=== PATIENT | female | born 1940 | race Caucasian/White ===

== ENCOUNTER → 2017-11-27 14:29 | Outpatient (CLI) | payer MEDICARE, OTHER, SELFPAY ==
[2017-11-27 16:04] LABS: Vitamin D,25 Hydroxy 73.6 ng/mL (29.95-100.01)
[2017-11-27 16:13] LABS: ALB/GLOB Ratio 0.8 RATIO (0.9-2.4); AST(SGOT) 17 U/L (15-37); Alanine Aminotransfer ALT/SGPT 17 U/L (13-56); Albumin, Serum 3.3 g/dL (3.2-5.0); Alkaline Phosphatase 86 U/L (45-117); Anion Gap 10 (5-15); BUN 16 mg/dL (7-18); BUN/Creat Ratio 16.9 RATIO (10-20); Calcium,Total 8.7 mg/dL (8.5-10.1); Chloride 102 mmol/L (98-107); Creatinine, Serum 0.95 mg/dL (0.55-1.02); EST Glomerular Filtration Rate 61 mL/min (>60); Est Glom Filt Rate - Afr Amer 74 mL/min (>60); Globulin 4.1 g/dL (2.2-4.2); Glucose 110 mg/dL (74-106); Potassium 3.9 mmol/L (3.5-5.1); Protein, Total 7.4 g/dL (6.4-8.2); Sodium Level 139 mmol/L (136-145); Thyroid Stim Hormone (TSH) 4.36 uIU/mL (0.358-3.74)
== END ==
PROVIDERS: Family Provider Family Medicine; PCP Family Medicine; Visit Provider Internal Medicine Endocrinology, Diabetes & Metabolism
DX: E03.8 Other specified hypothyroidism (principal); E55.9 Vitamin D deficiency, unspecified
CPT/HCPCS: 36415; 80053; 82306; 84443

== ENCOUNTER → 2017-11-29 08:20 | Outpatient (CLI) | payer MEDICARE, OTHER, SELFPAY ==
--- NOTE | 2017-11-29 08:23 | BI_ITS ---
MAMMOGRAPHY - BILATERAL SCREENING REASON FOR EXAM: Female, 77 years old. Routine annual screening examination. PERTINENT HISTORY: Non-contributory. Remote stereotactic breast biopsy. TECHNIQUE: Digital bilateral breast dariel (3D mammographic acquisition) in the CC and MLO projections. 2-D mediolateral oblique (MLO) and craniocaudad (CC) views of both breasts were obtained. CAD: Full Field Digital Mammography with Computer Added Detection was performed. COMPARISON: Comparison is made with prior study dated April 19, 2016 and January 14, 2015. FINDINGS: Breast Composition: There are scattered areas of fibroglandular density. There are no dominant masses or suspicious calcifications. Stable benign-appearing calcifications in the right breast. No other significant abnormalities are identified. There has been no significant change since the prior study. BI/SCREENING MAMM (CAD), BILAT IMPRESSION: Stable bilateral screening mammogram. Yearly follow-up mammogram recommended. (A) ASSESSMENT CATEGORY: BIRADS Category 2: Benign. A letter regarding these results will be sent to the patient by the facility within 30 days. Approximately 10% of breast cancers are not detected by mammography. A normal mammogram should not delay biopsy of a clinically suspicious abnormality. [id number] Electronically Signed: Darrell Astorga MD at 10:07 EDT Tel [phone], Service support ,
--- NOTE | 2017-11-29 08:23 | BI_ITS ---
MAMMOGRAPHY - BILATERAL SCREENING REASON FOR EXAM: Female, 77 years old. Routine annual screening examination. PERTINENT HISTORY: Non-contributory. Remote stereotactic breast biopsy. TECHNIQUE: Digital bilateral breast miquel (3D mammographic acquisition) in the CC and MLO projections. 2-D mediolateral oblique (MLO) and craniocaudad (CC) views of both breasts were obtained. CAD: Full Field Digital Mammography with Computer Added Detection was performed. COMPARISON: Comparison is made with prior study dated April 19, 2016 and January 14, 2015. FINDINGS: Breast Composition: There are scattered areas of fibroglandular density. There are no dominant masses or suspicious calcifications. Stable benign-appearing calcifications in the right breast. No other significant abnormalities are identified. There has been no significant change since the prior study. BI/Bilat Brst Screen Miquel Add-On IMPRESSION: Stable bilateral screening mammogram. Yearly follow-up mammogram recommended. (A) ASSESSMENT CATEGORY: BIRADS Category 2: Benign. A letter regarding these results will be sent to the patient by the facility within 30 days. Approximately 10% of breast cancers are not detected by mammography. A normal mammogram should not delay biopsy of a clinically suspicious abnormality. [id number] Electronically Signed: Darrell Astorga MD at 10:07 EDT Tel [phone], Service support ,
== END ==
PROVIDERS: Family Provider Family Medicine; PCP Family Medicine; Visit Provider Obstetrics & Gynecology Gynecology
DX: Z12.31 Encounter for screening mammogram for malignant neoplasm of breast (principal)
CPT/HCPCS: 77063; 77067

== ENCOUNTER → 2017-12-08 12:28 | Outpatient (CLI) | payer MEDICARE, OTHER, SELFPAY ==
--- NOTE | 2017-12-08 12:31 | US_ITS ---
STUDY: ULTRASOUND TRANSVAGINAL CLINICAL: Female, 77 years old. Vaginal discharge. TECHNIQUE: Transvaginal COMPARISON: None. FINDINGS: Uterus is anteverted and is in midline. Uterus measures 7.5 x 4.7 x 2.2, transabdominally. Endometrial stripe is hyperechoic and fluid distended, measuring 5 mm in thickness. There is a nabothian cyst present. There is a 1.2 cm hypoechoic intramural lesion within the uterine body. Right ovary is visualized, measuring 2.1 x 1.8 x 1.1 cm, transvaginally. No focal lesion. Internal vascular flow on color Doppler imaging. Left ovary is visualized, measuring 1.3 x 1.1 x 0.7 cm, transvaginal. No focal lesion. Internal vascular flow on color Doppler imaging. There is no free fluid in the pelvis. Polycystic ovary disease: No. US/Transvaginal Non- IMPRESSION: 1. Mild fluid distention of the endometrial cavity. 2. 1.2 cm intramural uterine fibroid. Electronically Signed: Arpan Santiago MD at 4:52 EDT Tel , Service support ,
--- NOTE | 2017-12-08 12:31 | US_ITS ---
STUDY: ULTRASOUND TRANSVAGINAL CLINICAL: Female, 77 years old. Vaginal discharge. TECHNIQUE: Transvaginal COMPARISON: None. FINDINGS: Uterus is anteverted and is in midline. Uterus measures 7.5 x 4.7 x 2.2, transabdominally. Endometrial stripe is hyperechoic and fluid distended, measuring 5 mm in thickness. There is a nabothian cyst present. There is a 1.2 cm hypoechoic intramural lesion within the uterine body. Right ovary is visualized, measuring 2.1 x 1.8 x 1.1 cm, transvaginally. No focal lesion. Internal vascular flow on color Doppler imaging. Left ovary is visualized, measuring 1.3 x 1.1 x 0.7 cm, transvaginal. No focal lesion. Internal vascular flow on color Doppler imaging. There is no free fluid in the pelvis. Polycystic ovary disease: No. US/Pelvic (Non ) IMPRESSION: 1. Mild fluid distention of the endometrial cavity. 2. 1.2 cm intramural uterine fibroid. Electronically Signed: Arpan Santiago MD at 4:52 EDT Tel , Service support ,
== END ==
PROVIDERS: Family Provider Family Medicine; PCP Family Medicine; Visit Provider Obstetrics & Gynecology Gynecology
DX: N95.0 Postmenopausal bleeding (principal)
CPT/HCPCS: 76830; 76856

== ENCOUNTER 2018-02-11 14:20 | Emergency (ER) | payer MEDICARE, OTHER, SELFPAY ==
[2018-02-11 14:21] VITALS: BP 198/94; PULSE 99; RESP 18; TEMP 36.2; O2SAT 96; BMI 23.4
[2018-02-11 14:47] VITALS: BP 188/84; PULSE 93; RESP 19; O2SAT 96
--- NOTE | 2018-02-11 15:12 | ED.VISSUMM ---
- ER Visit Summary Date of Service: 02/11/18 Chief Complaint: [] Pressure elevated History of Present Illness: The patient is a 77 F complaining of hypertension. She has chronic hypertension. It was 200/106 at home. She has been feeling stressed and anxious lately. She took a Klonopin prior to coming in which has helped her anxiety. She denies any other feelings except for feeling funny and stressed Physical Examination: [] Vital signs reviewed General: Well-nourished well-developed Head: Normocephalic atraumatic Eyes: Pupils equal round and reactive to light extraocular movements intact ENT: TMs clear no hemotympanum no trauma Neck: Nontender full range of motion Cardiovascular: Regular rate rhythm no murmurs normal S1-S2 Respiratory: No distress clear to auscultation bilaterally chest nontender Abdomen: Soft nontender nondistended normal bowel sounds no masses Back: Nontender no CVA tenderness Extremities: Nontender active range of motion ?4 extremities no trauma Skin: Normal color no trauma Neuro alert oriented cranial nerves II through XII intact normal strength sensation reflexes Test Results: [] Emergency Department Course and Treatment: [] Patient given another dose of Cozaar she only takes 25 mg. She did not want anything further for stress. Resting comfortably. EKG shows sinus rhythm 88. Right bundle branch block noted. Blood pressure recheck after Cozaar is 173/86. I think this will continue to drop. I think most of this is anxiety related she will follow-up as an outpatient Treatment Plan: [] Disposition: [] Impression: [] Hypertension established out of control This note was generated with [employer] dictation software. It may contain incorrect words, spelling, and punctuation that were not noted in review of the chart prior to signing ED Disposition - Plan for ED Patient: Disposition: Home or Assisted Living Chief Complaint: Hypertension Instructions: ED HTN Established Referrals: Jp Henson DO [Primary Care Provider] -
--- NOTE | 2018-02-11 15:17 | EKG12_ITS ---
Test Reason : HYPERTENSION Blood Pressure : / mmHG Vent. Rate : 088 BPM Atrial Rate : 088 BPM P-R Int : 170 ms QRS Dur : 142 ms QT Int : 408 ms P-R-T Axes : 048 -75 063 degrees QTc Int : 493 ms Normal sinus rhythm Right bundle branch block Left anterior fascicular block Bifascicular block Left ventricular hypertrophy with repolarization abnormality Abnormal ECG Confirmed by AREN LIRIANO, SÁNCHEZ ([id number]), visual effects editor KRISTEN DUMONT ([id number]) on 02/14/2018 3:53:38 PM Referred By: JANAE Confirmed By:SÁNCHEZ YOUNGER MD
[2018-02-11] MEDS: Losartan Potassium 25 MG Tablet PO (15:34)
[2018-02-11 16:45] VITALS: BP 155/84; PULSE 74; RESP 20; O2SAT 97
== END 2018-02-11 16:46 | disposition home or self-care (01) ==
PROVIDERS: Emergency Provider Emergency Medicine; Family Provider Family Medicine; PCP Family Medicine
DX: I10 Essential (primary) hypertension (principal); F41.9 Anxiety disorder, unspecified; Z79.899 Other long term (current) drug therapy
CPT/HCPCS: 93005; 99282

== ENCOUNTER → 2018-09-10 10:36 | Outpatient (CLI) | payer MEDICARE, OTHER, SELFPAY ==
[2018-09-10 15:54] LABS: Vitamin D,25 Hydroxy 61.7 ng/mL (29.95-100.01)
[2018-09-10 15:57] LABS: AST(SGOT) 18 U/L (15-37); Alanine Aminotransfer ALT/SGPT 22 U/L (13-56); Albumin, Serum 3.9 g/dL (3.2-5.0); Alkaline Phosphatase 78 U/L (45-117); Anion Gap 10 (5-15); BUN 17 mg/dL (7-18); BUN/Creat Ratio 20.1 RATIO (10-20); Calcium,Total 9.2 mg/dL (8.5-10.1); Chloride 103 mmol/L (98-107); Creatinine, Serum 0.85 mg/dL (0.55-1.02); EST Glomerular Filtration Rate 70 mL/min (>60); Est Glom Filt Rate - Afr Amer 84 mL/min (>60); Globulin 3.9 g/dL (2.2-4.2); Glucose 85 mg/dL (74-106); Potassium 4.2 mmol/L (3.5-5.1); Protein, Total 7.8 g/dL (6.4-8.2); Sodium Level 140 mmol/L (136-145); Thyroid Stim Hormone (TSH) 3.18 uIU/mL (0.358-3.74)
== END ==
PROVIDERS: Family Provider Family Medicine; PCP Family Medicine; Visit Provider Internal Medicine Endocrinology, Diabetes & Metabolism
DX: E03.8 Other specified hypothyroidism (principal); E55.9 Vitamin D deficiency, unspecified
CPT/HCPCS: 36415; 80053; 82306; 84443

== ENCOUNTER → 2018-10-03 15:27 | Outpatient (CLI) | payer MEDICARE, OTHER, SELFPAY | PROVIDERS: Family Provider Family Medicine; PCP Family Medicine; Referring Provider Otolaryngology Otolaryngology/Facial Plastic Surgery; Visit Provider Otolaryngology Otolaryngology/Facial Plastic Surgery | DX: J03.90 Acute tonsillitis, unspecified (principal) | CPT/HCPCS: 87070; 87077; 87186 ==

== ENCOUNTER → 2018-10-15 11:43 | Outpatient (CLI) | payer MEDICARE, OTHER, SELFPAY | PROVIDERS: Family Provider Family Medicine; PCP Family Medicine; Visit Provider Family Medicine | DX: J02.9 Acute pharyngitis, unspecified (principal) | CPT/HCPCS: 87070 ==

== ENCOUNTER → 2019-02-08 | Outpatient (CLI) | payer MEDICARE, OTHER, SELFPAY ==
--- NOTE | 2019-02-08 14:11 | RAD_ITS ---
HISTORY: right foot pain after working in her yard yesterday, pain on top of foot by the 1st mt ADDITIONAL HISTORY: None provided. COMPARISON: None TECHNIQUE: Right foot 3 views Number of images including paperwork: 3 FINDINGS: BONES: No acute fracture. Mineralization appears decreased. JOINTS: No subluxation. Hammertoe deformities. SOFT TISSUES: No distinct foreign body. Soft tissue swelling. RAD/Foot min 3 Views IMPRESSION: No acute osseous abnormality. at 0226 Reported and signed by: Anny Smith MD Electronically Signed: Anny Smith MD at 2:25 EDT Tel , Service support ,
== END | disposition home or self-care (01) ==
LOC: MTRAD 14:08
PROVIDERS: Family Provider Family Medicine; PCP Family Medicine; Referring Provider Family Medicine; Visit Provider Family Medicine
DX: M79.671 Pain in right foot (principal); M10.9 Gout, unspecified
CPT/HCPCS: 73630

== ENCOUNTER → 2019-06-05 08:03 | Outpatient (CLI) | payer MEDICARE, OTHER, SELFPAY ==
[2019-06-05 12:33] LABS: Absolute Lymphocyte Count 1.78 X10^3/uL (0.83-4.51); Absolute Neutrophil Count 3.4 X10^3/uL (2.0-7.7); Basophil# 0.09 X10^3/uL; Basophil% 1.5 % (0-1); Eosinophil# 0.35 X10^3/uL; Eosinophils% 5.7 % (0-5); Hematocrit 44.3 % (37-47); Hemoglobin 13.8 g/dL (12.0-15.0); Lymphocyte # 1.78 X10^3/ul (4.0); Lymphocyte % 28.9 % (19-41); Mean Corp Hgb Conc 31.2 g/dL (32-36); Mean Corpuscular Hgb 29.6 pg (27.0-32.0); Mean Corpuscular Volume 95.1 fL (81-99); Mean Platelet Vol. 11.1 fl (6.2-12.0); Monocyte# 0.58 X10^3/uL; Monocyte% 9.4 % (0-10); NRBC Flagged by Analyzer 0 % (0-5); Neutrophil # 3.35 X10^3/uL (2.7-7.7); Neutrophil % 54.3 % (47-70); Platelet Count 294 K/mm3 (150-450); RBC Distribution Width CV 12.5 % (11.6-14.6); RBC Distribution Width SD 43.6 fl (35.1-43.9); Red Blood Count 4.66 M/mm3 (4.2-5.4); White Blood Count 6.2 K/mm3 (4.4-11.0)
[2019-06-05 12:44] LABS: Anion Gap 9 (5-15); BUN 16 mg/dL (7-18); BUN/Creat Ratio 19.8 RATIO (10-20); Calcium,Total 9.3 mg/dL (8.5-10.1); Chloride 104 mmol/L (98-107); Creatinine, Serum 0.81 mg/dL (0.55-1.02); EST Glomerular Filtration Rate 73 mL/min (>60); Est Glom Filt Rate - Afr Amer 88 mL/min (>60); Glucose 86 mg/dL (74-106); Potassium 4.3 mmol/L (3.5-5.1); Sodium Level 139 mmol/L (136-145)
== END ==
PROVIDERS: Family Provider Family Medicine; PCP Family Medicine; Visit Provider Ophthalmology
DX: H25.812 Combined forms of age-related cataract, left eye (principal); I10 Essential (primary) hypertension
CPT/HCPCS: 36415; 80048; 85025

== ENCOUNTER 2019-08-15 21:00 | Emergency (ER) | payer MEDICARE, OTHER, SELFPAY ==
[2019-08-15 21:02] VITALS: BP 154/96; PULSE 90; RESP 18; TEMP 36.8; O2SAT 94; BMI 22.8
--- NOTE | 2019-08-15 21:59 | EKG12_ITS ---
Test Reason : CP Blood Pressure : / mmHG Vent. Rate : 096 BPM Atrial Rate : 096 BPM P-R Int : 136 ms QRS Dur : 140 ms QT Int : 396 ms P-R-T Axes : 000 -70 073 degrees QTc Int : 500 ms Sinus rhythm with occasional Premature ventricular complexes Left axis deviation Right bundle branch block Left ventricular hypertrophy with repolarization abnormality Abnormal ECG Confirmed by AREN LIRIANO, SÁNCHEZ ([id number]), editor magazine ALLISON MAURICE ([id number]) on 08/19/2019 11:36:09 AM Referred By: MILAN Confirmed By:SÁNCHEZ YOUNGER MD
--- NOTE | 2019-08-15 22:00 | RAD_ITS ---
STUDY: X-RAY - ABDOMEN/PELVIS REASON FOR EXAM: Female, 78 years old. Constipation. TECHNIQUE: Two AP supine views of the abdomen and pelvis. COMPARISON: None. FINDINGS: Normal visualized lung bases. There is a moderate amount of colonic fecal material. There is no demonstrated free abdominal air. The visualized liver, spleen and kidneys are grossly normal in size and morphology. Normal soft tissue structures. Normal visualized osseous structures. RAD/Abd Inc Decub and/or Erect IMPRESSION: No evidence of acute abdominal process with noted prominent ascending colonic stool. Electronically Signed: Khoa Broussard DO at 22:52 EST , Service support ,
[2019-08-15] MEDS: 0.9% Normal Saline 1,000 ML 150 ML IV (22:24)
[2019-08-15 22:33] LABS: Absolute Lymphocyte Count 2.11 X10^3/uL (0.83-4.51); Absolute Neutrophil Count 5.9 X10^3/uL (2.0-7.7); Basophil# 0.06 X10^3/uL; Basophil% 0.7 % (0-1); Eosinophil# 0.26 X10^3/uL; Eosinophils% 2.9 % (0-5); Hematocrit 44.1 % (37-47); Hemoglobin 14.4 g/dL (12.0-15.0); Lymphocyte # 2.11 X10^3/ul (4.0); Lymphocyte % 23.4 % (19-41); Mean Corp Hgb Conc 32.7 g/dL (32-36); Mean Corpuscular Hgb 30.3 pg (27.0-32.0); Mean Corpuscular Volume 92.6 fL (81-99); Monocyte# 0.66 X10^3/uL; Monocyte% 7.3 % (0-10); NRBC Flagged by Analyzer 0 % (0-5); Neutrophil # 5.89 X10^3/uL (2.7-7.7); Neutrophil % 65.4 % (47-70); Platelet Count 282 K/mm3 (150-450); RBC Distribution Width CV 12.4 % (11.6-14.6); RBC Distribution Width SD 42.2 fl (35.1-43.9); Red Blood Count 4.76 M/mm3 (4.2-5.4)
[2019-08-15 22:51] LABS: Anion Gap 7 (5-15); BUN 17 mg/dL (7-18); BUN/Creat Ratio 16.7 RATIO (10-20); Chloride 103 mmol/L (98-107); Creatinine, Serum 1.02 mg/dL (0.55-1.02); EST Glomerular Filtration Rate 56 mL/min (>60); Est Glom Filt Rate - Afr Amer 68 mL/min (>60); Estimated Creatinine Clearance 37.11 ml/min; Glucose 112 mg/dL (74-106); Sodium Level 138 mmol/L (136-145)
--- NOTE | 2019-08-15 23:54 | ED.VISSUMM ---
- ER Visit Summary Date of Service: 08/15/19 Chief Complaint: [Constipation] History of Present Illness: The patient is a 78 F [presents to the emergency department with complaint of feeling constipated. Patient states she has not had a good bowel movement in over 3 days. Patient had an issue with constipation in 2013 when she had had a bowel movement in 19 days. Patient states that she has been eating a lot of cheese lately. She denies any change in medications. She does not take narcotic pain medications. She denies any abdominal pain. Patient states that tonight she took some MiraLAX that she had mixed in some water and about an hour later started having a lot of discomfort in her chest that radiated through to her back. She described a tightness. She denies any radiation of the discomfort into her arm or neck or jaw. She denied any shortness of breath with it or diaphoresis. Patient however became concerned and presents to the ER for evaluation. She currently states that her symptoms have resolved. She denies any exertional dyspnea leading up to today. Patient states that she is very active. She is never had any heart issues. Patient does have history of hypertension and history of anxiety.] Physical Examination: [HEENT-PERRLA, EOMI. Cranial nerves II through XII grossly intact. TMs clear. Mucous membranes moist. No adenopathy. Cardiovascular-regular rate and rhythm without murmur or ectopy Lungs-clear to auscultation, chest wall stable without crepitus or subcu emphysema Abdomen-normoactive bowel sounds, soft, nontender, no rebound or rigidity, no peritoneal signs. Rectal exam-no rectal impaction noted. No significant stool noted in the rectal vault. No masses palpated. Extremities-intact ?4, normal range of motion, normal pulses, atraumatic] Test Results: [EKG obtained arrival shows sinus rhythm with a ventricular rate of 96 bpm with occasional PVCs noted. Patient had a right bundle branch block noted. When compared with prior EKG from February 11, 2018 no significant changes noted. CBC with differential was normal. Chemistries normal. Troponin was 0.026.] KUB obtained showed moderate stool throughout the colon without evidence of obstruction. Emergency Department Course and Treatment: [Patient had an IV line established and was given normal saline on arrival.] Treatment Plan: [Shared medical decision making-results were discussed with patient and her . I discussed with them that I was unclear as to the etiology of her chest discomfort or although it does seem atypical to be cardiac. Patient states that she has had similar type discomfort in the past when she goes outside in the cold air. I discussed possible admission for further cardiac work-up however she is comfortable going home and her agrees that they can return if symptoms return although to him this did not seem like a cardiac issue. Patient also in agreement that she is comfortable going home with return if symptoms should return. Patient has a heart score of 3. Patient will be given a bottle of magnesium citrate for her constipation. She is advised to continue with the MiraLAX. Patient advised to return if worsening of abdominal pain, vomiting, or condition should worsen anyway] Disposition: [Discharged home in stable condition ] Impression: [Constipation Chest pain-etiology uncertain-resolved] This note was generated with [employer] dictation software. It may contain incorrect words, spelling, and punctuation that were not noted in review of the chart prior to signing ED Disposition - Plan for ED Patient: Referrals: Jp Henson DO [Primary Care Provider] -
--- NOTE | 2019-08-16 00:01 | ED.DEP ---
ED Disposition - Plan for ED Patient: Instructions: CONSTIPATION (Adult), CHEST PAIN, Uncertain Cause Referrals: Jp Henson DO [Primary Care Provider] - 3-5 Days Meño Green MD [STAFF PHYSICIAN] - 3-5 Days
[2019-08-16] MEDS: Magnesium Citrate 300 ML PO (00:14)
[2019-08-16 00:17] VITALS: BP 144/61; PULSE 79; RESP 16; O2SAT 79
== END 2019-08-16 00:17 | disposition home or self-care (01) ==
PROVIDERS: Emergency Provider Emergency Medicine; Family Provider Family Medicine; PCP Family Medicine
DX: K59.00 Constipation, unspecified (principal); R07.9 Chest pain, unspecified; I10 Essential (primary) hypertension; F41.9 Anxiety disorder, unspecified; Z79.899 Other long term (current) drug therapy
CPT/HCPCS: 74019; 80048; 84484; 85025; 93005; 96360; 96361; 99283; J7030; A4216

== ENCOUNTER 2019-08-21 18:37 | Emergency (ER) | payer MEDICARE, OTHER, SELFPAY ==
[2019-08-21 18:39] VITALS: BP 168/99; PULSE 91; RESP 16; TEMP 36.6; O2SAT 96; BMI 22.4
--- NOTE | 2019-08-21 19:04 | EKG12_ITS ---
Test Reason : ANXIETY Blood Pressure : / mmHG Vent. Rate : 091 BPM Atrial Rate : 091 BPM P-R Int : 172 ms QRS Dur : 132 ms QT Int : 410 ms P-R-T Axes : 047 -75 069 degrees QTc Int : 504 ms Normal sinus rhythm Left axis deviation Right bundle branch block Left ventricular hypertrophy with repolarization abnormality Possible Lateral infarct , age undetermined Abnormal ECG Confirmed by JANINA LIRIANO, VICENTE ([id number]), city editor KRISTEN DUMONT ([id number]) on 08/23/2019 10:34:04 AM Referred By: MANDI Confirmed By:KETTY ROA MD
--- NOTE | 2019-08-21 19:08 | ED.VISSUMM ---
- ER Visit Summary Date of Service: 08/21/19 Chief Complaint: Dizziness, weakness, palpitations History of Present Illness: The patient is a 78 F who presents with dizziness, weakness, and palpitations that began today. Patient states she is feeling anxious because of her diarrhea. Patient was seen here 6 days ago for constipation. Patient was given a bottle of magnesium citrate. Patient states she has been having multiple loose and watery stools since that time. Patient states she feels like she has some tightness in her chest, abdomen, and back. Patient also felt like her heart was racing. Patient feels weak and dizzy. Patient denies any nausea or vomiting. Physical Examination: Vital signs are stable. Patient is afebrile. Patient is in no acute distress. Oral mucosa is pink and moist. Neck is supple. Trachea is midline. There is no JVD. Heart was regular rate and rhythm. Lungs are clear and equal bilaterally. Abdomen is soft. Bowel sounds are normal. There is no tenderness. Cranial nerves II through XII are intact. There are no focal motor or sensory deficits noted. Patient does have an anxious mood. Test Results: EKG showed a normal sinus rhythm with a rate of 91. There is a right bundle branch block. There is left ventricular hypertrophy noted. This was unchanged compared to previous EKG dated 08/15/2019. CBC, basic metabolic profile, and troponin were obtained and were essentially within normal limits. PA and lateral chest x-ray was obtained. There is no acute cardiopulmonary process. This was interpreted by the radiologist and myself. Emergency Department Course and Treatment: Patient states her pain returned while she was here in the emergency department. Repeat EKG was obtained. This was unchanged compared to previous EKG. A delta troponin was obtained. Patient was given a dose of Vistaril. Patient was feeling better after this. Patient states she still felt like she was bloated and gassy. Patient was given a dose of simethicone here. Patient is feeling better on reevaluation. Repeat delta troponin was still within normal limits. Patient was instructed to use [id number] simethicone as needed. Patient was instructed to follow-up with her primary care physician in 5 to 7 days. Patient and family understood and were agreeable with the plan. All questions were answered. Disposition: Discharge home Impression: 1. Chest pain 2. Anxiety This note was generated with [employer] dictation software. It may contain incorrect words, spelling, and punctuation that were not noted in review of the chart prior to signing ED Disposition - Plan for ED Patient: Disposition: Home or Assisted Living Diagnosis: Chest pain, Anxiety disorder Instructions: Anxiety Reaction, CHEST PAIN, Uncertain Cause Referrals: Jp Henson DO [Primary Care Provider] - 3-5 Days
[2019-08-21] MEDS: 0.9% Normal Saline 1,000 ML 1000 ML IV (19:37)
--- NOTE | 2019-08-21 19:52 | RAD_ITS ---
STUDY: X-RAY CHEST REASON FOR EXAM: Female, 78 years old. WEAKNESS, ANXIETY -- WITH DIARRHEA SINCE MONDAY TECHNIQUE: PA and lateral views of the chest. COMPARISON: September 20, 2013 FINDINGS: There is no new focal consolidation. Normal size heart. Normal mediastinum and angel. Normal visualized pulmonary arteries. There is atherosclerotic calcification of the aortic arch with tortuosity. Normal visualized thoracic spine. Normal visualized ribs, clavicles, and shoulders. There is no demonstrated abnormality of the visualized soft tissue structures of the upper abdomen. RAD/Chest PA and Lateral IMPRESSION: No acute cardiopulmonary process. Electronically Signed: Kendra Robbins MD at 20:05 EST Tel , Service support ,
[2019-08-21 20:04] LABS: Absolute Lymphocyte Count 1.84 X10^3/uL (0.83-4.51); Basophil# 0.08 X10^3/uL; Eosinophil# 0.23 X10^3/uL; Hematocrit 44.8 % (37-47); Hemoglobin 14.6 g/dL (12.0-15.0); Lymphocyte # 1.84 X10^3/ul (4.0); Mean Corp Hgb Conc 32.6 g/dL (32-36); Mean Corpuscular Hgb 30.2 pg (27.0-32.0); Mean Corpuscular Volume 92.8 fL (81-99); Mean Platelet Vol. 10.8 fl (6.2-12.0); Monocyte# 0.49 X10^3/uL; Monocyte% 6.4 % (0-10); NRBC Flagged by Analyzer 0 % (0-5); Neutrophil # 5.01 X10^3/uL (2.7-7.7); Neutrophil % 65.3 % (47-70); Platelet Count 280 K/mm3 (150-450); RBC Distribution Width CV 12.4 % (11.6-14.6); RBC Distribution Width SD 42.3 fl (35.1-43.9); Red Blood Count 4.83 M/mm3 (4.2-5.4); White Blood Count 7.7 K/mm3 (4.4-11.0)
[2019-08-21 20:39] VITALS: BP 146/80; PULSE 86; RESP 24; O2SAT 98
[2019-08-21 20:41] LABS: BUN 14 mg/dL (7-18); Creatinine, Serum 1.13 mg/dL (0.55-1.02); Glucose 108 mg/dL (74-106)
[2019-08-21 20:42] LABS: Anion Gap 6 (5-15); BUN/Creat Ratio 12.4 RATIO (10-20); Calcium,Total 9.9 mg/dL (8.5-10.1); Chloride 106 mmol/L (98-107); EST Glomerular Filtration Rate 50 mL/min (>60); Est Glom Filt Rate - Afr Amer 60 mL/min (>60); Potassium 4.7 mmol/L (3.5-5.1); Sodium Level 141 mmol/L (136-145)
--- NOTE | 2019-08-21 20:57 | EKG12_ITS ---
Test Reason : CP Blood Pressure : / mmHG Vent. Rate : 085 BPM Atrial Rate : 085 BPM P-R Int : 184 ms QRS Dur : 134 ms QT Int : 418 ms P-R-T Axes : 072 -72 -17 degrees QTc Int : 497 ms Normal sinus rhythm Left axis deviation Right bundle branch block Minimal voltage criteria for LVH, may be normal variant Abnormal ECG Confirmed by JANINA LIRIANO, VICENTE ([id number]), telegraph editor KRISTEN DUMONT ([id number]) on 08/23/2019 10:34:17 AM Referred By: MANDI Confirmed By:KETTY ROA MD
[2019-08-21] MEDS: hydrOXYzine 50 MG/ML Vial 25 MG IM (21:09)
[2019-08-21 21:12] VITALS: BP 156/74; PULSE 85; RESP 19; O2SAT 98
--- NOTE | 2019-08-21 21:12 | ED.RN ---
pt reports a decrease in chest/back pain after passing gas.
[2019-08-21 23:20] VITALS: BP 126/84; PULSE 69; RESP 18; O2SAT 96
--- NOTE | 2019-08-21 23:50 | NURSING ---
DR RODRIGUEZ AWARE THAT TROPONIN INCREASED. OK W/DC.
== END 2019-08-21 23:43 | disposition home or self-care (01) ==
PROVIDERS: Emergency Provider Emergency Medicine; Family Provider Family Medicine; PCP Family Medicine
DX: F41.9 Anxiety disorder, unspecified (principal); R07.89 Other chest pain; I45.10 Unspecified right bundle-branch block; I11.9 Hypertensive heart disease without heart failure; Z79.899 Other long term (current) drug therapy
CPT/HCPCS: 71046; 80048; 84484; 85025; 93005; 96360; 96361; 96372; 99285; J7030; A4216

== ENCOUNTER → 2019-08-23 13:33 | Outpatient (CLI) | payer MEDICARE, OTHER, SELFPAY ==
[2019-08-21 18:39] VITALS: BMI 22.4
--- NOTE | 2019-08-23 13:36 | RAD_ITS ---
STUDY: X-RAY - ABDOMEN/PELVIS REASON FOR EXAM: Female, 78 years old. patient complains of constipation, bloating, pain TECHNIQUE: Two AP supine views of the abdomen and pelvis. COMPARISON: None. FINDINGS: Normal visualized lung bases. There is a moderate to abundant amount of colonic fecal material. There is no demonstrated free abdominal air. The visualized liver, spleen and kidneys are grossly normal in size and morphology. Normal soft tissue structures. There are diffuse degenerative changes of the visualized lumbar spine. Degenerative disease of bilateral hips noted. RAD/Abdomen Single View IMPRESSION: Moderate to abundant fecal debris within the colon which may be seen with constipation. Electronically Signed: Viviana Boyce MD at 1:30 EST , Service support ,
== END ==
PROVIDERS: Family Provider Family Medicine; PCP Family Medicine; Referring Provider Family Medicine; Visit Provider Family Medicine
DX: K59.00 Constipation, unspecified (principal)
CPT/HCPCS: 74018

== ENCOUNTER 2019-08-29 10:15 | Observation (INO) | payer MEDICARE, OTHER, SELFPAY ==
[2019-08-29] VITALS (10 sets, daily range): BP systolic 131–194; BP diastolic 68–107; PULSE 75–103; RESP 14–19; TEMP 36.4–37.1; O2SAT 93–97; BMI 22.6; BMI 22.8
--- NOTE | 2019-08-29 10:31 | EKG12_ITS ---
Test Reason : CP Blood Pressure : / mmHG Vent. Rate : 103 BPM Atrial Rate : 103 BPM P-R Int : 142 ms QRS Dur : 138 ms QT Int : 376 ms P-R-T Axes : 069 -71 095 degrees QTc Int : 492 ms Sinus tachycardia Right bundle branch block Left anterior fascicular block Bifascicular block Left ventricular hypertrophy with repolarization abnormality Abnormal ECG Confirmed by AREN LIRIANO, SÁNCHEZ ([id number]), editor index ALLISON MAURICE ([id number]) on 09/02/2019 12:26:47 PM Referred By: Qasim Nath Confirmed By:SÁNCHEZ YOUNGER MD
--- NOTE | 2019-08-29 10:31 | RAD_ITS ---
STUDY: X-RAY CHEST REASON FOR EXAM: Female, 79 years old. PT C/O CHEST PAIN THAT RADIATES INTO HER BACK ALONG WITH CONSTIPATION. TECHNIQUE: Single AP portable view of the chest. COMPARISON: 08/21/2019 FINDINGS: Poor inspiration with bibasilar atelectasis. There is no demonstrated pleural abnormality. Normal size heart. Normal mediastinum and angel. Normal visualized pulmonary arteries. Normal visualized aortic arch and descending thoracic aorta. Normal visualized thoracic spine. Normal visualized ribs, clavicles, and shoulders. There is no demonstrated abnormality of the visualized soft tissue structures of the upper abdomen. RAD/Chest 1 View (Portable) IMPRESSION: Poor inspiration with some bibasilar atelectasis. Electronically Signed: Meño Campa MD at 11:00 EST Tel , Service support ,
--- NOTE | 2019-08-29 10:42 | ED.DCSUM_ITS ---
- ER Visit Summary Date of Service: 08/29/19 Chief Complaint: Chest pain History of Present Illness: The patient is a 79 F presenting with chest pain. This was related. States this started this morning. She was sitting in her car and started having midsternal chest pain radiating through to her back. She got out and walked and states the pain continued. She had associated shortness of breath. She denies nausea or diaphoresis. She states she was seen in the ED twice in July and had chest pain on those visits. At that time she was also constipated and was unsure if that was related. She states today she was not constipated and had a normal bowel movement. She denies abdominal pain. Denies vomiting. Denies fever. Denies other complaints. Physical Examination: Vitals are stable. Patient is afebrile. Alert no acute distress. HEENT exam is unremarkable. Neck is supple. Lungs are clear and equal bilaterally. Heart is regular rate and rhythm. Abdomen is soft nontender nondistended. Extremities are unremarkable. Skin is warm and dry. No focal neurologic deficit. Remainder of exam is unremarkable. Emergency Department Course and Treatment: Patient was given aspirin. EKG is sinus tachycardia rate of 102 with right bundle branch block, LVH, similar to previous. Chest x-ray shows atelectasis. CBC, chemistries unremarkable other than BUN 20. Troponin is negative. On reevaluation she is chest pain-free. Discussed with the hospitalist for admission. Disposition: Observation Impression: Chest pain This note was generated with [employer] dictation software. It may contain incorrect words, spelling, and punctuation that were not noted in review of the chart prior to signing ED Disposition - Plan for ED Patient: Referrals: Jp Henson DO [Primary Care Provider] -
[2019-08-29 10:56] LABS: Absolute Lymphocyte Count 2.43 X10^3/uL (0.83-4.51); Absolute Neutrophil Count 4.3 X10^3/uL (2.0-7.7); Basophil# 0.09 X10^3/uL; Basophil% 1.2 % (0-1); Eosinophil# 0.22 X10^3/uL; Eosinophils% 2.9 % (0-5); Hematocrit 44.8 % (37-47); Hemoglobin 14.7 g/dL (12.0-15.0); Lymphocyte # 2.43 X10^3/ul (4.0); Lymphocyte % 31.9 % (19-41); Mean Corp Hgb Conc 32.8 g/dL (32-36); Mean Corpuscular Hgb 30.4 pg (27.0-32.0); Mean Corpuscular Volume 92.6 fL (81-99); Mean Platelet Vol. 10.8 fl (6.2-12.0); Monocyte# 0.57 X10^3/uL; Monocyte% 7.5 % (0-10); NRBC Flagged by Analyzer 0 % (0-5); Neutrophil # 4.29 X10^3/uL (2.7-7.7); Neutrophil % 56.2 % (47-70); Platelet Count 267 K/mm3 (150-450); RBC Distribution Width CV 12.2 % (11.6-14.6); RBC Distribution Width SD 41.7 fl (35.1-43.9); Red Blood Count 4.84 M/mm3 (4.2-5.4); White Blood Count 7.6 K/mm3 (4.4-11.0)
[2019-08-29 11:10] LABS: Anion Gap 7 (5-15); BUN 20 mg/dL (7-18); Calcium,Total 9.6 mg/dL (8.5-10.1); Chloride 105 mmol/L (98-107); Creatinine, Serum 0.91 mg/dL (0.55-1.02); EST Glomerular Filtration Rate 64 mL/min (>60); Est Glom Filt Rate - Afr Amer 77 mL/min (>60); Estimated Creatinine Clearance 40.95 ml/min; Glucose 96 mg/dL (74-106); Potassium 4.5 mmol/L (3.5-5.1); Sodium Level 139 mmol/L (136-145)
[2019-08-29] MEDS: Aspirin 81 MG TAB.CHEW 324 MG PO (11:17)
--- NOTE | 2019-08-29 11:22 | NURSING ---
DR THAIS LUCERO
--- NOTE | 2019-08-29 11:25 | NURSING ---
PCU OBS CP THAIS
--- NOTE | 2019-08-29 11:30 | PCM.HP.STD ---
Problem List (1) Chest pain Status: Acute (2) Anxiety disorder Status: Chronic (3) Hypertension Status: Chronic (4) Intractable constipation Status: Chronic History of Present Illness Date of Admission: 08/29/19 Chief Complaint: Chest pain The patient is a 79 year old F with past medical history segment for depression with anxiety, essential hypertension who presents with chest pain. Patient symptoms have been recurrent for the past couple of weeks he had been seen in the emergency department 2 previous times during the last month. On each visit her chest pain was attributed to noncardiac causes and discharged. She presented this time with discomfort which she described as tightness radiating up her chest into her neck. Developed some nausea but denied any vomiting. She was seen in the emergency department her initial work-up was unremarkable however given the recurrent nature of her symptoms she was admitted to a monitored bed for further management Past Medical History Past Medical History (Chronic Problems): Chronic Problems Intractable constipation (Chronic) Anxiety disorder (Chronic) Hypertension (Chronic) Allergies Penicillins Allergy (Unknown, Verified 02/11/18 14:23) Other amlodipine besylate [From Norvasc] Allergy (Verified 02/11/18 14:23) Other INCREASED BLOOD PRESSURE, CAN'T STAND WITHOUT HOLDING ONTO SOMETHING atenolol Allergy (Verified 08/29/19 10:17) Other INCREASED BP AND INSTABILITY buspirone HCl [From BuSpar] Allergy (Verified 08/29/19 10:17) Other INCREASED ANXIETY citalopram hydrobromide [From Celexa] Allergy (Verified 08/29/19 10:17) Other INCREASED ANXIETY diazepam [From Valium] Allergy (Verified 08/29/19 10:17) Other INCREASED ANXIETY hydrochlorothiazide [From Zestoretic] Allergy (Verified 08/29/19 10:17) Other BALANCE lisinopril [From Zestoretic] Allergy (Verified 08/29/19 10:17) Other BALANCE metoprolol succinate [From Toprol XL] Allergy (Verified 08/29/19 10:17) Other BALANCE mirtazapine [From Remeron] Allergy (Verified 08/29/19 10:17) Other END UP IN ER FROM TOO STRONG paroxetine HCl [From Paxil] Allergy (Verified 08/29/19 10:17) Other ANXIETY procaine HCl [From Novocain] Allergy (Verified 08/29/19 10:17) Other RAPID HR Sulfa (Sulfonamide Antibiotics) Allergy (Verified 08/15/19 21:04) Other ENDED UP IN ED valsartan [From Diovan] Allergy (Verified 08/15/19 21:04) Other Home Medications: Ambulatory Orders Medication Instructions Recorded Clonazepam [Klonopin] 0.25 mg PO Q8H PRN PRN 09/20/13 Escitalopram Oxalate [Lexapro] 5 mg PO DAILY 09/20/13 Losartan Potassium [Cozaar] 25 mg PO DAILY 09/20/13 Lisinopril 2.5 mg PO DAILY 08/15/19 Calcium Polycarbophil [Fiber Tabs] 625 mg PO DAILY 08/29/19 Surgical History: appendectomy, cholecystectomy, herniorrhaphy Psychiatric 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 Denies: Abdominal Pain, Hematemesis, Hematochezia, Melena, Vomiting Genitourinary: Denies: Dysuria, Frequency, Hematuria, Urgency Musculoskeletal: Denies: Joint Pain, Joint Tenderness Skin: Denies: Rash Neurological: Denies: Focal weakness, Numbness, Tingling Psychiatric: Reports: Anxiety Hematologic/ Lymphatic: Denies: Easy Bruising, Easy Bleeding VTE Information - Inpt Only VTE Present on Admission: No VTE Mechan Device Prophylaxis: None VTE Pharm Prophylaxis ordered?: Yes Patient Problems: Active and Suspected Problems Chest pain (Acute) Objective: GENERAL: cooperative HEENT: Atraumatic; EYES; Anicteric, Normal Conjunctiva NECK; supple, normal thyroid, RESPIRATORY: Diminished to auscultation CARDIOVASCULAR: Regular S1 S2, GI: soft, normoactive bowel sounds, : No Renal angle tenderness; EXTREMITIES: No edema, no clubbing, MUSCULOSKELETAL: no muscle waisting NEURO: Awake; no lateralizing signs. SKIN: No Rash PSYCH; Flat affect - Physical Exam Vitals/I&O's: Vital Signs Temp Pulse Resp BP Pulse Ox 97.6 F L 103 H 19 H 194/107 H 94 08/29/19 10:17 08/29/19 10:17 08/29/19 10:17 08/29/19 10:17 08/29/19 11:17 Oxygen Delivery Method Nasal Cannula Weight: 56.245 kg Body Mass Index (BMI) 22.6 Laboratory Results 08/29/19 01:04: WBC 7.6, RBC 4.84, Hgb 14.7, Hct 44.8, MCV 92.6, MCH 30.4, MCHC 32.8, RDW Std Deviation 41.7, RDW Coeff of Thor 12.2, Plt Count 267, MPV 10.8, Immature Gran % (Auto) 0.300, Neut % (Auto) 56.2, Lymph % (Auto) 31.9, [place] % (Auto) 7.5, Eos % (Auto) 2.9, Baso % (Auto) 1.2 H, Absolute Neuts (auto) 4.3, Absolute Lymphs (auto) 2.43, Nucleated RBC % 0 08/29/19 01:04: Sodium 139, Potassium 4.5, Chloride 105, Carbon Dioxide 27.0, Anion Gap 7, BUN 20 H, Creatinine 0.91, Estim Creat Clear Calc 40.95, Est GFR (MDRD) Af Amer 77, Est GFR (MDRD) Non-Af 64, BUN/Creatinine Ratio 22.0 H, Glucose 96, Calcium 9.6, Troponin I < 0.015 Current Medications Clonazepam (Klonopin) 0.25 mg PO Q8H PRN PRN PRN Reason: ANXIETY Lisinopril (Zestril) 2.5 mg PO DAILY [facility] Losartan Potassium (Cozaar) 25 mg PO DAILY [facility] Non-Formulary Medication (Escitalopram Oxalate [Lexapro]) 5 mg PO DAILY [facility] Assessment/Plan All Active Problems Chest pain (Acute) Is a 79-year-old lady presented with chest pain 1. Chest pain ?Admitted to monitored bed with plans to rule out [place] with serial cardiac enzymes. Patient went to undergo a male nuclear stress test in a.m. if WA is ruled out 2. Hypertension ~ blood pressure controlled, home medications continued with dose adjustment as needed 3. Anxiety disorder ?Patient is on Paxil in addition to Klonopin did continue 4. DVT prophylaxis ~ on enoxaparin Advance planning; did discuss with the patient and family (patient's daughter and ) regarding advanced directives as well as CODE STATUS. Did explain the various scenarios involved ( FULL CODE, DNR CCA, DNR CCA with no intubation, and DNR CC and what each meant) patient elected to remain full code with intubation and CPR if warranted. Order was placed. Time spent on discussion 18 minutes. Code Visit OBSV E&M: 76211 Initial observation care L3 Procedures: 44100 Prolonged Physician INPT
--- NOTE | 2019-08-29 12:08 | ECHOD_ITS ---
Version 2 Reason For Study: CHEST PAIN Procedure This was a 2D Doppler, Color Flow transthoracic echocardiogram. The study was technically difficult. Exam performed portable in patient room. Left Ventricle Normal LV size. Left ventricular systolic function is normal. The estimated ejection fraction is 55 %. Stage 1 diastolic dysfunction. No regional wall motion abnormalities noted. Right Ventricle Normal RV size. Normal systolic function. Atria Normal left atrium. Normal right atrium. Mitral Valve Normal mitral valve. Tricuspid Valve Normal tricuspid valve. Mild (1+) tricuspid valve insufficiency. Pulmonary artery systolic pressure is 28 mmHg. Aortic Valve Normal aortic valve. Pulmonic Valve Normal pulmonic valve. Great Vessels Normal aortic root. The pulmonary artery is normal size. Normal inferior vena cava. Pericardium/Pleural No pericardial effusion. MMode/2D Measurements & Calculations LVIDd: 3.4 cm IVSd: 0.89 cm Ao root diam: 3.4 cm LVIDs: 2.9 cm LVPWd: 0.95 cm RVDd: 2.7 cm FS: 12.2 % LAV(MOD-bp): 31.1 ml LA A4 area: 11.6 cm2 LA dimension(2D): 3.1 cm LAV(MOD-bp) Indexed: 19.9 ml/m2 LAV(MOD-sp2): 34.2 ml LAV(MOD-sp4): 24.2 ml RA A4 area: 8.4 cm2 Time Measurements MV dec time: 0.18 sec Doppler Measurements & Calculations MV E max justin: 62.7 cm/sec Lat Peak E' Justin: 7.4 cm/sec Med Peak E' Justin: 4.6 cm/sec MV A max justin: 115.6 cm/sec E/E' lat: 8.5 E/E' med: 13.5 MV E/A: 0.54 Ao V2 max: 96.1 cm/sec LV V1 max: 80.1 cm/sec TR max justin: 245.1 cm/sec Ao max P.7 mmHg LV V1 max P.6 mmHg TR max P.5 mmHg Interpretation Summary Normal LV size. Left ventricular systolic function is normal. The estimated ejection fraction is 55 %. Mild (1+) tricuspid valve insufficiency. Stage 1 diastolic dysfunction. Structurally normal valves. Ordering Physician: WHITNEY JONES Referring Physician: Qasim Nath Performed By: Herminia Durham, ESPINOZA, RVT
[2019-08-29 12:30] LABS: D-Dimer Quantitative (DVT/PE) 0.57 FEU/ug/m (0.27-0.49)
--- NOTE | 2019-08-29 12:33 | CT_ITS ---
STUDY: CTA CHEST REASON FOR EXAM: Female, 79 years old. CP X 2 WEEKS RADIATION DOSAGE (If Supplied By Facility): CTDIvol = ( 5.78 ) mGy, DLP = ( 169.78 ) mGycm TECHNIQUE: The examination was performed with the intravenous administration of 75ML SOVUE 370. Post-processing of the angiographic images was performed, with multiplanar reformation and 3D reconstruction. Individualized dose optimization techniques were used for this CT. COMPARISON: None. FINDINGS: Normal enhancement of the main pulmonary artery and right and left pulmonary arteries. Normal enhancement of the bilateral peripheral pulmonary arteries. There is no demonstrated pulmonary embolism. Normal thoracic aorta and visualized great vessels. There is no demonstrated aortic dissection. Normal heart and pericardium. Normal mediastinum. Normal hilar regions. Normal visualized trachea and bronchi. The lungs are well expanded. 1 cm noncalcified nodule in the perihilar right upper lobe on image 135 and correlation with PET CT scan is recommended. Normal pleura. Normal chest wall structures. Normal osseous structures. Normal visualized upper abdomen. CT/CTA Chest W/WO Contrast IMPRESSION: 1. Normal CTA chest examination, without a demonstrated pulmonary embolism or arterial dissection. 2. 1 cm noncalcified right upper lobe nodule and correlation with PET CT scan is recommended to Electronically Signed: Meño Campa MD at 14:35 EST Tel , Service support ,
[2019-08-29 12:46] LABS: BNP,B-Type NATRIURETIC PEPTIDE 20.2 pg/mL (0-100)
[2019-08-29 12:47] LABS: Thyroid Stim Hormone (TSH) 4.17 uIU/mL (0.358-3.74)
[2019-08-29] MEDS: clonazePAM 0.5 MG Tablet 0.25 MG PO ×2 (16:20→22:35)
--- NOTE | 2019-08-29 17:35 | NURSING ---
This RN received report from Benita Gonzalez RN. Will be taking over care for pt at this time.
[2019-08-29] MEDS: Lisinopril 5 MG Tablet PO (21:40)
[2019-08-30] VITALS (18 sets, daily range): BP systolic 79–151; BP diastolic 59–116; PULSE 63–99; RESP 16–99; TEMP 36.4–36.7; O2SAT 23–99
--- NOTE | 2019-08-30 05:55 | EKG12_ITS ---
Test Reason : AM EKG Blood Pressure : / mmHG Vent. Rate : 070 BPM Atrial Rate : 070 BPM P-R Int : 184 ms QRS Dur : 140 ms QT Int : 462 ms P-R-T Axes : 059 -71 -52 degrees QTc Int : 498 ms Normal sinus rhythm Right bundle branch block Left anterior fascicular block Bifascicular block T wave abnormality, consider inferior ischemia Abnormal ECG When compared with ECG of 29-AUG-2019 12:34, MANUAL COMPARISON REQUIRED, DATA IS UNCONFIRMED Confirmed by AREN LIRIANO, SÁNCHEZ ([id number]), scientific editor ALLISON MAURICE ([id number]) on 09/03/2019 9:08:49 AM Referred By: Qasim Nath Confirmed By:SÁNCHEZ YOUNGER MD
[2019-08-30] MEDS: Lisinopril 5 MG Tablet PO (06:02)
[2019-08-30 06:07] LABS: Absolute Lymphocyte Count 2.24 X10^3/uL (0.83-4.51); Absolute Neutrophil Count 3.6 X10^3/uL (2.0-7.7); Basophil# 0.09 X10^3/uL; Basophil% 1.3 % (0-1); Eosinophils% 4.4 % (0-5); Hematocrit 43.8 % (37-47); Hemoglobin 13.9 g/dL (12.0-15.0); Lymphocyte # 2.24 X10^3/ul (4.0); Lymphocyte % 33.2 % (19-41); Mean Corp Hgb Conc 31.7 g/dL (32-36); Mean Corpuscular Hgb 29.3 pg (27.0-32.0); Mean Corpuscular Volume 92.2 fL (81-99); Mean Platelet Vol. 11.1 fl (6.2-12.0); Monocyte% 7.4 % (0-10); NRBC Flagged by Analyzer 0 % (0-5); Neutrophil # 3.61 X10^3/uL (2.7-7.7); Neutrophil % 53.6 % (47-70); Platelet Count 277 K/mm3 (150-450); RBC Distribution Width CV 12.4 % (11.6-14.6); RBC Distribution Width SD 42.4 fl (35.1-43.9); Red Blood Count 4.75 M/mm3 (4.2-5.4); White Blood Count 6.8 K/mm3 (4.4-11.0)
[2019-08-30 06:34] LABS: Anion Gap 6 (5-15); BUN 20 mg/dL (7-18); BUN/Creat Ratio 22.9 RATIO (10-20); Calcium,Total 8.6 mg/dL (8.5-10.1); Chloride 106 mmol/L (98-107); Creatinine, Serum 0.87 mg/dL (0.55-1.02); EST Glomerular Filtration Rate 67 mL/min (>60); Est Glom Filt Rate - Afr Amer 81 mL/min (>60); Estimated Creatinine Clearance 42.83 ml/min; Glucose 98 mg/dL (74-106); Potassium 4.3 mmol/L (3.5-5.1); Sodium Level 138 mmol/L (136-145)
--- NOTE | 2019-08-30 10:09 | PN_ITS ---
Patient Problems: Active and Suspected Problems Chest pain (Acute) Reason for Visit: Follow-up chest pain Subjective: Patient underwent nuclear stress test which was positive for stress-induced ischemia consult subsequently placed to Dr. Dejesus with cardiology. Objective: GENERAL: cooperative HEENT: Atraumatic; EYES; Anicteric, Normal Conjunctiva NECK; supple, normal thyroid, RESPIRATORY: Diminished to auscultation CARDIOVASCULAR: Regular S1 S2, GI: soft, normoactive bowel sounds, : No Renal angle tenderness; EXTREMITIES: No edema, no clubbing, MUSCULOSKELETAL: no muscle waisting NEURO: Awake; no lateralizing signs. SKIN: No Rash PSYCH; Flat affect Vitals/I&O's: Vital Signs Temp Pulse Resp BP Pulse Ox 97.7 F L 74 16 129/71 H 95 08/30/19 06:00 08/30/19 06:56 08/30/19 06:00 08/30/19 06:00 08/30/19 08:05 Oxygen Delivery Method Room Air Weight: 56.6 kg Body Mass Index (BMI) 22.8 Intake and Output for Last 24 Hours 08/28/19 08/29/19 08/30/19 23:59 23:59 23:59 Intake Total 840 / 840 Balance 840 / 840 Laboratory Results 08/29/19 10:45: WBC 7.6, RBC 4.84, Hgb 14.7, Hct 44.8, MCV 92.6, MCH 30.4, MCHC 32.8, RDW Std Deviation 41.7, RDW Coeff of Thor 12.2, Plt Count 267, MPV 10.8, Immature Gran % (Auto) 0.300, Neut % (Auto) 56.2, Lymph % (Auto) 31.9, [place] % (Auto) 7.5, Eos % (Auto) 2.9, Baso % (Auto) 1.2 H, Absolute Neuts (auto) 4.3, Absolute Lymphs (auto) 2.43, Nucleated RBC % 0 08/29/19 10:45: Sodium 139, Potassium 4.5, Chloride 105, Carbon Dioxide 27.0, Anion Gap 7, BUN 20 H, Creatinine 0.91, Estim Creat Clear Calc 40.95, Est GFR (MDRD) Af Amer 77, Est GFR (MDRD) Non-Af 64, BUN/Creatinine Ratio 22.0 H, Glucose 96, Calcium 9.6, Troponin I < 0.015 08/29/19 10:45: TSH 4.17 H 08/29/19 10:45: B-Natriuretic Peptide 20.2 08/29/19 10:45: D-Dimer Quant (PE/DVT) 0.57 H* 08/29/19 14:07: Troponin I 0.018 08/29/19 16:55: Troponin I 0.018 08/30/19 05:21: Sodium 138, Potassium 4.3, Chloride 106, Carbon Dioxide 26.0, Anion Gap 6, BUN 20 H, Creatinine 0.87, Estim Creat Clear Calc 42.83, Est GFR (MDRD) Af Amer 81, Est GFR (MDRD) Non-Af 67, BUN/Creatinine Ratio 22.9 H, Glucose 98, Calcium 8.6 08/30/19 05:21: WBC 6.8, RBC 4.75, Hgb 13.9, Hct 43.8, MCV 92.2, MCH 29.3, MCHC 31.7 L, RDW Std Deviation 42.4, RDW Coeff of Thor 12.4, Plt Count 277, MPV 11.1, Immature Gran % (Auto) 0.100, Neut % (Auto) 53.6, Lymph % (Auto) 33.2, [place] % (Auto) 7.4, Eos % (Auto) 4.4, Baso % (Auto) 1.3 H, Absolute Neuts (auto) 3.6, Absolute Lymphs (auto) 2.24, Nucleated RBC % 0 Current Medications Acetaminophen (Tylenol) 650 mg PO Q6H PRN PRN PRN Reason: Pain Score 1-3/Temp > 100.7 F Al Hydroxide/Mg Hydroxide (Mylanta Ii) 30 ml PO Q6H PRN PRN PRN Reason: Gastric Burning Albuterol Sulfate (Ventolin Aerosols) 2.5 mg INHALATION Q2H PRN PRN PRN Reason: SOB/Wheezing Clonazepam (Klonopin) 0.25 mg PO Q8H PRN PRN PRN Reason: ANXIETY Last Admin: 08/29/19 22:35 Dose: 0.25 mg Documented by: Enoxaparin Sodium (Lovenox) 40 mg SC DAILY [facility] Last Admin: 01/03/20 06:02 Dose: Not Given Documented by: Escitalopram Oxalate (Lexapro) 5 mg PO DAILY [facility] Guaifenesin (Robitussin) 20 ml PO Q4H PRN PRN PRN Reason: COUGH Sodium Chloride () 250 mls @ 15 mls/hr IV .[id number] PRN PRN Reason: Saline Flush Sodium Chloride () 250 mls @ 15 mls/hr IV .[id number] PRN PRN Reason: Additional IVPB Infusion Lisinopril (Zestril) 5 mg PO BID [facility] Last Admin: 08/30/19 06:02 Dose: 5 mg Documented by: Magnesium Hydroxide (Milk Of Magnesia) 30 ml PO DAILY PRN PRN PRN Reason: Constipation Melatonin (Melatonin) 3 mg PO QHS PRN PRN PRN Reason: INSOMNIA Nitroglycerin (Nitrostat) 0.4 mg SUBLINGUAL Q5M PRN PRN Reason: CARDIAC/CHEST PAIN Ondansetron HCl (Zofran) 4 mg IV Q8H PRN PRN PRN Reason: NAUSEA/VOMITING Oxycodone HCl (Oxyir) 5 mg PO Q4H PRN PRN PRN Reason: Pain Score 4-5/10 Oxycodone HCl (Oxyir) 10 mg PO Q4H PRN PRN PRN Reason: Pain Score 6-10/10 Promethazine HCl (Phenergan) 25 mg IM Q6H PRN PRN PRN Reason: Breakthrough Nausea/Vomiting Sodium Chloride () 10 - 40 ml IV UD PRN PRN Reason: SALINE FLUSH STROKE Vital Signs/Narrative: Vital Signs Pulse Pulse Ox 08/30/19 08:05 95 08/30/19 06:56 74 Medical Necessity - Tobacco Use Smoking Status: Never smoker Assessment/Plan All Active Problems Chest pain (Acute) Patient is a 79-year-old lady presented with chest pain 1. Chest pain ?Admitted to monitored bed to rule out with serial cardiac enzymes. Patient underwent nuclear stress test which was positive for stress-induced ischemia consult subsequently placed to Dr. Dejesus with cardiology. 2. Hypertension ~ blood pressure controlled, home medications continued with dose adjustment as needed 3. Anxiety disorder ?Patient is on Paxil in addition to Klonopin did continue 4. DVT prophylaxis ~ on enoxaparin Code Visit OBSV E&M: 07760 Subsequent observation care L3
--- NOTE | 2019-08-30 10:13 | STRESSREP ---
Stress Test Report Pharmacologic stress myocardial perfusion. 79-year-old lady with a history of chest pain. Stress protocol: Resting EKG demonstrates normal sinus rhythm with a rate of 108 bpm right bundle branch block is noted. 0.4 mg of regadenoson was infused per usual protocol followed by rapid intravenous saline flush injection continuous EKG monitoring was performed. Occasional premature ventricular complexes were noted. The patient maintained sinus rhythm throughout the recording. The maximum heart rate was 129 bpm which was 90% of maximum predicted heart rate the maximum workload was 1 metabolic equivalent. At rest there were no significant changes noted to suggest abnormal flow reserve. The resting blood pressure was 144/78 with a final blood pressure of 148/80. Peak blood pressure was 174/88. Myocardial perfusion protocol. 12.0 mCi of technetium 99m sestamibi was injected at rest. 0.4 mg of regadenoson was infused per usual protocol peak infusion 33.8 mCi of technetium 99 sestamibi was injected stress images were obtained stress and rest images were reconstructed in comparing the short axis vertical long horizontal long axis. Gated images were also obtained for Perfusion SPECT analysis: Review of the stress images demonstrate normal uptake of tracer noted in all areas of myocardium except for the apex on the stress images with reduced perfusion. The resting images demonstrate improved perfusion. The above is suggestive of apical ischemia. Gated SPECT analysis: The gated ejection fraction is 68%. Conclusion: Abnormal pharmacologic myocardial perfusion stress test with evidence of apical ischemia. Preserved ejection fraction.
--- NOTE | 2019-08-30 10:22 | CON.PCM_ITS ---
Reason for Consult Date of Consultation: 08/30/19 Reason for Consultation: Chest pain History of Present Illness: The patient is a 79 year old F with a past medical history significant for hypertension who presents to the emergency room with chest discomfort. She is rather vague about her description on this. Of interest is the fact that she has presented on 2 previous occasions within the last 3 months with chest discomfort. She described this as a heaviness and radiating to her back. She says she had a similar episode when she had the stress test for which she was scheduled. She has had no dizziness or diaphoresis no near syncope or syncope. She has been compliant with her medications. She does have a significant history of anxiety as well. She underwent a pharmacologic stress test this morning which demonstrated evidence of apical ischemia and cardiology was con sulted. [] Past Medical History Allergies/Adverse Reactions: Allergies amlodipine besylate [From Norvasc] Allergy (Verified 02/11/18 14:23) Other INCREASED BLOOD PRESSURE, CAN'T STAND WITHOUT HOLDING ONTO SOMETHING atenolol Allergy (Verified 08/29/19 10:17) Other INCREASED BP AND INSTABILITY buspirone HCl [From BuSpar] Allergy (Verified 08/29/19 10:17) Other INCREASED ANXIETY citalopram hydrobromide [From Celexa] Allergy (Verified 08/29/19 10:17) Other INCREASED ANXIETY diazepam [From Valium] Allergy (Verified 08/29/19 10:17) Other INCREASED ANXIETY hydrochlorothiazide [From Zestoretic] Allergy (Verified 08/29/19 10:17) Other BALANCE lisinopril [From Zestoretic] Allergy (Verified 08/29/19 13:01) Other BALANCE metoprolol succinate [From Toprol XL] Allergy (Verified 08/29/19 10:17) Other BALANCE mirtazapine [From Remeron] Allergy (Verified 08/29/19 10:17) Other END UP IN ER FROM TOO STRONG paroxetine HCl [From Paxil] Allergy (Verified 08/29/19 10:17) Other ANXIETY procaine HCl [From Novocain] Allergy (Verified 08/29/19 10:17) Other RAPID HR Sulfa (Sulfonamide Antibiotics) Allergy (Verified 08/29/19 13:01) Other racing HR valsartan [From Diovan] Allergy (Verified 01/02/20 13:01) Other balance Penicillins Adverse Reaction (Unknown, Verified 08/29/19 13:01) Other headache, malaise Home Medications: Ambulatory Orders Medication Instructions Recorded Clonazepam [Klonopin] 0.25 mg PO Q8H PRN PRN 09/20/13 Escitalopram Oxalate [Lexapro] 5 mg PO DAILY 09/20/13 Lisinopril 5 mg PO BID 08/15/19 Calcium Polycarbophil [Fiber Tabs] 625 mg PO DAILY 08/29/19 Cholecalciferol (Vitamin D3) 5,000 unit PO 1700 08/29/19 [Vitamin D3] Past Medical History (Chronic Problems): Chronic Problems Intractable constipation (Chronic) Anxiety disorder (Chronic) Hypertension (Chronic) Surgical History: appendectomy, cholecystectomy, herniorrhaphy Psychiatric History: Anxiety ON SITE COORDINATOR History: No pertinent ON SITE COORDINATOR history - *Family History Maternal History Items: - - Patient was adopted at 2 weeks after has no knowledge of her biological parents Smoking Status: Never smoker Alcohol: None Drugs: None Review of Systems - Review of Systems General: Denies: Fever, Night Sweats, Fatigue HEENT: Denies: Vision Change Cardiovascular: Reports: Chest Discomfort, Chest Discomfort at Rest. Denies: Shortness of Breath, Orthopnea, PND, Peripheral Edema, Palpitations, Lightheadedness, Dizziness, Near Syncope, Syncope Respiratory: Denies: Cough, Sputum Production, Hemoptysis Gastrointestinal: Denies: Hematemesis, Hematochezia, Melena Genitourinary: Denies: Dysuria, Hematuria Skin: Denies: Rash Subjectve: Pleasant lady in no distress rather tearful and anxious Objective: Vital Signs Temp Pulse Resp BP Pulse Ox 97.7 F L 74 16 129/71 H 95 08/30/19 06:00 08/30/19 06:56 08/30/19 06:00 08/30/19 06:00 08/30/19 08:05 Oxygen Delivery Method Room Air Weight: 124 lb 12.506 oz Body Mass Index (BMI) 22.8 Intake and Output for Last 24 Hours 08/28/19 08/29/19 08/30/19 23:59 23:59 23:59 Intake Total 840 / 840 Balance 840 / 840 General: Awake, Alert, Oriented x 3 HEENT: PERRL, EOMI, Sclera Non Icteric Neck: Supple, Good ROM, No Lymph Node Enlargement Lungs: Clear to auscultation Cardiovascular: Regular Rhythm, Normal S1, Normal S2, No Murmurs, No Rubs, No Gallops Vascular: No Carotid Bruits, Normal Femoral Pulses, Normal Radial Pulses, Normal Dorsalis Pedal Pulse, Normal Posterior Tibial Pulses Abdomen: Bowel Sounds Present, Soft, Non Tender, No HSM, No Organomegaly Extremities: No Cyanosis, No Clubbing, No edema Musculoskeletal: No Erythema Skin: No Rashes Lymphatic: No Lymph Node Enlargement Neurological: No Focal Motor or Sensory Deficit Psych/Mental Status: Appropriate 08/29/19 10:45: WBC 7.6, RBC 4.84, Hgb 14.7, Hct 44.8, MCV 92.6, MCH 30.4, MCHC 32.8, Plt Count 267, MPV 10.8, Immature Gran % (Auto) 0.300, Neut % (Auto) 56.2, Lymph % (Auto) 31.9, [place] % (Auto) 7.5, Eos % (Auto) 2.9, Baso % (Auto) 1.2 H, Absolute Neuts (auto) 4.3, Nucleated RBC % 0 08/29/19 10:45: Sodium 139, Potassium 4.5, Chloride 105, Carbon Dioxide 27.0, Anion Gap 7, BUN 20 H, Creatinine 0.91, Est GFR (MDRD) Af Amer 77, Est GFR (MDRD) Non-Af 64, BUN/Creatinine Ratio 22.0 H, Glucose 96, Calcium 9.6, Troponin I < 0.015 08/29/19 10:45: B-Natriuretic Peptide 20.2 08/29/19 10:45: D-Dimer Quant (PE/DVT) 0.57 H* 08/29/19 14:07: Troponin I 0.018 08/29/19 16:55: Troponin I 0.018 08/30/19 05:21: Sodium 138, Potassium 4.3, Chloride 106, Carbon Dioxide 26.0, Anion Gap 6, BUN 20 H, Creatinine 0.87, Est GFR (MDRD) Af Amer 81, Est GFR (MDRD) Non-Af 67, BUN/Creatinine Ratio 22.9 H, Glucose 98, Calcium 8.6 08/30/19 05:21: WBC 6.8, RBC 4.75, Hgb 13.9, Hct 43.8, MCV 92.2, MCH 29.3, MCHC 31.7 L, Plt Count 277, MPV 11.1, Immature Gran % (Auto) 0.100, Neut % (Auto) 53.6, Lymph % (Auto) 33.2, [place] % (Auto) 7.4, Eos % (Auto) 4.4, Baso % (Auto) 1.3 H, Absolute Neuts (auto) 3.6, Nucleated RBC % 0 Rhythm: EKG: Normal sinus rhythm with an incomplete right bundle branch block ECHO: Stress Test: Evidence of apical ischemia Cardiac Cath: PCI: CT Surgery: Holter monitor: EPS: PPM: CXR: Chest CT Scan: Assessment/Plan 1. Chest pain * Patient presents with chest pain and underwent a stress test which demonstrated evidence of apical ischemia. Though she has some features which are atypical I would recommend that due to her recurrent presentation we pursue a cardiac catheterization. The risk benefits alternatives have been explained to her she understands and agrees to proceed. Depending on the findings further recommendations will be made. * 2. Hypertension * Her blood pressure appears to be under good control at this particular time and I would not recommend that we make any other changes. * * Thank you for allowing me to participate in the care of your patient. Please don't hesitate to call if any issues arise * Addendum. Cardiac catheterization today demonstrated the following: Normal left main coronary artery. Left anterior descending artery with mid 95% stenosis Left circumflex artery with mild disease. Dominant right coronary artery with 30% long stenosis. Preserved ejection fraction. Based on the above angiographic findings I would recommend the patient to undergo PCI of the LAD bifurcating into the diagonal.
--- NOTE | 2019-08-30 11:31 | CL.D_ITS ---
Patient Name: SHERYL GHOSH Study Date: 08/30/2019 Performing: Manfred Dejesus MD Ht: 61.81 inches 157 cm : 1940 Wt: 125.66 lbs 57 kg Age: 79 Gender: female BSA: 1.57 PROCEDURE(S) PERFORMED [id number]/LV CLINICAL PROFILE AND INDICATIONS Indications: Suspected CAD Heart Failure: None Stress/Imaging Date: 08/30/2019Stress Test with SPECT MPI: Positive Intermediate Risk CONCLUSIONS Mid LAD 95% stenosis at the bifurcation of a diagonal vessel. Mild disease noted in the left anterio r descending artery and moderate disease in the proximal right coronary artery RECOMMENDATIONS Referred for immediate PCI DESCRIPTION OF PROCEDURE The patient arrived to the procedure lab. The risks and benefits of the procedure as well as a full d escription of our services here and current unavailability of surgical backup were fully explained to the patient and/or their significant other prior to the catheterization. The Timeout was completed, verifying the correct patient and procedure. The patient's procedural site was prepped and draped in the usual fashion. Local anesthetic was given subcutaneously to right radial region with Lidocaine 2% . Local anesthetic was given subcutaneously to right groin region with Lidocaine 2%. Using a modified Seldinger technique, arterial access was obtained via the right radial artery, a 6Fr sheath was inse rted., arterial access was obtained via the right femoral artery, a 5Fr sheath was inserted. Left Co ronary Artery selective angiography was performed in multiple views using a 5 Fr. JL4 catheter. Right Coronary Artery selective angiography was then performed in multiple views using a 5 Fr. 3DRC (Chao) catheter. Left Ventriculography was performed in ACEVES projection using a 5 Fr. Pigtail catheter. LV to AO pullback pressures were then recorded. CORONARY ANGIOGRAPHY DOMINANCE: Right Dominant LEFT HEART ASSESSMENT Left Ventricular Ejection Fraction: by LV Gram 60 % Normal LV wall motion Normal Left Ventricular systolic function LEFT MAIN: Mild calcification, Angiographically normal CIRCUMFLEX ARTERY: Angiographically normal RIGHT CORONARY ARTERY: PROX RCA: Moderate luminal irregularities up to 50% COMPLICATIONS PROCEDURE MEDICATIONS Versed 1 mg IV Fentanyl 50 mcg IV Versed 1 mg IV Oxygen: 2 L/min via nasal cannula Baby Aspirin (81mg) 1 Tabs PO @ 08/30/2019 10:40:41 Heparin 2000 unit(s) IV 08/30/2019 11:27:11 SUMMARY OF HEMODYNAMIC DATA Time AIR REST ECG 10:38:59 AO 81/58 (67) SA 10:58:23 AO 97/55 (73) 11:03:37 AO 130/64 (86) 11:10:26 LV 136/3, 6 11:16:36 LV 132/3, 7 11:16:43 LV 142/-6, 13 11:17:27 LVp 137/-6, 13 11:17:34 AOp 135/53 (84) 11:17:39 Signed By Manfred Dejesus MD On 08/30/2019 11:31:05 Manfred Dejesus MD
[2019-08-30 13:25] LABS: ACT Activated Clotting Time 158 sec (74-137)
--- NOTE | 2019-08-30 13:45 | EKG12_ITS ---
Test Reason : Blood Pressure : / mmHG Vent. Rate : 074 BPM Atrial Rate : 074 BPM P-R Int : 182 ms QRS Dur : 136 ms QT Int : 428 ms P-R-T Axes : 051 -67 -09 degrees QTc Int : 475 ms Normal sinus rhythm Left axis deviation Right bundle branch block T wave abnormality, consider lateral ischemia Abnormal ECG When compared with ECG of 21-AUG-2019 21:10, No significant change was found Confirmed by AREN LIRIANO, SÁNCHEZ ([id number]), editor farm journal ALLISON MAURICE ([id number]) on 09/03/2019 9:19:31 AM Referred By: Qasim Nath Confirmed By:SÁNCHEZ YOUNGER MD
--- NOTE | 2019-08-30 14:21 | PCM.CONS.PUL ---
Reason for Consult Date of Consultation: 08/30/19 Reason for Consultation: Lung nodule History of Present Illness: The patient is a 79-year-old female, with a history as outlined below, who presented to the emergency department with complaints of chest pain. The patient is a lifelong non-smoker. She reports overall stability in both her weight and appetite. She denies the presence of shortness of breath, chest tightness, wheezing or cough. On presentation to the emergency department, the patient was noted to be afebrile and hypertensive with a blood pressure of 194/107. Laboratory evaluation revealed no evidence of a leukocytosis. D-dimer was elevated to 0.57. Chemistry profile was unremarkable. A CTA chest was subsequently obtained which revealed no evidence for pulmonary embolism. There was incidental note of a 1 cm right upper lobe lung nodule, which appeared to be perihilar in location. The patient was subsequently evaluated by cardiology and taken to the [facility] where she underwent successful PCI with drug-eluting stent placement to the mid LAD. The patient is currently resting comfortably in bed and has no complaints of chest pain. Past Medical History Past Medical History (Chronic Problems): Chronic Problems (Last Updated 08/30/19 @ 12:11 by Becca Gomez) Right bundle branch block (RBBB) (Chronic) 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 (Chronic) Essential (primary) hypertension (Chronic) Medical History: Medical History (Last Updated 08/30/19 @ 12:11 by Becca Gomez) Right bundle branch block (RBBB) (Chronic) I45.10 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 (Chronic) I25.10 Essential (primary) hypertension (Chronic) I10 Chest pain (Acute) R07.9 Anxiety disorder F41.9 Intractable constipation K59.00 Allergies amlodipine besylate [From Norvasc] Allergy (Verified 02/11/18 14:23) Other INCREASED BLOOD PRESSURE, CAN'T STAND WITHOUT HOLDING ONTO SOMETHING atenolol Allergy (Verified 08/29/19 10:17) Other INCREASED BP AND INSTABILITY buspirone HCl [From BuSpar] Allergy (Verified 08/29/19 10:17) Other INCREASED ANXIETY citalopram hydrobromide [From Celexa] Allergy (Verified 08/29/19 10:17) Other INCREASED ANXIETY diazepam [From Valium] Allergy (Verified 08/29/19 10:17) Other INCREASED ANXIETY hydrochlorothiazide [From Zestoretic] Allergy (Verified 08/29/19 10:17) Other BALANCE lisinopril [From Zestoretic] Allergy (Verified 08/29/19 13:01) Other BALANCE metoprolol succinate [From Toprol XL] Allergy (Verified 08/29/19 10:17) Other BALANCE mirtazapine [From Remeron] Allergy (Verified 08/29/19 10:17) Other END UP IN ER FROM TOO STRONG paroxetine HCl [From Paxil] Allergy (Verified 08/29/19 10:17) Other ANXIETY procaine HCl [From Novocain] Allergy (Verified 08/29/19 10:17) Other RAPID HR Sulfa (Sulfonamide Antibiotics) Allergy (Verified 08/29/19 13:01) Other racing HR valsartan [From Diovan] Allergy (Verified 08/29/19 13:01) Other balance Penicillins Adverse Reaction (Unknown, Verified 08/29/19 13:01) Other headache, malaise Home Medications: Ambulatory Orders Medication Instructions Recorded Clonazepam [Klonopin] 0.25 mg PO Q8H PRN PRN 09/20/13 Escitalopram Oxalate [Lexapro] 5 mg PO DAILY 09/20/13 Lisinopril 5 mg PO BID 08/15/ Calcium Polycarbophil [Fiber Tabs] 625 mg PO DAILY 08/29/19 Cholecalciferol (Vitamin D3) 5,000 unit PO 1700 08/29/19 [Vitamin D3] Surgical History: Surgical History (Last Updated 08/30/19 @ 12:10 by Becca Gomez) History of appendectomy Z90.49 History of cholecystectomy Z90.49 History of herniorrhaphy Z98.890, Z87.19 Surgical History: appendectomy, cholecystectomy, herniorrhaphy Psychiatric 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 Smoking Status: Never smoker Alcohol: None Drugs: None - *Family History Maternal Family History: Family History (Last Updated 08/30/19 @ 12:10 by Becca Gomez) Other Adopted History Items: - - Patient was adopted at 2 weeks after has no knowledge of her biological parents Review of Systems Constitutional: Denies: Chills, Fever Eyes: Denies: Blurred vision, Double vision HEENT: Denies: Head Aches, Sinus Congestion, Sinus Drainage Cardiovascular: Reports: Chest Pain Respiratory: Denies: Cough, Shortness of breath at rest, Sputum production Gastrointestinal: Denies: Abdominal Pain, Nausea, Vomiting Genitourinary: Denies: Dysuria Musculoskeletal: Denies: Joint Pain, Joint Tenderness Skin: Denies: Rash, Wounds Neurological: Denies: Numbness, Tingling, Focal weakness Psychiatric: Denies: Anxiety, Depression, Homicidal Ideations, Suicidal Ideations Hematologic/ Lymphatic: Denies: Easy Bruising, Easy Bleeding Patient Problems: Active and Suspected Problems (Last Updated 08/30/19 @ 12:11 by Becca Gomez) Chest pain (Acute) Objective: The patient's most recent lab work, culture data and imaging studies have all been personally reviewed. - Physical Exam Vitals/I&O's: Vital Signs Temp Pulse Resp BP Pulse Ox 97.7 F L 92 16 141/77 H 99 08/30/19 06:00 08/30/19 14:03 08/30/19 14:00 08/30/19 14:00 08/30/19 14:00 Oxygen Delivery Method Room Air Weight: 124 lb 12.506 oz Body Mass Index (BMI) 22.8 Intake and Output for Last 24 Hours 08/28/19 08/29/19 08/30/19 23:59 23:59 23:59 Intake Total 840 / 840 Balance 840 / 840 General: Alert, Cooperative, No apparent distress HEENT: Atraumatic, Normocephalic Oral: No Gingival or Mucosal Lesions/ Ulcerations Neck: Supple, No Nodes, Trachea Midline Lungs: Normal air movement, No rhonchi, No wheeze, No rales Cardiovascular: Regular rate, Regular Rhythm, Normal S1, Normal S2 Abdomen: Bowel Sounds Present, Soft Extremities: No clubbing, No cyanosis Skin: No breakdown Musculoskeletal: No Tenderness to Palpation of Joints or Extremities Lymphatic: No Cervical, Supraclavicular, or Inguinal Adenopathy Neurological: Neuro grossly intact Psych/Mental Status: Normal Affect, Appropriate Labs (Last 48 Hours) 08/29/19 08/29/19 08/29/19 10:45 10:45 10:45 WBC 7.6 RBC 4.84 Hgb 14.7 Hct 44.8 MCV 92.6 MCH 30.4 MCHC 32.8 RDW Std Deviation 41.7 RDW Coeff of Thor 12.2 Plt Count 267 MPV 10.8 Immature Gran % (Auto) 0.300 Neut % (Auto) 56.2 Lymph % (Auto) 31.9 [place] % (Auto) 7.5 Eos % (Auto) 2.9 Baso % (Auto) 1.2 H Absolute Neuts (auto) 4.3 Absolute Lymphs (auto) 2.43 Nucleated RBC % 0 Activated Clotting Time D-Dimer Quant (PE/DVT) Sodium 139 Potassium 4.5 Chloride 105 Carbon Dioxide 27.0 Anion Gap 7 BUN 20 H Creatinine 0.91 Estim Creat Clear Calc 40.95 Est GFR (MDRD) Af Amer 77 Est GFR (MDRD) Non-Af 64 BUN/Creatinine Ratio 22.0 H Glucose 96 Calcium 9.6 Troponin I < 0.015 B-Natriuretic Peptide TSH 4.17 H 08/29/19 08/29/19 08/29/19 10:45 10:45 14:07 WBC RBC Hgb Hct MCV MCH MCHC RDW Std Deviation RDW Coeff of Thor Plt Count MPV Immature Gran % (Auto) Neut % (Auto) Lymph % (Auto) [place] % (Auto) Eos % (Auto) Baso % (Auto) Absolute Neuts (auto) Absolute Lymphs (auto) Nucleated RBC % Activated Clotting Time D-Dimer Quant (PE/DVT) 0.57 H* Sodium Potassium Chloride Carbon Dioxide Anion Gap BUN Creatinine Estim Creat Clear Calc Est GFR (MDRD) Af Amer Est GFR (MDRD) Non-Af BUN/Creatinine Ratio Glucose Calcium Troponin I 0.018 B-Natriuretic Peptide 20.2 TSH 08/29/19 08/30/19 08/30/19 16:55 05:21 05:21 WBC 6.8 RBC 4.75 Hgb 13.9 Hct 43.8 MCV 92.2 MCH 29.3 MCHC 31.7 L RDW Std Deviation 42.4 RDW Coeff of Thor 12.4 Plt Count 277 MPV 11.1 Immature Gran % (Auto) 0.100 Neut % (Auto) 53.6 Lymph % (Auto) 33.2 [place] % (Auto) 7.4 Eos % (Auto) 4.4 Baso % (Auto) 1.3 H Absolute Neuts (auto) 3.6 Absolute Lymphs (auto) 2.24 Nucleated RBC % 0 Activated Clotting Time D-Dimer Quant (PE/DVT) Sodium 138 Potassium 4.3 Chloride 106 Carbon Dioxide 26.0 Anion Gap 6 BUN 20 H Creatinine 0.87 Estim Creat Clear Calc 42.83 Est GFR (MDRD) Af Amer 81 Est GFR (MDRD) Non-Af 67 BUN/Creatinine Ratio 22.9 H Glucose 98 Calcium 8.6 Troponin I 0.018 B-Natriuretic Peptide TSH 08/30/19 12:48 WBC RBC Hgb Hct MCV MCH MCHC RDW Std Deviation RDW Coeff of Thor Plt Count MPV Immature Gran % (Auto) Neut % (Auto) Lymph % (Auto) [place] % (Auto) Eos % (Auto) Baso % (Auto) Absolute Neuts (auto) Absolute Lymphs (auto) Nucleated RBC % Activated Clotting Time 158 H D-Dimer Quant (PE/DVT) Sodium Potassium Chloride Carbon Dioxide Anion Gap BUN Creatinine Estim Creat Clear Calc Est GFR (MDRD) Af Amer Est GFR (MDRD) Non-Af BUN/Creatinine Ratio Glucose Calcium Troponin I B-Natriuretic Peptide TSH Clinical Impression(s) from Imaging Studies Chest X-Ray 08/29/19 10:31 IMPRESSION: Poor inspiration with some bibasilar atelectasis. Electronically Signed: Meño Campa MD at 11:00 EST Tel , Service support , Chest CTA 08/29/19 12:33 IMPRESSION: 1. Normal CTA chest examination, without a demonstrated pulmonary embolism or arterial dissection. 2. 1 cm noncalcified right upper lobe nodule and correlation with PET CT scan is recommended to Electronically Signed: Meño Campa MD at 14:35 EST Tel , Service support , Current Medications Acetaminophen (Tylenol) 650 mg PO Q6H PRN PRN PRN Reason: Pain Score 1-3/Temp > 100.7 F Al Hydroxide/Mg Hydroxide (Mylanta Ii) 30 ml PO Q6H PRN PRN PRN Reason: Gastric Burning Albuterol Sulfate (Ventolin Aerosols) 2.5 mg INHALATION Q2H PRN PRN PRN Reason: SOB/Wheezing Atropine Sulfate () 0.5 mg IV UD PRN PRN Reason: HR <50 bpm Clonazepam (Klonopin) 0.25 mg PO Q8H PRN PRN PRN Reason: ANXIETY Last Admin: 08/29/19 22:35 Dose: 0.25 mg Documented by: Enoxaparin Sodium (Lovenox) 40 mg SC DAILY [facility] Last Admin: 08/30/19 06:02 Dose: Not Given Documented by: Escitalopram Oxalate (Lexapro) 5 mg PO DAILY [facility] Last Admin: 08/30/19 14:08 Dose: Not Given Documented by: Guaifenesin (Robitussin) 20 ml PO Q4H PRN PRN PRN Reason: COUGH Heparin Sodium (Beef Lung) (Heparin 500 Unit/5 Ml (100/Ml)) 500 unit IV UD PRN PRN Reason: HEPARIN FLUSH Sodium Chloride () 250 mls @ 15 mls/hr IV .[id number] PRN PRN Reason: Saline Flush Sodium Chloride () 250 mls @ 15 mls/hr IV .[id number] PRN PRN Reason: Additional IVPB Infusion Sodium Chloride () 1,000 mls @ 15 mls/hr IV .Q48H [facility] Last Admin: 08/30/19 14:07 Dose: Not Given Documented by: Sodium Chloride () 1,000 mls @ 100 mls/hr IV .Q10H [facility] Eptifibatide (Integrilin) 75 mg in 100 mls @ 4.528 mls/hr CONT INF .Q22H6M [facility] Stop: 08/31/19 07:00 Lisinopril (Zestril) 5 mg PO BID [facility] Last Admin: 08/30/19 06:02 Dose: 5 mg Documented by: Magnesium Hydroxide (Milk Of Magnesia) 30 ml PO DAILY PRN PRN PRN Reason: Constipation Melatonin (Melatonin) 3 mg PO QHS PRN PRN PRN Reason: INSOMNIA Nitroglycerin (Nitrostat) 0.4 mg SUBLINGUAL Q5M PRN PRN Reason: CARDIAC/CHEST PAIN Ondansetron HCl (Zofran) 4 mg IV Q8H PRN PRN PRN Reason: NAUSEA/VOMITING Oxycodone HCl (Oxyir) 5 mg PO Q4H PRN PRN PRN Reason: Pain Score 4-5/10 Oxycodone HCl (Oxyir) 10 mg PO Q4H PRN PRN PRN Reason: Pain Score 6-10/10 Promethazine HCl (Phenergan) 25 mg IM Q6H PRN PRN PRN Reason: Breakthrough Nausea/Vomiting Sodium Chloride () 10 - 40 ml IV UD PRN PRN Reason: SALINE FLUSH Sodium Chloride () 500 ml IV BOLUS PRN PRN Reason: VASO-VAGAL PROTOCOL Ticagrelor (Brilinta) 90 mg PO BID DEO Assessment/Plan All Active Problems (Last Updated 08/30/19 @ 12:11 by Becca Gomez) Chest pain (Acute) RECOMMENDATIONS: 1. Outpatient pulmonary follow-up within 2 weeks. 2. Obtain PET scan on outpatient basis. 3. Bronchoscopic evaluation may be warranted, depending on the results of her PET scan. IMPRESSIONS: 1. Incidental pulmonary nodule The patient underwent a CTA chest to rule out for pulmonary embolism and was subsequently found to have a 1 cm right perihilar lung nodule. The patient is a lifelong non-smoker. However, given the size of this lesion, I would recommend outpatient pulmonary follow-up so that a PET scan can be completed. If PET scan is found to be positive, further evaluation and direct tissue biopsy can be entertained either by EBUS or navigational bronchoscopy, given its location. The patient will be divided with a date and time for her follow-up appointment. This note was generated with [employer] software. It may contain incorrect words, spelling, and punctuation that were not noted in checking the note before signing. Code Visit Inpatient E&M: 69142 Init Hosp L2
--- NOTE | 2019-08-30 14:41 | CRPHASE1_ITS ---
Patient Communication PHII Cardiac Rehab Discussed with Patient:: Yes Guide to Cardiac Rehab Given to Patient:: Yes Cardiac Rehab Facility Choice List Given to Patient:: Yes Choice Program [facility] PHII:: Communication Given to CR, Refer to [facility] Direct Care Worker:: Ismael Mosqueda Phase II Cardiac Rehab:: Yes Sessions:: 36 sessions - 3 days/wk, 12 weeks Risk Factors/Lifestyle Smoking Status: Never smoker Hx Hypertension: Yes Hx Diabetes Mellitus Type 1: No Hx Diabetes Mellitus Type 2: No Hx Metabolic Disorders: No Hx Dyslipidemia: No Hx Obesity: No Height: 5 ft 2 in - BMI 22.8 Post-Menopausal: Yes Stress: Home/Family Family History: Family History (Last Updated 08/30/19 @ 12:10 by Becca Gomez) Other Adopted Past Cardiac Illness: Coronary Artery Disease Phase I Education Given On:: [place], Nutrition, Antiplatelet medication Issues Affecting Care:: None Knowledge of Condition:: Yes Learning Preferences: Verbal, Written - and daughter at bedside Hospital Course Presenting Symptoms:: abnormal stress Medical/Surgical History OK:: No Angina:: Yes - ABNORMAL STRESS CAD:: Yes Diabetes:: No Hypertension:: No - ESSENTIAL HTN Dyslipidemia:: No Arrhythmias:: No GERD:: No Cancer:: No Depression:: Yes Discharge/Home/Social Eval Discharge Disposition: Home Marital Status: Cardiac Rehabilitation Info Cardiac Rehabilitation Program Information: Cardiac Rehabilitation is important for patients like you who are recovering from a heart problem. Cardiac rehabilitation programs are recognized as integral to the continued care of the patient with coronary heart disease. The cardiac rehabilitation program is designed to optimize a patient's physical, psychological, and social functioning. Health care transitions nurse work in cardiac rehabilitation programs and assist you with getting the treatments you need to get stronger and healthier - like exercise, healthy eating habits, and medications. Cardiac rehabilitation has been show to help people with heart problems live longer and have better life enjoyment than people who do not go to cardiac rehabilitation. Please contact the Cardiac Rehabilitation Program at [facility] at in two weeks if you have not heard from them.
--- NOTE | 2019-08-30 14:44 | CRPH1.INSTRU ---
General Education CAD and cardiac anatomy and function:: Patient communicates acknowledgment - AND DAUGHTER AT BEDSIDE, Family communicates acknowledgment Explanation of diagnoses and procedures:: Patient communicates acknowledgment, Family communicates acknowledgment Sign/Symptoms of OH:: Patient communicates acknowledgment, Family communicates acknowledgment Antiplatelet therapy: Patient communicates acknowledgment, Family communicates acknowledgment Proper use of NTG-SL: Not instructed Emergency procedures and activation of EMS: Patient communicates acknowledgment, Family communicates acknowledgment Compliance of all prescribed medications: Patient communicates acknowledgment, Family communicates acknowledgment Smoking Patient Nicotine/Smoking Risk Factors Are:: Never smoked Dyslipidemia Recommendations Include:: Lipid profile not available, Reviewed NCEP/ATP guidelines, Therapeutic Lifestyle Change dietary guidelines Dyslipidemia Response Code:: Patient communicates acknowledgment, Family communicates acknowledgment Overweight/Obesity Patient Overweight/Obesity Risk Factors Are:: BMI Normal [18-25 & < 65 years old] Overweight/Obesity:: Patient communicates acknowledgment, Family communicates acknowledgment Hypertension Recommendations Include:: Maintain BP <130/85, DASH dietary guidelines, Decrease/maintain normal body weight, Moderation of ETOH Hypertension:: Patient communicates acknowledgment, Family communicates acknowledgment Diabetes Patient Diabetes Risk Factors Are:: No documented hx of diabetes Metabolic Syndrome Recommendations Include:: Does not meet criteria Sedentary Patient Sedentary Risk Factors Are:: Lack of regular exercise Recommendations Include:: Aerobic exercise 5-7 times/week for 20-30 minutes continuously, Benefits of regular exercise, Discussed home walking program, Monitored Outpatient Cardiac Rehab Sedentary Response Code:: Patient communicates acknowledgment, Family communicates acknowledgment Stress Recommendations Include:: Identification of stressors, and assessment of coping skills, Stress management techniques Stress Response Code:: Patient communicates acknowledgment, Family communicates acknowledgment
--- NOTE | 2019-08-30 14:47 | CL.I_ITS ---
Patient Name: SHERYL GHOSH Study Date: 08/30/2019 Performing: Ashley Mosqueda MD Ht: 62 inches 157 cm : 1940 Wt: 125.8 lbs 57 kg Age: 79 Gender: female BSA: 1.57 PROCEDURE(S) PERFORMED [id number] W OR WO PTCA, SINGLE CORONARY ARTERY [id number], EACH ADD'L CORONARY ART, SAME MAJOR CLINICAL PROFILE AND CO-MORBIDITIES Indications: Suspected CAD Heart Failure: None Stress/Imaging Date: 08/30/2019 Stress Test with SPECT MPI: Positive Intermediate Risk CONCLUSIONS Successful PCI with Drug eluting stent and PTCA to the mLAD as described RECOMMENDATIONS DESCRIPTION OF PROCEDURE The patient arrived to the procedure lab. The risks and benefits of the procedure as well as a full d escription of our services here and current unavailability of surgical backup were fully explained to the patient and/or their significant other prior to the catheterization. The Timeout was completed, verifying the correct patient and procedure. The patient's procedural site was prepped and draped in the usual fashion. Local anesthetic was given subcutaneously to right radial region with Lidocaine 2% . Local anesthetic was given subcutaneously to right groin region with Lidocaine 2% Using a modified Seldinger technique,arterial access was obtained via the right radial artery, a 6Fr sheath was insert ed., arterial access was obtained via the right femoral artery, a 5Fr sheath was inserted. Left Coron jaret Artery selective angiography was performed in multiple views using a 5 Fr. JL4 catheter. Right Co ronary Artery selective angiography was then performed in multiple views using a 5 Fr. 3DRC (Chao) catheter. Left Ventriculography was performed in ACEVES projection using a 5 Fr. Pigtail catheter. LV to AO pullback pressures were then recorded.The images were reviewed and options discus sed. A decision was then made to proceed with an Intervention, IVUS or other adjunct procedure. Arterial sheath was exchanged for a 6 Fr Sheath. XB 3.5 Guide catheter was inserted and engaged i nto the LCA. BMW Guide wire was advanced to the LAD. 2.5 x12 Emerge Balloon catheter was inserted. Ba lloon catheter was advanced across lesion in the LAD, mid. PTCA balloon inflated at 6 atms for 19 sec s. 2.5x16 Synergy Drug Eluting stent was inserted. Drug Eluting stent was removed intact, failed to c ross lesion Angiogram performed post balloon dilatation. BMW Guide wire was advanced to the LAD. 1.5x 15 Emerge OTW Balloon catheter was inserted. PTCA balloon inflated at 10 atms for 8 secs. PTCA balloo n inflated at 10 atms for 5 secs. 2.5x16 Synergy Drug Eluting stent was advanced across the lesion in the LAD, mid. Whisper Guide wire was repositioned to the LAD BMW Guide wire was repositioned to the 1st Diagonal Angiogram performed post stent deployment. 1.5x15 Emerge OTW Balloon catheter was insert ed DIAG. PTCA balloon inflated at 9 atms for 20 secs. PTCA balloon inflated at 8 atms for 5 secs. PTCA balloon inflated at 8 atms for 8 secs. Angiogram performed post balloon dilatation. Whis per Guide wire was advanced to the LAD. 1.5x15 Emerge OTW Balloon catheter was advanced across lesion in the LAD, Angiogram performed post. BMW Guide wire was inserted as a sterling wire in the LAD Runthru Guide wire was inserted as a sterling wire in the LAD Angiogram performed. The arterial sheath was pu lled and a TR Band was applied for hemostasis. 15cc air. The arterial sheath was sutured in place and capped INTERVENTION INFORMATION LESION SITE: LAD (Mid) Lesion Complexity: High/C, chronic total occlusion: No, lesion at bifurcation: Yes, thrombus present: No, lesion length: 12 mm, culprit lesion: Yes, Previously treated lesion: No Pre Stenosis: 95 % Pre intervention HADLEY flow: 3 PROCEDURE: Drug Eluting Stent with pre dilatation. There was dissection of the LAD at the site of balloon angioplasty after PTCA. The stent did not cros s initially and the guide became disengaged from the LM during atttempts at stent deployment and we l ost the wire position. The wire was then reinserted past the lesion in the true lumen and we were abl e to deploy a stent covering most of the lesion that we planned we stent. The distal edge of the diss ection couldnt be covered with the stent as the stent did not cross the tortuousity at that location. We tried to sterling wire but it not work. The dissection extended into the diagonal and the vessel was occluded. We were able to insert a whisper wire into this vessel and PTCA restore flow into the diag onal and its superior branch with no flow into the lower branch. The patient had significant CP and b ack pain after the initial PTCA and became symptom free soon after restoring flow into the diagonal. We then tried to advance an OTW into the mid LAD.. The OTW balloon did not cross. We were unable to insert a second wire down the LAD as well. At this time the patient was symptom free and th ere was HADLEY 3 flow into the LAD and diagonal and its superior branch. We felt that it will be better to terminate the procedure at this time and consider gettting a second opinion for the residual dise ase from a center with CABG back up to see if patient will benefit from re attempting fixing the dist al part of the LAD lesion or CABG. Post Stenosis: 40 % Post intervention HADLEY flow: 3 Lesion Devices: Mesfin Sci EMERGE MR 2.50x12 BALLOON Mesfin Sci Synergy MR HERLINDA 2.50x16 Mesfin Sci EMERGE MR 2.00x12 BALLOON Read .014 HT Whisper MS Straight 190cm Mesfin Sci EMERGE OTW 1.50x15 BALLOON Read .014 HT Whisper MS Straight 190cm Mesfin Sci EMERGE MR 2.25x12 BALLOON Terumo .014 Runthrough Extra Floppy 180cm straight LESION SITE: 3rd Diagonal (Ostial) Lesion Devices: Read .014 HT Whisper MS Straight 190cm Mesfin Sci EMERGE OTW 1.50x15 BALLOON COMPLICATIONS No Complications PROCEDURE MEDICATIONS Versed 1 mg IV Fentanyl 50 mcg IV Versed 1 mg IV Fentanyl 50 mcg IV Fentanyl 25 mcg IV Oxygen: 2 L/min via nasal cannula Baby Aspirin (81mg) 1 Tabs PO 08/30/2019 10:40:41 Brilinta 180 mg PO @ 08/30/2019 13:03:14 Heparin 2000 unit(s) IV 08/30/2019 11:27:11 Heparin 1000 unit(s) IV 08/30/2019 12:16:23 Heparin 1000 unit(s) IV 08/30/2019 12:50:50 Nitro 200 mcg IC 08/30/2019 12:34:46 SUMMARY OF HEMODYNAMIC DATA Time AIR REST ECG 10:38:59 AO 81/58 (67) SA 10:58:23 AO 97/55 (73) 11:03:37 AO 130/64 (86) 11:10:26 LV 136/3, 6 11:16:36 LV 132/3, 7 11:16:43 LV 142/-6, 13 11:17:27 LVp 137/-6, 13 11:17:34 AOp 135/53 (84) 11:17:39 Signed By Ashley Mosqueda MD On 08/30/2019 2:46:44 PM Ashley Mosqueda MD
[2019-08-30 15:16] LABS: ACT Activated Clotting Time 142 sec (74-137); Hematocrit 42.6 % (37-47); Hemoglobin 13.9 g/dL (12.0-15.0); Mean Corp Hgb Conc 32.6 g/dL (32-36); Mean Corpuscular Volume 91.8 fL (81-99); Mean Platelet Vol. 10.7 fl (6.2-12.0); Platelet Count 301 K/mm3 (150-450); RBC Distribution Width CV 12.4 % (11.6-14.6); RBC Distribution Width SD 41.5 fl (35.1-43.9); Red Blood Count 4.64 M/mm3 (4.2-5.4); White Blood Count 11.7 K/mm3 (4.4-11.0)
[2019-08-30] MEDS: 0.9% Normal Saline 1,000 ML 100 ML IV (15:18)
[2019-08-30] MEDS: clonazePAM 0.5 MG Tablet 0.25 MG PO (15:48)
--- NOTE | 2019-08-30 16:12 | DCINST_ITS ---
- Discharge Diagnoses Current Active Problems: Current Active and Chronic Problems (Last Updated 08/30/19 @ 12:11 by Becca Gomez) Right bundle branch block (RBBB) (Chronic) 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 (Chronic) Essential (primary) hypertension (Chronic) Chest pain (Acute) You will use the following diet at home:: Cardiac Allergies/Adverse Reactions: Allergies amlodipine besylate [From Norvasc] Allergy (Verified 02/11/18 14:23) Other INCREASED BLOOD PRESSURE, CAN'T STAND WITHOUT HOLDING ONTO SOMETHING atenolol Allergy (Verified 08/29/19 10:17) Other INCREASED BP AND INSTABILITY buspirone HCl [From BuSpar] Allergy (Verified 08/29/19 10:17) Other INCREASED ANXIETY citalopram hydrobromide [From Celexa] Allergy (Verified 08/29/19 10:17) Other INCREASED ANXIETY diazepam [From Valium] Allergy (Verified 08/29/19 10:17) Other INCREASED ANXIETY hydrochlorothiazide [From Zestoretic] Allergy (Verified 08/29/19 10:17) Other BALANCE lisinopril [From Zestoretic] Allergy (Verified 08/29/19 13:01) Other BALANCE metoprolol succinate [From Toprol XL] Allergy (Verified 08/29/19 10:17) Other BALANCE mirtazapine [From Remeron] Allergy (Verified 08/29/19 10:17) Other END UP IN ER FROM TOO STRONG paroxetine HCl [From Paxil] Allergy (Verified 08/29/19 10:17) Other ANXIETY procaine HCl [From Novocain] Allergy (Verified 08/29/19 10:17) Other RAPID HR Sulfa (Sulfonamide Antibiotics) Allergy (Verified 08/29/19 13:01) Other racing HR valsartan [From Diovan] Allergy (Verified 08/29/19 13:01) Other balance Penicillins Adverse Reaction (Unknown, Verified 08/29/19 13:01) Other headache, malaise Medications to take at Discharge Clonazepam [Klonopin] 0.25 mg PO Q8H PRN PRN 09/20/13 Escitalopram Oxalate [Lexapro] 5 mg PO DAILY 09/20/13 Lisinopril 5 mg PO BID 08/15/19 Calcium Polycarbophil [Fiber Tabs] 625 mg PO DAILY 08/29/19 Cholecalciferol (Vitamin D3) [Vitamin D3] 5,000 unit PO 1700 08/29/19 Aspirin [Aspirin EC] 81 mg PO DAILY #30 tablet. 08/30/19 Atorvastatin Calcium [Lipitor] 80 mg PO QHS #30 tablet 08/30/19 Ticagrelor [Brilinta] 90 mg PO BID tablet 08/30/19 The following prescriptions were given: Aspirin [Aspirin EC] 81 mg PO DAILY #30 tablet. Atorvastatin Calcium [Lipitor] 80 mg PO QHS #30 tablet Primary Care Physician: Jp Henson DO [Primary Care Provider] - Please follow up with your Primary Care Physician in: in 1 week Test Results: Test results from this visit will be discussed in further detail at your follow- up appointment, if applicable. Please Follow Up With: Jarett Winchester DO When: Proposed Discharge Date: 08/30/19
--- NOTE | 2019-08-30 16:19 | PCM.DC.SUM ---
Discharge Date and Diagnosis - Problem List Patient Problems: Active and Suspected Problems (Last Updated 08/30/19 @ 12:11 by Becca Gomez) Chest pain (Acute) Date of Admission: 08/29/19 Date of Discharge: 08/30/19 - Primary Discharge Diagnosis Active and Suspected Problems (Last Updated 08/30/19 @ 12:11 by Becca Gomez) Dyspnea secondary to unstable angina pectoralis from coronary artery disease - Secondary Discharge Diagnosis Chronic Problems (Last Updated 08/30/19 @ 12:11 by Becca Gomez) Right bundle branch block (RBBB) (Chronic) 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 (Chronic) Essential (primary) hypertension (Chronic) Hospital Course and Treatment Imaging Results: Clinical Impression(s) from Imaging Studies Chest X-Ray 08/29/19 10:31 IMPRESSION: Poor inspiration with some bibasilar atelectasis. Electronically Signed: Meño Campa MD at 11:00 EST Tel , Service support , Chest CTA 08/29/19 12:33 IMPRESSION: 1. Normal CTA chest examination, without a demonstrated pulmonary embolism or arterial dissection. 2. 1 cm noncalcified right upper lobe nodule and correlation with PET CT scan is recommended to Electronically Signed: Meño Campa MD at 14:35 EST Tel , Service support , Summary of Care Provided: Patient is a 79-year-old lady presented with chest pain 1. Chest pain ?Admitted to monitored bed to rule out with serial cardiac enzymes. Patient underwent nuclear stress test which was positive for stress-induced ischemia consult subsequently placed to Dr. Dejesus with cardiology.patient underwent left heart catheterization which demonstrated mid LAD 95% stenosis at the bifurcation of a diagonal vessel. Mild disease noted in the left anterior descending artery and moderate disease in the proximal right coronary artery. Patient subsequently underwent PCI with HERLINDA/stent placement. Patient procedure was complicated by dissection. Call was placed to [facility] Case was discussed with Dr. Hughes (stenciler at [facility]) by Dr. Mosqueda (golf cart assembler at [facility]). Decision was made to transfer patient to [facility] for subsequent management and closer monitoring in a tertiary care center 2. Hypertension ~ blood pressure controlled, home medications continued with dose adjustment as needed 3. Anxiety disorder ?Patient is on Paxil in addition to Klonopin did continue 4. DVT prophylaxis ~ on enoxaparin Patient Problems: Active and Suspected Problems (Last Updated 08/30/19 @ 12:11 by Becca Gomez) Chest pain (Acute) Objective: GENERAL: cooperative HEENT: Atraumatic; EYES; Anicteric, Normal Conjunctiva NECK; supple, normal thyroid, RESPIRATORY: Diminished to auscultation CARDIOVASCULAR: Regular S1 S2, GI: soft, normoactive bowel sounds, : No Renal angle tenderness; EXTREMITIES: No edema, no clubbing, MUSCULOSKELETAL: no muscle waisting NEURO: Awake; no lateralizing signs. SKIN: No Rash - Physical Exam Vitals/I&O's: Vital Signs Temp Pulse Resp BP Pulse Ox 97.7 F L 90 19 H 144/72 H 94 08/30/19 06:00 08/30/19 14:45 08/30/19 14:45 08/30/19 14:45 08/30/19 14:45 Oxygen Delivery Method Room Air Weight: 56.6 kg Body Mass Index (BMI) 22.8 Intake and Output for Last 24 Hours 08/28/19 08/29/19 08/30/19 23:59 23:59 23:59 Intake Total 840 / 840 Balance 840 / 840 Laboratory Results 08/29/19 16:55: Troponin I 0.018 08/30/19 05:21: Sodium 138, Potassium 4.3, Chloride 106, Carbon Dioxide 26.0, Anion Gap 6, BUN 20 H, Creatinine 0.87, Estim Creat Clear Calc 42.83, Est GFR (MDRD) Af Amer 81, Est GFR (MDRD) Non-Af 67, BUN/Creatinine Ratio 22.9 H, Glucose 98, Calcium 8.6 08/30/19 05:21: WBC 6.8, RBC 4.75, Hgb 13.9, Hct 43.8, MCV 92.2, MCH 29.3, MCHC 31.7 L, RDW Std Deviation 42.4, RDW Coeff of Thor 12.4, Plt Count 277, MPV 11.1, Immature Gran % (Auto) 0.100, Neut % (Auto) 53.6, Lymph % (Auto) 33.2, [place] % (Auto) 7.4, Eos % (Auto) 4.4, Baso % (Auto) 1.3 H, Absolute Neuts (auto) 3.6, Absolute Lymphs (auto) 2.24, Nucleated RBC % 0 08/30/19 12:48: Activated Clotting Time 158 H 08/30/19 15:02: WBC 11.7 H, RBC 4.64, Hgb 13.9, Hct 42.6, MCV 91.8, MCH 30.0, MCHC 32.6, RDW Std Deviation 41.5, RDW Coeff of Thor 12.4, Plt Count 301, MPV 10.7 08/30/19 15:02: Activated Clotting Time 142 H Current Medications Acetaminophen (Tylenol) 650 mg PO Q6H PRN PRN PRN Reason: Pain Score 1-3/Temp > 100.7 F Al Hydroxide/Mg Hydroxide (Mylanta Ii) 30 ml PO Q6H PRN PRN PRN Reason: Gastric Burning Albuterol Sulfate (Ventolin Aerosols) 2.5 mg INHALATION Q2H PRN PRN PRN Reason: SOB/Wheezing Atropine Sulfate () 0.5 mg IV UD PRN PRN Reason: HR <50 bpm Clonazepam (Klonopin) 0.25 mg PO Q8H PRN PRN PRN Reason: ANXIETY Last Admin: 08/30/19 15:48 Dose: 0.25 mg Documented by: Enoxaparin Sodium (Lovenox) 40 mg SC DAILY [facility] Last Admin: 08/30/19 06:02 Dose: Not Given Documented by: Escitalopram Oxalate (Lexapro) 5 mg PO DAILY [facility] Last Admin: 08/30/19 14:08 Dose: Not Given Documented by: Guaifenesin (Robitussin) 20 ml PO Q4H PRN PRN PRN Reason: COUGH Heparin Sodium (Beef Lung) (Heparin 500 Unit/5 Ml (100/Ml)) 500 unit IV UD PRN PRN Reason: HEPARIN FLUSH Sodium Chloride () 250 mls @ 15 mls/hr IV .[id number] PRN PRN Reason: Saline Flush Sodium Chloride () 250 mls @ 15 mls/hr IV .[id number] PRN PRN Reason: Additional IVPB Infusion Sodium Chloride () 1,000 mls @ 15 mls/hr IV .Q48H [facility] Last Admin: 08/30/19 14:07 Dose: Not Given Documented by: Sodium Chloride () 1,000 mls @ 100 mls/hr IV .Q10H [facility] Last Admin: 08/30/19 15:18 Dose: 100 mls/hr Documented by: Eptifibatide (Integrilin) 75 mg in 100 mls @ 4.528 mls/hr CONT INF .Q22H6M [facility] Stop: 08/31/19 07:00 Last Admin: 08/30/19 15:18 Dose: Not Given Documented by: Lisinopril (Zestril) 5 mg PO BID [facility] Last Admin: 08/30/19 06:02 Dose: 5 mg Documented by: Magnesium Hydroxide (Milk Of Magnesia) 30 ml PO DAILY PRN PRN PRN Reason: Constipation Melatonin (Melatonin) 3 mg PO QHS PRN PRN PRN Reason: INSOMNIA Nitroglycerin (Nitrostat) 0.4 mg SUBLINGUAL Q5M PRN PRN Reason: CARDIAC/CHEST PAIN Ondansetron HCl (Zofran) 4 mg IV Q8H PRN PRN PRN Reason: NAUSEA/VOMITING Oxycodone HCl (Oxyir) 5 mg PO Q4H PRN PRN PRN Reason: Pain Score 4-5/10 Oxycodone HCl (Oxyir) 10 mg PO Q4H PRN PRN PRN Reason: Pain Score 6-10/10 Promethazine HCl (Phenergan) 25 mg IM Q6H PRN PRN PRN Reason: Breakthrough Nausea/Vomiting Sodium Chloride () 10 - 40 ml IV UD PRN PRN Reason: SALINE FLUSH Sodium Chloride () 500 ml IV BOLUS PRN PRN Reason: VASO-VAGAL PROTOCOL Ticagrelor (Brilinta) 90 mg PO BID [facility] Discharge Diet: Low fat/ Low Cholesterol Discharge Activity: Return to Normal Activity Home Medications: Medications to take at Discharge Clonazepam [Klonopin] 0.25 mg PO Q8H PRN PRN 09/20/13 Escitalopram Oxalate [Lexapro] 5 mg PO DAILY 09/20/13 Lisinopril 5 mg PO BID 08/15/19 Calcium Polycarbophil [Fiber Tabs] 625 mg PO DAILY 08/29/19 Cholecalciferol (Vitamin D3) [Vitamin D3] 5,000 unit PO 1700 08/29/19 Aspirin [Aspirin EC] 81 mg PO DAILY #30 tablet. 08/30/19 Atorvastatin Calcium [Lipitor] 80 mg PO QHS #30 tablet 08/30/19 Ticagrelor [Brilinta] 90 mg PO BID tablet 08/30/19 Following Prescrptions Were Given to Patient: Aspirin [Aspirin EC] 81 mg PO DAILY #30 tablet. Atorvastatin Calcium [Lipitor] 80 mg PO QHS #30 tablet Primary Care Physician: Jp Henson DO [Primary Care Provider] - Please follow up with your Primary Care Physician in: in 1 week Please Follow Up With: Jarett Winchester DO When: Disposition: Acute care Hospital - See hospital Medical Necessity - Tobacco Use Smoking Status: Never smoker Meaningful Use Info Meaningful Use Diagnoses (Choose all that apply): AMI - AMI Aspirin given w/in 24hrs of arrival?: Yes ASA at discharge?: Yes Statins at discharge?: Yes Bob/ARB at discharge?: Yes Beta Tevin at discharge?: No Reason Beta Tevin not ordered:: Allergy Done w/ Acute DC measure.: Yes Documented LVEF (%): 55 Code Visit OBSV E&M: 15425 Observation care discharge
== END 2019-08-30 17:35 | disposition short-term general hospital (02) ==
LOC: ED 10:57 → PCU 11:45 → ICU 08-30 11:20
PROVIDERS: Specialist; Admitting Provider Internal Medicine; Emergency Provider Emergency Medicine; Family Provider Family Medicine; PCP Family Medicine; Referring Provider Internal Medicine; Visit Provider Internal Medicine
DX: I25.110 Atherosclerotic heart disease of native coronary artery with unstable angina pectoris (principal); I10 Essential (primary) hypertension; Z79.899 Other long term (current) drug therapy; F41.8 Other specified anxiety disorders; K59.09 Other constipation; R91.1 Solitary pulmonary nodule; I07.1 Rheumatic tricuspid insufficiency; I45.2 Bifascicular block
CPT/HCPCS: 36415; 71045; 71275; 78452; 80048; 83880; 84443; 84484; 85025; 85027; 85347; 85379; 92921; 92928; 93005; 93017; 93306; 93458; 96360; 96361; 99218; 99251; 99285; A9500; J7030; J7040; Q9967; A4216; C1725; C1769; C1874; C1887; C1894; C9600; G0378; G0463; J1327; J2785

== ENCOUNTER 2019-09-08 16:08 | Inpatient (IN) | payer MEDICARE, OTHER, SELFPAY ==
[2019-08-29 12:28] VITALS: BMI 22.8
[2019-09-08 16:13] VITALS: BP 182/80; PULSE 95; RESP 18; TEMP 37.2; O2SAT 90; BMI 22.8; BMI 24.6
--- NOTE | 2019-09-08 17:18 | PCM.HP.STD ---
Problem List (1) Debility Status: Acute (2) Hypertension Status: Chronic (3) Fecal impaction Status: Chronic (4) Coronary artery disease Status: Chronic (5) Chest pain Status: Acute History of Present Illness Date of Admission: 09/08/19 Chief Complaint: Here for rehabilitation, strengthening, prior to discharge home with spouse. The patient is a 79 year old Female with below past medical history with followin08/29/2019 Admit to [facility] with chest pain. Nuclear stress test positive for stress induced ischemia. Heart cath with PCI with HERLINDA/Stent placement x 2. Complicated by dissection. 08/30/2019 Transfer [facility]. Heparin, Aspirin given. Allergy to beta blockers. 09/01/2019 Dr. Real performed CABG x 3. Complicated by acute blood loss anemia. 09/08/2019 Admit to TCU with debility, here for rehabilitation,strengthening, prior to discharge home with spouse. Past Medical History Past Medical History (Chronic Problems): Chronic Problems (Last Updated 08/30/19 @ 12:11 by Becca Gomez) Hypertension (Chronic) Fecal impaction (Chronic) Coronary artery disease (Chronic) Right bundle branch block (RBBB) (Chronic) 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 (Chronic) Essential (primary) hypertension (Chronic) Medical History: Medical History (Last Updated 08/30/19 @ 12:11 by Becca Gomez) Right bundle branch block (RBBB) (Chronic) I45.10 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 (Chronic) I25.10 Essential (primary) hypertension (Chronic) I10 Chest pain (Acute) R07.9 Anxiety disorder F41.9 Intractable constipation K59.00 Allergies amlodipine besylate [From Norvasc] Allergy (Verified 02/11/18 14:23) Other INCREASED BLOOD PRESSURE, CAN'T STAND WITHOUT HOLDING ONTO SOMETHING atenolol Allergy (Verified 08/29/19 10:17) Other INCREASED BP AND INSTABILITY buspirone HCl [From BuSpar] Allergy (Verified 08/29/19 10:17) Other INCREASED ANXIETY citalopram hydrobromide [From Celexa] Allergy (Verified 08/29/19 10:17) Other INCREASED ANXIETY diazepam [From Valium] Allergy (Verified 08/29/19 10:17) Other INCREASED ANXIETY hydrochlorothiazide [From Zestoretic] Allergy (Verified 08/29/19 10:17) Other BALANCE lisinopril [From Zestoretic] Allergy (Verified 08/29/19 13:01) Other BALANCE metoprolol succinate [From Toprol XL] Allergy (Verified 08/29/19 10:17) Other BALANCE mirtazapine [From Remeron] Allergy (Verified 08/29/19 10:17) Other END UP IN ER FROM TOO STRONG paroxetine HCl [From Paxil] Allergy (Verified 08/29/19 10:17) Other ANXIETY procaine HCl [From Novocain] Allergy (Verified 08/29/19 10:17) Other RAPID HR Sulfa (Sulfonamide Antibiotics) Allergy (Verified 08/29/19 13:01) Other racing HR valsartan [From Diovan] Allergy (Verified 08/29/19 13:01) Other balance Penicillins Adverse Reaction (Unknown, Verified 08/29/19 13:01) Other headache, malaise Home Medications: Ambulatory Orders Medication Instructions Recorded Clonazepam [Klonopin] 0.25 mg PO Q8H PRN PRN 09/20/13 Escitalopram Oxalate [Lexapro] 5 mg PO DAILY 09/20/13 Cholecalciferol (Vitamin D3) 5,000 unit PO 1700 08/29/19 [Vitamin D3] Albuterol Sulfate 2.5 mg IH 4X/DAY 09/08/19 Albuterol Sulfate 2.5 mg IH Q2H PRN 09/08/19 Ascorbic Acid 500 mg PO DAILY 09/08/19 Aspirin [Aspirin EC] 81 mg PO DAILY 09/08/19 Clopidogrel Bisulfate [Plavix] 75 mg PO QHS 09/08/19 Docusate Sodium 100 mg PO BID 09/08/19 Ferrous Sulfate 325 mg PO DAILY 09/08/19 Folic Acid 1 mg PO DAILY 09/08/19 Furosemide [Lasix] 20 mg PO BIDAC 09/08/19 Heparin Sodium,Porcine [Heparin 5,000 unit SUBCUT Q12H 09/08/19 Sodium] Lidocaine 1 patch TOPICAL QHS 09/08/19 Magnesium Oxide 400 mg PO DAILY 09/08/19 Melatonin 5 mg PO QHS 09/08/19 Metoprolol Tartrate [Lopressor 12.5 mg PO BID 09/08/19 (Beta Tevin)] Oxycodone [Oxyir] 5 mg PO Q6H PRN PRN 09/08/19 Pantoprazole Sodium [Protonix] 40 mg PO DAILY 09/08/19 Rosuvastatin Calcium [Crestor] 20 mg PO QHS 09/08/19 Surgical History: Surgical History (Last Updated 08/30/19 @ 12:10 by Becca Gomez) History of appendectomy Z90.49 History of cholecystectomy Z90.49 History of herniorrhaphy Z98.890, Z87.19 Surgical History: angioplasty - Stent., appendectomy, cholecystectomy, coronary bypass surgery - x 3., herniorrhaphy - Abdominal. Psychiatric History: Anxiety, Depression COMPLAINT INVESTIGATIONS OFFICER History: No pertinent COMPLAINT INVESTIGATIONS OFFICER history Lives: Spouse/ Significant Other Smoking Status: Never smoker Tobacco Use: Non-smoker Alcohol: None Drugs: None - *Family History Maternal Family History: Family History (Last Updated 08/30/19 @ 12:10 by Becca Gomez) Other Adopted History Items: - - Patient was adopted at 2 weeks after has no knowledge of her biological parents Review of Systems Constitutional: Reports: Weakness. Denies: Chills, Fever, Weight Change HEENT: Denies: Head Aches, Sinus Congestion, Sinus Drainage Cardiovascular: Denies: Chest Pain, Palpitations Respiratory: Denies: Cough, Shortness of breath at rest, Sputum production Gastrointestinal: Denies: Abdominal Pain, Nausea, Vomiting Genitourinary: Denies: Dysuria Musculoskeletal: Denies: Joint Pain, Joint Tenderness Skin: Denies: Rash, Wounds Neurological: Denies: Numbness, Tingling, Focal weakness Psychiatric: Denies: Anxiety, Depression, Homicidal Ideations, Suicidal Ideations Hematologic/ Lymphatic: Denies: Easy Bruising, Easy Bleeding VTE Information - Inpt Only VTE Present on Admission: No VTE Mechan Device Prophylaxis: Knee High JERARDO Hose VTE Pharm Prophylaxis ordered?: No Reason prophylaxis not ordered:: Treatment Not Indicated Patient Problems: Active and Suspected Problems (Last Updated 08/30/19 @ 12:11 by Becca Gomez) Debility (Acute) - Physical Exam Vitals/I&O's: Vital Signs Temp Pulse Resp BP Pulse Ox 98.9 F 95 18 182/80 H 90 09/08/19 16:13 09/08/19 16:13 09/08/19 16:13 09/08/19 16:13 09/08/19 16:13 Oxygen Delivery Method Room Air Weight: 61.2 kg Body Mass Index (BMI) 24.6 General: Alert, Oriented x3, Cooperative HEENT: Atraumatic, PERRLA, EOMI, Normocephalic Neck: Supple, No JVD, Negative Carotid Bruits Lungs: Clear to auscultation, Normal air movement Cardiovascular: Regular rate, No murmurs Abdomen: Bowel Sounds Present, Soft, Non Tender Extremities: No edema, Capillary Refill Less than 3 Seconds Skin: No rashes, No breakdown Musculoskeletal: No Tenderness to Palpation of Joints or Extremities Neurological: Cranial nerves II-XII grossly intact Psych/Mental Status: Normal Affect, Appropriate Current Medications Albuterol Sulfate (Ventolin Aerosols) 2.5 mg INHALATION Q6HWA.RT DEO Albuterol Sulfate (Ventolin Aerosols) 2.5 mg INHALATION Q2H PRN PRN PRN Reason: SOB &/OR WHEEZING Ascorbic Acid (Vitamin C) 500 mg PO DAILYCM [facility] Aspirin (Ecotrin) 81 mg PO DAILYCM [facility] Atorvastatin Calcium (Lipitor) 40 mg PO QHS [facility] Cholecalciferol (Vitamin D) 5,000 unit PO 1700 DEO Clonazepam (Klonopin) 0.25 mg PO Q8H PRN PRN PRN Reason: ANXIETY Clopidogrel Bisulfate (Plavix) 75 mg PO QHS [facility] Docusate Sodium (Colace) 100 mg PO BID [facility] Escitalopram Oxalate (Lexapro) 5 mg PO DAILY [facility] Ferrous Sulfate (Ferrous Sulfate) 325 mg PO DAILYCM [facility] Folic Acid (Folic Acid) 1 mg PO DAILYCM [facility] Furosemide (Lasix) 20 mg PO BIDAC [facility] Heparin Sodium (Porcine) (Heparin Na) 5,000 unit SC Q12 [facility] Lidocaine (Lidoderm Patch) 1 patch TOPICAL QHS [facility] Magnesium Oxide (Mag-Ox 400) 400 mg PO DAILYCM [facility] Melatonin (Melatonin) 5 mg PO QHS [facility] Metoprolol Tartrate (Lopressor (Beta Tevin)) 12.5 mg PO BID [facility] Oxycodone HCl (Oxyir) 5 mg PO Q6H PRN PRN PRN Reason: Pain Score 4-5/10 Pantoprazole Sodium (Protonix) 40 mg PO DAILY [facility] Tuberculin PPD (Tubersol, Aplisol, Ppd) 5 tu ID X1 ONE Stop: 09/09/19 10:01 Tuberculin PPD (Tubersol, Aplisol, Ppd) 5 tu ID X1 ONE Stop: 09/16/19 10:01 Assessment/Plan All Active Problems (Last Updated 08/30/19 @ 12:11 by Becca Gomez) Debility (Acute) History of coronary artery stent placement (Acute 08/30/19) Chest pain (Acute) 79 year old female with below past medical history hospitalized for chest pain, underwent CABG x 3 09/01/[address] Real, admitted to TCU with debility, here for rehabilitation, strengthening, prior to discharge home with . Debility - PT/OT. Pain - Tylenol 1000MG Q6H PRN pain (1-3), Oxycodone 5MG Q6H PRN pain (4-10), Lidoderm patch 1 patch TD QHS. Bowel - Miralax 17GM daily, Senna/colace 1 tablet BID, Dulcolax 10MG daily PRN. Adult immunization - Administer Prevnar 13, Pneumovax 23, Fluzone as appropriate. DVT prophylaxis - Hold, already on dual antiplatelet therapy. Shortness of breath - Albuterol 2.5MG Q6HWA, Albuterol 2.5MG Q2H PRN. Vitamin C deficiency - Vitamin C 500MG daily. Coronary Artery Disease status post CABG x 3 - Metoprolol 12.5MG twice daily, Plavix 75MG daily, Aspirin 81MG daily. Hyperlipidemia - Atorvastatin 40MG QHS. Vitamin D deficiency - D3 5000IU daily. Anxiety - Clonazepam 0.25MG Q8H PRN. Depression - Lexapro 5MG daily. Iron deficiency anemia - Ferrex 150MG daily. Folate deficiency - Folic Acid 1MG daily. Fluid overload - Lasix 20MG twice daily. Hypomagnesemia - Magnesium Oxide 400MG daily. Insomnia - Melatonin 5MG QHS. GERD - Pantoprazole 40MG daily.
[2019-09-08] MEDS: Furosemide 20 MG Tablet PO (17:48)
[2019-09-08 17:49] VITALS: BP 182/80; PULSE 95
[2019-09-08] MEDS: Metoprolol Tartrate 25 MG Tablet 12.5 MG PO (17:49)
[2019-09-08] MEDS: Senna/Docusate Sodium 1 Tablet PO (17:50)
[2019-09-08 19:02] VITALS: PULSE 90; RESP 16; O2SAT 96
[2019-09-08] MEDS: Albuterol 2.5 MG/3 ML VIAL.NEB. INHALATION (19:02)
[2019-09-08 19:46] VITALS: PULSE 82; O2SAT 94
[2019-09-08] MEDS: Menthol/Lanolin/Calamine/Znox 113 GM Tube 1 APPLIC TOPICAL (21:00)
[2019-09-08] MEDS: Nystatin Powder 15gm Bottle 1 APPLIC TOPICAL (21:00)
[2019-09-08] MEDS: Lidocaine 5% Patch 1 PATCH TOPICAL (21:01)
[2019-09-08] MEDS: MELATONIN 10 MG TABLET 5 MG PO (21:01)
[2019-09-08] MEDS: Atorvastatin Calcium 40 MG Tablet PO (21:01)
[2019-09-08] MEDS: Clopidogrel Bisulfate 75 MG Tablet PO (21:01)
[2019-09-08] MEDS: clonazePAM 0.5 MG Tablet 0.25 MG PO (21:12)
[2019-09-08] MEDS: Acetaminophen 500 MG Tablet 1000 MG PO (23:44)
[2019-09-09] VITALS (7 sets, daily range): BP systolic 135–157; BP diastolic 70–74; PULSE 78–91; RESP 16–18; TEMP 36.4; O2SAT 94–96
[2019-09-09] MEDS: Menthol/Lanolin/Calamine/Znox 113 GM Tube 1 APPLIC TOPICAL ×2 (05:17→21:56)
[2019-09-09] MEDS: Nystatin Powder 15gm Bottle 1 APPLIC TOPICAL ×2 (05:17→21:56)
[2019-09-09] MEDS: Pantoprazole Sodium 40 MG Tablet PO (05:18)
[2019-09-09] MEDS: Enoxaparin 40 MG/0.4 ML Syringe SC (05:18)
[2019-09-09] MEDS: Metoprolol Tartrate 25 MG Tablet 12.5 MG PO ×2 (05:18→16:31)
[2019-09-09] MEDS: Escitalopram Oxalate 10 MG Tablet 5 MG PO (05:18)
[2019-09-09 05:42] LABS: Absolute Lymphocyte Count 1.58 X10^3/uL (0.83-4.51); Absolute Neutrophil Count 5.3 X10^3/uL (2.0-7.7); Basophil# 0.06 X10^3/uL; Basophil% 0.7 % (0-1); Eosinophil# 0.52 X10^3/uL; Eosinophils% 6.3 % (0-5); Hematocrit 35.8 % (37-47); Hemoglobin 11.1 g/dL (12.0-15.0); Lymphocyte # 1.58 X10^3/ul (4.0); Lymphocyte % 19.1 % (19-41); Mean Corpuscular Hgb 29.2 pg (27.0-32.0); Mean Corpuscular Volume 94.2 fL (81-99); Mean Platelet Vol. 10.4 fl (6.2-12.0); Monocyte# 0.75 X10^3/uL; Monocyte% 9.1 % (0-10); NRBC Flagged by Analyzer 0 % (0-5); Neutrophil # 5.27 X10^3/uL (2.7-7.7); Neutrophil % 63.7 % (47-70); Platelet Count 285 K/mm3 (150-450); RBC Distribution Width CV 14.6 % (11.6-14.6); RBC Distribution Width SD 50.6 fl (35.1-43.9); White Blood Count 8.3 K/mm3 (4.4-11.0)
[2019-09-09 05:49] LABS: Anion Gap 6 (5-15); BUN 17 mg/dL (7-18); BUN/Creat Ratio 22.1 RATIO (10-20); Calcium,Total 9.2 mg/dL (8.5-10.1); Chloride 101 mmol/L (98-107); Creatinine, Serum 0.77 mg/dL (0.55-1.02); EST Glomerular Filtration Rate 77 mL/min (>60); Est Glom Filt Rate - Afr Amer 94 mL/min (>60); Estimated Creatinine Clearance 37.26 ml/min; Glucose 109 mg/dL (74-106); Magnesium 2.2 mg/dL (1.6-2.6); Potassium 3.7 mmol/L (3.5-5.1); Sodium Level 138 mmol/L (136-145)
[2019-09-09] MEDS: Albuterol 2.5 MG/3 ML VIAL.NEB. INHALATION ×3 (06:50→20:00)
[2019-09-09] MEDS: Folic Acid 1 MG Tablet PO (07:48)
[2019-09-09] MEDS: Aspirin E.C. 81 MG Tablet PO (07:48)
[2019-09-09] MEDS: Magnesium Oxide 400 MG Tablet PO (07:48)
[2019-09-09] MEDS: Ascorbic Acid 500 MG Tablet PO (07:48)
[2019-09-09] MEDS: Iron Polysaccharide Complex 150 MG CAPSULE PO (07:49)
--- NOTE | 2019-09-09 08:00 | RAD_ITS ---
STUDY: X-RAY CHEST REASON FOR EXAM: Female, 79 years old. POST CABG, 1 WK AGO TECHNIQUE: PA and lateral views of the chest. COMPARISON: Comparison is made with prior study dated September 29, 2019. FINDINGS: Small bilateral pleural effusions slightly more prominent on the right side with bibasilar atelectasis and/or infiltrates worse on the right side. Sternal cerclage wires and vascular clips are present from a prior sternotomy and coronary artery bypass graft procedure (CABG). Normal mediastinum and angel. Normal visualized pulmonary arteries. There is atherosclerotic calcification of the aortic arch with tortuosity. There is demineralization of the osseous structures. Normal visualized ribs, clavicles, and shoulders. There is no demonstrated abnormality of the visualized soft tissue structures of the upper abdomen. RAD/Chest PA and Lateral IMPRESSION: Status post CABG. Small bilateral effusions with bibasilar atelectasis and/or infiltrates worse on the right side. Electronically Signed: Darrell Astorga, at 13:04 EST , Service support ,
[2019-09-09] MEDS: Furosemide 20 MG Tablet PO ×2 (08:19→16:29)
[2019-09-09] MEDS: clonazePAM 0.5 MG Tablet 0.25 MG PO ×2 (08:22→21:57)
[2019-09-09] MEDS: Tuberculin,Purif.prot.deriv. 50 TU/ML Vial 5 ML ID (11:01)
--- NOTE | 2019-09-09 12:39 | NURSING ---
wound photo: mid upper abdomen/chest
--- NOTE | 2019-09-09 14:42 | PCM.PN.RX ---
<Liz Decker - Last Filed: 09/09/19 14:42> Progress Note - Pharmacy Subjective: TCU Admission Objective: Allergies amlodipine besylate [From Norvasc] Allergy (Verified 02/11/18 14:23) Other INCREASED BLOOD PRESSURE, CAN'T STAND WITHOUT HOLDING ONTO SOMETHING atenolol Allergy (Verified 08/29/19 10:17) Other INCREASED BP AND INSTABILITY buspirone HCl [From BuSpar] Allergy (Verified 08/29/19 10:17) Other INCREASED ANXIETY citalopram hydrobromide [From Celexa] Allergy (Verified 08/29/19 10:17) Other INCREASED ANXIETY diazepam [From Valium] Allergy (Verified 08/29/19 10:17) Other INCREASED ANXIETY hydrochlorothiazide [From Zestoretic] Allergy (Verified 08/29/19 10:17) Other BALANCE lisinopril [From Zestoretic] Allergy (Verified 08/29/19 13:01) Other BALANCE metoprolol succinate [From Toprol XL] Allergy (Verified 08/29/19 10:17) Other BALANCE mirtazapine [From Remeron] Allergy (Verified 08/29/19 10:17) Other END UP IN ER FROM TOO STRONG paroxetine HCl [From Paxil] Allergy (Verified 08/29/19 10:17) Other ANXIETY procaine HCl [From Novocain] Allergy (Verified 08/29/19 10:17) Other RAPID HR Sulfa (Sulfonamide Antibiotics) Allergy (Verified 08/29/19 13:01) Other racing HR valsartan [From Diovan] Allergy (Verified 08/29/19 13:01) Other balance Penicillins Adverse Reaction (Unknown, Verified 08/29/19 13:01) Other headache, malaise Current Medications Generic Name Dose Route Start Last Admin Trade Name Freq PRN Reason Stop Dose Admin Acetaminophen 1,000 mg 09/08/19 17:32 09/08/19 23:44 Tylenol PO 500 mg Q6H PRN Administration Pain Score 1-3/10 Albuterol Sulfate 2.5 mg 09/08/19 16:45 09/09/19 13:34 Ventolin Aerosols INHALATION 2.5 mg Q6HWA.RT DEO Administration Albuterol Sulfate 2.5 mg 09/08/19 16:32 Ventolin Aerosols INHALATION Q2H PRN PRN SOB &/OR WHEEZING Ascorbic Acid 500 mg 09/09/19 08:00 09/09/19 07:48 Vitamin C PO 500 mg DAILYCM [facility]O Administration Aspirin 81 mg 09/09/19 08:00 09/09/19 07:48 Ecotrin PO 81 mg DAILYCM [facility]O Administration Atorvastatin Calcium 40 mg 09/08/19 22:00 09/08/19 21:01 Lipitor PO 40 mg QHS DEO Administration Bisacodyl 10 mg 09/08/19 17:33 Dulcolax PO DAILY PRN Constipation Calamine/Phenol 1 applic 09/08/19 22:00 09/09/19 05:17 Calmoseptine Ointment TOPICAL 1 applicatio 0600,2200 [facility] Administration Protocol Cholecalciferol 5,000 unit 09/08/19 17:00 09/08/19 17:49 Vitamin D PO 5,000 unit 1700 DEO Administration Clonazepam 0.25 mg 09/08/19 17:38 09/09/19 08:22 Klonopin PO 0.25 mg Q8H PRN PRN Administration ANXIETY Clopidogrel Bisulfate 75 mg 09/08/19 22:00 09/08/19 21:01 Plavix PO 75 mg QHS [facility] Administration Escitalopram Oxalate 5 mg 09/09/19 06:00 09/09/19 05:18 Lexapro PO 5 mg DAILY [facility]O Administration Folic Acid 1 mg 09/09/19 08:00 09/09/19 07:48 Folic Acid PO 1 mg DAILYCM [facility] Administration Furosemide 20 mg 09/09/19 07:30 09/09/19 08:19 Lasix PO 20 mg BIDAC DEO Administration Lidocaine 1 patch 09/08/19 22:00 09/08/19 21:01 Lidoderm Patch TOPICAL 1 patch QHS [facility] Administration Magnesium Oxide 400 mg 09/09/19 08:00 09/09/19 07:48 Mag-Ox 400 PO 400 mg DAILYCM [facility] Administration Melatonin 5 mg 09/08/19 22:00 09/08/19 21:01 Melatonin PO 5 mg QHS [facility] Administration Metoprolol Tartrate 12.5 mg 09/08/19 18:00 09/09/19 05:18 Lopressor (Beta Tevin) PO 12.5 mg BID [facility] Administration Nystatin 1 applic 09/08/19 22:00 09/09/19 05:17 Mycostatin Powder TOPICAL 1 applicatio 0600,2200 [facility] Administration Protocol Oxycodone HCl 5 mg 09/08/19 17:34 Oxyir PO Q4H PRN Pain Score 4-10/10 Pantoprazole Sodium 40 mg 09/09/19 06:00 09/09/19 05:18 Protonix PO 40 mg DAILY [facility] Administration Polyethylene Glycol 17 gm 09/09/19 06:00 09/09/19 05:18 Miralax PO Not Given DAILY [facility] Polysaccharide Iron Complex 150 mg 09/09/19 08:00 09/09/19 07:49 Ferrex 150 PO 150 mg DAILYCM [facility] Administration Senna/Docusate Sodium 1 tablet 09/08/19 18:00 09/09/19 05:18 Senokot-S, Lexi-Colace PO Not Given BID [facility] Tuberculin PPD 5 tu 09/16/19 10:00 Tubersol, Aplisol, Ppd ID 09/16/19 10:01 X1 ONE Problem List (Last Updated 08/30/19 @ 12:11 by eBcca Gomez) Debility (Acute) Hypertension (Chronic) Fecal impaction (Chronic) Coronary artery disease (Chronic) Vital Signs Temp Pulse Resp BP Pulse Ox 98.9 F 91 18 157/74 H 96 09/08/19 16:13 09/09/19 13:34 09/09/19 13:34 09/09/19 05:18 09/09/19 06:50 Oxygen Flow Rate (L/min) 2 Oxygen Delivery Method Nasal Cannula Weight: 59.421 kg Body Mass Index (BMI) 24.6 Sodium 138 mmol/L (136-145) 09/09/19 05:00 Potassium 3.7 mmol/L (3.5-5.1) 09/09/19 05:00 Chloride 101 mmol/L (98-107) 09/09/19 05:00 Carbon Dioxide 31.0 mmol/L (21.0-32.0) 09/09/19 05:00 Anion Gap 6 (5-15) 09/09/19 05:00 BUN 17 mg/dL (7-18) 09/09/19 05:00 Creatinine 0.77 mg/dL (0.55-1.02) 09/09/19 05:00 Est GFR (MDRD) Af Amer 94 mL/min (>60) 09/09/19 05:00 Est GFR (MDRD) Non-Af 77 mL/min (>60) 09/09/19 05:00 BUN/Creatinine Ratio 22.1 RATIO (10-20) H 09/09/19 05:00 Glucose 109 mg/dL (74-106) H 09/09/19 05:00 Assessment/Plan: 1. Pain: acetaminophen 1000mg PO Q6H PRN pain (1-310), oxycodone 5mg PO Q4H PRN pain (4-1010), and lidocaine patch 5% apply 1 patch topically at bedtime. Please continue to monitor for increased pain and PRN usage. 2. Coronary artery disease s/p CABG x3: metoprolol tartrate 12.5mg PO BID, clopidogrel 75mg PO daily, aspirin 81mg PO DAILYCM. Please continue to monitor for S/S of bleeding, HR, and BP. 3. Shortness of breath: albuterol 2.5mg inhalation Q6HWA.RT, albuterol 2.5mg inhalation Q2H PRN SOB &/OR WHEEZING. Please continue to monitor for SOB/Wheezing and increased HR. *4. Hyperlipidemia: atorvastatin 40mg PO QHS. I did not see a lipid panel in the patient's chart. Please consider ordering one now and then annually as clinically appropriate. Please continue to monitor for muscle pain. 5. Iron deficiency anemia: Ferrex 150mg PO DAILYCM. Please continue to monitor hemoglobin and for dark, tarry stools. 6. Fluid overload: furosemide 20mg PO BIDAC. Please continue to monitor renal function and potassium. 7. GERD: pantoprazole 40mg PO daily. Please continue to monitor for GERD. 8. Insomnia: melatonin 5mg PO QHS. Please continue to monitor for insomnia and confusion. *9. Vitamin Deficiencies: folic acid 1mg PO DAILYCM, cholecalciferol 5000units PO daily, ascorbic acid 500mg PO DAILYCM, magnesium oxide 400mg PO DAILYCM. Next vitamin D level is due tomorrow 09/10/2019. Please consider ordering a level now and then annually as clinically appropriate. Please continue to monitor. *Psychotropic Medications: 1. Anxiety: clonazepam 0.25mg PO Q8H PRN anxiety. Please consider GDR by 02/2020 if clinically appropriate. 2. Depression: escitalopram 5mg PO daily. Please GDR by 02/2020 if clinically appropriate. Unnecessary Medications: None *Bowel Regimen: Miralax 17gm PO daily, senna/docusate 1T PO BID, bisacodyl 10mg PO daily PRN constipation. Please continue to monitor for constipation. Pt has refused Miralax and senna/docusate doses. Please consider changing to PRN if patient continues to refuse. Thanks. Date of Note:: 09/09/19 - Provider Comments Provider responsibility: Provider responsible to enter orders to implement recommendations <Patrice Bass Chi - Last Filed: 09/09/19 19:15> Progress Note - Pharmacy Subjective: [] Objective: Allergies amlodipine besylate [From Norvasc] Allergy (Verified 02/11/18 14:23) Other INCREASED BLOOD PRESSURE, CAN'T STAND WITHOUT HOLDING ONTO SOMETHING atenolol Allergy (Verified 08/29/19 10:17) Other INCREASED BP AND INSTABILITY buspirone HCl [From BuSpar] Allergy (Verified 08/29/19 10:17) Other INCREASED ANXIETY citalopram hydrobromide [From Celexa] Allergy (Verified 08/29/19 10:17) Other INCREASED ANXIETY diazepam [From Valium] Allergy (Verified 08/29/19 10:17) Other INCREASED ANXIETY hydrochlorothiazide [From Zestoretic] Allergy (Verified 08/29/19 10:17) Other BALANCE lisinopril [From Zestoretic] Allergy (Verified 08/29/19 13:01) Other BALANCE metoprolol succinate [From Toprol XL] Allergy (Verified 08/29/19 10:17) Other BALANCE mirtazapine [From Remeron] Allergy (Verified 08/29/19 10:17) Other END UP IN ER FROM TOO STRONG paroxetine HCl [From Paxil] Allergy (Verified 08/29/19 10:17) Other ANXIETY procaine HCl [From Novocain] Allergy (Verified 08/29/19 10:17) Other RAPID HR Sulfa (Sulfonamide Antibiotics) Allergy (Verified 08/29/19 13:01) Other racing HR valsartan [From Diovan] Allergy (Verified 08/29/19 13:01) Other balance Penicillins Adverse Reaction (Unknown, Verified 08/29/19 13:01) Other headache, malaise Current Medications Generic Name Dose Route Start Last Admin Trade Name Freq PRN Reason Stop Dose Admin Acetaminophen 1,000 mg 09/08/19 17:32 09/08/19 23:44 Tylenol PO 500 mg Q6H PRN Administration Pain Score 1-3/10 Albuterol Sulfate 2.5 mg 09/08/19 16:45 09/09/19 13:34 Ventolin Aerosols INHALATION 2.5 mg Q6HWA.RT DEO Administration Albuterol Sulfate 2.5 mg 09/08/19 16:32 Ventolin Aerosols INHALATION Q2H PRN PRN SOB &/OR WHEEZING Ascorbic Acid 500 mg 09/09/19 08:00 09/09/19 07:48 Vitamin C PO 500 mg DAILYCM [facility]O Administration Aspirin 81 mg 09/09/19 08:00 09/09/19 07:48 Ecotrin PO 81 mg DAILYCM [facility] Administration Atorvastatin Calcium 40 mg 09/08/19 22:00 09/08/19 21:01 Lipitor PO 40 mg QHS [facility]O Administration Bisacodyl 10 mg 09/08/19 17:33 Dulcolax PO DAILY PRN Constipation Calamine/Phenol 1 applic 09/08/19 22:00 09/09/19 05:17 Calmoseptine Ointment TOPICAL 1 applicatio 0600,2200 [facility] Administration Protocol Cholecalciferol 5,000 unit 09/08/19 17:00 09/09/19 16:29 Vitamin D PO 5,000 unit 1700 [facility] Administration Clonazepam 0.25 mg 09/08/19 17:38 09/09/19 08:22 Klonopin PO 0.25 mg Q8H PRN PRN Administration ANXIETY Clopidogrel Bisulfate 75 mg 09/08/19 22:00 09/08/19 21:01 Plavix PO 75 mg QHS [facility]O Administration Escitalopram Oxalate 5 mg 09/09/19 06:00 09/09/19 05:18 Lexapro PO 5 mg DAILY [facility] Administration Folic Acid 1 mg 09/09/19 08:00 09/09/19 07:48 Folic Acid PO 1 mg DAILYCM [facility] Administration Furosemide 20 mg 09/09/19 07:30 09/09/19 16:29 Lasix PO 20 mg BIDAC [facility] Administration Lidocaine 1 patch 09/08/19 22:00 09/08/19 21:01 Lidoderm Patch TOPICAL 1 patch QHS [facility] Administration Magnesium Oxide 400 mg 09/09/19 08:00 09/09/19 07:48 Mag-Ox 400 PO 400 mg DAILYCM [facility] Administration Melatonin 5 mg 09/08/19 22:00 09/08/19 21:01 Melatonin PO 5 mg QHS [facility] Administration Metoprolol Tartrate 12.5 mg 09/08/19 18:00 09/09/19 16:31 Lopressor (Beta Tevin) PO 12.5 mg BID [facility] Administration Nystatin 1 applic 09/08/19 22:00 09/09/19 05:17 Mycostatin Powder TOPICAL 1 applicatio 0600,2200 [facility] Administration Protocol Oxycodone HCl 5 mg 09/08/19 17:34 Oxyir PO Q4H PRN Pain Score 4-10/10 Pantoprazole Sodium 40 mg 09/09/19 06:00 09/09/19 05:18 Protonix PO 40 mg DAILY [facility] Administration Polyethylene Glycol 17 gm 09/09/19 06:00 09/09/19 05:18 Miralax PO Not Given DAILY [facility] Polysaccharide Iron Complex 150 mg 09/09/19 08:00 09/09/19 07:49 Ferrex 150 PO 150 mg DAILYCM [facility] Administration Senna/Docusate Sodium 1 tablet 09/08/19 18:00 09/09/19 16:17 Senokot-S, Lexi-Colace PO Not Given BID [facility] Tuberculin PPD 5 tu 09/16/19 10:00 Tubersol, Aplisol, Ppd ID 09/16/19 10:01 X1 ONE Problem List (Last Updated 08/30/19 @ 12:11 by Becca Gomez) Debility (Acute) Hypertension (Chronic) Fecal impaction (Chronic) Coronary artery disease (Chronic) Vital Signs Temp Pulse Resp BP Pulse Ox 97.6 F L 89 16 135/70 H 95 09/09/19 16:00 09/09/19 16:31 09/09/19 16:00 09/09/19 16:31 09/09/19 16:00 Oxygen Flow Rate (L/min) 2 Oxygen Delivery Method Nasal Cannula Weight: 59.421 kg Body Mass Index (BMI) 24.6 Sodium 138 mmol/L (136-145) 09/09/19 05:00 Potassium 3.7 mmol/L (3.5-5.1) 09/09/19 05:00 Chloride 101 mmol/L (98-107) 09/09/19 05:00 Carbon Dioxide 31.0 mmol/L (21.0-32.0) 09/09/19 05:00 Anion Gap 6 (5-15) 09/09/19 05:00 BUN 17 mg/dL (7-18) 09/09/19 05:00 Creatinine 0.77 mg/dL (0.55-1.02) 09/09/19 05:00 Est GFR (MDRD) Af Amer 94 mL/min (>60) 09/09/19 05:00 Est GFR (MDRD) Non-Af 77 mL/min (>60) 09/09/19 05:00 BUN/Creatinine Ratio 22.1 RATIO (10-20) H 09/09/19 05:00 Glucose 109 mg/dL (74-106) H 09/09/19 05:00 Assessment/Plan: Psychotropic Medications: Unnecessary Medications: Bowel Regimen: - Provider Comments Provider responsibility: Provider responsible to enter orders to implement recommendations Provider Comments to Recommendations by Pharmacy: Agree
[2019-09-09] MEDS: Lidocaine 5% Patch 1 PATCH TOPICAL (21:56)
[2019-09-09] MEDS: Atorvastatin Calcium 40 MG Tablet PO (21:56)
[2019-09-09] MEDS: MELATONIN 10 MG TABLET 5 MG PO (21:56)
[2019-09-09] MEDS: Clopidogrel Bisulfate 75 MG Tablet PO (21:57)
[2019-09-09] MEDS: Acetaminophen 500 MG Tablet 1000 MG PO (21:57)
[2019-09-10] VITALS (8 sets, daily range): BP systolic 127–143; BP diastolic 62–73; PULSE 80–96; RESP 16–19; TEMP 36.8; O2SAT 95–97
[2019-09-10] MEDS: Menthol/Lanolin/Calamine/Znox 113 GM Tube 1 APPLIC TOPICAL ×2 (06:07→20:11)
[2019-09-10] MEDS: Escitalopram Oxalate 10 MG Tablet 5 MG PO (06:07)
[2019-09-10] MEDS: Pantoprazole Sodium 40 MG Tablet PO (06:08)
[2019-09-10] MEDS: Metoprolol Tartrate 25 MG Tablet 12.5 MG PO ×2 (06:08→16:55)
[2019-09-10] MEDS: Nystatin Powder 15gm Bottle 1 APPLIC TOPICAL ×2 (06:08→20:11)
[2019-09-10] MEDS: Albuterol 2.5 MG/3 ML VIAL.NEB. INHALATION ×3 (07:20→20:05)
[2019-09-10] MEDS: Ascorbic Acid 500 MG Tablet PO (08:43)
[2019-09-10] MEDS: Magnesium Oxide 400 MG Tablet PO (08:43)
[2019-09-10] MEDS: Folic Acid 1 MG Tablet PO (08:43)
[2019-09-10] MEDS: Aspirin E.C. 81 MG Tablet PO (08:43)
[2019-09-10] MEDS: Iron Polysaccharide Complex 150 MG CAPSULE PO (08:44)
[2019-09-10] MEDS: Furosemide 20 MG Tablet PO ×2 (08:44→16:56)
[2019-09-10] MEDS: clonazePAM 0.5 MG Tablet 0.25 MG PO ×2 (08:47→16:53)
--- NOTE | 2019-09-10 18:00 | NURSING ---
pt up in bathroom dry heaving. c/o nausea since supper. assisted back to bed. per pt had 3 good bms today. maggie chand made aware.
--- NOTE | 2019-09-10 18:30 | RAD_ITS ---
STUDY: X-RAY - ABDOMEN/PELVIS REASON FOR EXAM: Female, 79 years old. nausea, vomiting TECHNIQUE: Frontal view of the abdomen was performed COMPARISON: 23 August 2019 FINDINGS: Normal visualized lung bases. Tubing or wire is present in the left upper quadrant, minimally visualized, unable to determine exact purpose. There is no intestinal obstruction. The visualized liver, spleen and kidneys are grossly normal in size and morphology. Normal soft tissue structures. Normal visualized osseous structures. RAD/Abdomen Single View IMPRESSION: No intestinal obstruction. Electronically Signed: Vaishnavi Aj, at 19:04 EST Tel , Service support ,
--- NOTE | 2019-09-10 18:30 | NURSING ---
off floor to esme
[2019-09-10] MEDS: Lidocaine 5% Patch 1 PATCH TOPICAL (20:10)
[2019-09-10] MEDS: Magnesium Citrate 300 ML PO (20:11)
[2019-09-10 20:29] LABS: Bacteria 0 SEEN /hpf (None Seen); Mucous, Urine 0 SEEN /hpf (<or=2+); Red Blood Cells-Urine 0 SEEN /hpf (0-5); Squamous Epithelial Cells - UA 0 SEEN /hpf (5-10); White Blood Cells 0 SEEN /hpf (0-5)
[2019-09-10 20:33] LABS: Color, Urine Straw (Yellow); Glucose, Dipstick Normal (Normal); Ketone-Dipstick Negative (Negative); Leukocyte Esterase-Dipstick Negative /ul (Negative); Nitrite-Dipstick Negative (Negative); Occult Blood-Urine Negative /ul (Negative); Protein-Dipstick Negative (Negative); Urine Bilirubin Dipstick Negative (Negative); Urine Clarity Clear (Clear); Urine Urobilinogen Normal (Normal)
[2019-09-10] MEDS: Atorvastatin Calcium 40 MG Tablet PO (21:33)
[2019-09-10] MEDS: MELATONIN 10 MG TABLET 5 MG PO (21:33)
[2019-09-10] MEDS: Clopidogrel Bisulfate 75 MG Tablet PO (21:33)
[2019-09-11] MEDS: Pantoprazole Sodium 40 MG Tablet PO (05:34)
[2019-09-11] MEDS: Escitalopram Oxalate 10 MG Tablet 5 MG PO (05:34)
[2019-09-11] MEDS: Polyethylene Glycol 3350 17 GM PACKET PO (05:34)
[2019-09-11] MEDS: Menthol/Lanolin/Calamine/Znox 113 GM Tube 1 APPLIC TOPICAL ×2 (05:34→20:35)
[2019-09-11] MEDS: Senna/Docusate Sodium 1 Tablet PO ×2 (05:34→17:05)
[2019-09-11 05:35] VITALS: BP 138/63; PULSE 87
[2019-09-11] MEDS: Metoprolol Tartrate 25 MG Tablet 12.5 MG PO ×2 (05:35→17:06)
[2019-09-11] MEDS: Nystatin Powder 15gm Bottle 1 APPLIC TOPICAL ×2 (05:35→20:35)
[2019-09-11 08:20] VITALS: PULSE 81; RESP 16; O2SAT 98
[2019-09-11] MEDS: Albuterol 2.5 MG/3 ML VIAL.NEB. INHALATION ×3 (08:20→20:19)
[2019-09-11] MEDS: Aspirin E.C. 81 MG Tablet PO (08:51)
[2019-09-11] MEDS: Iron Polysaccharide Complex 150 MG CAPSULE PO (08:51)
[2019-09-11] MEDS: Magnesium Oxide 400 MG Tablet PO (08:51)
[2019-09-11] MEDS: Folic Acid 1 MG Tablet PO (08:51)
[2019-09-11] MEDS: Ascorbic Acid 500 MG Tablet PO (08:51)
[2019-09-11] MEDS: Furosemide 20 MG Tablet PO ×2 (08:51→17:05)
[2019-09-11] MEDS: clonazePAM 0.5 MG Tablet 0.25 MG PO (09:45)
[2019-09-11 14:20] VITALS: PULSE 86; RESP 16
[2019-09-11 16:00] VITALS: BP 156/60; PULSE 97; RESP 24; TEMP 37.1; O2SAT 98
[2019-09-11 17:06] VITALS: BP 157/60; PULSE 97
--- NOTE | 2019-09-11 17:14 | CASEMGMT ---
Social Work IDT met with patient and for care plan meeting. Discussed patient's progress in therapy. Pt is min assist for UE and LE ADLS d/t sternal precautions, SBA for toileting, walking 100 ft with FWW at CGA, CGA for bed mobility, SBA for transfers, and completed 5 steps CGA. Pt goal is to return home with to assist with O2. Explained Medicare coverage. Will continue to follow. PAVEL ClarkW
[2019-09-11 20:19] VITALS: PULSE 88; RESP 20
[2019-09-11] MEDS: MELATONIN 10 MG TABLET 5 MG PO (20:35)
[2019-09-11] MEDS: Atorvastatin Calcium 40 MG Tablet PO (20:35)
[2019-09-11] MEDS: Clopidogrel Bisulfate 75 MG Tablet PO (20:35)
[2019-09-11] MEDS: Lidocaine 5% Patch 1 PATCH TOPICAL (20:35)
[2019-09-12] MEDS: Menthol/Lanolin/Calamine/Znox 113 GM Tube 1 APPLIC TOPICAL ×2 (05:35→20:11)
[2019-09-12] MEDS: Nystatin Powder 15gm Bottle 1 APPLIC TOPICAL ×2 (05:35→20:12)
[2019-09-12] MEDS: Pantoprazole Sodium 40 MG Tablet PO (05:36)
[2019-09-12] MEDS: Senna/Docusate Sodium 1 Tablet PO (05:36)
[2019-09-12] MEDS: Escitalopram Oxalate 10 MG Tablet 5 MG PO (05:36)
[2019-09-12 05:37] VITALS: BP 149/69; PULSE 87
[2019-09-12] MEDS: Polyethylene Glycol 3350 17 GM PACKET PO (05:37)
[2019-09-12] MEDS: Metoprolol Tartrate 25 MG Tablet 12.5 MG PO ×2 (05:37→17:34)
[2019-09-12] MEDS: Albuterol 2.5 MG/3 ML VIAL.NEB. INHALATION ×2 (07:30→13:22)
[2019-09-12 08:45] VITALS: PULSE 81; RESP 20; O2SAT 97
[2019-09-12] MEDS: Magnesium Oxide 400 MG Tablet PO (09:21)
[2019-09-12] MEDS: Iron Polysaccharide Complex 150 MG CAPSULE PO (09:21)
[2019-09-12] MEDS: Furosemide 20 MG Tablet PO ×2 (09:22→17:34)
[2019-09-12] MEDS: Aspirin E.C. 81 MG Tablet PO (09:22)
[2019-09-12] MEDS: Ondansetron ODT 4 MG Tablet PO ×2 (09:25→17:30)
--- NOTE | 2019-09-12 10:18 | NURSING ---
pt requesting/stating that she can only use her medication Lexapro & Klonopin from her home supply. The Lexapro has to be the one she gets from [facility] to prevent severe anxiety issues. She refusing to take any other meds that our hospital provides to replace these two drugs. If pt takes generic lexapro, pt gets muscle soreness, jittery & does not control her worry/anxiety/mood issues, not enough serotonin per her family doctor. The Klonopin needed to be the pink tab with number 33 on it. pt has many reactions to different medications, even her glasses d/t a type of plastic caused a reaction to sinues/skin edema on face.
--- NOTE | 2019-09-12 10:49 | MDS.RN ---
Pain interview for ember 09/15/19 completed.
[2019-09-12 13:22] VITALS: PULSE 85; RESP 21
[2019-09-12 15:26] VITALS: BP 120/67; PULSE 86; RESP 20; TEMP 36.1; O2SAT 95
[2019-09-12 17:34] VITALS: BP 120/67; PULSE 86
[2019-09-12] MEDS: Lidocaine 5% Patch 1 PATCH TOPICAL (20:09)
[2019-09-12] MEDS: MELATONIN 10 MG TABLET 5 MG PO (20:12)
[2019-09-12] MEDS: Clopidogrel Bisulfate 75 MG Tablet PO (20:12)
[2019-09-12] MEDS: clonazePAM 0.5 MG Tablet 0.25 MG PO (20:27)
[2019-09-13] VITALS (8 sets, daily range): BP systolic 116–128; BP diastolic 59–65; PULSE 86–97; RESP 16–19; TEMP 36.9–37.1; O2SAT 93–97
[2019-09-13] MEDS: Ondansetron ODT 4 MG Tablet PO ×2 (05:55→16:43)
[2019-09-13] MEDS: Menthol/Lanolin/Calamine/Znox 113 GM Tube 1 APPLIC TOPICAL ×2 (05:55→20:58)
[2019-09-13] MEDS: Polyethylene Glycol 3350 17 GM PACKET PO (05:57)
[2019-09-13] MEDS: Pantoprazole Sodium 40 MG Tablet PO (06:03)
[2019-09-13] MEDS: Nystatin Powder 15gm Bottle 1 APPLIC TOPICAL ×2 (06:04→20:58)
[2019-09-13] MEDS: Acetaminophen 500 MG Tablet 1000 MG PO (06:05)
[2019-09-13 06:06] LABS: Magnesium 2.4 mg/dL (1.6-2.6)
[2019-09-13] MEDS: Furosemide 20 MG Tablet PO ×2 (08:38→17:46)
[2019-09-13] MEDS: Aspirin E.C. 81 MG Tablet PO (08:38)
[2019-09-13] MEDS: Iron Polysaccharide Complex 150 MG CAPSULE PO (08:38)
[2019-09-13] MEDS: clonazePAM 0.5 MG Tablet 0.25 MG PO ×2 (09:06→21:05)
[2019-09-13] MEDS: Albuterol 2.5 MG/3 ML VIAL.NEB. INHALATION (13:36)
[2019-09-13] MEDS: Senna/Docusate Sodium 1 Tablet PO (19:39)
[2019-09-13] MEDS: Metoprolol Tartrate 25 MG Tablet 12.5 MG PO (19:39)
[2019-09-13] MEDS: MELATONIN 10 MG TABLET 5 MG PO (20:57)
[2019-09-13] MEDS: Clopidogrel Bisulfate 75 MG Tablet PO (20:57)
[2019-09-13] MEDS: Lidocaine 5% Patch 1 PATCH TOPICAL (20:57)
[2019-09-14] MEDS: Ondansetron ODT 4 MG Tablet PO ×2 (04:47→16:58)
[2019-09-14 05:23] VITALS: PULSE 83
[2019-09-14] MEDS: Senna/Docusate Sodium 1 Tablet PO ×2 (05:23→16:54)
[2019-09-14] MEDS: Polyethylene Glycol 3350 17 GM PACKET PO (05:23)
[2019-09-14] MEDS: Nystatin Powder 15gm Bottle 1 APPLIC TOPICAL ×2 (05:23→21:13)
[2019-09-14] MEDS: Pantoprazole Sodium 40 MG Tablet PO (05:23)
[2019-09-14] MEDS: Metoprolol Tartrate 25 MG Tablet 12.5 MG PO ×2 (05:23→16:53)
[2019-09-14] MEDS: Menthol/Lanolin/Calamine/Znox 113 GM Tube 1 APPLIC TOPICAL ×2 (05:24→21:13)
[2019-09-14 07:30] VITALS: O2SAT 95
[2019-09-14] MEDS: Furosemide 20 MG Tablet PO ×2 (08:17→16:53)
[2019-09-14] MEDS: Iron Polysaccharide Complex 150 MG CAPSULE PO (08:17)
[2019-09-14] MEDS: Aspirin E.C. 81 MG Tablet PO (08:17)
--- NOTE | 2019-09-14 08:45 | CPS ---
Pt does not want any more aerosols. They make her heart race, feel jittery and awful. R.T. changed to MDI prn per protocol. Pt is not wheezing
[2019-09-14 09:15] VITALS: O2SAT 2
[2019-09-14] MEDS: clonazePAM 0.5 MG Tablet 0.25 MG PO ×2 (10:27→21:08)
[2019-09-14 15:46] VITALS: BP 130/61; PULSE 91; RESP 18; TEMP 36.6; O2SAT 95
[2019-09-14 16:53] VITALS: PULSE 90
[2019-09-14] MEDS: MELATONIN 10 MG TABLET 5 MG PO (21:12)
[2019-09-14] MEDS: Clopidogrel Bisulfate 75 MG Tablet PO (21:12)
[2019-09-14] MEDS: Lidocaine 5% Patch 1 PATCH TOPICAL (21:14)
[2019-09-15] MEDS: Ondansetron ODT 4 MG Tablet PO ×2 (05:51→17:11)
[2019-09-15 05:52] VITALS: BP 124/66; PULSE 89
[2019-09-15] MEDS: Metoprolol Tartrate 25 MG Tablet 12.5 MG PO ×2 (05:52→17:11)
[2019-09-15] MEDS: Senna/Docusate Sodium 1 Tablet PO (05:53)
[2019-09-15] MEDS: Pantoprazole Sodium 40 MG Tablet PO (05:53)
[2019-09-15] MEDS: Polyethylene Glycol 3350 17 GM PACKET PO (05:54)
[2019-09-15] MEDS: Nystatin Powder 15gm Bottle 1 APPLIC TOPICAL ×2 (05:56→20:56)
[2019-09-15] MEDS: Menthol/Lanolin/Calamine/Znox 113 GM Tube 1 APPLIC TOPICAL ×2 (05:56→20:57)
[2019-09-15] MEDS: Furosemide 20 MG Tablet PO (08:06)
[2019-09-15] MEDS: Iron Polysaccharide Complex 150 MG CAPSULE PO (08:07)
[2019-09-15] MEDS: Aspirin E.C. 81 MG Tablet PO (08:07)
[2019-09-15] MEDS: clonazePAM 0.5 MG Tablet 0.25 MG PO ×2 (08:58→20:53)
[2019-09-15 16:00] VITALS: BP 129/66; PULSE 89; RESP 16; TEMP 35.9; O2SAT 97
[2019-09-15 17:11] VITALS: BP 139/66; PULSE 89
[2019-09-15] MEDS: MELATONIN 10 MG TABLET 5 MG PO (20:55)
[2019-09-15] MEDS: Clopidogrel Bisulfate 75 MG Tablet PO (20:56)
[2019-09-15] MEDS: Lidocaine 5% Patch 1 PATCH TOPICAL (20:57)
[2019-09-16 05:58] LABS: Absolute Lymphocyte Count 1.67 X10^3/uL (0.83-4.51); Absolute Neutrophil Count 5.2 X10^3/uL (2.0-7.7); Basophil# 0.11 X10^3/uL; Basophil% 1.4 % (0-1); Eosinophil# 0.31 X10^3/uL; Eosinophils% 3.9 % (0-5); Hematocrit 37.1 % (37-47); Hemoglobin 11.4 g/dL (12.0-15.0); Lymphocyte # 1.67 X10^3/ul (4.0); Lymphocyte % 20.9 % (19-41); Mean Corp Hgb Conc 30.7 g/dL (32-36); Mean Corpuscular Hgb 28.9 pg (27.0-32.0); Mean Corpuscular Volume 93.9 fL (81-99); Mean Platelet Vol. 10.5 fl (6.2-12.0); Monocyte% 8.8 % (0-10); NRBC Flagged by Analyzer 0 % (0-5); Neutrophil # 5.17 X10^3/uL (2.7-7.7); Neutrophil % 64.6 % (47-70); Platelet Count 456 K/mm3 (150-450); RBC Distribution Width CV 13.4 % (11.6-14.6); RBC Distribution Width SD 46.2 fl (35.1-43.9); Red Blood Count 3.95 M/mm3 (4.2-5.4)
[2019-09-16 06:17] LABS: Anion Gap 5 (5-15); BUN 18 mg/dL (7-18); BUN/Creat Ratio 19.4 RATIO (10-20); Calcium,Total 8.9 mg/dL (8.5-10.1); Chloride 102 mmol/L (98-107); Creatinine, Serum 0.93 mg/dL (0.55-1.02); EST Glomerular Filtration Rate 62 mL/min (>60); Est Glom Filt Rate - Afr Amer 76 mL/min (>60); Estimated Creatinine Clearance 40.07 ml/min; Glucose 102 mg/dL (74-106); Magnesium 2.4 mg/dL (1.6-2.6); Sodium Level 138 mmol/L (136-145)
[2019-09-16] MEDS: Ondansetron ODT 4 MG Tablet PO (06:22)
[2019-09-16 06:25] VITALS: BP 134/64; PULSE 86
[2019-09-16] MEDS: Furosemide 20 MG Tablet PO (06:25)
[2019-09-16] MEDS: Metoprolol Tartrate 25 MG Tablet 12.5 MG PO ×2 (06:25→17:31)
[2019-09-16] MEDS: Pantoprazole Sodium 40 MG Tablet PO (06:25)
[2019-09-16] MEDS: Senna/Docusate Sodium 1 Tablet PO (06:26)
[2019-09-16] MEDS: Polyethylene Glycol 3350 17 GM PACKET PO (06:27)
[2019-09-16] MEDS: Nystatin Powder 15gm Bottle 1 APPLIC TOPICAL ×2 (06:29→21:39)
[2019-09-16] MEDS: Menthol/Lanolin/Calamine/Znox 113 GM Tube 1 APPLIC TOPICAL ×2 (06:30→21:40)
[2019-09-16] MEDS: Aspirin E.C. 81 MG Tablet PO (08:21)
[2019-09-16] MEDS: Iron Polysaccharide Complex 150 MG CAPSULE PO (08:21)
--- NOTE | 2019-09-16 08:49 | RAD_ITS ---
STUDY: X-RAY CHEST REASON FOR EXAM: Female, 79 years old. F/U POST CABG PROCEDURE, NO CHEST COMPLAINTS PER PT TECHNIQUE: PA and lateral views of the chest. COMPARISON: Comparison is made with prior study dated September 09, 2019. FINDINGS: Since prior study, there has been a decrease in the right pleural effusion. Residual blunting of both costophrenic angles are seen. Mild degree of increased markings at the lung bases suggest some mild basilar atelectasis. Sternal cerclage wires and vascular clips are present from a prior sternotomy and coronary artery bypass graft procedure (CABG). Normal mediastinum and angel. Normal visualized pulmonary arteries. There is atherosclerotic calcification of the aortic arch with tortuosity. There is demineralization of the osseous structures. Normal visualized ribs, clavicles, and shoulders. There is no demonstrated abnormality of the visualized soft tissue structures of the upper abdomen. RAD/Chest PA and Lateral IMPRESSION: Interval decrease in size of the small bilateral effusions with minimal residual increased markings at the lung bases. Electronically Signed: Darrell Astorga, at 13:16 EST , Service support ,
[2019-09-16] MEDS: clonazePAM 0.5 MG Tablet 0.25 MG PO ×2 (09:03→21:46)
[2019-09-16] MEDS: Tuberculin,Purif.prot.deriv. 50 TU/ML Vial 5 ML ID (10:10)
[2019-09-16 16:00] VITALS: BP 125/70; PULSE 90; RESP 22; TEMP 36.8; O2SAT 93
[2019-09-16 17:31] VITALS: BP 125/70; PULSE 90
--- NOTE | 2019-09-16 17:35 | NURSING ---
pt refused, wants family physician to manage all vaccines
[2019-09-16 19:52] VITALS: O2SAT 93
[2019-09-16] MEDS: MELATONIN 10 MG TABLET 5 MG PO (21:39)
[2019-09-16] MEDS: Clopidogrel Bisulfate 75 MG Tablet PO (21:39)
[2019-09-16] MEDS: Lidocaine 5% Patch 1 PATCH TOPICAL (21:40)
[2019-09-17] VITALS (7 sets, daily range): BP systolic 115–120; BP diastolic 56–65; PULSE 75–94; RESP 14–18; TEMP 35.7; O2SAT 90–93
[2019-09-17] MEDS: Ondansetron ODT 4 MG Tablet PO ×2 (06:36→17:21)
[2019-09-17] MEDS: Pantoprazole Sodium 40 MG Tablet PO (06:37)
[2019-09-17] MEDS: Senna/Docusate Sodium 1 Tablet PO ×2 (06:37→17:23)
[2019-09-17] MEDS: Polyethylene Glycol 3350 17 GM PACKET PO (06:37)
[2019-09-17] MEDS: Metoprolol Tartrate 25 MG Tablet 12.5 MG PO ×2 (06:37→17:23)
[2019-09-17] MEDS: Furosemide 20 MG Tablet PO (06:37)
[2019-09-17] MEDS: Menthol/Lanolin/Calamine/Znox 113 GM Tube 1 APPLIC TOPICAL ×2 (06:40→21:11)
[2019-09-17] MEDS: Nystatin Powder 15gm Bottle 1 APPLIC TOPICAL ×2 (06:41→21:10)
[2019-09-17] MEDS: clonazePAM 0.5 MG Tablet 0.25 MG PO ×2 (08:50→21:12)
[2019-09-17] MEDS: Iron Polysaccharide Complex 150 MG CAPSULE PO (08:51)
[2019-09-17] MEDS: Aspirin E.C. 81 MG Tablet PO (08:51)
--- NOTE | 2019-09-17 11:55 | MDS.RN ---
Information for the mds was obtained from review of the clinical record, interview of resident, staff, and direct observation of resident's care.
--- NOTE | 2019-09-17 14:38 | CASEMGMT ---
Social Work Spoke with patient and about DC plans. Pt requesting to DC home 09/18. IDT agreeable. Pt chose outpatient Cardiac Rehab at [facility], but would like a nurse weekly. Educated to CCN - pt agreeable. No DME needs. Referrals made. Plan: DC home with 09/18, Cardiac Rehab, CCN. Kinga Waters, DINKEY OPERATOR LAMINATING MACHINE TENDER
[2019-09-17] MEDS: MELATONIN 10 MG TABLET 5 MG PO (21:05)
[2019-09-17] MEDS: Clopidogrel Bisulfate 75 MG Tablet PO (21:05)
[2019-09-17] MEDS: Lidocaine 5% Patch 1 PATCH TOPICAL (21:07)
[2019-09-18 06:09] VITALS: PULSE 58; RESP 16; O2SAT 92
[2019-09-18] MEDS: Senna/Docusate Sodium 1 Tablet PO (06:19)
[2019-09-18] MEDS: Pantoprazole Sodium 40 MG Tablet PO (06:19)
[2019-09-18] MEDS: Furosemide 20 MG Tablet PO (06:19)
[2019-09-18] MEDS: Polyethylene Glycol 3350 17 GM PACKET PO (06:19)
[2019-09-18] MEDS: Ondansetron ODT 4 MG Tablet PO (06:22)
[2019-09-18 06:24] VITALS: BP 136/62; PULSE 83
[2019-09-18] MEDS: Metoprolol Tartrate 25 MG Tablet 12.5 MG PO (06:24)
[2019-09-18] MEDS: Menthol/Lanolin/Calamine/Znox 113 GM Tube 1 APPLIC TOPICAL (06:27)
[2019-09-18] MEDS: Nystatin Powder 15gm Bottle 1 APPLIC TOPICAL (06:27)
[2019-09-18 07:20] VITALS: O2SAT 92
--- NOTE | 2019-09-18 08:16 | DCINST_ITS ---
- Discharge Diagnoses Current Active Problems: Current Active and Chronic Problems (Last Updated 08/30/19 @ 12:11 by Becca Gomez) Debility (Acute) Hypertension (Chronic) Fecal impaction (Chronic) Coronary artery disease (Chronic) You will use the following diet at home:: No restrictions, Regular Your food should be the consistency of: Regular Your liquids should be the consistency of: Regular/Thin Discharge Activity: Return to Normal Activity, May Shower, Use Walker Weight Bearing Status: Weight bearing as tolerated Call your doctor if you observe: Fever of 101 or Higher, Inability to urinate, Inability to have a bowel movement, Shortness of breath, Chest pain, Uncontrolled pain Allergies/Adverse Reactions: Allergies amlodipine besylate [From Norvasc] Allergy (Verified 02/11/18 14:23) Other INCREASED BLOOD PRESSURE, CAN'T STAND WITHOUT HOLDING ONTO SOMETHING atenolol Allergy (Verified 08/29/19 10:17) Other INCREASED BP AND INSTABILITY buspirone HCl [From BuSpar] Allergy (Verified 08/29/19 10:17) Other INCREASED ANXIETY citalopram hydrobromide [From Celexa] Allergy (Verified 08/29/19 10:17) Other INCREASED ANXIETY diazepam [From Valium] Allergy (Verified 08/29/19 10:17) Other INCREASED ANXIETY hydrochlorothiazide [From Zestoretic] Allergy (Verified 08/29/19 10:17) Other BALANCE lisinopril [From Zestoretic] Allergy (Verified 08/29/19 13:01) Other BALANCE metoprolol succinate [From Toprol XL] Allergy (Verified 08/29/19 10:17) Other BALANCE mirtazapine [From Remeron] Allergy (Verified 08/29/19 10:17) Other END UP IN ER FROM TOO STRONG paroxetine HCl [From Paxil] Allergy (Verified 08/29/19 10:17) Other ANXIETY procaine HCl [From Novocain] Allergy (Verified 08/29/19 10:17) Other RAPID HR Sulfa (Sulfonamide Antibiotics) Allergy (Verified 08/29/19 13:01) Other racing HR valsartan [From Diovan] Allergy (Verified 08/29/19 13:01) Other balance Penicillins Adverse Reaction (Unknown, Verified 08/29/19 13:01) Other headache, malaise Medications to take at Discharge Clonazepam [Klonopin] 0.25 mg PO Q8H PRN PRN 09/20/13 Aspirin [Aspirin EC] 81 mg PO DAILY 09/08/19 Melatonin 5 mg PO QHS 09/08/19 Rosuvastatin Calcium [Crestor] 20 mg PO QHS 09/08/19 Cipralex 10 mg PO DAILY 09/18/19 Clopidogrel Bisulfate [Plavix] 75 mg PO QHS #30 tab 09/18/19 Furosemide [Lasix] 20 mg PO BIDAC #60 tab 09/18/19 Iron Polysaccharide Complex [Ferrex 150] 150 mg PO DAILYCM #30 cap 09/18/19 Lidocaine 1 patch TOPICAL QHS #30 09/18/19 Menthol/Lanolin/Calamine/Znox [Calmoseptine Ointment] 1 applic TOPICAL 0600,2200 tube 09/18/19 Metoprolol Tartrate [Lopressor (beta haseeb)] 12.5 mg PO BID #30 tab 09/18/19 Nystatin Powder [Mycostatin Powder] 1 applic TOPICAL 0600,2200 bottle 09/18/19 Ondansetron [Zofran Odt] 4 mg PO Q8H PRN PRN #30 tab 09/18/19 Pantoprazole Sodium [Protonix] 40 mg PO DAILY #30 tab 09/18/19 The following prescriptions were given: Iron Polysaccharide Complex [Ferrex 150] 150 mg PO DAILYCM #30 cap Transmission Status: Pending to [facility]acy [id number] Furosemide [Lasix] 20 mg PO BIDAC #60 tab Transmission Status: [facility] to [id number] Lidocaine 1 patch TOPICAL QHS #30 Metoprolol Tartrate [Lopressor (beta haseeb)] 12.5 mg PO BID #30 tab Transmission Status: [id number] Clopidogrel Bisulfate [Plavix] 75 mg PO QHS #30 tab Transmission Status: [facility] to [id number] Pantoprazole Sodium [Protonix] 40 mg PO DAILY #30 tab Transmission Status: [id number] Ondansetron [Zofran Odt] 4 mg PO Q8H PRN PRN #30 tab PRN Reason: NAUSEA/VOMITING Transmission Status: [id number] Primary Care Physician: Jp Henson DO [Primary Care Provider] - Please follow up with your Primary Care Physician in: 1 week. Test Results: Test results from this visit will be discussed in further detail at your follow- up appointment, if applicable. Please Follow Up With: Jp Real MD (cardiology surgeon) When: when d/c from TCU Please Follow Up With: Natalio clarke When: when d/c from TCU Proposed Discharge Date: 09/18/19
[2019-09-18 08:17] VITALS: BP 128/60; PULSE 84; RESP 18; TEMP 36.7; O2SAT 92
--- NOTE | 2019-09-18 08:18 | DS.PCM_ITS ---
Discharge Date and Diagnosis - Problem List Patient Problems: Active and Suspected Problems (Last Updated 08/30/19 @ 12:11 by Becca Gomez) Debility (Acute) Date of Admission: 09/08/19 Date of Discharge: 09/18/19 - Primary Discharge Diagnosis Active and Suspected Problems (Last Updated 08/30/19 @ 12:11 by Becca Gomez) Debility (Acute) - Secondary Discharge Diagnosis Chronic Problems (Last Updated 08/30/19 @ 12:11 by Becca Gomez) Hypertension (Chronic) Fecal impaction (Chronic) Coronary artery disease (Chronic) Right bundle branch block (RBBB) (Chronic) 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 (Chronic) Essential (primary) hypertension (Chronic) Hospital Course and Treatment Imaging Results: 09/23/19 08:00 Chest PA and Lateral [RAD] MO Operations: None Procedures: None Summary of Care Provided: The patient is a 79 year old Female with below past medical history hospitalized for chest pain, underwent CABG x 3 09/01/[address] Real, admitted to TCU with debility, here for rehabilitation, strengthening, prior to discharge home with . Discharge home with , cardiac rehab, community care network. Patient Problems: Active and Suspected Problems (Last Updated 08/30/19 @ 12:11 by Becca Gomez) Debility (Acute) - Physical Exam Vitals/I&O's: Vital Signs Temp Pulse Resp BP Pulse Ox 96.3 F L 83 16 136/62 H 92 09/17/19 16:00 09/18/19 06:24 09/18/19 06:09 09/18/19 06:24 09/18/19 07:20 Oxygen Flow Rate (L/min) 1 Oxygen Delivery Method Room Air Weight: 56.841 kg Body Mass Index (BMI) 24.6 Intake and Output for Last 24 Hours 09/16/19 09/17/19 09/18/19 23:59 23:59 23:59 Intake Total 720 / 720 840 / 840 450 / 450 Balance 720 / 720 840 / 840 450 / 450 Current Medications Acetaminophen (Tylenol) 1,000 mg PO Q6H PRN PRN Reason: Pain Score 1-3/10 Last Admin: 09/13/19 06:05 Dose: 250 mg Documented by: Aspirin (Ecotrin) 81 mg PO DAILYCM DEO Last Admin: 09/17/19 08:51 Dose: 81 mg Documented by: Bisacodyl (Dulcolax) 10 mg PO DAILY PRN PRN Reason: Constipation Calamine/Phenol (Calmoseptine Ointment) 1 applic TOPICAL 599,2199 [facility]; Protocol Last Admin: 09/18/19 06:27 Dose: 1 applicatio Documented by: Clonazepam (Klonopin) 0.25 mg PO Q8H PRN PRN PRN Reason: ANXIETY Last Admin: 09/17/19 21:12 Dose: 0.25 mg Documented by: Clopidogrel Bisulfate (Plavix) 75 mg PO QHS [facility] Last Admin: 09/17/19 21:05 Dose: 75 mg Documented by: Furosemide (Lasix) 20 mg PO DAILY [facility] Last Admin: 09/18/19 06:19 Dose: 20 mg Documented by: Ipratropium [place] (Atrovent) 0.5 mg INHALATION Q6H.RT PRN PRN Reason: SOB &/OR WHEEZING [facility] Last Admin: 09/17/19 21:07 Dose: 1 patch Documented by: Melatonin (Melatonin) 5 mg PO QHS [facility] Last Admin: 09/17/19 21:05 Dose: 5 mg Documented by: Metoprolol Tartrate (Lopressor (Beta Tevin)) 12.5 mg PO BID [facility] Last Admin: 09/18/19 06:24 Dose: 12.5 mg Documented by: Non-Formulary Medication (Cipralex) 10 mg PO DAILY [facility] Last Admin: 09/18/19 06:20 Dose: 10 mg Documented by: Nystatin (Mycostatin Powder) 1 applic TOPICAL [id number] [facility]; Protocol Last Admin: 09/18/19 06:27 Dose: 1 applicatio Documented by: Ondansetron HCl (Zofran Odt) 4 mg PO Q8H PRN PRN PRN Reason: NAUSEA/VOMITING Last Admin: 09/18/19 06:22 Dose: 4 mg Documented by: Oxycodone HCl (Oxyir) 5 mg PO Q4H PRN PRN Reason: Pain Score 4-10/10 Pantoprazole Sodium (Protonix) 40 mg PO DAILY [facility] Last Admin: 09/18/19 06:19 Dose: 40 mg Documented by: Polyethylene Glycol (Miralax) 17 gm PO DAILY [facility] Last Admin: 09/18/19 06:19 Dose: 17 gm Documented by: Polysaccharide Iron [facility] ([facility]rex 150) [facility] Last Admin: 09/17/19 08:51 Dose: 150 mg Documented by: Senna/Docusate Sodium (Senokot-S, Lexi-Colace) 1 tablet PO BID [facility] Last Admin: 09/18/19 06:19 Dose: 1 tablet Documented by: Discharge Diet: No Restrictions Discharge Activity: Return to Normal Activity, May Shower, Use Walker Weight Bearing Status: Weight bearing as tolerated Call your doctor if you observe: Fever of 101 or Higher, Inability to urinate, Inability to have a bowel movement, Shortness of breath, Chest pain, Uncontrolled pain Home Medications: Medications to take at Discharge Clonazepam [Klonopin] 0.25 mg PO Q8H PRN PRN 09/20/13 Aspirin [Aspirin EC] 81 mg PO DAILY 09/08/19 Melatonin 5 mg PO QHS 09/08/19 Rosuvastatin Calcium [Crestor] 20 mg PO QHS 09/08/19 Cipralex 10 mg PO DAILY 09/18/19 Clopidogrel Bisulfate [Plavix] 75 mg PO QHS #30 tab 09/18/19 Furosemide [Lasix] 20 mg PO BIDAC #60 tab 09/18/19 Iron Polysaccharide Complex [Ferrex 150] 150 mg PO DAILYCM #30 cap 09/18/19 Lidocaine 1 patch TOPICAL QHS #30 09/18/19 Menthol/Lanolin/Calamine/Znox [Calmoseptine Ointment] 1 applic TOPICAL 0600,2200 tube 09/18/19 Metoprolol Tartrate [Lopressor (beta tevin)] 12.5 mg PO BID #30 tab 09/18/19 Nystatin Powder [Mycostatin Powder] 1 applic TOPICAL 0600,2200 bottle 09/18/19 Ondansetron [Zofran Odt] 4 mg PO Q8H PRN PRN #30 tab 09/18/19 Pantoprazole Sodium [Protonix] 40 mg PO DAILY #30 tab 09/18/19 Following Prescrptions Were Given to Patient: Iron Polysaccharide Complex [Ferrex 150] 150 mg PO DAILYCM #30 cap Transmission Status: Pending to [facility]/pharmacy #[id number] Furosemide [Lasix] 20 mg PO BIDAC #60 tab Transmission Status: [id number] Lidocaine 1 patch TOPICAL QHS #30 Metoprolol Tartrate [Lopressor (beta tevin)] 12.5 mg PO BID #30 tab Transmission Status: [facility] Clopidogrel Bisulfate [Plavix] 75 mg PO QHS #30 tab Transmission Status: [facility] Pantoprazole Sodium [Protonix] 40 mg PO DAILY #30 tab Transmission Status: [facility] Ondansetron [Zofran Odt] 4 mg PO Q8H PRN PRN #30 tab PRN Reason: NAUSEA/VOMITING Transmission Status: [id number] Primary Care Physician: Jp Henson DO [Primary Care Provider] - Please follow up with your Primary Care Physician in: 1 week. Please Follow Up With: Jp Real MD (cardiology surgeon) When: when d/c from TCU Please Follow Up With: Natalio clarke When: when d/c from TCU Medical Necessity - Tobacco Use Smoking Status: Never smoker Tobacco Use: Non-smoker Meaningful Use Info Meaningful Use Diagnoses (Choose all that apply): None applicable
[2019-09-18 09:24] VITALS: BP 128/60; PULSE 84; RESP 18; TEMP 36.7; O2SAT 92
[2019-09-18] MEDS: Iron Polysaccharide Complex 150 MG CAPSULE PO (09:27)
[2019-09-18] MEDS: Aspirin E.C. 81 MG Tablet PO (09:27)
[2019-09-18] MEDS: clonazePAM 0.5 MG Tablet 0.25 MG PO (09:39)
--- NOTE | 2019-09-18 10:35 | NURSING ---
Spoke with Dr. Real's office, order faxed to this facility for pt have have CBC & CMP and chest xray. Will provide order with discharge instructions to patient.
[2019-09-18] MEDS: Bisacodyl 5 MG Tablet 10 MG PO (12:37)
--- NOTE | 2019-09-19 13:13 | CCN.REFER ---
Patient and both decline CCN. State that they have too many appointments at this time, and they do not feel they would benefit from CCN. Contact information left if they change their mind.
== END 2019-09-18 15:14 | disposition home or self-care (01) | DRG 950 ==
PROVIDERS: Admitting Provider Family Medicine Geriatric Medicine; Family Provider Family Medicine; PCP Family Medicine; Referring Provider Family Medicine Geriatric Medicine; Visit Provider Family Medicine Geriatric Medicine
DX: Z48.812 Encounter for surgical aftercare following surgery on the circulatory system (principal); F41.9 Anxiety disorder, unspecified; F32.9 Major depressive disorder, single episode, unspecified; D50.9 Iron deficiency anemia, unspecified; E78.5 Hyperlipidemia, unspecified; E55.9 Vitamin D deficiency, unspecified; I25.10 Atherosclerotic heart disease of native coronary artery without angina pectoris; I10 Essential (primary) hypertension; K21.9 Gastro-esophageal reflux disease without esophagitis; E53.8 Deficiency of other specified B group vitamins; Z28.82 Immunization not carried out because of caregiver refusal; Z95.1 Presence of aortocoronary bypass graft
CPT/HCPCS: 36415; 71046; 74018; 80048; 81001; 83735; 85025; 94640; 94668; 97110; 97116; 97162; 97166; 97530; 97535; 97802

== ENCOUNTER → 2019-09-28 08:37 | Outpatient (CLI) | payer MEDICARE, OTHER, SELFPAY ==
[2019-09-08 16:13] VITALS: BMI 24.6
--- NOTE | 2019-09-28 09:20 | RAD_ITS ---
STUDY: X-RAY CHEST REASON FOR EXAM: Female, 79 years old. Chest pain and shortness of breath TECHNIQUE: PA and lateral views of the chest. COMPARISON: 09/16/2019 FINDINGS: There are interstitial fibrotic changes of the lungs. There is no demonstrated pleural abnormality. Sternal cerclage wires and vascular clips are present from a prior sternotomy and coronary artery bypass graft procedure (CABG). Normal mediastinum and angel. Normal visualized pulmonary arteries. There is atherosclerotic calcification of the aortic arch with tortuosity. There are diffuse degenerative changes of the visualized thoracic spine. There is degenerative osteoarthritis of the bilateral shoulders. There is no demonstrated abnormality of the visualized soft tissue structures of the upper abdomen. RAD/Chest PA and Lateral IMPRESSION: Degenerative changes, as described above. No demonstrated acute cardiopulmonary process. Electronically Signed: Colten Lezama MD at 10:33 EST , Service support ,
[2019-09-28 10:20] LABS: Hematocrit 43.4 % (37-47); Hemoglobin 13.6 g/dL (12.0-15.0); Mean Corp Hgb Conc 31.3 g/dL (32-36); Mean Corpuscular Hgb 29.3 pg (27.0-32.0); Mean Corpuscular Volume 93.5 fL (81-99); Mean Platelet Vol. 10.8 fl (6.2-12.0); Platelet Count 308 K/mm3 (150-450); RBC Distribution Width CV 13.2 % (11.6-14.6); RBC Distribution Width SD 45.3 fl (35.1-43.9); Red Blood Count 4.64 M/mm3 (4.2-5.4); White Blood Count 8.1 K/mm3 (4.4-11.0)
[2019-09-28 10:54] LABS: ALB/GLOB Ratio 0.9 RATIO (0.9-2.4); AST(SGOT) 18 U/L (15-37); Alanine Aminotransfer ALT/SGPT 34 U/L (13-56); Albumin, Serum 3.6 g/dL (3.2-5.0); Alkaline Phosphatase 113 U/L (45-117); Anion Gap 6 (5-15); BUN 14 mg/dL (7-18); BUN/Creat Ratio 13.9 RATIO (10-20); Calcium,Total 9.3 mg/dL (8.5-10.1); Chloride 102 mmol/L (98-107); Creatinine, Serum 1.01 mg/dL (0.55-1.02); EST Glomerular Filtration Rate 57 mL/min (>60); Est Glom Filt Rate - Afr Amer 68 mL/min (>60); Glucose 127 mg/dL (74-106); Potassium 3.7 mmol/L (3.5-5.1); Protein, Total 7.6 g/dL (6.4-8.2); Sodium Level 138 mmol/L (136-145)
== END ==
PROVIDERS: PCP Family Medicine; Referring Provider Thoracic Surgery (Cardiothoracic Vascular Surgery); Visit Provider Thoracic Surgery (Cardiothoracic Vascular Surgery)
DX: I25.10 Atherosclerotic heart disease of native coronary artery without angina pectoris (principal)
CPT/HCPCS: 36415; 71046; 80053; 85027

== ENCOUNTER → 2019-11-04 15:50 | Outpatient (CLI) | payer MEDICARE, OTHER, SELFPAY ==
[2019-09-08 16:13] VITALS: BMI 24.6
[2019-11-04 15:54] LABS: Mucous, Urine 0 SEEN /hpf (<or=2+); Squamous Epithelial Cells - UA 0 SEEN /hpf (5-10)
[2019-11-04 18:43] LABS: Color, Urine Yellow (Yellow); Glucose, Dipstick Normal (Normal); Ketone-Dipstick Negative (Negative); Leukocyte Esterase-Dipstick 500 /ul (Negative); Nitrite-Dipstick Negative (Negative); Occult Blood-Urine 250 /ul (Negative); Protein-Dipstick Negative (Negative); Specific Gravity, Urine 1.005 (1.002-1.030); Urine Bilirubin Dipstick Negative (Negative); Urine Clarity Cloudy (Clear); Urine Urobilinogen Normal (Normal)
[2019-11-04 19:26] LABS: Red Blood Cells-Urine 10-25 SEEN /hpf (0-5); White Blood Cells >100 SEEN /hpf (0-5)
[2019-11-04 19:27] LABS: Bacteria 1+ /hpf (None Seen)
== END ==
LOC: PR 15:51 → BFHLAB 15:51
PROVIDERS: PCP Family Medicine; Visit Provider Family Medicine
DX: R30.0 Dysuria (principal)
CPT/HCPCS: 81001; 87086; 87088

== ENCOUNTER 2020-01-25 13:57 | Emergency (ER) | payer MEDICARE, OTHER, SELFPAY ==
[2020-01-06 09:08] VITALS: BMI 24.6
[2020-01-25 13:57] VITALS: BP 172/92; BP 183/92; PULSE 94; PULSE 95; RESP 16; RESP 18; TEMP 36.4; O2SAT 95; O2SAT 96; BMI 22.6
--- NOTE | 2020-01-25 14:14 | EKG12_ITS ---
Test Reason : WEAKNESS Blood Pressure : / mmHG Vent. Rate : 087 BPM Atrial Rate : 087 BPM P-R Int : 182 ms QRS Dur : 134 ms QT Int : 432 ms P-R-T Axes : 059 -68 036 degrees QTc Int : 519 ms Normal sinus rhythm Right bundle branch block Left anterior fascicular block Bifascicular block Left ventricular hypertrophy with repolarization abnormality Abnormal ECG Confirmed by SÁNCHEZ YOUNGER MD ([id number]), book editor EV BARTHOLOMEW ([id number]) on 01/28/2020 1:36:22 PM Referred By: SATURNINO Confirmed By:SÁNCHEZ YOUNGER MD
--- NOTE | 2020-01-25 14:14 | RAD_ITS ---
STUDY: X-RAY CHEST REASON FOR EXAM: Female, 79 years old. Shaky and unsteady TECHNIQUE: Single AP portable view of the chest. COMPARISON: None. FINDINGS: The lungs are clear and expanded. There is no demonstrated pleural abnormality. There is mild cardiac enlargement. Previous CABG. Normal mediastinum and angel. Normal visualized pulmonary arteries. There is atherosclerotic calcification of the aortic arch with tortuosity. Normal visualized thoracic spine. Normal visualized ribs, clavicles, and shoulders. There is no demonstrated abnormality of the visualized soft tissue structures of the upper abdomen. RAD/Chest 1 View (Portable) IMPRESSION: No definite acute or significant abnormality seen. Electronically Signed: Jorge Vo MD at 14:50 EDT , Service support ,
--- NOTE | 2020-01-25 14:15 | ED.DCSUM_ITS ---
History of Present Illness Chief Complaint: Weakness Informant: Patient Onset: Today Current Severity: Mild Maximum Severity: Moderate Narrative: Patient presents with feeling of shakiness and weakness today. She states she got up this morning and felt fine. She took her thyroid medication and then got busy doing some work around her home. She usually eats about a half an hour after her medication but did not eat for approximately 2 hours. When she realized what time it was she started to feel shaky and dizzy. She ate but did not note significant provement in her symptoms. She states that she had her help her with ambulation because she was not sure if her legs would hold her up. She reports that her heart was pounding very hard. She was started on thyroid medication 15 days ago and is wondering if this might be an effect of her medication. She states she did read the side effects of the medication today and believes that she has several of these. - Past Medical History (1) Atherosclerotic heart disease of [place] coronary artery without angina pectoris Status: Chronic (2) Essential hypertension Status: Chronic (3) History of coronary artery bypass graft x 3 Status: Chronic Comment: HOLCOMB to LAD, SVG to the Diagonal, and SVG to distal RCA 09/01/19 @ [facility] in [place] (4) History of coronary artery stent placement Status: Chronic Comment: PCI-HERLINDA-Mid LAD w/ dissection of the LAD extending into the D3, POBA-D3 08/30/19 (5) Hypothyroidism (acquired) Status: Chronic (6) Right bundle branch block (RBBB) Status: Chronic Past Medical History - Allergies and Home Meds Allergies/Adverse Reactions: Allergies amlodipine besylate [From Norvasc] Allergy (Verified 01/25/20 14:00) Other INCREASED BLOOD PRESSURE, CAN'T STAND WITHOUT HOLDING ONTO SOMETHING atenolol Allergy (Verified 01/25/20 14:00) Other INCREASED BP AND INSTABILITY buspirone HCl [From BuSpar] Allergy (Verified 01/25/20 14:00) Other INCREASED ANXIETY citalopram hydrobromide [From Celexa] Allergy (Verified 01/25/20 14:00) Other INCREASED ANXIETY diazepam [From Valium] Allergy (Verified 01/25/20 14:00) Other INCREASED ANXIETY hydrochlorothiazide [From Zestoretic] Allergy (Verified 01/25/20 14:00) Other BALANCE lisinopril [From Zestoretic] Allergy (Verified 01/25/20 14:00) Other BALANCE metoprolol succinate [From Toprol XL] Allergy (Verified 01/25/20 14:00) Other BALANCE mirtazapine [From Remeron] Allergy (Verified 01/25/20 14:00) Other END UP IN ER FROM TOO STRONG paroxetine HCl [From Paxil] Allergy (Verified 01/25/20 14:00) Other ANXIETY procaine HCl [From Novocain] Allergy (Verified 01/25/20 14:00) Other RAPID HR Sulfa (Sulfonamide Antibiotics) Allergy (Verified 01/25/20 14:00) Other racing HR valsartan [From Diovan] Allergy (Verified 01/25/20 14:00) Other balance Penicillins Adverse Reaction (Unknown, Verified 01/25/20 14:00) Other headache, malaise Primary Care Physician: Jp Henson DO [Primary Care Provider] - Prior records reviewed: Yes Surgical History: angioplasty - Stent., appendectomy, cholecystectomy, coronary bypass surgery - x 3., herniorrhaphy - Abdominal. Lives: Spouse/ Significant Other Smoking Status: Never smoker - Family History Maternal Family History: Family History (Last Reviewed 01/06/20 @ 09:[address] Allne Lux MD) Other Adopted Family History: Reports: - - Patient was adopted at 2 weeks after has no knowledge of her biological parents Review of Systems General: Denies: Chills, Fever Eyes: Denies: Visual changes - bilaterally ENT: Denies: Bilateral ear pain Cardiovascular: Reports: Heart racing Respiratory: Denies: Dyspnea Gastrointestinal: Denies: Abdominal pain, Nausea, Vomiting, Diarrhea Musculoskeletal: Denies: Extremity Pain Skin: Denies: Rash Neurological: Reports: Weakness Hematologic: Denies: Easy bruising, Easy bleeding Allergy: Denies: Uticaria Physical Exam Vital Signs/Narrative: Vital Signs Temp Pulse Resp BP Pulse Ox 01/25/20 13:57 97.6 F L 94 16 172/92 H 96 Inital Vital Signs reviewed: Yes General: Well nourished, Well developed Head: Normocephalic ENT: Moist mucous membranes Neck: Supple Cardiovascular: Regular rate, Regular rhythm Respiratory: No distress, CTA bilaterally Abdomen: Soft, Nontender, Normal bowel sounds Skin: Normal color Neurological: Alert, Oriented x3, Normal Strength, Normal Sensation Psychological: Normal affect Diagnostic/Tx/Re-eval Impressions Chest X-Ray 01/25/20 14:14 IMPRESSION: No definite acute or significant abnormality seen. Electronically Signed: Jorge Vo MD at 14:50 EDT , Service support , 01/25/20 14:14 Chest 1 View (Portable) [RAD] Stat Laboratory Results 01/25/20 01/25/20 01/25/20 14:20 14:20 15:45 WBC 8.5 RBC 5.04 Hgb 15.3 H Hct 48.8 H MCV 96.8 MCH 30.4 MCHC 31.4 L RDW Std Deviation 45.8 H RDW Coeff of Thor 12.9 Plt Count 298 MPV 10.8 Immature Gran % (Auto) 0.100 Neut % (Auto) 63.9 Lymph % (Auto) 24.4 [place] % (Auto) 7.2 Eos % (Auto) 3.3 Baso % (Auto) 1.1 H Absolute Neuts (auto) 5.5 Absolute Lymphs (auto) 2.08 Nucleated RBC % 0 Sodium 140 Potassium 5.0 Chloride 108 H Carbon Dioxide 26.0 Anion Gap 6 BUN 18 Creatinine 0.98 Estim Creat Clear Calc 38.02 Est GFR (MDRD) Af Amer 71 Est GFR (MDRD) Non-Af 59 L BUN/Creatinine Ratio 18.4 Glucose 106 Calcium 9.1 Total Bilirubin 0.30 Direct Bilirubin 0.07 AST 34 ALT 23 Alkaline Phosphatase 79 Troponin I < 0.015 Total Protein 7.6 Albumin 3.4 Globulin 4.2 TSH 6.71 H Urine Color Yellow Urine Clarity Clear Urine pH 7.0 Ur Specific [place] 1.010 Urine Protein Negative Urine Glucose (UA) Normal Urine Ketones Negative Urine Occult Blood 10 H Urine Nitrite Negative Urine Bilirubin Negative Urine Urobilinogen Normal Ur Leukocyte Esterase Negative Urine RBC 0 SEEN Urine WBC 0 SEEN Ur Squamous Epith Cells 0 SEEN Urine Bacteria 0 SEEN Urine Mucus 0 SEEN - EKG Initial EKG Interpretation: Sinus Rhythm - Sinus with a bifascicular block. No acute ischemia. - Medical Decision Making Patient was given 500 cc IV fluid bolus here. Patient just saw Dr. Lux, endocrinology 2 weeks ago. According to her note patient's TSH was 39 in October. Per her office note patient was to be started on 2 years since 25 mcg a day. In the computer it states that she is on levothyroxine 50 mcg every other day. The box the patient has with her is to resent 50 mcg every day. I did speak with Dr. Lux. She believes the patient may be having increased symptoms secondary to correcting her TSH a little too quickly. Patient will take her Tirosint every other day to see if that helps minimize her side effects symptoms. Patient is comfortable with this plan. ED Disposition - Plan for ED Patient: Disposition: Home or Assisted Living Diagnosis: Weakness Instructions: ED Weakness [facility] Referrals: Jp Henson, [Primary Care Provider] - Additional Instructions: Decrease your thyroid medication to every other day.
[2020-01-25 14:29] LABS: Absolute Lymphocyte Count 2.08 X10^3/uL (0.83-4.51); Absolute Neutrophil Count 5.5 X10^3/uL (2.0-7.7); Basophil# 0.09 X10^3/uL; Basophil% 1.1 % (0-1); Eosinophil# 0.28 X10^3/uL; Eosinophils% 3.3 % (0-5); Hematocrit 48.8 % (37-47); Hemoglobin 15.3 g/dL (12.0-15.0); Lymphocyte # 2.08 X10^3/ul (4.0); Lymphocyte % 24.4 % (19-41); Mean Corp Hgb Conc 31.4 g/dL (32-36); Mean Corpuscular Hgb 30.4 pg (27.0-32.0); Mean Corpuscular Volume 96.8 fL (81-99); Mean Platelet Vol. 10.8 fl (6.2-12.0); Monocyte# 0.61 X10^3/uL; Monocyte% 7.2 % (0-10); NRBC Flagged by Analyzer 0 % (0-5); Neutrophil # 5.46 X10^3/uL (2.7-7.7); Neutrophil % 63.9 % (47-70); Platelet Count 298 K/mm3 (150-450); RBC Distribution Width CV 12.9 % (11.6-14.6); RBC Distribution Width SD 45.8 fl (35.1-43.9); Red Blood Count 5.04 M/mm3 (4.2-5.4); White Blood Count 8.5 K/mm3 (4.4-11.0)
[2020-01-25 14:56] LABS: AST(SGOT) 34 U/L (15-37); Alanine Aminotransfer ALT/SGPT 23 U/L (13-56); Albumin, Serum 3.4 g/dL (3.2-5.0); Alkaline Phosphatase 79 U/L (45-117); Anion Gap 6 (5-15); BUN 18 mg/dL (7-18); BUN/Creat Ratio 18.4 RATIO (10-20); Bilirubin, Direct 0.07 mg/dL (0.00-0.30); Calcium,Total 9.1 mg/dL (8.5-10.1); Chloride 108 mmol/L (98-107); Creatinine, Serum 0.98 mg/dL (0.55-1.02); EST Glomerular Filtration Rate 59 mL/min (>60); Est Glom Filt Rate - Afr Amer 71 mL/min (>60); Estimated Creatinine Clearance 38.02 ml/min; Globulin 4.2 g/dL (2.2-4.2); Glucose 106 mg/dL (74-106); Protein, Total 7.6 g/dL (6.4-8.2); Sodium Level 140 mmol/L (136-145); Thyroid Stim Hormone (TSH) 6.71 uIU/mL (0.358-3.74)
[2020-01-25 15:50] LABS: Bacteria 0 SEEN /hpf (None Seen); Mucous, Urine 0 SEEN /hpf (<or=2+); Red Blood Cells-Urine 0 SEEN /hpf (0-5); Squamous Epithelial Cells - UA 0 SEEN /hpf (5-10); White Blood Cells 0 SEEN /hpf (0-5)
[2020-01-25 16:02] LABS: Color, Urine Yellow (Yellow); Glucose, Dipstick Normal (Normal); Ketone-Dipstick Negative (Negative); Leukocyte Esterase-Dipstick Negative /ul (Negative); Nitrite-Dipstick Negative (Negative); Occult Blood-Urine 10 /ul (Negative); Protein-Dipstick Negative (Negative); Urine Bilirubin Dipstick Negative (Negative); Urine Clarity Clear (Clear); Urine Urobilinogen Normal (Normal)
[2020-01-25 16:13] VITALS: BP 148/69; PULSE 77; RESP 16; O2SAT 96
[2020-01-25 17:08] VITALS: BP 140/80; PULSE 76; RESP 16; O2SAT 96
== END 2020-01-25 17:14 | disposition home or self-care (01) ==
PROVIDERS: Emergency Provider Emergency Medicine; PCP Family Medicine
DX: R53.1 Weakness (principal); I45.2 Bifascicular block; I25.10 Atherosclerotic heart disease of native coronary artery without angina pectoris; I10 Essential (primary) hypertension; E03.9 Hypothyroidism, unspecified; I45.10 Unspecified right bundle-branch block; Z95.1 Presence of aortocoronary bypass graft; Z79.02 Long term (current) use of antithrombotics/antiplatelets; Z79.82 Long term (current) use of aspirin; Z79.899 Other long term (current) drug therapy
CPT/HCPCS: 71045; 80048; 80076; 81001; 84443; 84484; 85025; 93005; 96360; 99284; J7040; A4216

== ENCOUNTER 2020-02-09 17:56 | Emergency (ER) | payer MEDICARE, OTHER, SELFPAY ==
[2020-02-09 17:57] VITALS: BP 189/90; PULSE 95; RESP 22; TEMP 36.6; O2SAT 96; BMI 22.6
--- NOTE | 2020-02-09 18:21 | EKG12_ITS ---
Test Reason : WEAKNESS Blood Pressure : / mmHG Vent. Rate : 082 BPM Atrial Rate : 082 BPM P-R Int : 180 ms QRS Dur : 130 ms QT Int : 442 ms P-R-T Axes : 056 -72 036 degrees QTc Int : 516 ms Normal sinus rhythm Right bundle branch block Left anterior fascicular block Bifascicular block Voltage criteria for left ventricular hypertrophy Anterior CT, age undetermined, cannot be excluded Abnormal ECG Confirmed by JOSE JUAN LIRIANO, TYRONE ([id number]), editor managing newspaper ALLISON MAURICE ([id number]) on 02/12/2020 1:09:40 PM Referred By: ROSHAN Confirmed By:TYRONE MANZANO MD
[2020-02-09 18:57] LABS: Absolute Lymphocyte Count 2.16 X10^3/uL (0.83-4.51); Absolute Neutrophil Count 3.9 X10^3/uL (2.0-7.7); Basophil# 0.09 X10^3/uL; Basophil% 1.3 % (0-1); Eosinophil# 0.39 X10^3/uL; Eosinophils% 5.5 % (0-5); Hematocrit 45.8 % (37-47); Hemoglobin 14.6 g/dL (12.0-15.0); Lymphocyte # 2.16 X10^3/ul (4.0); Lymphocyte % 30.3 % (19-41); Mean Corp Hgb Conc 31.9 g/dL (32-36); Mean Corpuscular Hgb 30.2 pg (27.0-32.0); Mean Corpuscular Volume 94.8 fL (81-99); Monocyte# 0.57 X10^3/uL; NRBC Flagged by Analyzer 0 % (0-5); Neutrophil # 3.91 X10^3/uL (2.7-7.7); Neutrophil % 54.8 % (47-70); Platelet Count 287 K/mm3 (150-450); RBC Distribution Width CV 12.9 % (11.6-14.6); RBC Distribution Width SD 44.6 fl (35.1-43.9); Red Blood Count 4.83 M/mm3 (4.2-5.4); White Blood Count 7.1 K/mm3 (4.4-11.0)
[2020-02-09 19:19] VITALS: BP 144/76; PULSE 77; RESP 16; O2SAT 95
[2020-02-09 19:19] LABS: ALB/GLOB Ratio 0.8 RATIO (0.9-2.4); AST(SGOT) 25 U/L (15-37); Alanine Aminotransfer ALT/SGPT 22 U/L (13-56); Albumin, Serum 3.3 g/dL (3.2-5.0); Alkaline Phosphatase 78 U/L (45-117); Anion Gap 8 (5-15); BUN 19 mg/dL (7-18); BUN/Creat Ratio 18.1 RATIO (10-20); Calcium,Total 9.2 mg/dL (8.5-10.1); Chloride 105 mmol/L (98-107); Creatinine, Serum 1.05 mg/dL (0.55-1.02); EST Glomerular Filtration Rate 54 mL/min (>60); Est Glom Filt Rate - Afr Amer 65 mL/min (>60); Estimated Creatinine Clearance 35.49 ml/min; Glucose 117 mg/dL (74-106); Magnesium 2.3 mg/dL (1.6-2.6); Potassium 4.1 mmol/L (3.5-5.1); Protein, Total 7.3 g/dL (6.4-8.2); Sodium Level 140 mmol/L (136-145)
[2020-02-09 20:23] LABS: Bacteria 0 SEEN /hpf (None Seen); Mucous, Urine 0 SEEN /hpf (<or=2+); Red Blood Cells-Urine 0 SEEN /hpf (0-5); White Blood Cells 0 SEEN /hpf (0-5)
[2020-02-09 20:39] LABS: Color, Urine Straw (Yellow); Glucose, Dipstick Normal (Normal); Ketone-Dipstick Negative (Negative); Leukocyte Esterase-Dipstick Negative /ul (Negative); Nitrite-Dipstick Negative (Negative); Occult Blood-Urine Negative /ul (Negative); Protein-Dipstick Negative (Negative); Urine Bilirubin Dipstick Negative (Negative); Urine Clarity Clear (Clear); Urine Urobilinogen Normal (Normal)
[2020-02-09 20:46] LABS: Squamous Epithelial Cells - UA 0-5 SEEN /hpf (5-10)
--- NOTE | 2020-02-09 20:51 | ED.VIS.GEN ---
History of Present Illness Chief Complaint: Weakness Informant: Patient Narrative: Patient presents the emergency department after approximately 2 days of feeling generally weak and wanting to sleep more. She notes her blood pressure is higher than it has been but also states that she is very nervous. She notes that prior to arrival she was experiencing some palpitations but when she checked her pulse it was 90.. She also states that she develops a tremor of her head when she gets nervous. No chest pain shortness of breath. She was seen several weeks ago after she had started Synthroid and stated that she had at least half of the side effects listed for that medicine and she has subsequently stopped it. States she is extremely sensitive to medicines and has numerous allergies to medicines. Past Medical History - Allergies and Home Meds Allergies/Adverse Reactions: Allergies amlodipine besylate [From Norvasc] Allergy (Verified 02/09/20 19:27) Other INCREASED BLOOD PRESSURE, CAN'T STAND WITHOUT HOLDING ONTO SOMETHING atenolol Allergy (Verified 02/09/20 19:27) Other INCREASED BP AND INSTABILITY buspirone HCl [From BuSpar] Allergy (Verified 02/09/20 19:27) Other INCREASED ANXIETY citalopram hydrobromide [From Celexa] Allergy (Verified 02/09/20 19:27) Other INCREASED ANXIETY diazepam [From Valium] Allergy (Verified 02/09/20 19:27) Other INCREASED ANXIETY hydrochlorothiazide [From Zestoretic] Allergy (Verified 02/09/20 19:27) Other BALANCE lisinopril [From Zestoretic] Allergy (Verified 02/09/20 19:27) Other BALANCE metoprolol succinate [From Toprol XL] Allergy (Verified 02/09/20 19:27) Other BALANCE mirtazapine [From Remeron] Allergy (Verified 02/09/20 19:27) Other END UP IN ER FROM TOO STRONG paroxetine HCl [From Paxil] Allergy (Verified 02/09/20 19:27) Other ANXIETY procaine HCl [From Novocain] Allergy (Verified 02/09/20 19:27) Other RAPID HR Sulfa (Sulfonamide Antibiotics) Allergy (Verified 02/09/20 19:27) Other racing HR valsartan [From Diovan] Allergy (Verified 02/09/20 19:27) Other balance Penicillins Adverse Reaction (Unknown, Verified 02/09/20 19:27) Other headache, malaise Primary Care Physician: Jp Henson DO [Primary Care Provider] - 3-5 Days Surgical History: angioplasty - Stent., appendectomy, cholecystectomy, coronary bypass surgery - x 3., herniorrhaphy - Abdominal. Smoking Status: Never smoker - Family History Maternal Family History: Family History (Last Reviewed 01/06/20 @ 09:[address] Allen Lux MD) Other Adopted Family History: Reports: - - Patient was adopted at 2 weeks after has no knowledge of her biological parents Review of Systems General: Reports: Malaise. Denies: Chills, Fever, Sweats Eyes: Denies: Visual changes - bilaterally, Diplopia ENT: Denies: Rhinorrhea, Sore throat Cardiovascular: Reports: Palpitations. Denies: Chest pain Respiratory: Denies: Dyspnea, Cough, Dyspnea on exertion Gastrointestinal: Denies: Abdominal pain, Nausea, Vomiting, Diarrhea, Melena, Hematochezia Genitourinary: Denies: Dysuria, Hematuria, Frequency Musculoskeletal: Denies: Back pain, Extremity Pain Skin: Denies: Rash, Wounds Neurological: Reports: - - Tremor of the head. Denies: Headache, Weakness, Numbness Physical Exam Vital Signs/Narrative: Vital Signs Temp Pulse Resp BP Pulse Ox 02/09/20 19:19 77 16 144/76 H 95 02/09/20 17:57 97.8 F 95 22 H 189/90 H 96 Inital Vital Signs reviewed: Yes General: Well nourished, Well developed, No Acute Distress Head: Normocephalic, Atraumatic Eyes: Perrl, EOMI ENT: Moist mucous membranes, No rhinorrhea Neck: Supple, Nontender Cardiovascular: Regular rate, Regular rhythm, No murmurs Respiratory: No distress, CTA bilaterally, Chest nontender Abdomen: Soft, Nontender, Nondistended, Normal bowel sounds Back: Nontender, Normal Inspection Extremities: Nontender, No edema Skin: Normal color, No rash Neurological: Alert, Oriented x3, Cranial nerves II-XII grossly intact, Normal Strength, Normal Sensation Psychological: Normal affect, Normal Mood Diagnostic/Tx/Re-eval Laboratory Last Values WBC 7.1 K/mm3 (4.4-11.0) 02/09/20 18:50 RBC 4.83 M/mm3 (4.2-5.4) 02/09/20 18:50 Hgb 14.6 g/dL (12.0-15.0) 02/09/20 18:50 Hct 45.8 % (37-47) 02/09/20 18:50 MCV 94.8 fL (81-99) 02/09/20 18:50 MCH 30.2 pg (27.0-32.0) 02/09/20 18:50 MCHC 31.9 g/dL (32-36) L 02/09/20 18:50 RDW Std Deviation 44.6 fl (35.1-43.9) H 02/09/20 18:50 RDW Coeff of Thor 12.9 % (11.6-14.6) 02/09/20 18:50 Plt Count 287 K/mm3 (150-450) 02/09/20 18:50 MPV 11.0 fl (6.2-12.0) 02/09/20 18:50 Immature Gran % (Auto) 0.100 % (0.0-0.9) 02/09/20 18:50 Neut % (Auto) 54.8 % (47-70) 02/09/20 18:50 Lymph % (Auto) 30.3 % (19-41) 02/09/20 18:50 [place] % (Auto) 8.0 % (0-10) 02/09/20 18:50 Eos % (Auto) 5.5 % (0-5) H 02/09/20 18:50 Baso % (Auto) 1.3 % (0-1) H 02/09/20 18:50 Absolute Neuts (auto) 3.9 X10^3/uL (2.0-7.7) 02/09/20 18:50 Absolute Lymphs (auto) 2.16 X10^3/uL (0.83-4.51) 02/09/20 18:50 Nucleated RBC % 0 % (0-5) 02/09/20 18:50 Sodium 140 mmol/L (136-145) 02/09/20 18:50 Potassium 4.1 mmol/L (3.5-5.1) 02/09/20 18:50 Chloride 105 mmol/L (98-107) 02/09/20 18:50 Carbon Dioxide 27.0 mmol/L (21.0-32.0) 02/09/20 18:50 Anion Gap 8 (5-15) 02/09/20 18:50 BUN 19 mg/dL (7-18) H 02/09/20 18:50 Creatinine 1.05 mg/dL (0.55-1.02) H 02/09/20 18:50 Estim Creat Clear Calc 35.49 ml/min 02/09/20 18:50 Est GFR (MDRD) Af Amer 65 mL/min (>60) 02/09/20 18:50 Est GFR (MDRD) Non-Af 54 mL/min (>60) L 02/09/20 18:50 BUN/Creatinine Ratio 18.1 RATIO (10-20) 02/09/20 18:50 Glucose 117 mg/dL (74-106) H 02/09/20 18:50 Calcium 9.2 mg/dL (8.5-10.1) 02/09/20 18:50 Magnesium 2.3 mg/dL (1.6-2.6) 02/09/20 18:50 Total Bilirubin 0.30 mg/dL (0.20-1.00) 02/09/20 18:50 AST 25 U/L (15-37) 02/09/20 18:50 ALT 22 U/L (13-56) 02/09/20 18:50 Alkaline Phosphatase 78 U/L (45-117) 02/09/20 18:50 Troponin I < 0.015 ng/mL (<0.045) 02/09/20 18:50 Total Protein 7.3 g/dL (6.4-8.2) 02/09/20 18:50 Albumin 3.3 g/dL (3.2-5.0) 02/09/20 18:50 Globulin 4.0 g/dL (2.2-4.2) 02/09/20 18:50 Albumin/Globulin Ratio 0.8 RATIO (0.9-2.4) L 02/09/20 18:50 Urine Color Straw (Yellow) 02/09/20 20:15 Urine Clarity Clear (Clear) 02/09/20 20:15 Urine pH 7.0 (5.0 - 8.0) 02/09/20 20:15 Ur Specific [place] 1.010 (1.002-1.030) 02/09/20 20:15 Urine Protein Negative mg/dl (Negative) 02/09/20 20:15 Urine Glucose (UA) Normal mg/dl (Normal) 02/09/20 20:15 Urine Ketones Negative mg/dl (Negative) 02/09/20 20:15 Urine Occult Blood Negative /ul (Negative) 02/09/20 20:15 Urine Nitrite Negative (Negative) 02/09/20 20:15 Urine Bilirubin Negative mg/dL (Negative) 02/09/20 20:15 Urine Urobilinogen Normal mg/dl (Normal) 02/09/20 20:15 Ur Leukocyte Esterase Negative /ul (Negative) 02/09/20 20:15 Urine RBC 0 SEEN /hpf (0-5) 02/09/20 20:15 Urine WBC 0 SEEN /hpf (0-5) 02/09/20 20:15 Ur Squamous Epith Cells 0-5 SEEN /hpf (5-10) 02/09/20 20:15 Urine Bacteria 0 SEEN /hpf (None Seen) 02/09/20 20:15 Urine Mucus 0 SEEN /hpf (<or=2+) 02/09/20 20:15 - EKG Initial EKG Interpretation: Sinus Rhythm, RBBB, LAFB - EKG demonstrates no concerning features of ACS. - Medical Decision Making Patient had no events on the monitor. Her blood pressure is 160/82 at the time of this dictation. Basic labs are unremarkable. At this point patient will be discharged home. I do not have a clear etiology for her fatigue. I recommend follow-up with primary care return if worsening or concerns ED Disposition - Plan for ED Patient: Disposition: Home or Assisted Living Diagnosis: Weakness, Anxiety, Tremor Instructions: ED Weakness [facility] Referrals: Jp Henson DO [Primary Care Provider] - 3-5 Days
[2020-02-09 21:01] VITALS: BP 165/80; PULSE 72; RESP 16; RESP 17; O2SAT 17
[2020-02-09 21:02] VITALS: BP 185/80; PULSE 82; RESP 15; O2SAT 96
== END 2020-02-09 21:03 | disposition home or self-care (01) ==
PROVIDERS: Emergency Provider Emergency Medicine; PCP Family Medicine
DX: R53.1 Weakness (principal); F41.9 Anxiety disorder, unspecified; R25.1 Tremor, unspecified; I45.10 Unspecified right bundle-branch block; I44.4 Left anterior fascicular block
CPT/HCPCS: 80053; 81001; 83735; 84484; 85025; 93005; 99284

== ENCOUNTER 2020-02-19 10:53 | Emergency (ER) | payer MEDICARE, OTHER, SELFPAY ==
[2020-02-19 10:55] VITALS: BP 186/83; PULSE 114; RESP 22; TEMP 35.5; O2SAT 96; BMI 22.4
--- NOTE | 2020-02-19 11:33 | ED.DCSUM_ITS ---
- ER Visit Summary Date of Service: 02/19/20 Chief Complaint: Anxiety History of Present Illness: The patient is a 79 F presenting with anxiety. Patient states she has been under a lot of stress recently. She states the last year has been very hard on her. She has had to have multiple surgeries. She recently discovered that she was adopted. She has multiple siblings that she was unaware of. She has new family members that will be visiting her this week. She states she feels overwhelmed. She denies suicidal thoughts or plan. Physical Examination: Vitals are stable. Patient is afebrile. Alert no acute distress. HEENT exam is unremarkable. Neck is supple. Lungs are clear and equal bilaterally. Heart is regular and tachycardic Abdomen is soft nontender nondistended. Extremities are unremarkable. Skin is warm and dry. No focal neurologic deficit. Anxious, denies suicidal ideation Remainder of exam is unremarkable. Emergency Department Course and Treatment: Patient states she has multiple allergies and can only tolerate Klonopin. She was given Klonopin in the ED. patient was seen by social work in the ED. She has been given information for outpatient counseling. Patient is agreeable with this plan. I discussed with Dr. Henson, he recommends increasing her Klonopin to 0.5 mg from 0.25. Patient is agreeable with this plan. Advised to follow-up with primary care physician. Advised return to ED for any worsening complaints. Disposition: Discharge home Impression: Anxiety This note was generated with [employer] dictation software. It may contain incorrect words, spelling, and punctuation that were not noted in review of the chart prior to signing ED Disposition - Plan for ED Patient: Referrals: Jp Henson DO [Primary Care Provider] -
[2020-02-19] MEDS: clonazePAM 0.5 MG Tablet PO (12:10)
--- NOTE | 2020-02-19 12:35 | CM.ED ---
SOCIAL WORK Informant: Dr. Smith Reason for Consult: Anxiety Chief Compliant: Patient drove self to ED reporting increased stress and anxiety. Marital/Social History: Living Situation: Patient lives home with Support/Resources: , 3 children, friends, PCP-Dr. Henson Mental Health Treatment/History: Patient reports history of anxiety ever since she was a child. Patient reports increase in anxiety over the last year. Patient is prescribed Klonopin. Patient states has been to counseling in the past. Last counseling appointment was 25-30 years ago. Triggers/Stressors: Patient states health and allergies no medications cause a lot of stress. Patient states recently found out she was adopted and has come in contact with siblings she did not know she had. Patient reports the siblings now want to meet with her this weekend and she is feeling very overwhelmed about meeting with them. Patient states her friends also have a lot of depression and anxiety that they talk with her about and she feels it is all too much. Coping Skills: gardening, watching a [employer] movie Substance Abuse History: Patient denies any history of substance abuse. Risk to Self/Others: Suicidal- Patient denies any suicidal ideation, plan or intent. Homicidal- Patient denies any homicidal ideation. Mental Status Exam: Orientation- A&Ox3 Memory- Good Appearance/General Behavior: Disheveled, directable Mood/Affect: anxious Communication Pattern: responds to questions, rapid, rambling Thought Process: appropriate Judgment: Fair Assessment: Met with patient in room. present. Patient gave permission for this worker to speak openly with in room. Introduced role and reason for referral. Patient gave a life review including medical history, allergic reactions to prescriptions, and long history of anxiety. Patient states this past year has been extremely stressful and overwhelming. Patient states is prescribed Klonopin and most of the time it helps. Patient reports this morning was gardening and decided to run to the store. Once in the parking lot patient states became very anxious and began to shake. Patient reports drove self to the ED. Discussed options for treatment. Patient believes medication may just need to be adjusted. Patient open to list of counseling agencies and states has been to counseling in the past, however, last appointment was 25-30 years ago. Patient and feel comfortable with patient returning home with resources for outpatient services. Patient states will make appointment if needed. Collaboration with Dr. Smith. Dr. Smith in agreement with discharge home. Plan: Home with resources provided Vinny Bryson MSW, GREEN END WORKER
--- NOTE | 2020-02-19 12:37 | ED.DEP ---
ED Disposition - Plan for ED Patient: Instructions: ED Stress React Referrals: Jp Henson DO [Primary Care Provider] -
== END 2020-02-19 12:53 | disposition home or self-care (01) ==
LOC: ED 11:39
PROVIDERS: Emergency Provider Emergency Medicine; PCP Family Medicine
DX: F41.9 Anxiety disorder, unspecified (principal); I10 Essential (primary) hypertension; I25.10 Atherosclerotic heart disease of native coronary artery without angina pectoris; K21.9 Gastro-esophageal reflux disease without esophagitis; Z95.1 Presence of aortocoronary bypass graft; Z79.82 Long term (current) use of aspirin; Z79.02 Long term (current) use of antithrombotics/antiplatelets; Z79.899 Other long term (current) drug therapy
CPT/HCPCS: 99283

== ENCOUNTER → 2020-06-18 14:39 | Outpatient (CLI) | payer MEDICARE, OTHER, SELFPAY ==
[2020-03-11 10:25] VITALS: BMI 23.4
[2020-06-22 12:53] LABS: ANTINUCLEAR ANTIBODIES DIRECT Negative (Negative)
== END ==
PROVIDERS: PCP Family Medicine; Visit Provider Family Medicine
DX: N76.0 Acute vaginitis (principal); R68.2 Dry mouth, unspecified; R30.0 Dysuria
CPT/HCPCS: 36415; 86038; 86225; 86235; 87086; 87088

== ENCOUNTER → 2021-02-01 14:17 | Outpatient (CLI) | payer MEDICARE, OTHER, SELFPAY ==
[2020-03-11 10:25] VITALS: BMI 23.4
[2021-02-01 15:21] LABS: Absolute Lymphocyte Count 2.44 X10^3/uL (0.83-4.51); Basophil% 1.2 % (0-1); Eosinophil# 0.35 X10^3/uL; Eosinophils% 4.1 % (0-5); Hematocrit 43.8 % (37-47); Hemoglobin 14.3 g/dL (12.0-15.0); Lymphocyte # 2.44 X10^3/ul (0.83-4.51); Lymphocyte % 28.8 % (19-41); Mean Corp Hgb Conc 32.6 g/dL (32-36); Mean Corpuscular Hgb 30.8 pg (27.0-32.0); Mean Corpuscular Volume 94.2 fL (81-99); Mean Platelet Vol. 11.2 fl (6.2-12.0); Monocyte# 0.54 X10^3/uL; Monocyte% 6.4 % (0-10); NRBC Flagged by Analyzer 0 % (0-5); Neutrophil # 5.03 X10^3/uL (2.7-7.7); Neutrophil % 59.3 % (47-70); Platelet Count 306 K/mm3 (150-450); RBC Distribution Width CV 12.1 % (11.6-14.6); RBC Distribution Width SD 42.1 fl (35.1-43.9); Red Blood Count 4.65 M/mm3 (4.2-5.4); White Blood Count 8.5 K/mm3 (4.4-11.0)
[2021-02-01 16:16] LABS: Vitamin B12 1733 pg/mL (211-911); Vitamin D,25 Hydroxy 71.4 ng/mL
[2021-02-01 16:27] LABS: ALB/GLOB Ratio 0.9 RATIO (0.9-2.4); AST(SGOT) 17 U/L (15-37); Alanine Aminotransfer ALT/SGPT 19 U/L (13-56); Albumin, Serum 3.5 g/dL (3.2-5.0); Alkaline Phosphatase 82 U/L (45-117); Anion Gap 10 (5-15); BUN 15 mg/dL (7-18); BUN/Creat Ratio 15.8 RATIO (10-20); Calcium,Total 9.2 mg/dL (8.5-10.1); Chloride 105 mmol/L (98-107); Creatinine, Serum 0.95 mg/dL (0.55-1.02); EST Glomerular Filtration Rate 60 mL/min (>60); Est Glom Filt Rate - Afr Amer 73 mL/min (>60); Globulin 3.9 g/dL (2.2-4.2); Glucose 124 mg/dL (74-106); Potassium 3.9 mmol/L (3.5-5.1); Protein, Total 7.4 g/dL (6.4-8.2); Sodium Level 139 mmol/L (136-145); T4 Free Direct 0.78 ng/dL (0.76-1.46); Thyroid Stim Hormone (TSH) 2.79 uIU/mL (0.358-3.74)
== END ==
PROVIDERS: PCP Family Medicine; Visit Provider Family Medicine
DX: R53.83 Other fatigue (principal); I25.10 Atherosclerotic heart disease of native coronary artery without angina pectoris; E03.9 Hypothyroidism, unspecified; E55.9 Vitamin D deficiency, unspecified
CPT/HCPCS: 36415; 80053; 82306; 82607; 84439; 84443; 85025

== ENCOUNTER 2021-03-07 07:56 | Emergency (ER) | payer MEDICARE, OTHER, SELFPAY ==
[2020-03-11 10:25] VITALS: BMI 23.4
[2021-03-07 07:57] VITALS: BP 159/84; PULSE 79; RESP 18; TEMP 36.4; O2SAT 97; BMI 23.0
--- NOTE | 2021-03-07 08:29 | CT_ITS ---
STUDY: CT BRAIN WITHOUT CONTRAST REASON FOR EXAM: Female, 80 years old. Headache RADIATION DOSAGE (If Supplied By Facility): CTDIvol = ( 44.99 ) mGy, DLP = ( 779.24 ) mGycm TECHNIQUE: Transaxial CT imaging of the brain was performed without administration of intravenous contrast material. Individualized dose optimization techniques were used for this CT. COMPARISON: No relevant priors. FINDINGS: Normal soft tissue structures. 3 cm arachnoid cyst anterior to the left frontal lobe with thinning of the frontal bone. There is mild cerebral atrophy with widening of the extra-axial spaces and ventricular dilatation. There are areas of decreased attenuation within the white matter tracts of the supratentorial brain, consistent with microvascular disease changes. There are small punctate calcifications of the basal ganglia which are seen in the aging brain as a normal variant. 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 Normal brainstem. Normal cerebellum. There is no intracranial hemorrhage. There are no findings of an acute ischemic infarction. Normal visualized paranasal sinuses. CT/Brain/Head without Contrast IMPRESSION: Chronic involutional changes of the brain. Electronically Signed: Meño Campa MD at 9:55 EDT Tel , Service support ,
--- NOTE | 2021-03-07 08:29 | RAD_ITS ---
STUDY: X-RAY CHEST REASON FOR EXAM: Female, 80 years old. Chest pain TECHNIQUE: Single AP portable view of the chest. COMPARISON: 01/25/2020 FINDINGS: Status post median sternotomy. The lungs are clear and expanded. There is no demonstrated pleural abnormality. Normal size heart. Normal mediastinum and angel. Normal visualized pulmonary arteries. Normal visualized aortic arch and descending thoracic aorta. Normal visualized thoracic spine. Normal visualized ribs, clavicles, and shoulders. There is no demonstrated abnormality of the visualized soft tissue structures of the upper abdomen. RAD/Chest 1 View (Portable) IMPRESSION: No active disease. Electronically Signed: Meño Campa MD at 9:57 EDT Tel , Service support ,
--- NOTE | 2021-03-07 08:30 | EKG12_ITS ---
Test Reason : PALPS Blood Pressure : / mmHG Vent. Rate : 078 BPM Atrial Rate : 079 BPM P-R Int : 158 ms QRS Dur : 130 ms QT Int : 448 ms P-R-T Axes : 009 -67 064 degrees QTc Int : 510 ms Normal sinus rhythm Right bundle branch block Left anterior fascicular block Bifascicular block Abnormal ECG Confirmed by JOSE JUAN LIRIANO, TYRONE ([id number]), industrial editor ALLISON MAURICE ([id number]) on 03/10/2021 9:18:15 AM Referred By: MANDI Confirmed By:TYRONE MANZANO MD
--- NOTE | 2021-03-07 08:32 | EDS_ITS ---
HPI History of Present Illness Chief Complaint: General Illness Informant: patient Onset/Context/Timing Onset: Weeks (2) Context: Gradual Onset Timing: Waxes and wanes Quality: Tightness Location: Occiput, neck Worsened by: Laying down Relieved by: Nothing Narrative Narrative: Patient presents with dizziness that has been waxing and waning over the past 2 weeks. Patient states that whenever she lays flat she feels like she has moving. Patient states she also has a tightness in her occipital area and neck. Patient states she has been getting some massages which have been helping her neck pain. Patient also admits to some mild low back pain. Patient denies any chest pain or shortness of breath. Patient states at times when she lays down she feels her heart racing. Patient denies any nausea or vomiting. [facility] Medical History (Updated 03/07/21 @ 11:[address] Ghulam Rod, DO) Anxiety disorder Arthritis 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 Atherosclerotic heart disease of [place] coronary artery without angina pectoris Breast lump Chest pain Chronic headache Essential (primary) hypertension Essential hypertension Gallstones GERD (gastroesophageal reflux disease) H/O transfusion of whole blood Intractable constipation Rheumatoid arthritis Right bundle branch block (RBBB) Vitamin deficiency Home Medications clonazepam 0.25 mg PO Q8H PRN PRN 09/20/13 [History Last Taken 08/28/19] aspirin 81 mg PO DAILY 09/08/19 [History Last Taken Unknown] clopidogrel 75 mg PO QHS #30 tab 09/18/19 [Rx Last Taken Unknown] cholecalciferol (vitamin D3) 125 mcg (5,000 unit) capsule 125 mcg PO DAILY 12/19/19 [History Last Taken Unknown] multivitamin 1 tab PO DAILY 12/19/19 [History Last Taken Unknown] escitalopram oxalate 5 mg PO DAILY 02/09/20 [History Last Taken Unknown] lisinopril 5 mg tablet 5 mg PO BID #1 tab 02/13/20 [Rx Last Taken Unknown] escitalopram oxalate [Lexapro] 5 mg PO DAILY 03/07/21 [History Last Taken Unknown] Allergy/AdvReac Type Severity Reaction Status Date / Time amlodipine besylate Allergy Other Verified 03/07/21 08:10 [From Norvasc] atenolol Allergy Other Verified 03/07/21 08:10 buspirone HCl [From BuSpar] Allergy Other Verified 03/07/21 08:10 citalopram hydrobromide Allergy Other Verified 03/07/21 08:10 [From Celexa] diazepam [From Valium] Allergy Other Verified 03/07/21 08:10 hydrochlorothiazide Allergy Other Verified 03/07/21 08:10 [From Zestoretic] lisinopril [From Zestoretic] Allergy Other Verified 03/07/21 08:10 metoprolol succinate Allergy Other Verified 03/07/21 08:10 [From Toprol XL] mirtazapine [From Remeron] Allergy Other Verified 03/07/21 08:10 paroxetine HCl [From Paxil] Allergy Other Verified 03/07/21 08:10 procaine HCl [From Novocain] Allergy Other Verified 03/07/21 08:10 Sulfa (Sulfonamide Allergy Other Verified 03/07/21 08:10 Antibiotics) valsartan [From Diovan] Allergy Other Verified 03/07/21 08:10 Penicillins AdvReac Unknown Other Verified 03/07/21 08:10 Family History Other Adopted Surgical History History of appendectomy History of cataract surgery History of cholecystectomy History of coronary artery bypass graft x 3 (~09/01/19) History of coronary artery stent placement (08/30/19) History of herniorrhaphy Social History Smoking Status: Never smoker alcohol intake: never substance use type: does not use caffeine: No ROS ROS ED Constitutional Constitutional ED: Denies chills or fever(s) Eyes Eyes: Denies blurry vision or change in vision ENT ENT ED: Denies rhinorrhea or sore throat Cardiovascular Cardiovascular: Reports palpitations and racing heartbeat; Denies chest pain Respiratory/Chest Respiratory/Chest: Denies cough or dyspnea Gastrointestinal Gastrointestinal: Denies nausea or vomiting Genitourinary Genitourinary ED: Denies dysuria or hematuria Musculoskeletal Musculoskeletal: Reports back pain and neck pain Integumentary Reports rash; Denies abscess Neurologic Neurologic: Reports headache(s); Denies weakness Allergic/Immunologic Allergic/Immunologic ED: Denies mouth swelling or urticaria EXAM Physical Exam Const Vital Signs: 03/07/21 07:57 03/07/21 08:15 03/07/21 08:45 Temperature 97.6 F L Temperature Source Temporal Pulse Rate 79 Pulse Rate [Lying] 78 Pulse Rate [Sitting] 76 Pulse Rate [Standing] 82 Respiratory Rate 18 Respiratory Effort Normal Non-Labored Blood Pressure 159/84 H Blood Pressure [Lying] 177/86 H Blood Pressure [Sitting] 172/83 H Blood Pressure [Standing] 153/72 H Blood Pressure Mean 109 Blood Pressure Mean [Lying] 116 Blood Pressure Mean [Sitting] 112 Blood Pressure Mean [Standing] 99 Pulse Ox 97 Oxygen Delivery Method Room Air 03/07/21 09:01 03/07/21 10:53 Temperature Temperature Source Pulse Rate 69 68 Pulse Rate [Lying] Pulse Rate [Sitting] Pulse Rate [Standing] Respiratory Rate 25 H 18 Respiratory Effort Blood Pressure 169/85 H 135/67 H Blood Pressure [Lying] Blood Pressure [Sitting] Blood Pressure [Standing] Blood Pressure Mean 113 89 Blood Pressure Mean [Lying] Blood Pressure Mean [Sitting] Blood Pressure Mean [Standing] Pulse Ox 96 Oxygen Delivery Method Room Air Positive well nourished and well developed General Appearance ED: well developed HEENT Reports moist mucous membranes Neck supple and no JVD Resp normal respiratory effort and clear to auscultation bilaterally Cardio regular rate, regular rhythm and no murmurs GI normal to inspection, nondistended, normoactive bowel sounds and non-tender Palpation: soft Extremity normal to inspection General Extremety ED: Negative for edema or tenderness General Extremity: Negative for edema Neuro oriented x3, CN's II-XII intact bilaterally and no sensory deficits noted Sensorium / Orientation: alert Motor Exam: strength 5/5 throughout Psych mental status grossly normal Skin no rashes or lesions noted MDM MDM MDM Narrative Medical decision making narrative: Patient was given a dose of meclizine here. Patient was allowed to take her own Klonopin. CT scan of the brain was obtained. There is no acute intracranial abnormality. This was interpreted by the radiologist and reviewed by myself. Portable 1 view chest x-ray was obtained. On my interpretation, lung trevino are clear. There is normal cardiac silhouette. Bony thorax is normal. There is no acute process noted. Radiologist also interpreted the x-ray and agrees. EKG was obtained. On my interpretation, there is normal sinus rhythm with a rate of 78. There is a right bundle branch block pattern. There is a left anterior fascicular block. There is left ventricular hypertrophy with a strain pattern. This was unchanged compared to previous EKG dated 02/09/2020. CBC and comprehensive metabolic profile was within normal limits. Urinalysis does not show any evidence of urinary tract infection. Orthostatic vital signs were obtained and were within normal limits. Patient and spouse were advised of her findings. Patient was instructed to follow-up with her primary care physician in 3 to 5 days. Patient understood and was agreeable with the plan. All questions were answered. Lab Data Attestation: I reviewed the patient's lab results. Labs: Laboratory Results - last 24 hr 03/07/21 03/07/21 03/07/21 09:00 09:00 10:45 WBC 6.0 RBC 4.97 Hgb 15.0 Hct 46.9 MCV 94.4 MCH 30.2 MCHC 32.0 RDW Std Deviation 42.7 RDW Coeff of Thor 12.3 Plt Count 300 MPV 11.1 Immature Gran % (Auto) 0.200 Neut % (Auto) 58.9 Lymph % (Auto) 27.1 [place] % (Auto) 7.9 Eos % (Auto) 4.2 Baso % (Auto) 1.7 H Absolute Neuts (auto) 3.5 Absolute Lymphs (auto) 1.62 Nucleated RBC % 0 Sodium 138 Potassium 4.7 Chloride 103 Carbon Dioxide 28.0 Anion Gap 7 BUN 15 Creatinine 0.88 Estim Creat Clear Calc 41.67 Est GFR (MDRD) Af Amer 80 Est GFR (MDRD) Non-Af 66 BUN/Creatinine Ratio 17.0 Glucose 97 Calcium 9.1 Total Bilirubin 0.50 AST 27 ALT 20 Alkaline Phosphatase 74 Troponin I High Sens 5.8 Total Protein 7.7 Albumin 3.7 Globulin 4.0 Albumin/Globulin Ratio 0.9 Urine Color Yellow Urine Clarity Clear Urine pH 7.0 Ur Specific [place] 1.010 Urine Protein Negative Urine Glucose (UA) Normal Urine Ketones Negative Urine Occult Blood Negative Urine Nitrite Negative Urine Bilirubin Negative Urine Urobilinogen Normal Ur Leukocyte Esterase Negative Urine RBC 0 SEEN Urine WBC 0 SEEN Ur Squamous Epith Cells 0 SEEN Urine Bacteria 0 SEEN Urine Mucus 0 SEEN Radiography Diagnostic Testing: Radiology Impression Brain CT 03/07/21 08:29 IMPRESSION: Chronic involutional changes of the brain. Electronically Signed: Meño Campa MD at 9:55 EDT Tel , Service support , Chest X-Ray 03/07/21 08:29 IMPRESSION: No active disease. Electronically Signed: Meño Campa MD at 9:57 EDT Tel , Service support , EKG Initial EKG: Attestation: I personally reviewed and interpreted this EKG as follows: Interpretation: Sinus Rhythm (78), RBBB, LAFB and Non-Specific ST Changes Comments: Left ventricular hypertrophy Prior EKG tracings: available for review Prior: Unchanged (02/09/2020) Discharge Plan Triage Chief Complaint: General Illness ED Provider: Ghulam Rod Dx/Rx/DC Orders Clinical Impression: Dizziness Instructions: ED Dizziness, Uncertain Cause Prescriptions: No Action multivitamin Tablet 1 tab PO DAILY RF: 0 cholecalciferol (vitamin D3) 125 mcg (5,000 unit) capsule 125 mcg PO DAILY RF: 0 clonazepam 0.5 MG tablet 0.25 mg PO Q8H PRN PRN (Reason: Anxiety) RF: 0 aspirin 81 MG tablet,delayed release (DR/EC) 81 mg PO DAILY RF: 0 clopidogrel 75 MG tablet 75 mg PO QHS Qty: 30 RF: 0 escitalopram oxalate 5 MG tablet 5 mg PO DAILY RF: 0 escitalopram oxalate [Lexapro] 5 mg Tablet 5 mg PO DAILY RF: 0 lisinopril 5 mg tablet 5 mg PO BID Qty: 1 RF: 0 Primary Care Provider: Jp Henson Referrals: Jp Henson DO [Primary Care Provider] - 3-5 Days Disposition Disposition: Home, Self Care
[2021-03-07] MEDS: Meclizine HCl 25 MG Tablet PO (08:40)
[2021-03-07 08:45] VITALS: BP 153/72; BP 172/83; BP 177/86; PULSE 76; PULSE 78; PULSE 82
[2021-03-07 09:01] VITALS: BP 169/85; PULSE 69; RESP 25; O2SAT 96
[2021-03-07 09:08] LABS: Absolute Lymphocyte Count 1.62 X10^3/uL (0.83-4.51); Absolute Neutrophil Count 3.5 X10^3/uL (2.0-7.7); Basophil% 1.7 % (0-1); Eosinophil# 0.25 X10^3/uL; Eosinophils% 4.2 % (0-5); Hematocrit 46.9 % (37-47); Lymphocyte # 1.62 X10^3/ul (0.83-4.51); Lymphocyte % 27.1 % (19-41); Mean Corpuscular Hgb 30.2 pg (27.0-32.0); Mean Corpuscular Volume 94.4 fL (81-99); Mean Platelet Vol. 11.1 fl (6.2-12.0); Monocyte# 0.47 X10^3/uL; Monocyte% 7.9 % (0-10); NRBC Flagged by Analyzer 0 % (0-5); Neutrophil # 3.52 X10^3/uL (2.7-7.7); Neutrophil % 58.9 % (47-70); Platelet Count 300 K/mm3 (150-450); RBC Distribution Width CV 12.3 % (11.6-14.6); RBC Distribution Width SD 42.7 fl (35.1-43.9); Red Blood Count 4.97 M/mm3 (4.2-5.4)
[2021-03-07 09:25] LABS: ALB/GLOB Ratio 0.9 RATIO (0.9-2.4); AST(SGOT) 27 U/L (15-37); Alanine Aminotransfer ALT/SGPT 20 U/L (13-56); Albumin, Serum 3.7 g/dL (3.2-5.0); Alkaline Phosphatase 74 U/L (45-117); Anion Gap 7 (5-15); BUN 15 mg/dL (7-18); Calcium,Total 9.1 mg/dL (8.5-10.1); Chloride 103 mmol/L (98-107); Creatinine, Serum 0.88 mg/dL (0.55-1.02); EST Glomerular Filtration Rate 66 mL/min (>60); Est Glom Filt Rate - Afr Amer 80 mL/min (>60); Estimated Creatinine Clearance 41.67 ml/min; Glucose 97 mg/dL (74-106); Potassium 4.7 mmol/L (3.5-5.1); Protein, Total 7.7 g/dL (6.4-8.2); Sodium Level 138 mmol/L (136-145); Troponin-I HS 5.8 pg/mL (3.0-53.7)
[2021-03-07 10:53] VITALS: BP 135/67; PULSE 68; RESP 18
[2021-03-07 10:54] LABS: Bacteria 0 SEEN /hpf (None Seen); Mucous, Urine 0 SEEN /hpf (<or=2+); Red Blood Cells-Urine 0 SEEN /hpf (0-5); Squamous Epithelial Cells - UA 0 SEEN /hpf (5-10); White Blood Cells 0 SEEN /hpf (0-5)
[2021-03-07 10:57] LABS: Color, Urine Yellow (Yellow); Glucose, Dipstick Normal (Normal); Ketone-Dipstick Negative (Negative); Leukocyte Esterase-Dipstick Negative /ul (Negative); Nitrite-Dipstick Negative (Negative); Occult Blood-Urine Negative /ul (Negative); Protein-Dipstick Negative (Negative); Urine Bilirubin Dipstick Negative (Negative); Urine Clarity Clear (Clear); Urine Urobilinogen Normal (Normal)
[2021-03-07 11:53] VITALS: BP 137/91; PULSE 69; RESP 16; O2SAT 98
== END 2021-03-07 11:54 | disposition home or self-care (01) ==
PROVIDERS: Emergency Provider Emergency Medicine; PCP Family Medicine
DX: R42 Dizziness and giddiness (principal); M54.5 Low back pain; M54.2 Cervicalgia; I44.4 Left anterior fascicular block; I45.10 Unspecified right bundle-branch block; I10 Essential (primary) hypertension; F41.9 Anxiety disorder, unspecified; I25.10 Atherosclerotic heart disease of native coronary artery without angina pectoris; K21.9 Gastro-esophageal reflux disease without esophagitis; M06.9 Rheumatoid arthritis, unspecified; Z87.19 Personal history of other diseases of the digestive system; Z95.1 Presence of aortocoronary bypass graft; Z79.82 Long term (current) use of aspirin; Z79.899 Other long term (current) drug therapy
CPT/HCPCS: 70450; 71045; 80053; 81001; 84484; 85025; 93005; 99285; A4216

== ENCOUNTER → 2021-03-17 08:52 | Outpatient (CLI) | payer MEDICARE, OTHER, SELFPAY | PROVIDERS: PCP Family Medicine; Referring Provider Physician Assistant Medical; Visit Provider Physician Assistant Medical | DX: R00.2 Palpitations (principal); R42 Dizziness and giddiness | CPT/HCPCS: 93225; 93226 ==

== ENCOUNTER → 2021-03-19 13:42 | Outpatient (CLI) | payer MEDICARE, OTHER, SELFPAY ==
--- NOTE | 2021-03-19 13:44 | CDU_ITS ---
Reason For Study: Dizziness Rt. Velocities/BP Lt. Velocities/BP Prox CCA 50/11 cm/sec. Prox CCA 76/15 cm/sec. Mid CCA 73/15 cm/sec. Mid CCA 60/10 cm/sec. Dist CCA 82/16 cm/sec. Dist CCA 69/15 cm/sec. Prox ICA 93/23 cm/sec. Prox ICA 118/21 cm/sec. Mid ICA 105/27 cm/sec. Mid ICA 111/19 cm/sec. Dist ICA 70/19 cm/sec. Dist ICA 66/16 cm/sec. Rt. ICA/CCA = 1.44. Lt. ICA/CCA = 1.97. Prox ECA 69/9 cm/sec. Prox ECA 118/7 cm/sec. Rt. Vert. 58/10 cm/sec. Lt. Vert. 76/10 cm/sec. Right Extracranial There is heterogeneous, smooth atherosclerotic plaque noted in the right common carotid artery. There is heterogeneous, smooth atherosclerotic plaque noted in the right internal carotid artery. There is no significant atherosclerotic plaque noted in the right external carotid artery. Antegrade flow is noted in the right vertebral artery. Left Extracranial There is heterogeneous, irregular atherosclerotic plaque noted in the left common carotid artery. There is heterogeneous, irregular atherosclerotic plaque noted in the left internal carotid artery. There is intimal thickening but no significant atherosclerotic plaque noted in the left external carotid artery. Antegrade flow is noted in the left vertebral artery. Procedure Carotid Duplex [id number]. This is a Carotid Duplex examination using B-mode, color flow and specral Doppler. Exam performed in department. VL/Carotid Duplex Ultrasound Interpretation Summary Smooth plaque of the proximal right internal carotid artery with less than 50% stenosis Less than 50% stenosis right external carotid artery Irregular calcific plaque at the proximal left internal carotid artery with les s than 50% stenosis Less than 50% stenosis left external carotid artery Patent and antegrade vertebral arteries bilaterally No significant change from the previous examination of April 08, 2013 Ordering Physician: Gina Swain Referring Physician: Jp Henson Performed By: Nai Martin RDCS, RVT
== END ==
PROVIDERS: PCP Family Medicine; Referring Provider Physician Assistant Medical; Visit Provider Physician Assistant Medical
DX: R42 Dizziness and giddiness (principal)
CPT/HCPCS: 93880

== ENCOUNTER 2021-12-30 06:25 | Emergency (ER) | payer MEDICARE, OTHER, SELFPAY ==
[2021-12-30 06:26] VITALS: BP 189/114; PULSE 87; RESP 24; TEMP 36.8; O2SAT 96; BMI 24.3
[2021-12-30 06:34] VITALS: BP 169/107; PULSE 78; RESP 20; TEMP 36.8; O2SAT 97
--- NOTE | 2021-12-30 06:48 | CT_ITS ---
STUDY: CT ABDOMEN AND PELVIS WITH CONTRAST REASON FOR EXAM: Female, 81 years old. Abd pain RADIATION DOSAGE (If Supplied By Facility): CTDIvol = ( 9.14 ) mGy, DLP = ( 530.18 ) mGycm TECHNIQUE: Transaxial images were obtained from the dome of the diaphragm to the symphysis pubis without oral contrast. IV 75mL Isovue-300 was administered. Sagittal and coronal images were reconstructed. Individualized dose optimization techniques were used for this CT. COMPARISON: Comparison is made with prior study dated 09/20/2013. FINDINGS: The visualized lung bases are unremarkable. The visualized portions of the heart are within normal limits. Normal liver. The patient is status post cholecystectomy. Normal spleen. Normal pancreas. Normal bilateral adrenal glands. Normal right kidney. Normal left kidney. There is a small hiatal hernia. Normal small intestine. There are multiple colonic diverticula consistent with diverticulosis. Fecal material is scattered throughout the colon. The appendix is visualized and appears normal. There is diffuse atherosclerotic calcification of the abdominal aorta and its major visceral branches, without a demonstrated aneurysm. Normal inferior vena cava. Normal retroperitoneum. Normal urinary bladder. There is a small umbilical hernia containing fat. Normal osseous structures. CT/Abdomen/Pelvis W IV Cont ONLY IMPRESSION: Sigmoid diverticulosis. No acute abnormality is seen. Electronically Signed: Darrell Astorga MD at 9:28 EDT ,
[2021-12-30 07:15] LABS: Absolute Lymphocyte Count 2.08 X10^3/uL (0.83-4.51); Absolute Neutrophil Count 3.6 X10^3/uL (2.0-7.7); Basophil# 0.11 X10^3/uL; Basophil% 1.6 % (0-1); Eosinophil# 0.42 X10^3/uL; Eosinophils% 6.1 % (0-5); Hematocrit 43.7 % (37-47); Hemoglobin 14.5 g/dL (12.0-15.0); Lymphocyte # 2.08 X10^3/ul (0.83-4.51); Lymphocyte % 30.2 % (19-41); Mean Corp Hgb Conc 33.2 g/dL (32-36); Mean Corpuscular Hgb 30.6 pg (27.0-32.0); Mean Corpuscular Volume 92.2 fL (81-99); Mean Platelet Vol. 10.7 fl (6.2-12.0); Monocyte# 0.68 X10^3/uL; Monocyte% 9.9 % (0-10); NRBC Flagged by Analyzer 0 % (0-5); Neutrophil # 3.58 X10^3/uL (2.7-7.7); Neutrophil % 51.9 % (47-70); Platelet Count 274 K/mm3 (150-450); RBC Distribution Width CV 12.4 % (11.6-14.6); RBC Distribution Width SD 42.2 fl (35.1-43.9); Red Blood Count 4.74 M/mm3 (4.2-5.4); White Blood Count 6.9 K/mm3 (4.4-11.0)
[2021-12-30 07:31] LABS: AST(SGOT) 18 U/L (15-37); Alanine Aminotransfer ALT/SGPT 21 U/L (13-56); Albumin, Serum 3.7 g/dL (3.2-5.0); Alkaline Phosphatase 64 U/L (45-117); Anion Gap 8 (5-15); BUN 15 mg/dL (7-18); Bilirubin, Direct 0.06 mg/dL (0.00-0.30); Calcium,Total 9.1 mg/dL (8.5-10.1); Chloride 103 mmol/L (98-107); Creatinine, Serum 0.88 mg/dL (0.55-1.02); EST Glomerular Filtration Rate 66 mL/min (>60); Est Glom Filt Rate - Afr Amer 80 mL/min (>60); Globulin 3.8 g/dL (2.2-4.2); Glucose 107 mg/dL (74-106); Lipase 160 U/L (73-393); Potassium 4.2 mmol/L (3.5-5.1); Protein, Total 7.5 g/dL (6.4-8.2); Sodium Level 137 mmol/L (136-145)
--- NOTE | 2021-12-30 07:32 | EDS_ITS ---
HPI History of Present Illness Chief Complaint: General Illness Narrative Narrative: Patient is a 81-year-old female who lives at home. She states that beginning yesterday she noticed generalized fatigue and chills. she reports that as time progressed she then developed some generalized abdominal discomfort with multiple bowel movements. She states that the bowel movements were formed and she denies any loose stool or diarrhea. She denies any sick contact. She states that with the symptoms progressing from just chills and fatigue to now abdominal pain with multiple stools she is concerned for an underlying infection and therefore comes in for evaluation. She does state that she has had previous cholecystectomy and appendectomy [facility] Medical History Anxiety disorder Arthritis 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 Atherosclerotic heart disease of [place] coronary artery without angina pectoris Breast lump Chest pain Chronic headache Essential (primary) hypertension Essential hypertension Gallstones GERD (gastroesophageal reflux disease) H/O transfusion of whole blood Intractable constipation Rheumatoid arthritis Right bundle branch block (RBBB) Vitamin deficiency Home Medications clonazepam [Klonopin] 0.25 mg PO Q8H PRN PRN 09/20/13 [History Last Taken 08/28] aspirin 81 mg PO DAILY 09/08/19 [History Last Taken Unknown] cholecalciferol (vitamin D3) 125 mcg (5,000 unit) capsule 125 mcg PO DAILY 12/19/19 [History Last Taken Unknown] multivitamin 1 tab PO DAILY 12/19/19 [History Last Taken Unknown] escitalopram oxalate [Lexapro] 5 mg PO DAILY 03/07/21 [History Last Taken Unknown] lisinopril [Zestril] 5 mg PO BID 12/30/21 [History Last Taken Unknown] zinc 50 mg PO DAILY 12/30/21 [History Last Taken Unknown] Allergy/AdvReac Type Severity Reaction Status Date / Time amlodipine besylate Allergy Other Verified 03/10/21 12:55 [From Norvasc] atenolol Allergy Other Verified 03/10/21 12:55 buspirone HCl [From BuSpar] Allergy Other Verified 03/10/21 12:55 citalopram hydrobromide Allergy Other Verified 03/10/21 12:55 [From Celexa] diazepam [From Valium] Allergy Other Verified 03/10/21 12:55 hydrochlorothiazide Allergy Other Verified 03/10/21 12:55 [From Zestoretic] lisinopril [From Zestoretic] Allergy Other Verified 03/10/21 12:55 metoprolol succinate Allergy Other Verified 03/10/21 12:55 [From Toprol XL] mirtazapine [From Remeron] Allergy Other Verified 03/10/21 12:55 paroxetine HCl [From Paxil] Allergy Other Verified 03/10/21 12:55 procaine HCl [From Novocain] Allergy Other Verified 03/10/21 12:55 Sulfa (Sulfonamide Allergy Other Verified 03/10/21 12:55 Antibiotics) valsartan [From Diovan] Allergy Other Verified 03/10/21 12:55 Penicillins AdvReac Unknown Other Verified 03/10/21 12:55 Family History Other Adopted Surgical History History of appendectomy History of cataract surgery History of cholecystectomy History of coronary artery bypass graft x 3 (~09/01/19) History of coronary artery stent placement (08/30/19) History of herniorrhaphy Social History Smoking Status: Never smoker alcohol intake: never substance use type: does not use caffeine: No ROS ROS ED Constitutional Constitutional ED: Reports chills and subjective; Denies fever(s) ENT ENT ED: Denies sore throat Cardiovascular Cardiovascular: Denies chest pain Respiratory/Chest Respiratory/Chest: Denies cough or dyspnea Gastrointestinal Gastrointestinal: Reports abdominal pain; Denies diarrhea, nausea or vomiting Genitourinary Genitourinary ED: Denies dysuria or hematuria Musculoskeletal Musculoskeletal: Reports myalgias Integumentary Denies rash Neurologic Neurologic: Reports weakness; Denies headache(s) Hematologic/Lymphatic Hematologic/Lymphatic: Denies easy bleeding or easy bruising EXAM Physical Exam Const Vital Signs: 12/30/21 06:26 12/30/21 06:34 Temperature 98.2 F 98.2 F Temperature Source Oral Oral Pulse Rate 87 78 Respiratory Rate 24 H 20 H Blood Pressure 189/114 H 169/107 H Blood Pressure Mean 139 127 Pulse Ox 96 97 Oxygen Delivery Method Room Air Room Air Positive well nourished and well developed General Appearance ED: well developed HEENT Reports dry mucous membranes Mouth ED: Yes dry mucous membranes Mouth: dry mucous membranes Eyes PERRL and EOMs intact bilaterally Neck supple Resp normal respiratory effort and clear to auscultation bilaterally Cardio regular rate and regular rhythm Rate: other Other Details: Radial pulses are plus 2 out of 4 bilaterally are equal and symmetric GI non-tender, non-distended and no masses GI Narrative: Abdomen is soft nontender and nondistended with hyperactive bowel sounds. No voluntary guarding or rigidity no pulsatile mass. Palpation: soft Extremity normal to inspection Neuro oriented x3 and CN's II-XII intact bilaterally Sensorium / Orientation: alert Motor Exam: strength 5/5 throughout Psych mental status grossly normal Skin no rashes or lesions noted MDM MDM MDM Narrative Medical decision making narrative: Patient presented to the ER hypertensive but otherwise afebrile. She complained of viral syndrome with fatigue and chills but then developed generalized abdominal discomfort with frequent bowel movements. Based on this history there is concern she has a viral infection such as influenza or COVID so a swab was ordered. Basic blood work was also obtained and patient will have a CT scan of the abdomen pelvis. At this time urine sample COVID/flu and CT scan are still pending. The patient will therefore be signed out to the oncoming physician Dr. Alanis. I feel that if work-up reveals no clinically significant findings that patient should be safe for discharge Lab Data Attestation: I reviewed the patient's lab results. Labs: Laboratory Results - last 24 hr 12/30/21 12/30/21 06:51 06:51 WBC 6.9 RBC 4.74 Hgb 14.5 Hct 43.7 MCV 92.2 MCH 30.6 MCHC 33.2 RDW Std Deviation 42.2 RDW Coeff of Thor 12.4 Plt Count 274 MPV 10.7 Immature Gran % (Auto) 0.300 Neut % (Auto) 51.9 Lymph % (Auto) 30.2 [place] % (Auto) 9.9 Eos % (Auto) 6.1 H Baso % (Auto) 1.6 H Absolute Neuts (auto) 3.6 Absolute Lymphs (auto) 2.08 Nucleated RBC % 0 Sodium 137 Potassium 4.2 Chloride 103 Carbon Dioxide 26.0 Anion Gap 8 BUN 15 Creatinine 0.88 Estim Creat Clear Calc 41.00 Est GFR (MDRD) Af Amer 80 Est GFR (MDRD) Non-Af 66 BUN/Creatinine Ratio 17.0 Glucose 107 H Calcium 9.1 Total Bilirubin 0.30 Direct Bilirubin 0.06 AST 18 ALT 21 Alkaline Phosphatase 64 Total Protein 7.5 Albumin 3.7 Globulin 3.8 Lipase 160 Discharge Plan Triage Chief Complaint: General Illness ED Provider: Jeremy Holland Dx/Rx/DC Orders Prescriptions: No Action multivitamin [Daily Multi-Vitamin] Tablet 1 tab PO DAILY RF: 0 cholecalciferol (vitamin D3) 125 mcg (5,000 unit) capsule 125 mcg PO DAILY RF: 0 clonazepam [Klonopin] 0.5 MG tablet 0.25 mg PO Q8H PRN PRN (Reason: Anxiety) RF: 0 aspirin 81 MG tablet,delayed release (DR/EC) 81 mg PO DAILY RF: 0 escitalopram oxalate [Lexapro] 5 mg Tablet 5 mg PO DAILY RF: 0 zinc 50 mg Capsule 50 mg PO DAILY RF: 0 lisinopril [Zestril] 5 mg tablet 5 mg PO BID RF: 0 Primary Care Provider: Jp Henson Referrals: Jp Henson DO [Primary Care Provider] -
[2021-12-30 08:14] LABS: Bacteria 0 SEEN /hpf (None Seen); Mucous, Urine 0 SEEN /hpf (<or=2+); Red Blood Cells-Urine 0 SEEN /hpf (0-5); Squamous Epithelial Cells - UA 0 SEEN /hpf (5-10); White Blood Cells 0 SEEN /hpf (0-5)
[2021-12-30 08:25] VITALS: BP 148/69
[2021-12-30 08:39] LABS: Color, Urine Yellow (Yellow); Glucose, Dipstick Normal (Normal); Ketone-Dipstick Negative (Negative); Leukocyte Esterase-Dipstick 25 /ul (Negative); Nitrite-Dipstick Negative (Negative); Occult Blood-Urine Negative /ul (Negative); Protein-Dipstick Negative (Negative); Specific Gravity, Urine 1.005 (1.002-1.030); Urine Bilirubin Dipstick Negative (Negative); Urine Clarity Clear (Clear); Urine Urobilinogen Normal (Normal); Urine pH 6.5 (5.0 - 8.0)
== END 2021-12-30 09:59 | disposition home or self-care (01) ==
PROVIDERS: Emergency Medicine; Emergency Provider Student in an Organized Health Care Education/Training Program; PCP Family Medicine; Visit Provider Student in an Organized Health Care Education/Training Program
DX: R10.9 Unspecified abdominal pain (principal); M06.9 Rheumatoid arthritis, unspecified; I10 Essential (primary) hypertension; I25.10 Atherosclerotic heart disease of native coronary artery without angina pectoris; R53.1 Weakness; Z90.49 Acquired absence of other specified parts of digestive tract; F41.9 Anxiety disorder, unspecified; M19.90 Unspecified osteoarthritis, unspecified site; Z87.19 Personal history of other diseases of the digestive system; K21.9 Gastro-esophageal reflux disease without esophagitis; Z79.82 Long term (current) use of aspirin; Z79.899 Other long term (current) drug therapy; Z95.1 Presence of aortocoronary bypass graft
CPT/HCPCS: 96360; 99283; 74177; 80048; 80076; 81001; 83690; 85025; 87428; J7030; Q9967; A4216

== ENCOUNTER 2021-12-31 03:04 | Inpatient (IN) | payer MEDICARE, OTHER, SELFPAY ==
[2021-12-31] VITALS (11 sets, daily range): BP systolic 179–200; BP diastolic 71–88; PULSE 80–99; RESP 17–29; TEMP 35.8–36.6; O2SAT 93–96; BMI 24.2; BMI 23.5
[2021-12-31 03:16] LABS: Bedside Glucose 116 mg/dL (74-106)
--- NOTE | 2021-12-31 03:18 | CT_ITS ---
EXAM: CT HEAD WITHOUT INTRAVENOUS CONTRAST CLINICAL INDICATION: Neuro deficit, acute, stroke suspected TECHNIQUE: Multiple axial images were obtained of the head without intravenous contrast. This CT exam was performed using one or more of the following dose reduction techniques: automated exposure control, adjustment of the mA and/or kV according to patient size, and/or use of iterative reconstruction technique. This report was created using [employer] report generation technology. RADIATION DOSE: CTDIvol = 45 mGy, DLP = 813 mGy-cm. COMPARISON: 02/05/2021. FINDINGS: BRAIN AND EXTRA-AXIAL SPACES: Mild generalized atrophy. Mild low density bilaterally in the deep white matter. Small arachnoid cyst anterior to the right frontal lobe. No intra- or extra-axial hemorrhage. No evidence of acute infarct. No intracranial mass or mass effect. There is preservation of the taylor/white matter interface. Posterior fossa structures are unremarkable. No hydrocephalus. Basal cisterns are patent. BONES/JOINTS: Unremarkable. No discrete lytic or blastic abnormalities. SINUSES: Unremarkable as visualized. Clear. MASTOID AIR CELLS: Unremarkable. Clear. ORBITS: Visualized globes, extraocular muscles, optic nerves and retrobulbar fat appear unremarkable. CT/STROKE Brain/Head without Cont IMPRESSION: 1. Mild generalized atrophy. Mild low density bilaterally in the deep white matter. This likely represents small vessel ischemic changes in the deep white matter. 2. Small arachnoid cyst anterior to the right frontal lobe. N.B. : The above Results were Read Back by Daren Decker MD to Dr. Sajan MD, and understanding confirmed on 12/31/2021 04:03:16 (ET). Electronically Signed: Daren Decker MD at 4:05 EDT ,
--- NOTE | 2021-12-31 03:18 | EKG12_ITS ---
Test Reason : FALL Blood Pressure : / mmHG Vent. Rate : 086 BPM Atrial Rate : 086 BPM P-R Int : 156 ms QRS Dur : 132 ms QT Int : 426 ms P-R-T Axes : 068 -60 074 degrees QTc Int : 509 ms Normal sinus rhythm Right bundle branch block Left anterior fascicular block Bifascicular block Left ventricular hypertrophy with repolarization abnormality Abnormal ECG Confirmed by AREN LIRIANO, SÁNCHEZ ([id number]), television news video editor ALLISON MAURICE ([id number]) on 01/03/2022 1:47:15 PM Referred By: AUDIE Confirmed By:SÁNCHEZ YOUNGER MD
--- NOTE | 2021-12-31 03:20 | RAD_ITS ---
EXAM: XR LEFT HIP WITH PELVIS WHEN PERFORMED, 2 OR 3 VIEWS CLINICAL INDICATION: pain TECHNIQUE: Two or three views of the left hip with pelvis when performed. This report was created using [employer] report generation technology. COMPARISON: None. FINDINGS: BONES/JOINTS: Bilaterally there is acetabular over coverage of the femoral heads. Mild cam morphology of the left proximal femur. Mild bilateral joint space narrowing with marginal osteophytes of the femoral heads inferiorly bilaterally. No displaced fracture. No destructive or sclerotic lesions. Note that overlapping bowel shadows may however obscure fine detail. Sacroiliac joint is unremarkable. No widening of the pubic symphysis. SOFT TISSUES: Unremarkable. No soft tissue swelling or gas. 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 Mild bilateral degenerative changes with joint space narrowing and marginal osteophytes involving the inferior aspect of the femoral heads. Electronically Signed: Daren Decker MD at 4:23 EDT ,
--- NOTE | 2021-12-31 03:21 | EDS_ITS ---
HPI History of Present Illness Chief Complaint: Neuro S/Sx Narrative Narrative: Pain as well as her and son because of fall approximately 30 to 45 minutes ago. She was using her walker and fell onto her left side. She denies hitting her head or loss of consciousness. No headache. No neck pain. However, they state that she has been having problems with left-sided weakness. She has had left arm weakness for days. She had been seen in the emergency department the other day for abdominal pain, but she had left sided weakness at that time. She thinks that her left leg weakness might be the reason why she fell today. Additionally, they states they noted yesterday evening that she may have had a left-sided facial droop with slight slurring of her speech. She denies any chest pain or shortness of breath. She complains of left-sided hip pain from her fall. 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 Breast lump Chest pain Chronic headache Essential (primary) hypertension Essential hypertension Gallstones GERD (gastroesophageal reflux disease) H/O transfusion of whole blood Intractable constipation Rheumatoid arthritis Right bundle branch block (RBBB) Vitamin deficiency Home Medications clonazepam [Klonopin] 0.25 mg PO 4X/DAY PRN PRN 09/20/13 [History Last Taken 08/28/19] aspirin 81 mg PO DAILY 09/08/19 [History Last Taken Unknown] cholecalciferol (vitamin D3) 125 mcg (5,000 unit) capsule 125 mcg PO DAILY 12/19/19 [History Last Taken Unknown] multivitamin 1 tab PO DAILY 12/19/19 [History Last Taken Unknown] escitalopram oxalate [Lexapro] 5 mg PO DAILY 03/07/21 [History Last Taken Unknown] lisinopril [Zestril] 5 mg PO DAILY 12/30/21 [History Last Taken Unknown] zinc 50 mg PO DAILY 12/30/21 [History Last Taken Unknown] Allergy/AdvReac Type Severity Reaction Status Date / Time amlodipine besylate Allergy Other Verified 03/10/21 12:55 [From Norvasc] atenolol Allergy Other Verified 03/10/21 12:55 buspirone HCl [From BuSpar] Allergy Other Verified 03/10/21 12:55 citalopram hydrobromide Allergy Other Verified 03/10/21 12:55 [From Celexa] diazepam [From Valium] Allergy Other Verified 03/10/21 12:55 hydrochlorothiazide Allergy Other Verified 03/10/21 12:55 [From Zestoretic] lisinopril [From Zestoretic] Allergy Other Verified 03/10/21 12:55 metoprolol succinate Allergy Other Verified 03/10/21 12:55 [From Toprol XL] mirtazapine [From Remeron] Allergy Other Verified 03/10/21 12:55 paroxetine HCl [From Paxil] Allergy Other Verified 03/10/21 12:55 procaine HCl [From Novocain] Allergy Other Verified 03/10/21 12:55 Sulfa (Sulfonamide Allergy Other Verified 03/10/21 12:55 Antibiotics) valsartan [From Diovan] Allergy Other Verified 03/10/21 12:55 Penicillins AdvReac Unknown Other Verified 03/10/21 12:55 Family History Other Adopted Surgical History History of appendectomy History of cataract surgery History of cholecystectomy History of coronary artery bypass graft x 3 (~09/01/19) History of coronary artery stent placement (08/30/19) History of herniorrhaphy Social History household members: spouse Smoking Status: Never smoker alcohol intake: never substance use type: does not use caffeine: No ROS ROS ED ROS Narrative Constitutional: No fever, no chills. HEENT: No sore throat. No neck pain. No loss of vision. No rhinorrhea. Cardiovascular: No chest pain. No palpitations. No pedal edema. Respiratory: No cough, no shortness of breath. Abdominal: No abdominal pain. No nausea. No vomiting. Genitourinary: No dysuria. No hematuria. Musculoskeletal: No myalgias. No arthralgias. Neurologic: No headaches. No dizziness. No lightheadedness. Left-sided weakness. Left-sided facial droop noticed last evening perhaps at 8 PM. Slurred speech noted at that time also. This was 7-1/2 hours ago. Skin: No rash. No change in color. Psychiatric: No depression. No anxiety. EXAM Physical Exam Narrative Exam Narrative: Afebrile. Vital signs noted. HEENT: Normocephalic. Atraumatic. PERRL, EOMI. Neck soft and supple. No point tenderness or step off. Cardiovascular: Regular rate and rhythm. No murmurs, rubs, or gallops appreciated. Respiratory: No tachypnea. Lungs clear to auscultation bilaterally. Gastrointestinal: Abdomen soft, nontender, with normoactive bowel sounds. No rebound or guarding. Neurological: Awake. Alert. NIH stroke scale of 2 for minimal left-sided facial droop and slight dysarthria. Skin: No rash. Normal color. No pallor. Musculoskeletal: No pedal edema. Full range of motion extremities. Pelvis stable. Const Vital Signs: 12/31/21 03:05 12/31/21 03:18 12/31/21 04:05 Temperature 96.4 F L Temperature Source Temporal Pulse Rate 88 84 96 Respiratory Rate 21 H 29 H 21 H Blood Pressure 200/82 H 184/71 H 179/88 H Blood Pressure Mean 121 108 118 Pulse Ox 95 94 95 Oxygen Delivery Method Room Air Room Air Room Air STROKE Vital Signs/Narrative: Vital Signs Temp Pulse Resp BP Pulse Ox 12/31/21 04:05 96 21 H 179/88 H 95 12/31/21 03:18 84 29 H 184/71 H 94 12/31/21 03:05 96.4 F L 88 21 H 200/82 H 95 MDM MDM MDM Narrative Medical decision making narrative: Stroke team was not initiated as she is outside the tPA window as a started notice of the left-sided facial droop and slurred speech over 7-1/2 hours ago. She has had left-sided weakness including arm weakness and leg weakness since Monday, approximately 4 days ago according to her . CT of the brain will be obtained along with baseline laboratories. Her EKG demonstrates normal sinus rhythm at 86 bpm with a bifascicular block but no evidence of an acute STEMI. CT of the brain shows an old arachnoid cyst that is stable. No acute process per radiology. CBC is grossly normal with a normal white count of 8.2, hemoglobin normal at 14.5, hematocrit 44.1. Coags are negative. Oelxy-rn-vzar glucose slightly elevated at 116. Electrolyte panel/BMP is grossly unremarkable except for elevated glucose in the 120s with a normal anion gap. Magnesium normal at 2.0. Troponin negative at 7. At this point in time, given her facial droop and slurred speech which is new since last evening, I discussed the patient with Dr. Rojas for admission to the PCU. She is in stable condition. Lab Data Attestation: I reviewed the patient's lab results. Labs: Laboratory Results - last 24 hr 12/31/21 12/31/21 12/31/21 03:09 03:37 03:37 WBC 8.2 RBC 4.75 Hgb 14.5 Hct 44.1 MCV 92.8 MCH 30.5 MCHC 32.9 RDW Std Deviation 41.7 RDW Coeff of Thor 12.2 Plt Count 270 MPV 10.5 Immature Gran % (Auto) 0.400 Neut % (Auto) 68.1 Lymph % (Auto) 20.0 [place] % (Auto) 6.7 Eos % (Auto) 3.7 Baso % (Auto) 1.1 H Absolute Neuts (auto) 5.6 Absolute Lymphs (auto) 1.64 Nucleated RBC % 0 PT 13.4 INR 1.1 APTT 27.5 Sodium Potassium Chloride Carbon Dioxide Anion Gap BUN Creatinine Estim Creat Clear Calc Est GFR (MDRD) Af Amer Est GFR (MDRD) Non-Af BUN/Creatinine Ratio Glucose Calcium Magnesium Troponin I High Sens POC Glucose 116 H 12/31/21 12/31/21 03:37 03:37 WBC RBC Hgb Hct MCV MCH MCHC RDW Std Deviation RDW Coeff of Thor Plt Count MPV Immature Gran % (Auto) Neut % (Auto) Lymph % (Auto) [place] % (Auto) Eos % (Auto) Baso % (Auto) Absolute Neuts (auto) Absolute Lymphs (auto) Nucleated RBC % PT INR APTT Sodium 138 Potassium 3.7 Chloride 105 Carbon Dioxide 26.0 Anion Gap 7 BUN 13 Creatinine 0.79 Estim Creat Clear Calc 36.08 Est GFR (MDRD) Af Amer 90 Est GFR (MDRD) Non-Af 75 BUN/Creatinine Ratio 16.5 Glucose 122 H Calcium 9.0 Magnesium 2.0 Troponin I High Sens 7 POC Glucose Radiography Diagnostic Testing: Clinical Impression(s) from Imaging Studies Brain CT 12/31/21 03:18 IMPRESSION: 1. Mild generalized atrophy. Mild low density bilaterally in the deep white matter. This likely represents small vessel ischemic changes in the deep white matter. 2. Small arachnoid cyst anterior to the right frontal lobe. N.B. : The above Results were Read Back by Daren Decker MD to Dr. Sajan MD, and understanding confirmed on 12/31/2021 04:03:16 (ET). Electronically Signed: Daren Decker MD at 4:05 EDT Reading Location ID and State: [employer] / [employer] Tel , Service support , ADDENDUM: 12/31/21 0412 IMPRESSION: 1. Mild generalized atrophy. Mild low density bilaterally in the deep white matter. This likely represents small vessel ischemic changes in the deep white matter. 2. Small arachnoid cyst anterior to the right frontal lobe. N.B. : The above Results were Read Back by Daren Decker MD to Dr. Sajan MD, and understanding confirmed on 12/31/2021 04:03:16 (ET). 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 Mild bilateral degenerative changes with joint space narrowing and marginal osteophytes involving the inferior aspect of the femoral heads. Electronically Signed: Daren Decker MD at 4:23 EDT Reading Location ID and State: [id number] / [employer] Tel , Service support , Chest X-Ray 12/31/21 03:55 IMPRESSION: No acute abnormality or change. Electronically Signed: Daren Decker MD at 4:24 EDT Reading Location ID and State: [employer] / [place] Tel , Service support , Discharge Plan Dx/Rx/DC Orders Clinical Impression: Facial droop, Left-sided weakness, Fall, Slurred speech Disposition Disposition: Acute Care [facility]
[2021-12-31 03:47] LABS: Absolute Lymphocyte Count 1.64 X10^3/uL (0.83-4.51); Absolute Neutrophil Count 5.6 X10^3/uL (2.0-7.7); Basophil# 0.09 X10^3/uL; Basophil% 1.1 % (0-1); Eosinophils% 3.7 % (0-5); Hematocrit 44.1 % (37-47); Hemoglobin 14.5 g/dL (12.0-15.0); Lymphocyte # 1.64 X10^3/ul (0.83-4.51); Mean Corp Hgb Conc 32.9 g/dL (32-36); Mean Corpuscular Hgb 30.5 pg (27.0-32.0); Mean Corpuscular Volume 92.8 fL (81-99); Mean Platelet Vol. 10.5 fl (6.2-12.0); Monocyte# 0.55 X10^3/uL; Monocyte% 6.7 % (0-10); NRBC Flagged by Analyzer 0 % (0-5); Neutrophil # 5.58 X10^3/uL (2.7-7.7); Neutrophil % 68.1 % (47-70); Platelet Count 270 K/mm3 (150-450); RBC Distribution Width CV 12.2 % (11.6-14.6); RBC Distribution Width SD 41.7 fl (35.1-43.9); Red Blood Count 4.75 M/mm3 (4.2-5.4); White Blood Count 8.2 K/mm3 (4.4-11.0)
--- NOTE | 2021-12-31 03:55 | RAD_ITS ---
EXAM: XR CHEST, 1 VIEW CLINICAL INDICATION: Neuro deficit, acute, stroke suspected TECHNIQUE: Frontal view of the chest. This report was created using [employer] report generation technology. COMPARISON: 03/07/2021. FINDINGS: LUNGS AND PLEURAL SPACES: Unremarkable. No consolidation or edema. No pneumothorax. No effusion. HEART: Sternal wires status post coronary artery bypass graft. MEDIASTINUM: Central airways and mediastinal contour are unremarkable. BONES/JOINTS: Unremarkable. SOFT TISSUES: Unremarkable. RAD/Chest 1 View IMPRESSION: No acute abnormality or change. Electronically Signed: Daren Decker MD at 4:24 EDT ,
[2021-12-31 03:56] LABS: International Normalized Ratio 1.1; Prothrombin Time (Protime)PT. 13.4 SECONDS (11.7-14.9)
[2021-12-31 03:57] LABS: Partial Thromboplast Time 27.5 Seconds (24.1-36.2)
[2021-12-31 04:05] LABS: Anion Gap 7 (5-15); BUN 13 mg/dL (7-18); BUN/Creat Ratio 16.5 RATIO (10-20); Chloride 105 mmol/L (98-107); Creatinine, Serum 0.79 mg/dL (0.55-1.02); EST Glomerular Filtration Rate 75 mL/min (>60); Est Glom Filt Rate - Afr Amer 90 mL/min (>60); Estimated Creatinine Clearance 36.08 ml/min; Glucose 122 mg/dL (74-106); Potassium 3.7 mmol/L (3.5-5.1); Sodium Level 138 mmol/L (136-145); Troponin-I HS 7 pg/mL (3.0-54.0)
--- NOTE | 2021-12-31 04:35 | PCM.HP.STD ---
HPI - General General Date of Admission: 12/31/21 Date of Service: 12/31/21 Chief Complaint: L sided weakness, Fall w/ L hip pain. HPI Narrative The patient is a 81 y/o F w/ PMHx: Known Arachnoid cyst, Anxiety and Depression, CAD s/p CABG x 3 and PCI, Rheumatoid arthritis, HTN, HLD, recent ED evaluation on 12/30/21 with complaint of abdominal discomfort, multiple bowel movements, fatigue, chills with unremarkable evaluation including normal UA, negative COVID/influenza rapid testing, CT A/P without acute findings discharged to home who now re-presents to the [facility] ED on 12/31/21 with history of mechanical fall approximately 30 to 45 minutes prior to ED arrival noted to been using her walker and fell onto the left side with no loss of consciousness or head trauma however patient is reportedly been having trouble with left-sided weakness and left arm weakness for several days in addition to onset the evening prior mild left facial droop and slight slurring of her speech mild L sided facial palsy prompting ED evaluation. She notes that she specifically fell because of onset severe LLE while leg cramp which occurred while in the ED evaluating patient with corrected with massage but was recurrent. She was standing up when she had onset and fell secondary to the sudden nature. She normally does not use a walker but has been using these last couple days because of debility. She notes the abdominal pain has resolved and she has been tolerating a diet. NIHSS upon initial ED evaluation 2. Work-up in the ED included T96.4, heart rate 92, BP 200/82, respiratory rate 25, 93% on room air, CBC with WBC 8.2, hemoglobin 14.5, platelet 270 without marked shift, unremarkable coags, BMP with glucose 122 otherwise not marked appearing, troponin 7, CT of the brain with mild generalized atrophy, mild low-density bilaterally in the deep white matter, likely small vessel ischemic changes in the deep white matter, small arachnoid cyst anterior to the right frontal lobe, plain film of the left hip and pelvis with probable bilateral pincer type femoral acetabular impingement with probable cam type femoral acetabular impingement left proximal femur with mild bilateral degenerative changes with joint space narrowing and marginal osteophytes involving the inferior aspect of the femoral heads, chest x-ray with no acute cardiopulmonary findings, EKG with SR with bifasicular block with no acute evidence of ischemia. Low dose ativan administered secondary to severe muscle recurrent cramping in the ED. [facility] Medical History (Updated 12/31/21 @ 04:[address] Maty Rojas MD) Anxiety disorder Arthritis 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 Atherosclerotic heart disease of [place] coronary artery without angina pectoris Breast lump Chest pain Chronic headache Essential (primary) hypertension Essential hypertension Gallstones GERD (gastroesophageal reflux disease) H/O transfusion of whole blood Intractable constipation Rheumatoid arthritis Right bundle branch block (RBBB) Vitamin deficiency Home Medications clonazepam [Klonopin] 0.25 mg PO Q8H PRN PRN 09/20/13 [History Last Taken 08/28/19] aspirin 81 mg PO DAILY 09/08/19 [History Last Taken Unknown] cholecalciferol (vitamin D3) 125 mcg (5,000 unit) capsule 125 mcg PO DAILY 12/19/19 [History Last Taken Unknown] multivitamin 1 tab PO DAILY 12/19/19 [History Last Taken Unknown] escitalopram oxalate [Lexapro] 5 mg PO DAILY 03/07/21 [History Last Taken Unknown] lisinopril [Zestril] 5 mg PO BID 12/30/21 [History Last Taken Unknown] zinc 50 mg PO DAILY 12/30/21 [History Last Taken Unknown] Allergy/AdvReac Type Severity Reaction Status Date / Time amlodipine besylate Allergy Other Verified 03/10/21 12:55 [From Norvasc] atenolol Allergy Other Verified 03/10/21 12:55 buspirone HCl [From BuSpar] Allergy Other Verified 03/10/21 12:55 citalopram hydrobromide Allergy Other Verified 03/10/21 12:55 [From Celexa] diazepam [From Valium] Allergy Other Verified 03/10/21 12:55 hydrochlorothiazide Allergy Other Verified 03/10/21 12:55 [From Zestoretic] lisinopril [From Zestoretic] Allergy Other Verified 03/10/21 12:55 metoprolol succinate Allergy Other Verified 03/10/21 12:55 [From Toprol XL] mirtazapine [From Remeron] Allergy Other Verified 03/10/21 12:55 paroxetine HCl [From Paxil] Allergy Other Verified 03/10/21 12:55 procaine HCl [From Novocain] Allergy Other Verified 03/10/21 12:55 Sulfa (Sulfonamide Allergy Other Verified 03/10/21 12:55 Antibiotics) valsartan [From Diovan] Allergy Other Verified 03/10/21 12:55 Penicillins AdvReac Unknown Other Verified 03/10/21 12:55 Family History Other Adopted Surgical History History of appendectomy History of cataract surgery History of cholecystectomy History of coronary artery bypass graft x 3 (~09/01/19) History of coronary artery stent placement (08/30/19) History of herniorrhaphy Social History household members: spouse Smoking Status: Never smoker alcohol intake: never substance use type: does not use caffeine: No ROS ROS Narrative Admission Review of Systems: CONSTITUTIONAL: No weight loss, fever, + chills, weakness or fatigue. HEENT: Eyes: No visual loss, blurred vision, double vision or yellow sclerae. Ears, Nose, Throat: No hearing loss, sneezing, congestion, runny nose or sore throat. SKIN: No rash or itching, lesions, wounds. CARDIOVASCULAR: No chest pain, chest pressure or chest discomfort, palpitations, edema, orthopnea, syncopal events. RESPIRATORY: No shortness of breath, cough or sputum, wheezing, hemoptysis. GASTROINTESTINAL: + Abdominal cramping, frequent stools, no anorexia, nausea, vomiting, melena, BRBPR. GENITOURINARY: No dysuria, frequency, urgency or retention. NEUROLOGICAL: + Slurred speech, weakness, no headache, dizziness, syncope, paralysis, ataxia, numbness or tingling in the extremities, change in bowel or bladder control, seizure. MUSCULOSKELETAL: + muscle, back pain, joint pain or stiffness. HEMATOLOGIC: No anemia, bleeding or bruising. LYMPHATICS: No enlarged nodes. No history of splenectomy. PSYCHIATRIC: + history of depression or anxiety. ENDOCRINOLOGIC: No reports of sweating, cold or heat intolerance. No polyuria or polydipsia. ALLERGIES: No history of asthma, hives, eczema or rhinitis. Vital Signs Vital Signs Vital Signs: 12/31/21 03:05 12/31/21 03:18 Temperature 96.4 F L Temperature Source Temporal Pulse Rate 88 84 Respiratory Rate 21 H 29 H Blood Pressure 200/82 H 184/71 H Blood Pressure Mean 121 108 Pulse Ox 95 94 Oxygen Delivery Method Room Air Room Air Weight Weight: 132 lb 7.965 oz Body Mass Index (BMI) 24.2 Physical Exam Narrative Physical Examination: General: Awake, alert, oriented x 3 and cooperative, seated upright in the ED bed, fatigued appearing. Skin: Normal color, normal turgor, no icterus, no cyanosis. HEENT: AT/NC, EOMI, PERRLA, mildly dry MM, no carotid bruits or JVD noted, mild L sided facial droop which corrects with smile. Lungs: Diminished, greater bases, appropriate effort, no rales, ronchi or wheezing. Heart: Currently regular rate and rhythm; no gallop, rub audible. Abdomen: Soft, NTTP, no rebound or guarding, ND, mildly hyperactive BS, no HSM. Extremities: No cyanosis, clubbing, or edema, mild L hip pain with manipulation but not severe, notable LLE muscle thigh full cramp during evaluation, corrected with muscle massage. Neurological: Patient awake, alert, oriented as noted, cognitive function intact; pupils equally reactive to light and accommodation, cranial nerves grossly normal, moving all 4 extremities although mildly limited secondary to L hip pain, mild L sided facial droop, L sided mild hemiplegia noted, mild dysarthria noted, sensation intact, finger-nose/[id number] appropriate R sided, difficulty L sided, equivocal Babinski, speech appropriate. Psychiatric: Affect appears fatigued otherwise normal, no acute evidence of depressive or anxiety feelings. Results Lab / Micro Data Result Diagrams: 12/31/21 03:37 12/31/21 03:37 Labs: Laboratory Results - last 24 hr 12/31/21 03:09: POC Glucose 116 H 12/31/21 03:37: WBC 8.2, RBC 4.75, Hgb 14.5, Hct 44.1, MCV 92.8, MCH 30.5, MCHC 32.9, RDW Std Deviation 41.7, RDW Coeff of Thor 12.2, Plt Count 270, MPV 10.5, Immature Gran % (Auto) 0.400, Neut % (Auto) 68.1, Lymph % (Auto) 20.0, [place] % (Auto) 6.7, Eos % (Auto) 3.7, Baso % (Auto) 1.1 H, Absolute Neuts (auto) 5.6, Absolute Lymphs (auto) 1.64, Nucleated RBC % 0 12/31/21 03:37: PT 13.4, INR 1.1, APTT 27.5 12/31/21 03:37: Sodium 138, Potassium 3.7, Chloride 105, Carbon Dioxide 26.0, Anion Gap 7, BUN 13, Creatinine 0.79, Estim Creat Clear Calc 36.08, Est GFR (MDRD) Af Amer 90, Est GFR (MDRD) Non-Af 75, BUN/Creatinine Ratio 16.5, Glucose 122 H, Calcium 9.0, Troponin I High Sens [address] 12/31/21 03:18 IMPRESSION: 1. Mild generalized atrophy. Mild low density bilaterally in the deep white matter. This likely represents small vessel ischemic changes in the deep white matter. 2. Small arachnoid cyst anterior to the right frontal lobe. N.B. : The above Results were Read Back by Daren Decker MD to Dr. Sajan MD, and understanding confirmed on 12/31/2021 04:03:16 (ET). Electronically Signed: Daren Decker MD at 4:05 EDT Reading Location ID and State: [id number] Tel , Service support , ADDENDUM: 12/31/21 0412 IMPRESSION: 1. Mild generalized atrophy. Mild low density bilaterally in the deep white matter. This likely represents small vessel ischemic changes in the deep white matter. 2. Small arachnoid cyst anterior to the right frontal lobe. N.B. : The above Results were Read Back by Daren Decker MD to Dr. Sajan MD, and understanding confirmed on 12/31/2021 04:03:16 (ET). 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 Mild bilateral degenerative changes with joint space narrowing and marginal osteophytes involving the inferior aspect of the femoral heads. Electronically Signed: Daren Decker MD at 4:23 EDT , Chest X-Ray 12/31/21 03:55 IMPRESSION: No acute abnormality or change. Electronically Signed: Daren Decker MD at 4:24 EDT , Assessment & Plan Assessment/Plan (1) CVA (cerebral vascular accident): QUALIFIERS: CVA mechanism: unspecified Qualified Code(s): I63.9 - Cerebral infarction, unspecified PLAN: The patient is a 81 y/o F w/ PMHx: Known Arachnoid cyst, Anxiety and Depression, CAD s/p CABG x 3 and PCI, Rheumatoid arthritis, HTN, HLD, recent ED evaluation on 12/30/21 with complaint of abdominal discomfort, multiple bowel movements, fatigue, chills with unremarkable evaluation including normal UA, negative COVID/influenza rapid testing, CT A/P without acute findings discharged to home who now re-presents to the [facility] ED on 12/31/21 with history of mechanical fall approximately 30 to 45 minutes prior to ED arrival noted to been using her walker and fell onto the left side with no loss of consciousness or head trauma however patient is reportedly been having trouble with left-sided weakness and left arm weakness for several days in addition to onset the evening prior mild left facial droop and slight slurring of her speech mild L sided facial palsy prompting ED evaluation. #1. Left-sided facial weakness/upper and lower extremity (L sided hemiplegia) and slurred speech/dysarthria concerning for CVA with associated mechanical fall with left-sided hip pain: Will admit to PCU, will obtain MRI Brain, MRA Head and carotid ultrasound, ECHO, PT/OT/Speech/Nutrition evaluation per protocol. Will consult Neurology for evaluation once further imaging and work-up is obtained. Will allow permissive HTN, maintain on asa and add plavix,defer statin as notes intolerant to even low dose, fall precautions. Mag, TSH, FLP, hemoglobin A1c requested. #2. Recent abdominal pain with frequent bowel movement, unclear etiology: Patient with 12/30/[address] abdomen and pelvis and stable appearing labs with no obvious etiology, continue to monitor. #3. Mechanical fall with left-sided hip pain: plain film of the left hip and pelvis with probable bilateral pincer type femoral acetabular impingement with probable cam type femoral acetabular impingement left proximal femur with mild bilateral degenerative changes with joint space narrowing and marginal osteophytes involving the inferior aspect of the femoral heads, will consult orthopedic surgery if pain not improving. PT and OT consulted as noted #1. #4. CAD: s/p CABG with HOLCOMB to LAD, SVG to diagonal branch, SVG to RCA at [facility] and PCI, will continue home asapirin, holding BP regimen, not on statin. #5. Hypertension: Significantly elevated initial BP upon presentation, will maintain on permissive HTN given #1, PRN agents per stroke protocol. #6. Hyperlipidemia: Not on regimen, statin intolerance even to low dose, FLP in AM. #7. Anxiety and Depression: Continue home lexapro and klonopin regimen with hold for sedation. #8. Rheumatoid arthritis: Not on chronic regimen, encourage continued outpatient follow-up with rheumatology. #9. DVT prophylaxis: SCDs, lovenox. #10. CODE status: Patient HCPOA is her who is present and living will is currently in place. Discussed CODE status at length including difference between FULL code, DNR-CCA and DNR-CC status. Following discussions about the differences in these status, requested Full Code status. Advanced Care Planning Face to Face Time: 16 minutes. Charges/Coding Visit Charges Inpatient E&M: 88709 Init Hosp L3 Procedures Hospitalists Procedures: 81734 Advncd Care Plan 30 Min
[2021-12-31] MEDS: LORazepam 2 MG/ML Syringe 0.5 MG IV (04:56)
--- NOTE | 2021-12-31 05:35 | CDU_ITS ---
Reason For Study: CVA Rt. Velocities/BP Lt. Velocities/BP Prox CCA 73.4/9.5 cm/sec. Prox CCA 72.1/8.2 cm/sec. Mid CCA 57.8/12.1 cm/sec. Mid CCA 64.3/4.3 cm/sec. Dist CCA 65.6/12.1 cm/sec. Dist CCA 48.7/9.1 cm/sec. Prox ICA 76.0/14.7 cm/sec. Prox ICA 137.5/20.6 cm/sec. Mid ICA 68.2/12.1 cm/sec. Mid ICA 112.0/18.8 cm/sec. Dist ICA 93.0/17.3 cm/sec. Dist ICA 121.1/17.0 cm/sec. Rt. ICA/CCA = 1.6. Lt. ICA/CCA = 2.1. Prox ECA 98.2/9.5 cm/sec. Prox ECA 102.5/6.9 cm/sec. Rt. Vert. 57.8/14.7 cm/sec. Lt. Vert. 46.5/8.1 cm/sec. Right Extracranial There is heterogeneous, irregular atherosclerotic plaque noted in the right common carotid artery. There is heterogeneous, irregular atherosclerotic plaque noted in the right internal carotid artery. There is intimal thickening but no significant atherosclerotic plaque noted in the right external carotid artery. Antegrade flow is noted in the right vertebral artery. Left Extracranial There is heterogeneous, irregular atherosclerotic plaque noted in the left common carotid artery. There is heterogeneous, irregular atherosclerotic plaque noted in the left internal carotid artery. There is intimal thickening but no significant atherosclerotic plaque noted in the left external carotid artery. Antegrade flow is noted in the left vertebral artery. Procedure Carotid Duplex [id number]. This is a Carotid Duplex examination using B-mode, color flow and specral Doppler. The exam was diagnostic. Exam performed portable in patient room. VL/Carotid Duplex Ultrasound Interpretation Summary Irregular heterogenous plaque at the proximal right internal carotid artery wit h less than 50% stenosis Less than 50% stenosis right external carotid artery Irregular calcific plaque at the proximal left internal carotid artery with 50 to 69% stenosis Less than 50% stenosis left external carotid artery Patent and antegrade vertebral arteries bilaterally Slight progression of disease involving the left internal carotid artery from t he previous examination of March 19, 2021 Ordering Physician: Maty Rojas Performed By: Eduardo Sharpe RVT
--- NOTE | 2021-12-31 05:35 | MRI_ITS ---
We are attempting to reach an attending provider to discuss findings. An addendum with communication details will be sent when the communication is complete. EXAM: MR HEAD WITHOUT INTRAVENOUS CONTRAST CLINICAL INDICATION: CVA TECHNIQUE: Multiplanar and multisequence MR images of the brain were obtained without intravenous contrast. This report was created using [employer] report generation technology. COMPARISON: CT head without contrast 12/31/2021. FINDINGS: BRAIN AND EXTRA-AXIAL SPACES: Linear diffusion restriction in the right side of the jama is also visible on the T2 FLAIR sequence. This is subacute lacunar ischemic infarct. Prominent CSF space overlying the right superior frontal gyrus with remodeling deformity and thinning of the overlying frontal bone. This is unchanged. Small periventricular white matter T2 FLAIR hyperintensity foci in both cerebral hemispheres are chronic white matter ischemic changes. No intra- or extra-axial hemorrhage. No intracranial mass or mass effect. Basal cisterns are patent. SELLA: Unremarkable. Normal sella turcica, pituitary gland, infundibular stalk, optic chiasm and hypothalamus. AUDITORY SYSTEM: Unremarkable. The internal auditory canals are patent. BONES/JOINTS: Unremarkable. No discrete lytic or blastic abnormalities. SINUSES: Unremarkable as visualized. Clear. MASTOID AIR CELLS: Unremarkable as visualized. Clear. ORBITS: Unremarkable as visualized. Both globes, extraocular muscles, optic nerves and retrobulbar fat appear unremarkable. VASCULATURE: Unremarkable as visualized. Normal flow voids in the major intracranial circulation. MRI/Brain without Contrast IMPRESSION: Early subacute lacunar ischemic infarct in the right jama. Electronically Signed: Avelino Quintero MD at 9:59 EDT ,
--- NOTE | 2021-12-31 05:35 | MRI_ITS ---
STUDY: MRA OF THE HEAD WITHOUT CONTRAST REASON FOR EXAM: Female, 81 years old. CVA TECHNIQUE: 3-D [id number] (TOF) imaging was performed with MIPs. The study was performed unenhanced. COMPARISON: None. FINDINGS: Normal bilateral petrous carotid arteries. Normal right cavernous carotid artery with a normal supraclinoid bifurcation. Normal left cavernous carotid artery with a normal supraclinoid bifurcation. Normal right A1 segment of the anterior cerebral artery. Normal left A1 segment of the anterior cerebral artery. Normal intact anterior communicating artery (ACOM). Normal bilateral A2 segments of the anterior cerebral arteries. Normal right M1 and M2 segments of the middle cerebral arteries, with a normal M1 bifurcation. Normal left M1 and M2 segments of the middle cerebral arteries, with a normal M1 bifurcation. Normal right posterior communicating artery (PCOM). No visible left posterior communicating artery (PCOM). 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 Normal dominant left vertebral artery. Minimal small vessel plaque in the mid basilar artery without significant stenosis with a normal basilar bifurcation. The visualized bilateral superior cerebellar (SCA) arteries are normal. Normal bilateral P1, P2 and visualized P3 segments of the posterior cerebral arteries. There is no demonstrated aneurysm of the [place]. There is no major vessel occlusion or hemodynamically significant stenosis. Early subacute lacunar ischemic infarct in the right jama on MRI brain. MRI/MRA Head ONLY without Contrast IMPRESSION: 1. Minimal small vessel plaque in the mid basilar artery without significant stenosis. 2. 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 3. No significant vaso-occlusive disease of the anterior and posterior intracranial circulation. Electronically Signed: Avelino Quintero MD at 10:02 EDT ,
--- NOTE | 2021-12-31 05:35 | ECHOD_ITS ---
Reason For Study: CVA Procedure This was a 2D Doppler, Color Flow transthoracic echocardiogram. Patient was scanned in supine position during reflux assessment. Exam performed portable in patient room. Left Ventricle Normal LV size. Left ventricular systolic function is normal. The estimated ejection fraction is 60 %. Stage 1 diastolic dysfunction. No regional wall motion abnormalities noted. Right Ventricle Normal RV size. Normal systolic function. Atria Normal left atrium. Normal right atrium. Bubble contrast study negative for right to left interatrial shunt. Mitral Valve Normal mitral valve. Tricuspid Valve Normal tricuspid valve. Mild tricuspid valve insufficiency. Aortic Valve Trisinus/trileaflet aortic valve. Pulmonic Valve The pulmonic valve is not well visualized. Great Vessels Normal aortic root. The pulmonary artery is normal size. Normal inferior vena cava. Pericardium/Pleural No pericardial effusion. Medication Performed a rapid injection of agitated mix of 9 cc saline and 1cc air to assess for atrial septal defect. MMode/2D Measurements & Calculations LVIDd: 3.7 cm IVSd: 1.1 cm LAV(MOD-sp4): 24.6 ml LVIDs: 1.9 cm LVPWd: 1.3 cm RVDd: 2.8 cm FS: 49.9 % LVAd ap4: 18.3 cm2 SV(MOD-sp4): 21.5 ml SV(sp4-el): 24.6 ml LVLd ap4: 6.8 cm EDV(MOD-sp4): 40.8 ml EDV(sp4-el): 41.6 ml LVAs ap4: 10.5 cm2 LVLs ap4: 5.5 cm ESV(MOD-sp4): 19.3 ml ESV(sp4-el): 17.0 ml EF(MOD-sp4): 52.8 % EF(sp4-el): 59.2 % LA A4 area: 11.4 cm2 LA dimension(2D): 3.1 cm RA A4 area: 11.2 cm2 Doppler Measurements & Calculations MV E max justin: 55.1 cm/sec Lat Peak E' Justin: 8.1 cm/sec Med Peak E' Justin: 5.7 cm/sec MV A max justin: 122.5 cm/sec E/E' lat: 6.8 E/E' med: 9.6 MV E/A: 0.45 PA V2 max: 108.6 cm/sec TR max justin: 213.2 cm/sec TR max P.2 mmHg ECHO/Echo Complete Interpretation Summary Normal LV size. Left ventricular systolic function is normal. The estimated ejection fraction is 60 %. Stage 1 diastolic dysfunction. Bubble contrast study negative for right to left interatrial shunt. Ordering Physician: Maty Rojas Referring Physician: Jp Henson Performed By: Kacie Cornell RCS
[2021-12-31] MEDS: 0.9% Normal Saline 1,000 ML 100 ML IV (05:56)
[2021-12-31] MEDS: Psyllium 1 PACKET PO (06:59)
[2021-12-31] MEDS: Escitalopram Oxalate 10 MG Tablet 5 MG PO (08:23)
[2021-12-31] MEDS: Aspirin E.C. 81 MG Tablet PO (08:23)
[2021-12-31] MEDS: Clopidogrel Bisulfate 75 MG Tablet PO (08:23)
[2021-12-31] MEDS: clonazePAM 0.5 MG Tablet 0.25 MG PO (08:29)
[2021-12-31] MEDS: Enoxaparin 40 MG/0.4 ML Syringe SC (08:30)
[2021-12-31 08:52] LABS: Absolute Neutrophil Count 6.1 X10^3/uL (2.0-7.7); Basophil# 0.09 X10^3/uL; Eosinophil# 0.21 X10^3/uL; Eosinophils% 2.4 % (0-5); Hemoglobin 14.7 g/dL (12.0-15.0); Lymphocyte % 20.4 % (19-41); Mean Corp Hgb Conc 32.7 g/dL (32-36); Mean Corpuscular Hgb 30.6 pg (27.0-32.0); Mean Corpuscular Volume 93.8 fL (81-99); Mean Platelet Vol. 10.5 fl (6.2-12.0); Monocyte% 6.8 % (0-10); NRBC Flagged by Analyzer 0 % (0-5); Neutrophil # 6.12 X10^3/uL (2.7-7.7); Neutrophil % 69.2 % (47-70); Platelet Count 261 K/mm3 (150-450); RBC Distribution Width CV 12.3 % (11.6-14.6); RBC Distribution Width SD 42.5 fl (35.1-43.9); White Blood Count 8.8 K/mm3 (4.4-11.0)
[2021-12-31 09:15] LABS: Hemoglobin A1c 5.6 % (3.8-5.6)
[2021-12-31 09:23] LABS: AST(SGOT) 17 U/L (15-37); Alanine Aminotransfer ALT/SGPT 17 U/L (13-56); Albumin, Serum 3.8 g/dL (3.2-5.0); Alkaline Phosphatase 65 U/L (45-117); Anion Gap 7 (5-15); BUN 11 mg/dL (7-18); Chloride 106 mmol/L (98-107); Cholesterol 274 mg/dL (200); Creatinine, Serum 0.78 mg/dL (0.55-1.02); EST Glomerular Filtration Rate 75 mL/min (>60); Est Glom Filt Rate - Afr Amer 91 mL/min (>60); Estimated Creatinine Clearance 36.08 ml/min; Globulin 3.7 g/dL (2.2-4.2); Glucose 101 mg/dL (74-106); High Density Lipoprotein 51 mg/dL; Potassium 3.8 mmol/L (3.5-5.1); Protein, Total 7.5 g/dL (6.4-8.2); Sodium Level 139 mmol/L (136-145); T4 Free Direct 0.93 ng/dL (0.76-1.46); Thyroid Stim Hormone (TSH) 5.27 uIU/mL (0.358-3.74); Triglycerides 257 mg/dL; Very Low Density Lipoprotein 51 mg/dL (5-40)
--- NOTE | 2021-12-31 10:28 | PN.HOSP_ITS ---
Subjective Subjective Objective Data Objective Data Vital Signs: Vital Signs Temp Pulse Resp BP Pulse Ox 97.4 F L 90 22 H 187/77 H 95 12/31/21 09:40 12/31/21 09:40 12/31/21 09:40 12/31/21 09:40 12/31/21 09:40 Oxygen Delivery Method Room Air Weight: 128 lb 8.472 oz Body Mass Index (BMI) 23.5 Intake & Output: Intake and Output for Last 24 Hours 12/29/21 12/30/21 12/31/21 23:59 23:59 23:59 Intake Total 60 / 60 Balance 60 / 60 Lab / Micro Data Result Diagrams: 12/31/21 08:33 12/31/21 08:33 Labs: Laboratory Results - last 24 hr 12/31/21 03:09: POC Glucose 116 H 12/31/21 03:37: WBC 8.2, RBC 4.75, Hgb 14.5, Hct 44.1, MCV 92.8, MCH 30.5, MCHC 32.9, RDW Std Deviation 41.7, RDW Coeff of Thor 12.2, Plt Count 270, MPV 10.5, Immature Gran % (Auto) 0.400, Neut % (Auto) 68.1, Lymph % (Auto) 20.0, [place] % ( Auto) 6.7, Eos % (Auto) 3.7, Baso % (Auto) 1.1 H, Absolute Neuts (auto) 5.6, Absolute Lymphs (auto) 1.64, Nucleated RBC % 0 12/31/21 03:37: PT 13.4, INR 1.1, APTT 27.5 12/31/21 03:37: Sodium 138, Potassium 3.7, Chloride 105, Carbon Dioxide 26.0, Anion Gap 7, BUN 13, Creatinine 0.79, Estim Creat Clear Calc 36.08, Est GFR (MDRD) Af Amer 90, Est GFR (MDRD) Non-Af 75, BUN/Creatinine Ratio 16.5, Glucose 122 H, Calcium 9.0, Troponin I High Sens 7 12/31/21 03:37: Magnesium 2.0 12/31/21 08:33: WBC 8.8, RBC 4.80, Hgb 14.7, Hct 45.0, MCV 93.8, MCH 30.6, MCHC 32.7, RDW Std Deviation 42.5, RDW Coeff of Thor 12.3, Plt Count 261, MPV 10.5, Immature Gran % (Auto) 0.200, Neut % (Auto) 69.2, Lymph % (Auto) 20.4, [place] % (Auto) 6.8, Eos % (Auto) 2.4, Baso % (Auto) 1.0, Absolute Neuts (auto) 6.1, Absolute Lymphs (auto) 1.80, Nucleated RBC % 0 12/31/21 08:33: Sodium 139, Potassium 3.8, Chloride 106, Carbon Dioxide 26.0, Anion Gap 7, BUN 11, Creatinine 0.78, Estim Creat Clear Calc 36.08, Est GFR (MDRD) Af Amer 91, Est GFR (MDRD) Non-Af 75, BUN/Creatinine Ratio 14.0, Glucose 101, Calcium 9.0, Total Bilirubin 0.40, AST 17, ALT 17, Alkaline Phosphatase 65, Total Protein 7.5, Albumin 3.8, Globulin 3.7, Albumin/Globulin Ratio 1.0, Trig lycerides 257 H, Cholesterol 274 H, LDL Cholesterol 172 H, VLDL Cholesterol 51 H , HDL Cholesterol 51, TSH 5.27 H, Free T4 0.93 12/31/21 08:33: Hemoglobin A1c 5.6 Radiography Diagnostic Testing: Radiology Impression Brain CT 12/31/21 03:18 IMPRESSION: 1. Mild generalized atrophy. Mild low density bilaterally in the deep white matter. This likely represents small vessel ischemic changes in the deep white matter. 2. Small arachnoid cyst anterior to the right frontal lobe. N.B. : The above Results were Read Back by Daren Decker MD to Dr. Sajan MD, and understanding confirmed on 12/31/2021 04:03:16 (ET). Electronically Signed: Daren Decker MD at 4:05 EDT , ADDENDUM: 12/31/21 [id number] IMPRESSION: 1. Mild generalized atrophy. Mild low density bilaterally in the deep white matter. This likely represents small vessel ischemic changes in the deep white matter. 2. Small arachnoid cyst anterior to the right frontal lobe. N.B. : The above Results were Read Back by Daren Decker MD to Dr. Sajan MD, and understanding confirmed on 12/31/2021 04:03:16 (ET). 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 Mild bilateral degenerative changes with joint space narrowing and marginal osteophytes involving the inferior aspect of the femoral heads. Electronically Signed: Daren Decker MD at 4:23 EDT , Chest X-Ray 12/31/21 03:55 IMPRESSION: No acute abnormality or change. Electronically Signed: Daren Decker MD at 4:24 EDT , Brain MRI 12/31/21 05:35 IMPRESSION: Early subacute lacunar ischemic infarct in the right jama. Electronically Signed: Avelino Quintero MD at 9:59 EDT , ADDENDUM: 12/31/21 1011 IMPRESSION: Early subacute lacunar ischemic infarct in the right jama. N.B. : The above Results were Read Back by Avelino Quintero MD to Avelino [id number], and understanding confirmed on 12/31/2021 10:04:12 (ET). Electronically Signed: Avelino Qiuntero MD at 9:59 EDT , Head MRA 12/31/21 05:35 IMPRESSION: 1. Minimal small vessel plaque in the mid basilar artery without significant stenosis. 2. 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 3. No significant vaso-occlusive disease of the anterior and posterior intracranial circulation. Electronically Signed: Avelino Quintero MD at 10:02 EDT ,
--- NOTE | 2021-12-31 10:30 | PCM.PN.HOSP ---
Documented by User: Steffany Rodriguez NP, SERVICE TRANSFORMER REPAIR SUPERVISOR-C 12/31/21 10:51 Subjective Subjective Patient seen and examined. Reports ongoing left-sided weakness, left facial weakness and speech changes. Discussed with patient MRI findings of stroke. Pending completed work-up, patient amenable to rehab. She denies new neurologic symptoms or focal deficits. Objective Data Objective Data Vital Signs: Vital Signs Temp Pulse Resp BP Pulse Ox 97.4 F L 90 22 H 187/77 H 95 12/31/21 09:40 12/31/21 09:40 12/31/21 09:40 12/31/21 09:40 12/31/21 09:40 Oxygen Delivery Method Room Air Weight: 128 lb 8.472 oz Body Mass Index (BMI) 23.5 Intake & Output: Intake and Output for Last 24 Hours 12/29/21 12/30/21 12/31/21 23:59 23:59 23:59 Intake Total 60 / 60 Balance 60 / 60 Lab / Micro Data Result Diagrams: 12/31/21 08:33 12/31/21 08:33 Labs: Laboratory Results - last 24 hr 12/31/21 03:09: POC Glucose 116 H 12/31/21 03:37: WBC 8.2, RBC 4.75, Hgb 14.5, Hct 44.1, MCV 92.8, MCH 30.5, MCHC 32.9, RDW Std Deviation 41.7, RDW Coeff of Thor 12.2, Plt Count 270, MPV 10.5, Immature Gran % (Auto) 0.400, Neut % (Auto) 68.1, Lymph % (Auto) 20.0, [place] % (Auto) 6.7, Eos % (Auto) 3.7, Baso % (Auto) 1.1 H, Absolute Neuts (auto) 5.6, Absolute Lymphs (auto) 1.64, Nucleated RBC % 0 12/31/21 03:37: PT 13.4, INR 1.1, APTT 27.5 12/31/21 03:37: Sodium 138, Potassium 3.7, Chloride 105, Carbon Dioxide 26.0, Anion Gap 7, BUN 13, Creatinine 0.79, Estim Creat Clear Calc 36.08, Est GFR (MDRD) Af Amer 90, Est GFR (MDRD) Non-Af 75, BUN/Creatinine Ratio 16.5, Glucose 122 H, Calcium 9.0, Troponin I High Sens 7 12/31/21 03:37: Magnesium 2.0 12/31/21 08:33: WBC 8.8, RBC 4.80, Hgb 14.7, Hct 45.0, MCV 93.8, MCH 30.6, MCHC 32.7, RDW Std Deviation 42.5, RDW Coeff of Thor 12.3, Plt Count 261, MPV 10.5, Immature Gran % (Auto) 0.200, Neut % (Auto) 69.2, Lymph % (Auto) 20.4, [place] % (Auto) 6.8, Eos % (Auto) 2.4, Baso % (Auto) 1.0, Absolute Neuts (auto) 6.1, Absolute Lymphs (auto) 1.80, Nucleated RBC % 0 12/31/21 08:33: Sodium 139, Potassium 3.8, Chloride 106, Carbon Dioxide 26.0, Anion Gap 7, BUN 11, Creatinine 0.78, Estim Creat Clear Calc 36.08, Est GFR (MDRD) Af Amer 91, Est GFR (MDRD) Non-Af 75, BUN/Creatinine Ratio 14.0, Glucose 101, Calcium 9.0, Total Bilirubin 0.40, AST 17, ALT 17, Alkaline Phosphatase 65, Total Protein 7.5, Albumin 3.8, Globulin 3.7, Albumin/Globulin Ratio 1.0, Triglycerides 257 H, Cholesterol 274 H, LDL Cholesterol 172 H, VLDL Cholesterol 51 H, HDL Cholesterol 51, TSH 5.27 H, Free T4 0.93 12/31/21 08:33: Hemoglobin A1c 5.6 Radiography Diagnostic Testing: Radiology Impression Brain CT 12/31/21 03:18 IMPRESSION: 1. Mild generalized atrophy. Mild low density bilaterally in the deep white matter. This likely represents small vessel ischemic changes in the deep white matter. 2. Small arachnoid cyst anterior to the right frontal lobe. N.B. : The above Results were Read Back by Daren Decker MD to Dr. Sajan MD, and understanding confirmed on 12/31/2021 04:03:16 (ET). Electronically Signed: Daren Decker MD at 4:05 EDT , ADDENDUM: 12/31/21 0412 IMPRESSION: 1. Mild generalized atrophy. Mild low density bilaterally in the deep white matter. This likely represents small vessel ischemic changes in the deep white matter. 2. Small arachnoid cyst anterior to the right frontal lobe. N.B. : The above Results were Read Back by Daren Decker MD to Dr. Sajan MD, and understanding confirmed on 12/31/2021 04:03:16 (ET). 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 Mild bilateral degenerative changes with joint space narrowing and marginal osteophytes involving the inferior aspect of the femoral heads. Electronically Signed: Daren Decker MD at 4:23 EDT , Chest X-Ray 12/31/21 03:55 IMPRESSION: No acute abnormality or change. Electronically Signed: Daren Decker MD at 4:24 EDT , Brain MRI 12/31/21 05:35 IMPRESSION: Early subacute lacunar ischemic infarct in the right jama. Electronically Signed: Avelino Quintero MD at 9:59 EDT , ADDENDUM: 12/31/21 1011 IMPRESSION: Early subacute lacunar ischemic infarct in the right jama. N.B. : The above Results were Read Back by Avelino Quintero MD to Avelino [id number], and understanding confirmed on 12/31/2021 10:04:12 (ET). Electronically Signed: Avelino Quintero MD at 9:59 EDT , Head MRA 12/31/21 05:35 IMPRESSION: 1. Minimal small vessel plaque in the mid basilar artery without significant stenosis. 2. 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 3. No significant vaso-occlusive disease of the anterior and posterior intracranial circulation. Electronically Signed: Avelino Quintero MD at 10:02 EDT , Physical Exam Const alert, oriented x3 and no apparent distress Orientation / Consciousness: awake, oriented to person, oriented to place and oriented to time HEENT normocephalic and moist oral mucous membranes Eyes PERRL, EOMs intact bilaterally and conjunctivae normal Neck no lymphadenopathy Resp normal respiratory effort and clear to auscultation bilaterally Cardio regular rate, regular rhythm and no murmurs Peripheral Pulses: pulses 2+ throughout GI normal to inspection, nondistended, normoactive bowel sounds, non-tender and non-distended Extremity normal to inspection Skin no rashes or lesions noted Lesions: no lesions Rashes: no rashes Trauma: no lacerations or abrasions Neuro CN's II-XII intact bilaterally and deep tendon reflexes 2+ bilaterally Neuro Narrative: Left-sided hemiparesis, left facial droop, dysarthria. Psych mental status grossly normal and affect normal Assessment & Plan Assessment/Plan (1) CVA (cerebral vascular accident): QUALIFIERS: CVA mechanism: unspecified Qualified Code(s): I63.9 - Cerebral infarction, unspecified PLAN: 1. Acute CVA-MRI of brain with early subacute lacunar ischemic infarct in the right jama. 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 No significant vaso-occlusive disease over the anterior and posterior intracranial circulation. Carotid ultrasound and echocardiogram pending. PT/OT/ST. Aspirin, high-dose statin, add Plavix. Obtain [facility] neurology consult. 2. Mechanical fall, secondary to #1 with left hip pain-PT/OT. As needed pain regimen. 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 Mild bilateral degenerative changes with joint space narrowing and marginal osteophytes involving the inferior aspect of the femoral heads. No acute fracture. 3. Elevated TSH, free T4 normal-recommend repeat thyroid studies as outpatient in 4 to 6 weeks. 4. CAD with history of CABG-on aspirin. Add statin. 5. Hypertension-permissive for now secondary to #1. As needed regimen. Lisinopril on hold. 6. Hyperlipidemia-not on statin. Added as noted above. 7. Anxiety/depression-on Lexapro, Klonopin. 8. Rheumatoid arthritis-not on regimen. Continue outpatient follow-up with rheumatology. DVT prophylaxis-Lovenox sc This patient was seen by AARON Bustos under the supervision of Dr. Nath. Discharge planning: TCU per patient request pending complete stroke workup and TCU acceptance. Time spent examining patient, reviewing data and subsequent management of care: 14 minutes Documented by User: Dr. Qasim Nath MD 12/31/21 12:22 Objective Data Lab / Micro Data Result Diagrams: 12/31/21 08:33 12/31/21 08:33 Assessment & Plan Addt'l Comments This patient was seen in conjunction with AARON Bustos . I have independently interviewed and examined the patient and reviewed pertinent historical, laboratory, and other data. Please refer to AARON Bustos note for details of this patient's presentation, findings, and recommendations. I have reviewed AARON Bustos note and concur with documented findings. In brief, patient is a 81-year-old lady with past medical history including essential hypertension dyslipidemia coronary artery disease status post CABG who presented with left-sided weakness and slurred speech. A suspicion of acute CVA entertained admitted to monitored bed subsequent imaging studies with an MRI demonstrated early subacute lacunar ischemic infarct in the right jama Physical Examination: GENERAL: cooperative HEENT: Atraumatic; EYES; Anicteric, Normal Conjunctiva NECK; supple, normal thyroid, RESPIRATORY: Diminished to auscultation CARDIOVASCULAR: Regular S1 S2, GI: soft, normoactive bowel sounds, : No Renal angle tenderness; EXTREMITIES: No edema, no clubbing, MUSCULOSKELETAL: no muscle wasting NEURO: Awake; muscle strength in left upper extremity 3/5 SKIN: No Rash PSYCH; Flat affect Assessment: 1. Acute ischemic CVA involving the right jama with significant left-sided weakness 2. Essential hypertension 3. Coronary artery disease with previous CABG and subsequent PCI 4. Essential potential 5. Dyslipidemia 6. Depression with anxiety 7. Rheumatoid arthritis 8. GERD 9. DVT prophylax Recommendations: 1. I have discussed the results of my overview and impressions with the patient 2. Options for management were reviewed Total additional time time spent by myself and the advanced practice practitioner evaluating patient, reviewing labs, subsequent management decisions, discussion with patient, patient family's including going over diagnostic data and discussion with other providers 45 minutes ( 25 of which was spent by myself) Charges/Coding Procedures Hospitalists Procedures: [id number] Prolonged Physician INPT
--- NOTE | 2021-12-31 10:51 | TELEMED_ITS ---
[facility] has confirmed receipt of a request for visit. This document confirms receipt of the order initiating the consult. To find the results of the consultation, please view the patient's reports for the scanned Telemed Consult.
--- NOTE | 2021-12-31 11:35 | CASEMGMT ---
Social Work SW completed assessment with patient and patient's . SW also confirmed contact people, addresses, and phone numbers. PCP: Dr Henson Specialists: Dr Florence- Cardiology, Dr Louis-Trucking Manager, and Dr Casanova-Dermatology Preferred Pharmacy: [facility] Insurance: Medicare and [employer] Prescription Benefit: Yes. They think it is [facility] Living Will/HPOA: Yes. Patient has both a Healthcare Power of Cobbler Apprentice and a Healthcare Living Will on file at [facility]. Patient's daughter is listed as the Healthcare Power of Cobbler Apprentice and an securities attorney, Emiliana Dixon as her first alternate. Patient said she does not want Emiliana listed anymore as she is not practicing anymore. SW told patient and her that SW could possibly help her update these documents. LNOK: Kendall Witt, daughter Ashley, and 2 sons, Felton and Ashok Living Arrangements: Patient lives with her in a 2 story home. However, they are set up on the 1st floor. There are 3 entry steps with a rail. Transportation: Patient normally drives. DME: Patient has a walker. She normally does not use it, however the last week or so she has been using it because she hasn't felt right. HHC/SNF: Patient has been to [facility] TCU in the past. Mental Health: Anxiety. Patient states she is doing well with her Anxiety. She is on Klonopin and Lexapro. Patient feels both of these medications are helping. Substance Use: None Community Resources: None Plan: Patient would like to go to [facility] TCU. SW spoke with patient about [facility] Inpatient Rehab also. However, there are 2 therapists in particular patient wants to work with. Sandra. SW checked and those therapists are only in TCU. SW called [facility] and [facility] would have a bed for patient today vs tomorrow. SW will talk with patient and her and let them know this information. Physician and Nurse Practitioner were notified. [facility] TCU when bed available Susana HARRIS
--- NOTE | 2021-12-31 12:22 | CASEMGMT ---
Social Work SW met with pt and spouse as they are requesting to make changes to HCPOA. Pt has a HCPOA naming her daughter Ashley Witt as primary and divorce attorney Emiliana Dixon as secondary. Pt stating she would like to remove Emiliana and add Tierra Kel or Medhatlaura Mcqueen from [facility] law office. SW inquired if pt has asked [facility] law office if they are agreeable to this and pt has not. SW informed pt that this conversation should take place prior to adding them to HCPOA. SW also instructed that after pt has this conversation and gets approval, the TCU SW can assist with updating forms as pt will be transferring to TCU. Pt and express understanding. SW notified DARCI Donato LSW
--- NOTE | 2021-12-31 12:32 | TREXTCAR_ITS ---
Diet 12/31/21 05:36 Diet: Cardiac - Heart Healthy Food consistency:: Regular Liquid Consistency:: Regular/Thin Routine Orders/Code Status Enema Type: Fleetz Enema Frequency: Daily PRN Suppository Type: Dulcolax 10mg Suppository Frequency: Daily PRN Code Status: Full Code Suggestions for Active Care Change Position every (hours): 2 Times a day to sit in chair: 3 Therapies Physical Therapy: Eval and Treat Occupational Therapy: Eval and Treat Speech Therapy: Eval and Treat Problem/Diagnosis (1) CVA (cerebral vascular accident): Status: Acute Allergies/Procedures Done in Hospital Allergies amlodipine besylate [From Norvasc] Allergy (Verified 03/10/21 12:55) Other INCREASED BLOOD PRESSURE, CAN'T STAND WITHOUT HOLDING ONTO SOMETHING atenolol Allergy (Verified 03/10/21 12:55) Other INCREASED BP AND INSTABILITY buspirone HCl [From BuSpar] Allergy (Verified 03/10/21 12:55) Other INCREASED ANXIETY citalopram hydrobromide [From Celexa] Allergy (Verified 03/10/21 12:55) Other INCREASED ANXIETY diazepam [From Valium] Allergy (Verified 03/10/21 12:55) Other INCREASED ANXIETY hydrochlorothiazide [From Zestoretic] Allergy (Verified 03/10/21 12:55) Other BALANCE lisinopril [From Zestoretic] Allergy (Verified 03/10/21 12:55) Other BALANCE metoprolol succinate [From Toprol XL] Allergy (Verified 03/10/21 12:55) Other BALANCE mirtazapine [From Remeron] Allergy (Verified 03/10/21 12:55) Other END UP IN ER FROM TOO STRONG paroxetine HCl [From Paxil] Allergy (Verified 03/10/21 12:55) Other ANXIETY procaine HCl [From Novocain] Allergy (Verified 03/10/21 12:55) Other RAPID HR Sulfa (Sulfonamide Antibiotics) Allergy (Verified 03/10/21 12:55) Other racing HR valsartan [From Diovan] Allergy (Verified 03/10/21 12:55) Other balance Penicillins Adverse Reaction (Unknown, Verified 03/10/21 12:55) Other headache, malaise Procedures: 2-D Echocardiogram Type of Care/Length of Stay Estimated LOS: Convalescent Care Less Than 30 days Type of Care Needed: Skilled Rehab Potential: Fair Prognosis: Fair Additional Orders/Day of Discharge H&P will serve as current which was dated: 12/31/21 Day of Discharge: 12/31/21 Dietary and Speech Recommendations Dietitian Recommendations/Changes: continue cardiac diet- texture/consistency modifications per SALES AND BUSINESS DEVELOPMENT MANAGER; will consider 120mL ensure enlive 4x/day w/ medpass if PO intake does not improve after SALES AND BUSINESS DEVELOPMENT MANAGER evaluation. Discharge Plan Admission Admit Date/Time: 12/31/21 04:30 Primary Reason for Your Visit: CVA Attending Provider: Qasim Nath Primary Care Provider: Jp Henson Consulting Providers: Maty Rojas Discharge Orders/Prescriptions Prescriptions: New atorvastatin 80 mg Tablet 40 mg PO QHS Qty: 0 RF: 0 clopidogrel 75 mg Tablet 75 mg PO DAILY Qty: 0 RF: 0 Continued multivitamin [Daily Multi-Vitamin] Tablet 1 tab PO DAILY RF: 0 cholecalciferol (vitamin D3) 125 mcg (5,000 unit) capsule 125 mcg PO DAILY RF: 0 clonazepam [Klonopin] 0.5 MG tablet 0.25 mg PO 4X/DAY PRN PRN (Reason: Anxiety) RF: 0 aspirin 81 MG tablet,delayed release (DR/EC) 81 mg PO DAILY RF: 0 escitalopram oxalate [Lexapro] 5 mg Tablet 5 mg PO DAILY RF: 0 zinc 50 mg Capsule 50 mg PO DAILY RF: 0 Held lisinopril [Zestril] 5 mg tablet 5 mg PO DAILY RF: 0 Hold Instructions: Resume on 01/01/22. Referrals / Follow Up: Jp Henson DO [Primary Care Provider] - In 1 Week Jorge Luis Vasquez MD [STAFF PHYSICIAN] - Within 2 Weeks Disposition Disposition (needs filled in before D/C Order can be placed): Detention Facility
--- NOTE | 2021-12-31 12:36 | DS.PCM_ITS ---
Documented by User: Steffany Rodriguez NP, CRISIS MENTAL HEALTH THERAPIST-C 12/31/21 12:44 Providers Date of Admission: 12/31/21 Date of Discharge: 12/31/21 Primary Care Physician: Dr. Jp Henson DO Reason For Visit: ACUTE CVA Diagnosis Discharge Diagnosis (1) CVA (cerebral vascular accident): Status: Acute Code(s): I63.9 - Cerebral infarction, unspecified Qualifiers: CVA mechanism: unspecified Qualified Code(s): I63.9 - Cerebral infarction, unspecified Medications at Discharge Home Medications clonazepam [Klonopin] 0.25 mg PO 4X/DAY PRN PRN 09/20/13 aspirin 81 mg PO DAILY 09/08/19 cholecalciferol (vitamin D3) 125 mcg (5,000 unit) capsule 125 mcg PO DAILY 12/19/19 multivitamin 1 tab PO DAILY 12/19/19 escitalopram oxalate [Lexapro] 5 mg PO DAILY 03/07/21 lisinopril [Zestril] 5 mg PO DAILY 12/30/21 zinc 50 mg PO DAILY 12/30/21 atorvastatin 40 mg PO QHS #0 tab 12/31/21 clopidogrel 75 mg PO DAILY #0 tab 12/31/21 Hospital Course Operations None Procedures 2-D Echocardiogram Summary of Care Provided Hospital Course: Patient is a 81-year-old female admitted 12/30/21 due to left sided weakness, left sided facial droop and speech changes. 1. Acute CVA-MRI of brain with early subacute lacunar ischemic infarct in the right jama. 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 No significant vaso-occlusive disease over the anterior and posterior intracranial circulation. Carotid ultrasound and echocardiogram completed, report pending and will be reviewed prior to discharge. Aspirin, statin, Plavix. SOC neurology consult during admission for further input. Outpatient follow up with PCP and neurology. Patient initially requested TCU however now amendable to rehab unit. 2. Mechanical fall, secondary to #1 with left hip pain-PT/OT. As needed pain regimen. 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 Mild bilateral degenerative changes with joint space narrowing and marginal osteophytes involving the inferior aspect of the femoral heads. No acute fracture. 3. Elevated TSH, free T4 normal-recommend repeat thyroid studies as outpatient in 4 to 6 weeks. 4. CAD with history of CABG-on aspirin. Add statin. 5. Hypertension-permissive for now secondary to #1. Resume lisinopril 01/01/2022. 6. Hyperlipidemia-not on statin. Added as noted above. 7. Anxiety/depression-on Lexapro, Klonopin. 8. Rheumatoid arthritis-not on regimen. Continue outpatient follow-up with rheumatology. Physical Exam Const alert, oriented x3 and no apparent distress Orientation / Consciousness: awake, oriented to person, oriented to place and oriented to time HEENT normocephalic and moist oral mucous membranes Eyes PERRL, EOMs intact bilaterally and conjunctivae normal Neck no lymphadenopathy Resp normal respiratory effort and clear to auscultation bilaterally Cardio regular rate, regular rhythm and no murmurs Peripheral Pulses: pulses 2+ throughout GI normal to inspection, nondistended, normoactive bowel sounds, non-tender and non-distended Extremity normal to inspection Skin no rashes or lesions noted Lesions: no lesions Rashes: no rashes Trauma: no lacerations or abrasions Neuro CN's II-XII intact bilaterally and deep tendon reflexes 2+ bilaterally Neuro Narrative: Left-sided hemiparesis, left facial droop, dysarthria. Psych mental status grossly normal and affect normal Patient seen and examined prior to discharge. Physical assessment as noted above. Patient is stable for discharge with follow up recommendations as noted above. This patient was seen by AARON Bustos under the supervision of Dr. Nath. Weight / BMI Weight Weight: 128 lb 8.472 oz Body Mass Index (BMI) 23.5 ABG / Lab / Microbiology Data Result Diagrams: 12/31/21 08:33 12/31/21 08:33 Laboratory: Laboratory Results - last 24 hr 12/31/21 03:09: POC Glucose 116 H 12/31/21 03:37: WBC 8.2, RBC 4.75, Hgb 14.5, Hct 44.1, MCV 92.8, MCH 30.5, MCHC 32.9, RDW Std Deviation 41.7, RDW Coeff of Thor 12.2, Plt Count 270, MPV 10.5, Immature Gran % (Auto) 0.400, Neut % (Auto) 68.1, Lymph % (Auto) 20.0, [place] % (Auto) 6.7, Eos % (Auto) 3.7, Baso % (Auto) 1.1 H, Absolute Neuts (auto) 5.6, Absolute Lymphs (auto) 1.64, Nucleated RBC % 0 12/31/21 03:37: PT 13.4, INR 1.1, APTT 27.5 12/31/21 03:37: Sodium 138, Potassium 3.7, Chloride 105, Carbon Dioxide 26.0, Anion Gap 7, BUN 13, Creatinine 0.79, Estim Creat Clear Calc 36.08, Est GFR (MDRD) Af Amer 90, Est GFR (MDRD) Non-Af 75, BUN/Creatinine Ratio 16.5, Glucose 122 H, Calcium 9.0, Troponin I High Sens 7 12/31/21 03:37: Magnesium 2.0 12/31/21 08:33: WBC 8.8, RBC 4.80, Hgb 14.7, Hct 45.0, MCV 93.8, MCH 30.6, MCHC 32.7, RDW Std Deviation 42.5, RDW Coeff of Thor 12.3, Plt Count 261, MPV 10.5, Immature Gran % (Auto) 0.200, Neut % (Auto) 69.2, Lymph % (Auto) 20.4, [place] % ( Auto) 6.8, Eos % (Auto) 2.4, Baso % (Auto) 1.0, Absolute Neuts (auto) 6.1, Absolute Lymphs (auto) 1.80, Nucleated RBC % 0 12/31/21 08:33: Sodium 139, Potassium 3.8, Chloride 106, Carbon Dioxide 26.0, Anion Gap 7, BUN 11, Creatinine 0.78, Estim Creat Clear Calc 36.08, Est GFR ( MDRD) Af Amer 91, Est GFR (MDRD) Non-Af 75, BUN/Creatinine Ratio 14.0, Glucose 101, Calcium 9.0, Total Bilirubin 0.40, AST 17, ALT 17, Alkaline Phosphatase 65, Total Protein 7.5, Albumin 3.8, Globulin 3.7, Albumin/Globulin Ratio 1.0, Triglycerides 257 H, Cholesterol 274 H, LDL Cholesterol 172 H, VLDL Cholesterol 51 H, HDL Cholesterol 51, TSH 5.27 H, Free T4 0.93 12/31/21 08:33: Hemoglobin A1c 5.6 Radiography Diagnostic Testing: Radiology Impression Brain CT 12/31/21 03:18 IMPRESSION: 1. Mild generalized atrophy. Mild low density bilaterally in the deep white matter. This likely represents small vessel ischemic changes in the deep white matter. 2. Small arachnoid cyst anterior to the right frontal lobe. N.B. : The above Results were Read Back by Daren Decker MD to Dr. Sajan MD, and understanding confirmed on 12/31/2021 04:03:16 (ET). Electronically Signed: Daren Decker MD at 4:05 EDT , ADDENDUM: 12/31/21 0412 IMPRESSION: 1. Mild generalized atrophy. Mild low density bilaterally in the deep white matter. This likely represents small vessel ischemic changes in the deep white matter. 2. Small arachnoid cyst anterior to the right frontal lobe. N.B. : The above Results were Read Back by Daren Decker MD to Dr. Sajan MD, and understanding confirmed on 12/31/2021 04:03:16 (ET). 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 Mild bilateral degenerative changes with joint space narrowing and marginal osteophytes involving the inferior aspect of the femoral heads. Electronically Signed: Daren Decker MD at 4:23 EDT , Chest X-Ray 12/31/21 03:55 IMPRESSION: No acute abnormality or change. Electronically Signed: Daren Decker MD at 4:24 EDT , Brain MRI 12/31/21 05:35 IMPRESSION: Early subacute lacunar ischemic infarct in the right jama. Electronically Signed: Avelino Quintero MD at 9:59 EDT , ADDENDUM: 12/31/21 1011 IMPRESSION: Early subacute lacunar ischemic infarct in the right jama. N.B. : The above Results were Read Back by Avelino Quintero MD to Avelino [id number], and understanding confirmed on 12/31/2021 10:04:12 (ET). Electronically Signed: Avelino Quintero MD at 9:59 EDT , Echocardiogram 12/31/21 05:35 Interpretation Summary Normal LV size. Left ventricular systolic function is normal. The estimated ejection fraction is 60 %. Stage 1 diastolic dysfunction. Bubble contrast study negative for right to left interatrial shunt. Ordering Physician: Maty Rojas Referring Physician: Jp Henson Performed By: Kacie Cornell RCS Head MRA 12/31/21 05:35 IMPRESSION: 1. Minimal small vessel plaque in the mid basilar artery without significant stenosis. 2. 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 3. No significant vaso-occlusive disease of the anterior and posterior intracranial circulation. Electronically Signed: Avelino Quintero MD at 10:02 EDT , Meaningful Use Info Meaningful Use Diagnoses (Choose all that apply): Ischemic CVA CVA Therapy Assessed for PT,OT and/or ST?: Yes Ischemic Stroke Antithrombotic order at d/c?: Yes Dx of Atrial fib/flutter?: No Statins at discharge?: Yes Primary Dx Acute Ischemic CVA?: Yes IV tPA ordered during stay?: No Reason IV t-PA not ordered: Medical Contraindication Discharge Plan Admission Admit Date/Time: 12/31/21 04:30 Primary Reason for Your Visit: CVA Attending Provider: Qasim Nath Primary Care Provider: Jp Henson Consulting Providers: Maty Rjoas Discharge Orders/Prescriptions Prescriptions: New atorvastatin 80 mg Tablet 40 mg PO QHS Qty: 0 RF: 0 clopidogrel 75 mg Tablet 75 mg PO DAILY Qty: 0 RF: 0 Continued multivitamin [Daily Multi-Vitamin] Tablet 1 tab PO DAILY RF: 0 cholecalciferol (vitamin D3) 125 mcg (5,000 unit) capsule 125 mcg PO DAILY RF: 0 clonazepam [Klonopin] 0.5 MG tablet 0.25 mg PO 4X/DAY PRN PRN (Reason: Anxiety) RF: 0 aspirin 81 MG tablet,delayed release (DR/EC) 81 mg PO DAILY RF: 0 escitalopram oxalate [Lexapro] 5 mg Tablet 5 mg PO DAILY RF: 0 zinc 50 mg Capsule 50 mg PO DAILY RF: 0 Held lisinopril [Zestril] 5 mg tablet 5 mg PO DAILY RF: 0 Hold Instructions: Resume on 01/01/22. Referrals / Follow Up: Jp Henson DO [Primary Care Provider] - In 1 Week Jorge Luis Vasquez MD [STAFF PHYSICIAN] - Within 2 Weeks Disposition Disposition (needs filled in before D/C Order can be placed): Inpatient Rehab Unit/Facility Documented by User: Dr. Qasim Nath MD 12/31/21 12:59 Providers Date of Admission: 12/31/21 Reason For Visit: ACUTE CVA Medications at Discharge Home Medications clonazepam [Klonopin] 0.25 mg PO 4X/DAY PRN PRN 09/20/13 aspirin 81 mg PO DAILY 09/08/19 cholecalciferol (vitamin D3) 125 mcg (5,000 unit) capsule 125 mcg PO DAILY 12/19/19 multivitamin 1 tab PO DAILY 12/19/19 escitalopram oxalate [Lexapro] 5 mg PO DAILY 03/07/21 lisinopril [Zestril] 5 mg PO DAILY 12/30/21 zinc 50 mg PO DAILY 12/30/21 atorvastatin 40 mg PO QHS #0 tab 12/31/21 clopidogrel 75 mg PO DAILY #0 tab 12/31/21 Hospital Course Operations None Summary of Care Provided Minutes Spent on Discharge: 45 Hospital Course: This patient was seen in conjunction with TORY Bustos . I have independently interviewed and examined the patient and reviewed pertinent historical, laboratory, and other data. Please refer to AARON Bustos note for details of this patient's presentation, findings, and recommendations. I have reviewed AARON Bustos note and concur with documented findings. In brief, patient is a 81-year-old lady with past medical history including essential hypertension dyslipidemia coronary artery disease status post CABG who presented with left-sided weakness and slurred speech. A suspicion of acute CVA entertained admitted to monitored bed subsequent imaging studies with an MRI demonstrated early subacute lacunar ischemic infarct in the right jama Physical Examination: GENERAL: cooperative HEENT: Atraumatic; EYES; Anicteric, Normal Conjunctiva NECK; supple, normal thyroid, RESPIRATORY: Diminished to auscultation CARDIOVASCULAR: Regular S1 S2, GI: soft, normoactive bowel sounds, : No Renal angle tenderness; EXTREMITIES: No edema, no clubbing, MUSCULOSKELETAL: no muscle wasting NEURO: Awake; muscle strength in left upper extremity 3/5 SKIN: No Rash PSYCH; Flat affect Assessment: 1. Acute ischemic CVA involving the right jama with significant left-sided weakness 2. Essential hypertension 3. Coronary artery disease with previous CABG and subsequent PCI 4. Essential potential 5. Dyslipidemia 6. Depression with anxiety 7. Rheumatoid arthritis 8. GERD 9. DVT prophylax Hospital course; as documented above Total additional time time spent by myself and the advanced practice practitioner evaluating patient, reviewing labs, subsequent management decisions, discussion with patient, patient family's including going over diagnostic data and discussion with other providers 45 minutes ( 25 of which was spent by myself) ABG / Lab / Microbiology Data Result Diagrams: 12/31/21 08:33 12/31/21 08:33 Discharge Plan Admission Admit Date/Time: 12/31/21 04:30 Primary Reason for Your Visit: CVA Attending Provider: Qasim Nath Primary Care Provider: Jp Henson Consulting Providers: Maty Rojas Discharge Orders/Prescriptions Prescriptions: New atorvastatin 80 mg Tablet 40 mg PO QHS Qty: 0 RF: 0 clopidogrel 75 mg Tablet 75 mg PO DAILY Qty: 0 RF: 0 Continued multivitamin [Daily Multi-Vitamin] Tablet 1 tab PO DAILY RF: 0 cholecalciferol (vitamin D3) 125 mcg (5,000 unit) capsule 125 mcg PO DAILY RF: 0 clonazepam [Klonopin] 0.5 MG tablet 0.25 mg PO 4X/DAY PRN PRN (Reason: Anxiety) RF: 0 aspirin 81 MG tablet,delayed release (DR/EC) 81 mg PO DAILY RF: 0 escitalopram oxalate [Lexapro] 5 mg Tablet 5 mg PO DAILY RF: 0 zinc 50 mg Capsule 50 mg PO DAILY RF: 0 Held lisinopril [Zestril] 5 mg tablet 5 mg PO DAILY RF: 0 Hold Instructions: Resume on 01/01/22. Referrals / Follow Up: Jp Henson DO [Primary Care Provider] - In 1 Week Jorge Luis Vasquez MD [STAFF PHYSICIAN] - Within 2 Weeks Disposition Disposition (needs filled in before D/C Order can be placed): Inpatient Rehab Unit/Facility Charges/Coding Visit Charges Inpatient E&M: 04375 Disch Hosp Hospital Course Imaging Results Imaging Results: 12/31/21 03:55 Chest 1 View [RAD] Stat 12/31/21 05:35 Echo Complete [ECHO] Routine Brain without Contrast [MRI] Routine MRA Head ONLY without Contrast [MRI] Routine Operations None
--- NOTE | 2021-12-31 12:41 | CASEMGMT ---
SW spoke with therapy and they feel patient would be an excellent candidate for Inpatient Rehab Unit. SW spoke with patient and let her know Aditya and Shelby are only in TCU. SW then explained to patient that she would be great candidate for the rehab unit since she was so independent prior to this hospitalization. Both patient and her agreed to Inpatient Rehab. GURINDER notified Nurse Practitioner and financial secretary. Plan: [facility] 4th floor Rehab Unit. Susana HARRIS
--- NOTE | 2021-12-31 12:44 | PCM.DC ---
Discharge Instructions Diet Discharge Diet: Low fat / Low cholesterol Activity Discharge Activity: Return to Normal Activity Dressing / Incision Call your doctor if you observe: Shortness of breath, Dizziness and Chest pain Follow Up Care Test Results: Test results from this visit will be discussed in further detail at your follow-up appointment, if applicable. Discharge Plan Admission Admit Date/Time: 12/31/21 04:30 Primary Reason for Your Visit: CVA Attending Provider: Qasim Nath Primary Care Provider: Jp Henson Consulting Providers: Maty Rojas Discharge Orders/Prescriptions Prescriptions: New atorvastatin 80 mg Tablet 40 mg PO QHS Qty: 0 RF: 0 clopidogrel 75 mg Tablet 75 mg PO DAILY Qty: 0 RF: 0 Continued multivitamin [Daily Multi-Vitamin] Tablet 1 tab PO DAILY RF: 0 cholecalciferol (vitamin D3) 125 mcg (5,000 unit) capsule 125 mcg PO DAILY RF: 0 clonazepam [Klonopin] 0.5 MG tablet 0.25 mg PO 4X/DAY PRN PRN (Reason: Anxiety) RF: 0 aspirin 81 MG tablet,delayed release (DR/EC) 81 mg PO DAILY RF: 0 escitalopram oxalate [Lexapro] 5 mg Tablet 5 mg PO DAILY RF: 0 zinc 50 mg Capsule 50 mg PO DAILY RF: 0 Held lisinopril [Zestril] 5 mg tablet 5 mg PO DAILY RF: 0 Hold Instructions: Resume on 01/01/22. Referrals / Follow Up: Jp Henson DO [Primary Care Provider] - In 1 Week Jorge Luis Vasquez MD [STAFF PHYSICIAN] - Within 2 Weeks Disposition Disposition (needs filled in before D/C Order can be placed): Inpatient Rehab Unit/Facility
--- NOTE | 2021-12-31 12:44 | CASEMGMT ---
SW completed a PHQ 9 with patient as she had a Stroke. Patient scored a 1 which is minimal depression. Patient denies any need for resources. Patient feels like her depression is under control. Susana HARRIS
== END 2021-12-31 15:44 | DRG 65 ==
LOC: ED 04:38 → PCU 04:44
PROVIDERS: Admitting Provider Family Medicine; Emergency Provider Emergency Medicine; PCP Family Medicine; Visit Provider Internal Medicine
DX: I63.9 Cerebral infarction, unspecified (principal); I45.2 Bifascicular block; G81.94 Hemiplegia, unspecified affecting left nondominant side; M06.9 Rheumatoid arthritis, unspecified; F41.8 Other specified anxiety disorders; M19.90 Unspecified osteoarthritis, unspecified site; I25.10 Atherosclerotic heart disease of native coronary artery without angina pectoris; I10 Essential (primary) hypertension; K21.9 Gastro-esophageal reflux disease without esophagitis; W19.XXXA Unspecified fall, initial encounter; M25.552 Pain in left hip; G93.0 Cerebral cysts; M25.852 Other specified joint disorders, left hip; Z87.19 Personal history of other diseases of the digestive system; Z79.899 Other long term (current) drug therapy; Z79.82 Long term (current) use of aspirin; Z95.1 Presence of aortocoronary bypass graft; R47.1 Dysarthria and anarthria; R29.810 Facial weakness; R29.702 NIHSS score 2; R47.81 Slurred speech; R79.89 Other specified abnormal findings of blood chemistry
CPT/HCPCS: 70450; 70544; 70551; 71045; 73502; 74177; 80048; 80053; 80061; 80076; 81001; 82962; 83036; 83690; 83735; 84439; 84443; 84484; 85025; 85610; 85730; 87428; 92610; 93005; 93306; 93880; 96360; 97162; 97166; 97802; 99283; 99284; J7030; Q9967; A4216

== ENCOUNTER 2021-12-31 16:04 | Inpatient (IN) | payer MEDICARE, SELFPAY ==
[2021-12-31 16:20] VITALS: BP 160/72; PULSE 82; RESP 20; TEMP 36.7; O2SAT 94
--- NOTE | 2021-12-31 17:16 | NURSING ---
pt reports she does not want to take lisinopril because she is allergic to it and reports lipitor makes her sick. Per Dr. Bass, nursing is to discontinue these medications.
[2021-12-31 19:00] VITALS: BP 162/73; PULSE 87; RESP 16; TEMP 36.2; O2SAT 93
--- NOTE | 2021-12-31 19:50 | PCM.HP.STD ---
HPI - General General Date of Admission: 12/31/21 HPI Narrative 12/30/2021 SHERYL GHOSH, is a 81 Female who presents to [facility] Emergency Department with generalized illness. General fatigue, chills, abdominal pain, multiple bowel movements, no diarrhea. Urinalysis negative, covid19 negative, flu negative, CT abdomen/pelvis negative, patent discharged home. 12/31/2021 Patient presents to [facility] Emergency Department with neurologic signs/symptoms. Fall using walker, fell on left side, left sided weakness. Left arm weakness for several days, left leg weakness, left facial droop. Slurring of speech. Outside tPA window. CT brain showed old arachnoid cyst. 12/31/2021 Admit to Hospital. MRI brain, MRA head/neck, Echo, PT/OT/ST, Neurology consult. Aspirin, Plavix, statin intolerable for stroke. X-ray left hip shows impingement for left hip pain. 12/31/2021 Echo Normal LV size. Left ventricular systolic function normal. EF 60%. Stage 1 diastolic dysfunction. Bubble study negative for shunt. 12/31/2021 MRI brain showed early subacute right jama stroke. MRI head showed no significant vaso-occlusive disease. 12/31/2021 Admit to for greater than 3 hours daily rehabilitation, strengthening, prior to discharge home with . Patient complaint of muscle spasm. Patient refusing statin, stating it is intolerable. [facility] Medical History (Updated 12/31/21 @ 19:[address] Patrice Bass MD) Anxiety disorder Arthritis 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 Atherosclerotic heart disease of [place] coronary artery without angina pectoris Breast lump Chest pain Chronic headache Essential (primary) hypertension Essential hypertension Gallstones GERD (gastroesophageal reflux disease) H/O transfusion of whole blood Intractable constipation Rheumatoid arthritis Right bundle branch block (RBBB) Vitamin deficiency Home Medications clonazepam [Klonopin] 0.25 mg PO 4X/DAY PRN PRN 09/20/13 [History Last Taken 12/31/21] aspirin 81 mg PO DAILY 09/08/19 [History Last Taken 12/31/21] cholecalciferol (vitamin D3) 125 mcg (5,000 unit) capsule 125 mcg PO DAILY 12/19/19 [History Last Taken Unknown] multivitamin 1 tab PO DAILY 12/19/19 [History Last Taken 12/31/21] escitalopram oxalate [Lexapro] 5 mg PO DAILY 03/07/21 [History Last Taken 12/31/21] lisinopril [Zestril] 5 mg PO DAILY 12/30/21 [History Last Taken Unknown] zinc 50 mg PO DAILY 12/30/21 [History Last Taken Unknown] atorvastatin 40 mg PO QHS 12/31/21 [History Last Taken Unknown] baclofen 10 mg PO TID PRN 12/31/21 [History Last Taken Unknown] clopidogrel 75 mg PO DAILY 12/31/21 [History Last Taken 12/31/21] Allergy/AdvReac Type Severity Reaction Status Date / Time amlodipine besylate Allergy Other Verified 03/10/21 12:55 [From Norvasc] atenolol Allergy Other Verified 03/10/21 12:55 buspirone HCl [From BuSpar] Allergy Other Verified 03/10/21 12:55 citalopram hydrobromide Allergy Other Verified 03/10/21 12:55 [From Celexa] diazepam [From Valium] Allergy Other Verified 03/10/21 12:55 hydrochlorothiazide Allergy Other Verified 03/10/21 12:55 [From Zestoretic] lisinopril [From Zestoretic] Allergy Other Verified 03/10/21 12:55 metoprolol succinate Allergy Other Verified 03/10/21 12:55 [From Toprol XL] mirtazapine [From Remeron] Allergy Other Verified 03/10/21 12:55 paroxetine HCl [From Paxil] Allergy Other Verified 03/10/21 12:55 procaine HCl [From Novocain] Allergy Other Verified 03/10/21 12:55 Sulfa (Sulfonamide Allergy Other Verified 03/10/21 12:55 Antibiotics) valsartan [From Diovan] Allergy Other Verified 03/10/21 12:55 Penicillins AdvReac Unknown Other Verified 03/10/21 12:55 Family History Other Adopted Surgical History History of appendectomy History of cataract surgery History of cholecystectomy History of coronary artery bypass graft x 3 (~09/01/19) History of coronary artery stent placement (08/30/19) History of herniorrhaphy Social History household members: spouse Smoking Status: Never smoker alcohol intake: never substance use type: does not use caffeine: No ROS Constitutional Constitutional: Denies chills, fever(s) or weight gain ENT HEENT: Denies headache(s), nasal congestion or nasal discharge Cardiovascular Cardiovascular: Denies chest pain or palpitations Respiratory/Chest Respiratory/Chest: Denies cough, excessive phlegm production or shortness of breath with exertion Gastrointestinal Gastrointestinal: Denies abdominal pain, nausea or vomiting Genitourinary Genitourinary: Denies dysuria Musculoskeletal Musculoskeletal: Denies joint pain or joint swelling Integumentary Integumentary: Denies rash or wounds Neurologic Neurologic: Denies focal weakness, numbness or tingling Psychiatric Psychiatric: Denies anxiety, auditory hallucinations, depression, homicidal ideation or suicidal ideation Vital Signs Vital Signs Vital Signs: 12/31/21 16:20 Temperature 98.1 F Temperature Source Temporal Pulse Rate 82 Respiratory Rate 20 H Blood Pressure 160/72 H Blood Pressure Mean 101 Blood Pressure Source Monitor Blood Pressure Position Semi-Fowlers Blood Pressure Location Left Arm Pulse Ox 94 Oxygen Delivery Method Room Air Weight Weight: 57.7 kg Physical Exam Const alert General Appearance: cooperative HEENT normocephalic Eyes PERRL and EOMs intact bilaterally Neck supple, no JVD and no carotid bruits Resp normal respiratory effort, normal air movement and clear to auscultation bilaterally Cardio regular rate and regular rhythm GI normal to inspection, nondistended, normoactive bowel sounds, non-tender and non-distended Extremity normal capillary refill General Extremity: Negative for edema Skin no rashes or lesions noted General Skin Exam: no breakdown Neuro Neuro Narrative: Left hemiparesis. Psych affect normal Appearance: appropriate Assessment & Plan Assessment/Plan (1) Debility: (2) CVA (cerebral vascular accident): QUALIFIERS: CVA mechanism: unspecified Qualified Code(s): I63.9 - Cerebral infarction, unspecified (3) Slurred speech: (4) Left-sided weakness: (5) Facial droop: (6) Essential hypertension: (7) Hypothyroidism (acquired): (8) Atherosclerotic heart disease of [place] coronary artery without angina pectoris: QUALIFIERS: [place] vs. transplanted heart: [place] heart Qualified Code(s): I25.10 - Atherosclerotic heart disease of [place] coronary artery without angina pectoris (9) Anxiety: (10) Vitamin D deficiency: PLAN: 81 year old female with below past medical history hospitalized for right jama stroke, resultant left hemiparesis, admitted to with debility, here for greater than 3 hours daily rehabilitation, strengthening, prior to discharge home with . Debility - PT/OT. Dysarthria - ST. Pain - Tylenol 1000mg q6h prn (1-10). Bowel - Senna/colace 2 tablets bid, Dulcolax 10mg pr daily prn, MOM 30ml daily prn. DVT prophylaxis - Hold, on dual antiplatelet therapy. Stroke - Aspirin 81mg daily, Plavix 75mg daily. Muscle spasm - Baclofen 10mg tid prn. Anxiety - Clonazepam 0.25mg 4x/day prn. Depression - Lexapro 5mg daily. Nutrition - MVI daily. Vitamin D deficiency - D3 125mcg daily. Zinc deficiency - Zinc 220mg daily. Hypertension - Multiple antihypertensive allergies, Rx Hydralazine 10mg tid, monitor. Unit Exclusion This patient is an acute care inpatient being housed in the excluded unit because of capacity issues related to the disaster or emergency.: Yes
[2021-12-31 20:00] VITALS: BMI 24.2
[2021-12-31 20:10] VITALS: O2SAT 94
[2021-12-31] MEDS: Senna/Docusate Sodium 1 Tablet 2 TABLET PO (21:52)
[2021-12-31 22:00] VITALS: BP 160/79; PULSE 83; RESP 18; TEMP 36.3; O2SAT 94
[2021-12-31 22:04] VITALS: BP 160/79; PULSE 83
[2021-12-31] MEDS: hydrALAZINE 10 MG Tablet PO (22:04)
[2021-12-31] MEDS: clonazePAM 0.5 MG Tablet 0.25 MG PO (22:31)
--- NOTE | 2022-01-01 01:55 | NURSING ---
ASSISTED TO BSC AND PT URINATES. ASSISTED BACK TO BED AND PT C/O #4 FRONTAL BIGGS. PT MEDICATED WITH TYLENOL. PT REMAINS A/OX 3 AND NO CHANGE IN NEURO STATUS.
[2022-01-01] MEDS: Acetaminophen 500 MG Tablet 1000 MG PO ×3 (02:00→16:58)
[2022-01-01] MEDS: Baclofen 10 MG Tablet PO ×4 (02:47→20:56)
--- NOTE | 2022-01-01 02:53 | NURSING ---
HEADACHE IS MUCH IMPROVED NOT, BUT PT C/O PAIN TO INNER L THIGH AND STATES SHE MAY NEED SOME MAGNESIUM FOR IT. BACLOFEN GIVEN FOR MUSCLE SPASM TYPE PAIN TO INNER L THIGH.
[2022-01-01 06:09] VITALS: BP 108/75; PULSE 84
[2022-01-01] MEDS: hydrALAZINE 10 MG Tablet PO ×3 (06:09→20:56)
[2022-01-01 07:48] LABS: Hematocrit 44.4 % (37-47); Hemoglobin 14.4 g/dL (12.0-15.0); Mean Corp Hgb Conc 32.4 g/dL (32-36); Mean Corpuscular Hgb 30.3 pg (27.0-32.0); Mean Corpuscular Volume 93.5 fL (81-99); Mean Platelet Vol. 10.6 fl (6.2-12.0); Platelet Count 288 K/mm3 (150-450); RBC Distribution Width CV 12.4 % (11.6-14.6); RBC Distribution Width SD 42.7 fl (35.1-43.9); Red Blood Count 4.75 M/mm3 (4.2-5.4); White Blood Count 7.9 K/mm3 (4.4-11.0)
[2022-01-01 07:51] VITALS: BP 108/75; PULSE 84; RESP 18; TEMP 36.6; O2SAT 93
[2022-01-01 08:05] LABS: Anion Gap 6 (5-15); BUN 15 mg/dL (7-18); BUN/Creat Ratio 17.6 RATIO (10-20); Calcium,Total 8.9 mg/dL (8.5-10.1); Chloride 105 mmol/L (98-107); Creatinine, Serum 0.85 mg/dL (0.55-1.02); EST Glomerular Filtration Rate 68 mL/min (>60); Est Glom Filt Rate - Afr Amer 83 mL/min (>60); Estimated Creatinine Clearance 42.45 ml/min; Glucose 105 mg/dL (74-106); Potassium 4.4 mmol/L (3.5-5.1); Sodium Level 134 mmol/L (136-145)
[2022-01-01] MEDS: Multivitamins,Therapeutic Tablet 1 TABLET PO (08:57)
[2022-01-01] MEDS: Aspirin E.C. 81 MG Tablet PO (08:57)
[2022-01-01] MEDS: Escitalopram Oxalate 10 MG Tablet 5 MG PO (08:58)
[2022-01-01] MEDS: Clopidogrel Bisulfate 75 MG Tablet PO (08:59)
[2022-01-01] MEDS: Cholecalciferol (Vit D3) 125 MCG CAPSULE (5,000 UNITS) PO (08:59)
[2022-01-01] MEDS: Senna/Docusate Sodium 1 Tablet 2 TABLET PO ×2 (09:01→20:56)
[2022-01-01] MEDS: clonazePAM 0.5 MG Tablet 0.25 MG PO (10:06)
[2022-01-01 13:23] VITALS: PULSE 70
[2022-01-01] MEDS: 0.9% Saline Lock 10 ML Syringe IV (13:23)
[2022-01-01 13:50] VITALS: O2SAT 93
[2022-01-01 15:11] VITALS: BMI 24.2
--- NOTE | 2022-01-01 15:40 | PCM.RU.PYE ---
Admission Information Primary Diagnosis:: Right jama stroke. Status Changes from Prescreening?: No changes Identified Actual Problem List:: Falls, Pain, ALteration in Cmfrt, Cognitve Impr/Memory Loss, Alteration in Sleep, Mobility Impaired, Ineffective Communication and BP, Hypertension Potential Problem List:: DVT, Bleeding, Infection, UTI, Aspiration, Falls, Skin Integrity and Depression Risk of Complications DVT: JERARDO Muñoz Bleeding: Monitor Lab Values, Nursing to Teach Precautions for anti-coagulation therapy., Wound, if applicable, to be assessed every shift. and Stroke patients assessed for lethargy or change in status. Infection: Clinical Staff to Monitor for S/S of infection: and S/S of infection include fever, redness, warmth, etc. Urinary Tract Infection: Monitor for frequency, burning, discomfort, or incontinence. and Nursing will obtain urine sample for urinalysis and C&S when ordered. Aspiration: Clinical staff will monitor for coughing, drooling, congestion., Speech will evaluate swallowing and dsyphasia. and Nursing will monitor patient swallowing during meals. Falls: Patient will be evaluated for Fall Precautions and Patient will be placed on Fall Precautions as indicated per protocol. Skin Breakdown: Nursing will assess skin daily using assessment tool. and Nursing will place on Skin Breakdown Precautions as indicated. Pain: Clinical staff will assess patient's pain level per protocol., Medications will be given, if needed, and the pain level reassessed. and Other methods: Massage, distraction, decrease stimulus, etc. used PRN. Plan of Care Patient requires physician specializing in physical medicine and rehab oversight to provide close medical supervision of rehab issues including: Pain Management, Sleep Problems, Bowel and Bladder, Medical and co-morbidity Management, DVT prophylaxis, Rehabilitation Leadership and Coordination of treatment team Patient needs Physical Therapy: For a minimum of 1 hour Patient needs Physical Therapy to improve:: Mobility, Strengthening, Transfers, Stretching, ROM, Endurance, Stairs, Gait and Balance Patient needs Occupational Therapy: For a minimum of 1 hour Patient needs Occupational Therapy to improve ADL's incl.: Eating, Grooming, Bathing, Dressing, Toileting, Toilet transfers, Community Reintegration, Higher functioning activities, Household tasks, Adaptive Equipment and Other activities as determined Patient requires speech therapy: For a minimum of 1 hour Patient requires speech therapy for: Swallowing, Cognition, Language Skills and Compensatory Strategies Patient requires 24/ Rehabilitation Nursing for: Pain Issues, Identifying and preventing risk factors, Monitoring and reporting current medical conditions, Assisting with ambulation, transfer, and all ADL's, Teaching patients about disease process and medications, Family teaching, Providing safe environment, Bowel and Bladder Issues, Skin integrity and Medication Management Patient needs Sales Representative Womens Health/ Case Management for: Discharge Planning, Arranging Home Equipment or Services and Family Interventions Patient needs Dietary and Nutrition Services for: Adequate Nutrition, Nutritional Supplements and Nutritional Education Goals Patient will remain: free from falls and or injury at time of discharge. Patient will perform bed mobility at: MOD I level of assist. Patient will complete transfers from bed to chair at: MOD I level of assist. Patient will ambulate: 50 feet Patient will complete upper body dressing at: MOD I level of assist. Patient will complete lower body dressing at: MOD I level of assist. Patient will complete toileting at: MOD I level of assist. Patient will perform bathing at: MOD I level of assist. Patient will complete grooming at: MOD I level of assist. Patient will complete home management skills at: MOD I level of assist. Patient will have pain level of: of 3 or less Patient's skin will: remain intact and free from infection. Patient will receive: adequate nutrition. Discharge Planning Pt Prognosis for Sig. Practical Improv. w/in Reasonable Time: Good Estimated Length of stay (days): 20 Anticipated D/C Destination: Home with Home Health Was Preadmission Assessment Accurate?: Yes
[2022-01-01 20:56] VITALS: BP 115/75; PULSE 85
[2022-01-01 22:00] VITALS: BP 145/57; PULSE 72; RESP 16; TEMP 35.9
--- NOTE | 2022-01-02 03:18 | NURSING ---
Reviewed and agree with BID CLERK documentation and assessment charting.
[2022-01-02] MEDS: Magnesium Hydroxide 30 ML UDC PO (05:36)
[2022-01-02 05:37] VITALS: PULSE 88
[2022-01-02] MEDS: hydrALAZINE 10 MG Tablet PO ×3 (05:37→21:34)
[2022-01-02 07:22] VITALS: BP 152/84; PULSE 84; RESP 16; TEMP 35.8; O2SAT 93
[2022-01-02] MEDS: Multivitamins,Therapeutic Tablet 1 TABLET PO (08:00)
[2022-01-02] MEDS: Aspirin E.C. 81 MG Tablet PO (08:00)
[2022-01-02] MEDS: Senna/Docusate Sodium 1 Tablet 2 TABLET PO ×2 (08:00→21:34)
[2022-01-02] MEDS: Clopidogrel Bisulfate 75 MG Tablet PO (08:01)
[2022-01-02] MEDS: Escitalopram Oxalate 10 MG Tablet 5 MG PO (08:01)
[2022-01-02] MEDS: clonazePAM 0.5 MG Tablet 0.25 MG PO ×2 (08:18→21:34)
[2022-01-02] MEDS: Cholecalciferol (Vit D3) 125 MCG CAPSULE (5,000 UNITS) PO (08:20)
[2022-01-02 10:23] VITALS: BMI 24.2
[2022-01-02 13:30] VITALS: PULSE 81
[2022-01-02 19:03] VITALS: BP 148/76; PULSE 72; RESP 16; TEMP 36.6; O2SAT 96
[2022-01-02 19:45] VITALS: BMI 24.2
[2022-01-02 21:34] VITALS: PULSE 78
[2022-01-02 22:00] VITALS: PULSE 76; RESP 16; O2SAT 95
[2022-01-03 04:55] VITALS: BP 160/76; PULSE 73
[2022-01-03] MEDS: hydrALAZINE 10 MG Tablet PO ×2 (04:55→14:35)
[2022-01-03] MEDS: clonazePAM 0.5 MG Tablet 0.25 MG PO ×2 (05:01→17:11)
[2022-01-03] MEDS: Acetaminophen 500 MG Tablet 1000 MG PO (05:07)
[2022-01-03 07:41] VITALS: BP 150/72; PULSE 77; RESP 16; TEMP 36.4; O2SAT 958
[2022-01-03] MEDS: Clopidogrel Bisulfate 75 MG Tablet PO (08:17)
[2022-01-03] MEDS: Multivitamins,Therapeutic Tablet 1 TABLET PO (08:17)
[2022-01-03] MEDS: Aspirin E.C. 81 MG Tablet PO (08:17)
[2022-01-03] MEDS: Cholecalciferol (Vit D3) 125 MCG CAPSULE (5,000 UNITS) PO (08:17)
[2022-01-03] MEDS: Senna/Docusate Sodium 1 Tablet 2 TABLET PO ×2 (08:17→22:18)
[2022-01-03] MEDS: Escitalopram Oxalate 10 MG Tablet 5 MG PO (08:17)
--- NOTE | 2022-01-03 10:23 | PCM.PN.BLA ---
Progress Note Afebrile VSS - BP's are mostly above goal since admission. Blood pressure was only controlled from 01/01/2022 at 6 AM to 01/01/2022 at 2100. All other blood pressures are above goal. Maintaining appropriate oxygen saturation on RA Oral intake is poor She is incontinent of urine. She has had 3 post void residuals done and they are all less than 100. Bowel movements are regular. Discussed with nursing - I am told she is very anxious. Takes Klonopin 0.25 mg QID PRN. She is getting 1-2 doses a day. She is also taking baclofen and had 4 doses on the seventh but none since. Apparently she is unhappy with the medications she is getting because they are not the same color as the same meds she takes at home. Her family is going to bring in her home meds and pharmacy will check them and we will use her medications. Reviewed the PT/OT/ST notes Medication list reviewed. She list 14 allergies and the reactions are all listed as other . She is currently on aspirin and Plavix. The only antihypertensive she is on is hydralazine 10 mg 3 times daily and the BP is not controlled. She lists Valsartan, metoprolol, lisinopril, HCTZ, Atenolol and Amlodipine. All lab from the time of admission was reviewed. TSH is mildly increased to 5.27 but the free T4 is within normal limits. Triglycerides are elevated at 257 and the LDL is elevated at 172. Calcium is within normal limits. Hemoglobin A1c is normal at 5.6. The discharge summary from the acute hospital stay was reviewed and also Dr. Bass's history and physical at presentation to rehab. The past medical history is significant for anxiety/depression, arachnoid cyst, coronary artery disease, history of a three-vessel CABG and PCI, rheumatoid arthritis (on no medication), hypertension, hyperlipidemia and recent CVA. She presented to the ED at [facility] on 12/31/21 after a fall onto her left side while ambulating with a WW. Prior to the fall she had been having left side weakness for a few days. MRI on 12/31/21 showed a subacute lacunar ischemic infarct in the R jama. MRA of the brain showed no significant vaso-occlusive disease of the anterior and posterior intracranial circulation. 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 An ultrasound of the carotid artery showed less than 50% stenosis bilaterally. The vertebral arteries were patent with antegrade flow bilaterally. Echocardiogram showed a normal left ventricular ejection fraction at 60% with no wall motion abnormalities. There was stage I diastolic dysfunction and the bubble contrast study was negative for right to left interatrial shunt. She was on Atorvastatin when transferred to rehab but, somehow it was discontinued. She had been on Lisinopril the last time she was seen by cardiology in February 2021. She tells me that she is not allergic to Lisinopril........She was on Zestoretic and had lightheadedness due to the HCTZ.....she tolerates Lisinopril without any adverse effects. She has recently been having severe muscle cramps in her legs. She denies CP, SOB, N/V/abd pain, dysuria, cephalgia. Physical Exam Const alert, oriented x3 and no apparent distress Constitutional Narrative: She is talkative and is making good eye contact. Good projection of her voice and good modulation of tone. General Appearance: cooperative, well kempt and well developed HEENT normocephalic, head/scalp atraumatic and hearing grossly normal bilaterally HEENT Narrative: MM are a little dry and the tongue is coated. Eyes PERRL, EOMs intact bilaterally, conjunctivae normal and no scleral icterus Neck supple, No nodes and no carotid bruits Resp normal respiratory effort and clear to auscultation bilaterally Effort and Inspection: able to speak in complete sentences Cardio regular rate, regular rhythm, S1 normal heart sound, S2 normal heart sound, no murmurs and no gallops Cardio Narrative: no ectopy GI normal to inspection, nondistended, normoactive bowel sounds, soft to palpation and non-tender GI Narrative: No guarding with palpation Narrative: Has had a few episodes of incontinence since admission to the hospital. Back/Spine Back/Spine Narrative: Denies back pain. Extremity normal to inspection, normal capillary refill and no pedal edema Extremity Narrative: She has some enlarged joints due to OA. There is no redness and no swelling of the joints. She is not c/o joint pain. She had a spasm in the R thigh and the R calf while I was in the room. Peripheral Pulses: Yes pulses 2+ throughout and femoral pulses present Skin no jaundice, no petechiae and no mottling General Skin Exam: no breakdown Rashes: no rashes Neuro Neuro Narrative: 1. LOC Alert: 0 2. LOC/Orientation: 0 3. LOC Commands: 0 4. Horizontal extraocular movements : 0 5. Visual trevino: 0 6. Facial Paresis: 1 7. Dysarthria: 0 8. Best Language/aphasia: 0 9. Motor Left ARM : 3 10. Motor Left LE 11. Motor Right ARM: 0 12. Motor Right leg LE 13. Limb ataxia: 0 14. Sensory: 0 15. Neglect: 0 Score: 5 MRS is 4 She is unable to lift the L arm off the bed and can not move it side to side but, when I support the arm she has a little wrist extension, some biceps and some triceps. She has very decreased shoulder shrug on the left. Psych mental status grossly normal, thought process normal, cooperative and affect normal Assessment & Plan Assessment/Plan (1) CVA (cerebral vascular accident): QUALIFIERS: CVA mechanism: unspecified Qualified Code(s): I63.9 - Cerebral infarction, unspecified PLAN: Ischemic CVA right jama with left hemiparesis, left facial droop. Continue physical therapy/Occupational Therapy/speech therapy. We discussed the RF's for stroke with the patient and her family. the LDL of 172 is a concern. She tells me that she had tongue swelling and SOB/gagging with high dose Atorvastatin. Will consider Questran? Will discuss with the Pharm D in the AM. Goal is to get her home at DC and not to an SNF. Family is very supportive. still working. Dtr and son live close. a Total of 435 minutes was spent with the pt and the family answering questions and reviewing the goals of tx and stroke prevention another 30 minutes doing chart review and doing documentation. (2) Debility: (3) Facial droop: PLAN: Continue speech therapy. (4) Left-sided weakness: (5) Hyponatremia: PLAN: Suspect this may be due to cerebral salt wasting or SIADH due to the CVA. Will recheck the sodium in a few days and if it drops further will get a serum and urine osmolality, a.m. cortisol and urine sodium. T4 is WNL. (6) Essential hypertension: PLAN: She was on Lisinopril as an OP but, it was discontinued due to being listed as an allergy. Currently she is on Hydralazine 10 mg TID and the resting heart rate is a little fast. We will start her on clonidine TTS 1 and change the patch weekly. This may also help with anxiety. Make the Hydralazine PRN now if SYS>160 or DIAST>90. Goal for the BP is less than 130/80 (7) Hyperlipidemia: PLAN: D/W the pharm D in the AM. Low dose Crestor? vs Questran? (8) Atherosclerotic heart disease of [place] coronary artery without angina pectoris: QUALIFIERS: [place] vs. transplanted heart: [place] heart Qualified Code(s): I25.10 - Atherosclerotic heart disease of [place] coronary artery without angina pectoris (9) History of coronary artery bypass graft x 3: (10) Chronic prescription benzodiazepine use: PLAN: Will keep the Klonopin to no more than 0.5 mg BID. I explained to the pt and the family that benzo's are on the Beer's list and it puts her at increased risk for falls and confusion. They are OK with Continuing the Klonopin. Order changed to 0.5mg [id number] anxiety. Interestingly enough benzodiazepines can cause muscle spasms. (11) Anxiety: PLAN: continue the Klonopin but no more than 0.5 mg every 12 H (12) Muscle spasm of both lower legs: PLAN: Start Vitamin B complex/folic acid once a day. Have PT teach stretching exercises. They did a little of this today. Visit Charges Inpatient E&M: 76144 Subs Hosp L3
[2022-01-03] MEDS: cloNIDine HCl 0.1 MG Patch TD (12:07)
[2022-01-03 14:35] VITALS: BP 126/81; PULSE 88
[2022-01-03 16:06] VITALS: BMI 24.2
--- NOTE | 2022-01-03 16:25 | CASEMGMT ---
Social Work Met with patient to complete initial assessment. Introduced self and role. Pt already remembered this worker from previous stay and recited 'sock, blue, bed' from [facility] prior to this worker inquiring. Pt very talkative and social. Offered to complete new HCPOA once she confirms employment law attorney is agreeable. Pt expressed understanding. Explained Medicare approved 23 days with EDC 01/23. Pt states still works and dtr works part time as well. The goal is for pt to return home. However, will determine pt's progress and what supervision/care pt will need at time of DC. SW to continue to follow for DC plans. Kinga Waters, WELL LOGGING MUD ANALYSIS CAPTAIN RN URGENT CARE
[2022-01-03] MEDS: NYSTATIN 500,000 UNIT/5 ML UDC 500000 UNIT PO ×2 (18:37→22:16)
[2022-01-03] MEDS: Acetaminophen 650 MG/20 ML UDC PO (20:08)
[2022-01-03 20:15] VITALS: BMI 24.2
[2022-01-03 22:00] VITALS: BP 150/66; PULSE 80; PULSE 84; RESP 16; RESP 17; TEMP 36.1; O2SAT 94
[2022-01-04] MEDS: Acetaminophen 650 MG/20 ML UDC PO (02:21)
[2022-01-04 07:33] VITALS: BP 161/81; PULSE 75; RESP 17; TEMP 36.3; O2SAT 95
[2022-01-04] MEDS: Folic Acid/Vitamin B Comp W-C 1 Capsule 1 CAP PO (09:10)
[2022-01-04] MEDS: Escitalopram Oxalate 10 MG Tablet PO (09:10)
[2022-01-04] MEDS: Aspirin E.C. 81 MG Tablet PO (09:10)
[2022-01-04] MEDS: Cholecalciferol (Vit D3) 125 MCG CAPSULE (5,000 UNITS) PO (09:11)
[2022-01-04] MEDS: NYSTATIN 500,000 UNIT/5 ML UDC 500000 UNIT PO ×3 (09:11→17:27)
[2022-01-04] MEDS: Clopidogrel Bisulfate 75 MG Tablet PO (09:11)
[2022-01-04] MEDS: clonazePAM 0.5 MG Tablet 0.25 MG PO ×2 (13:05→21:19)
[2022-01-04 14:59] VITALS: BMI 24.2
--- NOTE | 2022-01-04 16:40 | NURSING ---
Pt and family are wanting the pt to use her home medications while on rehab d/t pt stating the medications here dom't work because they are not the same color as the medication she takes at home. Spoke with Vick in pharmacy and he said that it is hospital policy that the patient uses the meds provided at the hospital unless it is a med that is not available. Family and pt made aware.
--- NOTE | 2022-01-04 16:42 | PN_ITS ---
Subjective Subjective Afebrile VSS -heart rate is within normal limits. Systolic blood pressures are mildly elevated and I suspect this is due to increased anxiety and panic attacks rather than to uncontrolled hypertension. She is tolerating the clonidine patch without adverse reaction. Has not had to have the PRN Hydralazine for elevated BP. Maintaining appropriate oxygen saturation on RA Oral intake is good Discussed with nursing - She did not sleep well last night. she slept off and on. She is perseverating on not being allowed to take her own medications and thinks she will not do well if she does not have these medications. She is also perseverating on medical problems her children have and she worries about them c onstantly. Reviewed the PT/OT/ST notes Medication list reviewed. She has not complained of muscle cramps today and has been started on a B complex folic acid vitamin. She had a panic attack this AM and was crying about not being able to take her own medications.......pharmacy does not allow. She denies pain and she denies SOB, cephalgia, dysuria, N/V/D/C. She had a bowel movement yesterday that was formed and a soft brown formed bowel movement today. She was incontinent of stool this AM and this has upset her greatly. She has also been incontinent of urine and even though I reassured her that most people with strokes have some urinary incontinence the first 2 weeks after a CVA she is upset. Yesterday she told me that she had tongue swelling with Lipitor and today she is not sure if this is correct. She is not aware of what the medications are actually for and we talked about all her medications and what they do. We discussed that she is on Escitalopram now and she has been tolerating with no adverse side effects. She tells me that Tylenol calms her down and says the Klonopin she is getting here is not helping. I explained that I think her chronic anxiety is exacerbated by the stroke and by not being able to take her own medications and that I think we need to temporarily increase the Lexapro and schedule the Klonopin for every 12 H. She seemed OK with this. We did some guided imagery with her in her room and practised focusing on Breathing in through the nose and out through the mouth. I discussed with the PT/OT doing Yoga and breathing exercises with her as part of her therapy and they will start with this tomorrow. She is alert and oriented. She was somewhat calmer when I went in to see her after she had therapy. She is no longer crying. Lungs are CTA with no tachypnea or labored breathing. HRRR - resting HR is better with the discontinuation of the Hydralazine abd - Soft, NT, ND, nl BS's no edema Impressions 1. 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 She is doing well and wants to get better. Will add yoga and deep breathing to her therapy tomorrow. 2. Left hemiparesis - improving 3. facial droop 4. generalized anxiety with panic attacks - this is a stumbling block for her......she gets so upset and starts crying and then therapy has to spend time de-escalating. Will try some guided imagery with her in the AM prior to therapy. The Lexapro has been increased to 10 mg daily and she is agreeable to this. I reassured her that if she has any reactions to the medications she is in a good place for it because we can address the problem immediately. Will schedule the Klonopin Q 12 H. 5. HTN - Pt is concerned that she is not taking the Lisinopril and her BP is high. Since she is not actually allergic to Lisinopril we can restart. Will cotinue the Catapres TTS 1 because she is tolerating and it can help some with anxiety. 6. Thrush-continue nystatin swish and swallow Objective Data Objective Data Vital Signs: Vital Signs Temp Pulse Resp BP Pulse Ox 97.4 F L 75 17 161/81 H 95 01/04/22 07:33 01/04/22 07:33 01/04/22 07:33 01/04/22 07:33 01/04/22 07:33 Oxygen Delivery Method Room Air Weight: 132 lb 4.438 oz Body Mass Index (BMI) 24.2 Intake & Output: Intake and Output for Last 24 Hours 01/02/22 01/03/22 01/04/22 23:59 23:59 23:59 Intake Total 480 / 480 1500 / 1500 Output Total 430 / 430 Balance 50 / 50 1500 / 1500 Lab / Micro Data Result Diagrams: 01/01/22 07:20 01/01/22 07:20 Charges/Coding Visit Charges Inpatient E&M: 48417 Subs Hosp L2
[2022-01-04] MEDS: Lisinopril 5 MG Tablet PO (17:26)
--- NOTE | 2022-01-04 17:45 | CHAPLAIN ---
Type of Pastoral Visit _x__ Initial Visit ___ Follow-up Visit ___ On-call Visit ___ General Patient Visit ___ Spiritual Assessment ___ Family Conference ___ Bereavement ___ Rapid Response ___ Code Blue ___ Other (describe below) Pastoral Care Referral From _x__ Patient ___ Family ___ Nurse ___ Physician ___ Loss Prevention Analyst ___ Car Deliverer ___ Other (describe below) Sacrament/Intervention _x__ Active listening ___ Anointing ___ Rastafarian ___ Bereavement ___ Communion _x__ Elaina exploration ___ _x__ Life review _x__ Prayer ___ Reconciliation ___ Sacrament of Sick _x__ Supportive presence ___ Wedding ___ Other (describe below) Pastoral Comments patient and family very open to support by spiritiual care; pt is very talkative; pt seeks help with her anxiety; pt spiritual life is important to her; pt requests future visits
--- NOTE | 2022-01-04 18:04 | NURSING ---
pt became upset when getting her medications this morning. States I want to take my medicines from home, the ones here do not work, they do not have the right filters in them. It was explained to the pt that it is hospital policy that pt's own meds can not be used unless it is a medication that the hospital dose not supply. pt remained upset and started crying. Dr Earl was alerted and she spoke with the pt. The pt calmed and and states understanding of medication use after talking with the doctor. The pt's daughter and were also made aware.
[2022-01-04 19:00] VITALS: BP 145/78; PULSE 76; RESP 16; TEMP 36.7; O2SAT 95
[2022-01-04 23:21] VITALS: BMI 24.2
[2022-01-05] MEDS: Acetaminophen 325 MG Tablet 650 MG PO ×2 (00:36→05:38)
[2022-01-05] MEDS: Baclofen 10 MG Tablet 5 MG PO (05:38)
--- NOTE | 2022-01-05 07:21 | NURSING ---
Pt had multiple complaints through night such as right upper gums hurting but refused nystatin swish and swallow. Complained of periarea burning and bladder hurting. Bladder scan done. 64 mls in bladder. Tylenol given as ordered. Pt drank glass of water and couple hours later urinated and then stated once she urinated she no longer was uncomfortable. Reassurance provided. Pt complained of spasms in lle. She was crying this am. Pt was given baclofen and tylenol as ordered. Had pt do relaxation breathing with nurse this seemed to calm pt. Will continue to monitor.
[2022-01-05 07:52] VITALS: BP 144/72; PULSE 78; RESP 18; TEMP 36.3; O2SAT 97
--- NOTE | 2022-01-05 08:05 | PCM.PN.BLA ---
Progress Note Afebrile VSS-systolic blood pressure remains mildly elevated. Diastolic is within goal. Lisinopril was restarted yesterday. Maintaining appropriate oxygen saturation on RA Oral intake is good Discussed with nursing - she had multiple complaints last night. The anxiety seems to escalate when her leaves. She had pain in her gum, pain in her perineum and pain in the Left thigh. she was incontinent of urine and stool and once again is upset about that. the pain in the perineum resolved with urination and BM. She associates the pain in the gum with Nystatin. She is edentulous in the upper R maxilla and this is where the pain is. I do not see a problem on exam. She has some muscle spasm in the left thigh that is mild this AM and she had a Baclofen. Somatization of her anxiety is a significant problem. Reviewed the PT/OT/ST notes Medication list reviewed. Denies CP, SOB, palpitations, lightheadedness, vomiting, dysuria, cephalgia. She is having less muscle spasms since being started on B Complex with folic acid. The spasms are more frequent when she is very anxious. She knows when she has to urinate most of the time. The incontinence is more commonly at night. She had a UA on 01/01/22 and it had no pyuria or bacteria. Physical Exam Const alert Constitutional Narrative: Looks tired. Having angst but, she gets better when she talks about her issues to the staff and she realizes that the anxiety is contributing to the problem sleeping. She is getting better insight to the isues the anxiety causes. General Appearance: cooperative HEENT normocephalic and moist oral mucous membranes HEENT Narrative: no buccal ulcerations and the gums appear normal. I reassured her that we would stop the Nystatin. Eyes PERRL, EOMs intact bilaterally, conjunctivae normal and no scleral icterus Resp normal respiratory effort, normal air movement and clear to auscultation bilaterally Resp Narrative: Lying flat in bed without shortness of breath or tachypnea. Cardio regular rate, regular rhythm and no gallops Cardio Narrative: No ectopy. GI normal to inspection, nondistended, normoactive bowel sounds, soft to palpation and non-tender GI Narrative: No guarding with palpation Extremity no calf tenderness and no pedal edema Skin General Skin Exam: no breakdown Rashes: no rashes Neuro Neuro Narrative: Left facial droop is less. She is doing her exercises given to her by the speech therapist in her room when not in therapy. Psych Psych Narrative: Very anxious still and not sleeping at night. Fatigue is setting in. Activity / Motor Behavior: appropriate eye contact Speech: normal speech Mood & Affect: anxious Thought Process: normal thought process Attention / Concentration: attention grossly intact Memory / Cognition: memory grossly intact Insight: fair Judgement: fair Assessment & Plan Assessment/Plan (1) Debility: (2) CVA (cerebral vascular accident): QUALIFIERS: CVA mechanism: unspecified Qualified Code(s): I63.9 - Cerebral infarction, unspecified PLAN: Continue PT/OT/ST. She is motivated to get better and go home and she is doing exercises in her room when she is not in therapy. We need to resolve the sleep issue because she is looking tired and feeling weak. I think this will improve with better control of the anxiety. (3) Anxiety: PLAN: this is a lifelong problem for her. It has been exacerbated by the stroke, not being at home, having medications that are the same but, a different color, having to cancel some engagements she has this summer, etc. Lexapro was increased to 10 mg daily on Monday and we have scheduled the Klonopin. Will increase the Klonopin dose at HS to 0.5 mg. She has been practising her deep breathing to calm herself. Emotional support and listening has been beneficial. With the infarction being in the jama she will be at risk for pseudobulbar palsy. Will increase the Zinc to 440 mg daily which has had success in treating OCD and anxiety when combined with an SSRI. (4) Chronic prescription benzodiazepine use: (5) Muscle spasm of both lower legs: PLAN: No longer c/o spasms in the R leg. She had no complaints of muscle spasms yesterday. The spasm in the R thigh is mild......will recheck her shortly to see how the pain in the left thigh is doing. May need to schedule the Baclofen for the next few days......I reinforced with her that this is a sign that the Left leg is getting more tone and this is a good thing in a stroke patient. (6) Essential hypertension: PLAN: Systolic is a little high and the diastolic is within goal. I think once the anxiety comes under better control the BP will come down.......continue the Clonidine and the Lisinopril. Visit Charges Inpatient E&M: 40864 Subs Hosp L2
[2022-01-05] MEDS: Aspirin E.C. 81 MG Tablet PO (08:49)
[2022-01-05] MEDS: Folic Acid/Vitamin B Comp W-C 1 Capsule 1 CAP PO (08:49)
[2022-01-05] MEDS: clonazePAM 0.5 MG Tablet 0.25 MG PO (08:49)
[2022-01-05] MEDS: Cholecalciferol (Vit D3) 125 MCG CAPSULE (5,000 UNITS) PO (08:49)
[2022-01-05] MEDS: Escitalopram Oxalate 10 MG Tablet PO (08:49)
[2022-01-05] MEDS: Clopidogrel Bisulfate 75 MG Tablet PO (08:49)
[2022-01-05] MEDS: Lisinopril 5 MG Tablet PO (08:50)
[2022-01-05 13:29] VITALS: BMI 24.2
--- NOTE | 2022-01-05 18:53 | NURSING ---
c/o upset stomach and shaking. attempted to provide emotional support. offered to call dr for med for nausea med-pt refused. states it's the shaking. i feel like i'm having a seizure. pt reassured that she's not having a seizure. pt states the tylenol helped the other night. maybe i should have the tylenol. the liquid not the pills. tierra,rn reminded pt that pt reported the liquid tylenol did not work and that the pt stated she would not take that again. offered pt chalo rd to help settle stomach as pt keeps reporting that meds are upsetting her. pt agrees to try chalo rd. at bedside.
[2022-01-05 19:46] VITALS: BP 162/73; PULSE 73; RESP 17; TEMP 36.1; O2SAT 93
[2022-01-05 20:40] VITALS: BP 150/59; PULSE 74
[2022-01-06 06:18] LABS: Anion Gap 7 (5-15); BUN 21 mg/dL (7-18); BUN/Creat Ratio 22.8 RATIO (10-20); Calcium,Total 9.4 mg/dL (8.5-10.1); Chloride 102 mmol/L (98-107); Creatinine, Serum 0.92 mg/dL (0.55-1.02); EST Glomerular Filtration Rate 62 mL/min (>60); Est Glom Filt Rate - Afr Amer 76 mL/min (>60); Estimated Creatinine Clearance 39.22 ml/min; Glucose 112 mg/dL (74-106); Magnesium 2.3 mg/dL (1.6-2.6); Sodium Level 134 mmol/L (136-145)
[2022-01-06 07:35] VITALS: BP 153/80; PULSE 77; RESP 12; TEMP 36.4; O2SAT 95
[2022-01-06] MEDS: Aspirin E.C. 81 MG Tablet PO (07:35)
[2022-01-06] MEDS: Folic Acid/Vitamin B Comp W-C 1 Capsule 1 CAP PO (07:36)
[2022-01-06] MEDS: Escitalopram Oxalate 10 MG Tablet PO (07:36)
[2022-01-06] MEDS: Clopidogrel Bisulfate 75 MG Tablet PO (07:36)
[2022-01-06] MEDS: Lisinopril 5 MG Tablet PO (07:37)
[2022-01-06] MEDS: Cholecalciferol (Vit D3) 125 MCG CAPSULE (5,000 UNITS) PO (07:37)
[2022-01-06] MEDS: clonazePAM 0.5 MG Tablet 0.25 MG PO (08:33)
--- NOTE | 2022-01-06 13:49 | CASEMGMT ---
Social Work IDT met with patient, and dtr for Team meeting. Discussed patient's progress in PT/OT/ST and nursing. Pt progressing, however, pt/IDT identifies pt's anxiety is exacerbated currently, which is limiting progress. adjusting medications. IDT providing support. SW provided pt with grounding techniques. Pt has good insight to anxiety and exercises to calm down. Explained Medicare approved 23 days with DC 01/23. Inquired about husbands work schedule. stated he can take time off work; his schedule is very flexible, and can provide care for pt at home. Pt inquired about nonskilled HHC. Provided list of agencies to hire aides. Will ReTeam next week and make DC recommendations closer to DC. SW to continue to follow. PAVEL ClarkW
[2022-01-06 14:48] VITALS: BMI 24.2
--- NOTE | 2022-01-06 15:22 | PN_ITS ---
Subjective Subjective Margaret was seen on team rounds today. Her Kendall and her daughter Ashley are present in the room. Afebrile VSS-systolic remains mildly elevated. Maintaining appropriate oxygen saturation on RA Oral intake is good Discussed with nursing -Margaret refused the Klonopin last night. Once again she did not sleep well. Reviewed the PT/OT/ST notes Medication list reviewed. Margaret is calm when her is present. Anxiety. escalates significantly when he leaves at night. She is not c/o muscle cramping today. she tells me that the zinc does not help her and it makes her tremor. She does not want to take it. She also feels that the Klonopin she is getting is not working and she refused it last night. Only the Klonopin from [facility] helps. She is agreeable to changing to Ativan since she has been on this in the past when she had anxiety related to a plane ride to [place] and she felt this helped here. I pointed out to her that some of the side effects she claims are due to a certain drug are actually not side effects but, somatization of her anxiety. Her family nodded yes but, Margaret is resistant to this concept. She denies CP, calf pain, N/V/abd pain, dysuria, lightheadedness. Objective Data Objective Data Vital Signs: Vital Signs Temp Pulse Resp BP Pulse Ox 97.6 F L 77 12 153/80 H 95 01/06/22 07:35 01/06/22 07:35 01/06/22 07:35 01/06/22 07:35 01/06/22 07:35 Oxygen Delivery Method Room Air Weight: 131 lb 2.801 oz Body Mass Index (BMI) 24.2 Intake & Output: Intake and Output for Last 24 Hours 01/04/22 01/05/22 01/06/22 23:59 23:59 23:59 Intake Total 1620 / 1620 Balance 1620 / 1620 Lab / Micro Data Result Diagrams: 01/01/22 07:20 01/06/22 05:41 Labs: Laboratory Results - last 24 hr 01/06/22 05:41: Sodium 134 L, Potassium 4.0, Chloride 102, Carbon Dioxide 25.0, Anion Gap 7, BUN 21 H, Creatinine 0.92, Estim Creat Clear Calc 39.22, Est GFR (MDRD) Af Amer 76, Est GFR (MDRD) Non-Af 62, BUN/Creatinine Ratio 22.8 H, Glu cose 112 H, Calcium 9.4, Magnesium 2.3 Physical Exam Const alert, oriented x3 and no apparent distress Constitutional Narrative: When her is in the room she is calm and has no signs of anxiety........she is like a different person. General Appearance: cooperative and other very anxious with panic attacks when her is not here. Eyes PERRL, EOMs intact bilaterally, conjunctivae normal and no scleral icterus Resp normal respiratory effort and clear to auscultation bilaterally Effort and Inspection: able to speak in complete sentences Cardio regular rate, regular rhythm and no gallops GI normal to inspection, nondistended, normoactive bowel sounds, soft to palpation and non-tender GI Narrative: No guarding with palpation Extremity no calf tenderness and no pedal edema Skin General Skin Exam: no breakdown Rashes: no rashes Neuro Neuro Narrative: Still with Left facial droop, less obvious now. Left hemiparesis continues. Speech is not slurred and she has no aphasia. Psych cooperative, speech normal, denies hallucinations, denies homicidal ideation and denies suicidal ideation Appearance: well kempt Activity / Motor Behavior: appropriate eye contact Speech: other She interrupts when others are talking when she is anxious and she is not listening......can not repeat what I just said to her. Mood & Affect: anxious and labile affect Assessment & Plan Assessment/Plan (1) Debility: PLAN: Plan on continuing PT/OT/ST. The goal is to get her home at DC rather than a SNF if at all possible. Transferring her to another facility would increase anxiety even more. Her is able to take a leave from work so he can be home with her to assist. Will bring him in for family training prior to DC. HHC at DC and then transition after a few weeks to OP therapy. (2) CVA (cerebral vascular accident): QUALIFIERS: CVA mechanism: unspecified Qualified Code(s): I63.9 - Cerebral infarction, unspecified PLAN: States she is allergic to statins but, can not recall the allergy. LDL is 172. She is agreeable to trying rosuvastatin however it is not on the hospital formulary. Would consider starting this at 5 mg daily post discharge. (3) Hyponatremia: PLAN: More likely than not due to cerebral salt wasting related to the stroke. It is stable at 134 and will continue to monitor. No need for tr eatment at this time. (4) Essential hypertension: PLAN: Diastolic is well controlled. The systolic is elevated but this is most likely secondary to her increased anxiety......should be reassessed post DC when she is home. they have a BP cuff and will recommend they take her BP a few times a day at different times to give Dr. Henson a picture of what the BP is running at home when she is relaxed. she has white coat HTN. (5) Generalized anxiety disorder with panic attacks: PLAN: This is disabling. She has marked somatization of her anxiety and every time she feels lightheaded or nauseated or has a cramp or feels fatigued she attributes the sx to medications and does not the association with anxiety. She is absolutely convinced that the medications she gets from [facility] are the only ones that work for her........I have explained it is the same medication she is getting here but, she gets so upset with this she will not take the medications that would help the stress/anxiety........such as refusing the Klonopin. She is at risk for another stroke due to poorly controlled HTN due to extreme anxiety and will not take the medication to control the anxiety. She will not take a statin because she has an allergy but, can not even remember what the reaction is. I have recommended to her that she follow up with psychotherapy going forward to get the anxiety and panic attacks under control. (6) Chronic prescription benzodiazepine use: (7) Hyperlipidemia: QUALIFIERS: Hyperlipidemia type: mixed hyperlipidemia Qualified Code(s): E78.2 - Mixed hyperlipidemia PLAN: LDL is 172 and she needs to get this down. Diet alone is not going to do and she was eating a healthy diet prior to admission. Rosuvastatin is not on formulary so I can not try this unless her family is willing to purchase 1 week of tabs from the retail pharmacy so we can she how she reacts. Will try Questran 4 GM BID now but, I suspect she will have nausea. Charges/Coding Visit Charges Inpatient E&M: 57599 Subs Hosp L2
[2022-01-06 19:51] VITALS: BP 170/75; PULSE 77; RESP 18; TEMP 36.1; O2SAT 93
[2022-01-06] MEDS: LORazepam 1 MG Tablet PO (20:02)
[2022-01-06 20:08] VITALS: BP 170/75; PULSE 77
[2022-01-06] MEDS: hydrALAZINE 10 MG Tablet PO (20:08)
[2022-01-06 21:01] VITALS: BP 83/36; PULSE 66; RESP 16; O2SAT 88
[2022-01-06 21:06] VITALS: BP 113/46; PULSE 72; RESP 16; O2SAT 95
[2022-01-07] MEDS: Baclofen 10 MG Tablet 5 MG PO ×2 (05:36→20:29)
[2022-01-07] MEDS: LORazepam 0.5 MG Tablet PO ×2 (08:08→20:23)
[2022-01-07] MEDS: Folic Acid/Vitamin B Comp W-C 1 Capsule 1 CAP PO (08:08)
[2022-01-07] MEDS: Aspirin E.C. 81 MG Tablet PO (08:09)
[2022-01-07] MEDS: Cholecalciferol (Vit D3) 125 MCG CAPSULE (5,000 UNITS) PO (09:57)
[2022-01-07] MEDS: Clopidogrel Bisulfate 75 MG Tablet PO (09:57)
[2022-01-07] MEDS: Escitalopram Oxalate 10 MG Tablet PO (09:57)
[2022-01-07] MEDS: Senna/Docusate Sodium 1 Tablet 2 TABLET PO ×2 (09:57→20:29)
[2022-01-07 10:00] VITALS: BP 158/68; PULSE 74; RESP 12; TEMP 36.3; O2SAT 93
[2022-01-07] MEDS: Lisinopril 5 MG Tablet PO (10:01)
[2022-01-07 11:33] VITALS: BMI 24.2
[2022-01-07] MEDS: cloNIDine HCl 0.2 MG Patch TD (13:23)
--- NOTE | 2022-01-07 15:30 | EKGRS_ITS ---
Test Reason : CP Blood Pressure : / mmHG Vent. Rate : 086 BPM Atrial Rate : 086 BPM P-R Int : 154 ms QRS Dur : 132 ms QT Int : 438 ms P-R-T Axes : 069 -60 069 degrees QTc Int : 524 ms Normal sinus rhythm Right bundle branch block Left anterior fascicular block Bifascicular block Left ventricular hypertrophy with repolarization abnormality Abnormal ECG When compared with ECG of 31-DEC-2021 03:22, No significant change was found Confirmed by AREN LIRIANO, SÁNCHEZ ([id number]), supervising editor trailer ALLISON MAURICE ([id number]) on 01/11/2022 7:33:12 AM Referred By: AURELIO Confirmed By:SÁNCHEZ YOUNGER MD
[2022-01-07 15:45] VITALS: BP 161/70; PULSE 84; RESP 16; TEMP 36.2; O2SAT 96
--- NOTE | 2022-01-07 16:17 | NURSING ---
Patient complaining of chest pain and Dr. Earl ordered an EKG. Patient is anxious and denies that she feels it is her heart. No sob, vs taken and stable. EKG done and comparison is her normal per records.
[2022-01-07 16:40] VITALS: BP 171/72; PULSE 105
[2022-01-07] MEDS: hydrALAZINE 10 MG Tablet PO (16:40)
[2022-01-07] MEDS: Calcium Carbonate 500 MG Tablet PO (17:05)
[2022-01-07 19:54] VITALS: BP 142/82; PULSE 73; RESP 16; TEMP 36.1; O2SAT 100
[2022-01-07] MEDS: LORazepam 1 MG Tablet PO (20:29)
[2022-01-07 21:15] VITALS: BMI 24.2
[2022-01-07 22:00] VITALS: PULSE 77; RESP 17
[2022-01-08] MEDS: Acetaminophen 325 MG Tablet 650 MG PO ×2 (00:58→05:04)
[2022-01-08] MEDS: Cholestyramine/Sucrose 4 GM/PACKET PO ×2 (05:05→16:17)
--- NOTE | 2022-01-08 05:53 | NURSING ---
Pt had very high anxiety at beginning of shift. Staff in room frequently and PRN Baclofen provided for left leg cramping. Pt slept on and off and repositioned into recliner. Pt was restless and reassurance provided.
[2022-01-08] MEDS: Escitalopram Oxalate 10 MG Tablet PO (08:00)
[2022-01-08] MEDS: Folic Acid/Vitamin B Comp W-C 1 Capsule 1 CAP PO (08:00)
[2022-01-08] MEDS: Aspirin E.C. 81 MG Tablet PO (08:00)
[2022-01-08 08:03] VITALS: BP 156/53; PULSE 73; RESP 18; TEMP 36.3; O2SAT 97
[2022-01-08] MEDS: Cholecalciferol (Vit D3) 125 MCG CAPSULE (5,000 UNITS) PO (10:43)
[2022-01-08] MEDS: Clopidogrel Bisulfate 75 MG Tablet PO (10:43)
[2022-01-08] MEDS: Lisinopril 5 MG Tablet PO (10:44)
[2022-01-08] MEDS: LORazepam 0.5 MG Tablet PO (10:44)
[2022-01-08] MEDS: Calcium Carbonate 500 MG Tablet PO (13:56)
[2022-01-08 14:38] VITALS: BMI 24.2
[2022-01-08] MEDS: Baclofen 10 MG Tablet 5 MG PO (15:17)
[2022-01-08] MEDS: LORazepam 1 MG Tablet PO (19:37)
[2022-01-08 21:35] VITALS: BP 156/80; PULSE 77; RESP 17; TEMP 36.5; O2SAT 94
[2022-01-09] MEDS: Acetaminophen 325 MG Tablet 650 MG PO ×3 (00:10→19:47)
[2022-01-09 00:57] VITALS: BMI 24.2
[2022-01-09] MEDS: Clopidogrel Bisulfate 75 MG Tablet PO (08:06)
[2022-01-09] MEDS: Escitalopram Oxalate 10 MG Tablet PO (08:06)
[2022-01-09] MEDS: Cholecalciferol (Vit D3) 125 MCG CAPSULE (5,000 UNITS) PO (08:06)
[2022-01-09] MEDS: Lisinopril 5 MG Tablet PO (08:06)
[2022-01-09] MEDS: LORazepam 0.5 MG Tablet PO (08:06)
[2022-01-09] MEDS: Folic Acid/Vitamin B Comp W-C 1 Capsule 1 CAP PO (08:06)
[2022-01-09] MEDS: Aspirin E.C. 81 MG Tablet PO (08:06)
[2022-01-09 10:15] VITALS: BP 174/72; PULSE 82; RESP 20; TEMP 36.5; O2SAT 95
[2022-01-09 11:03] VITALS: BP 174/72; PULSE 82
[2022-01-09] MEDS: hydrALAZINE 10 MG Tablet PO ×2 (11:03→20:08)
[2022-01-09] MEDS: Baclofen 10 MG Tablet 5 MG PO (11:04)
[2022-01-09 11:46] VITALS: BMI 24.2
[2022-01-09 15:45] VITALS: BP 171/82; PULSE 85; RESP 22
--- NOTE | 2022-01-09 16:00 | NURSING ---
Patient was tearful when this nurse started her shift, yelling out, moaning. Patient had various complaints about what she needed and her thoughts were not organized. Patient had called her and told him to come in and he did around 8a. This nurse told She has not gotten her AM dose of Ativan yet but this nurse would get to her next due to an immediate issue with another patient upon starting my shift. This nurse had updated Dr. Earl regarding patients behavior and poor sleep pattern during the night. New order for ativan to be given at 0600 and 1900 and trazadone to start. and patient in agreeance with the plan to see if patient will improve with her anxiety.
[2022-01-09] MEDS: LORazepam 1 MG Tablet PO (18:51)
[2022-01-09] MEDS: Calcium Carbonate 500 MG Tablet PO (19:46)
[2022-01-09 20:00] VITALS: BP 167/65; PULSE 70; RESP 16; TEMP 36.6; O2SAT 94
[2022-01-09 20:08] VITALS: BP 181/85; PULSE 76
[2022-01-09] MEDS: traZODone 100 MG Tablet PO (20:55)
[2022-01-09 23:35] VITALS: BP 144/66; PULSE 69; RESP 18; TEMP 36.4; O2SAT 94
[2022-01-10] MEDS: MethylPREDNISolone 125 MG/2 ML Vial IV (00:07)
[2022-01-10] MEDS: DiphenhydrAMINE 50 MG/ML Syringe 25 MG IV (00:08)
[2022-01-10] MEDS: 0.9% Saline Lock 10 ML Syringe IV ×2 (00:11→21:17)
[2022-01-10] MEDS: Famotidine 200 MG/20 ML MDV 20 MG in 0.9% Normal Saline (Pres. free 8 ML 300 MG IV (00:27)
--- NOTE | 2022-01-10 00:34 | NURSING ---
1940; Pt had panic attack this jerri. She received her ativan at 1900 and at 1940 pt requested a nurse to come into room. Pt was crying uncontrollable. Stating her stomach hurt, her l leg hurt. She did not feel right Pt was upset stating pt was fine all day until given ativan. States he feels she had the same reaction this am after taking it. Pt does not want to take ativan anymore. and pt are frustrated they can not take own meds from home. Reassurance provided to both. Pt was given tylenol for pain and tums for stomach. She did calm and left to go home. Pt rested quietly through evening without issues.
--- NOTE | 2022-01-10 00:41 | NURSING ---
0; Pt called nurse stating it was hard to swallow and her tongue felt swollen. States she is having trouble drinking water and her tongue and throat do not feel right. Pt is drinking water and is acting as if it is painful or difficult to swallow. States her tongue feels thick. Pt states sometimes she gets food pocketed in throat. Gave pt warm salt water to gargle. This did not help. Pt remained calm but continues to complain. Pt was given new med trazadone this jerri at 2054. Call to hospitalist. Orders received.
--- NOTE | 2022-01-10 00:45 | NURSING ---
0046; Pt was given benedryl, pepcid and solumedral as ordered. She is sleeping soundly. But easily arousable. States she is feeling improvement in her throat and tongue. Will continue to monitor.
[2022-01-10] MEDS: Baclofen 10 MG Tablet 5 MG PO ×2 (02:16→21:16)
[2022-01-10] MEDS: Acetaminophen 325 MG Tablet 650 MG PO ×4 (02:17→21:25)
[2022-01-10 02:48] VITALS: BMI 24.2
--- NOTE | 2022-01-10 03:17 | NURSING ---
Addendum entered by Yarelis Torres 01/10/22 07:16: l leg Original Note: 0315; Pt called out. States her r leg is cramping. Given tylenol and baclofen as ordered. Very anxious on the verge of tears. This nurse had pt stand up at bed side to move legs. Reassurance provided and nurse stayed in room with pt to prevent full blown panic attack. Pt incont 3x while nurse was in room with pt. Pt assisted back into bed after standing at bedside. Repositioned with pillows and placed pt on her side. States she is feeling better. Will cont to monitor.
[2022-01-10 07:39] VITALS: BP 135/71; PULSE 89; RESP 18; TEMP 37; O2SAT 94
[2022-01-10] MEDS: Aspirin E.C. 81 MG Tablet PO (07:50)
[2022-01-10] MEDS: Folic Acid/Vitamin B Comp W-C 1 Capsule 1 CAP PO (07:50)
--- NOTE | 2022-01-10 10:05 | PN_ITS ---
Subjective Subjective Afebrile VSS - systolic BP is mostly high due to severe anxiety with panic attacks. BP is better this AM with the increase in the Clonidine patch to 0.2 mg. Maintaining appropriate oxygen saturation on RA Oral intake is adequate Incontinent of urine at times Discussed with nursing - She took Ativan last evening......which she has been taking for the past few days....and about 30 minutes later began shaking all over due to a panic attack which she and her thought was a seizure because she was shaking but, she was alert and appropriate. A demand was made to have her treated for an allergic reaction and unfortunately she got 125 mg of Solumedrol which is likely exacerbating the anxiety this AM. She has not been sleeping and her anxiety is crippling. she has convinced herself and her family that the only medication that works for her is the Lexapro and Klonopin from [facility]. the reason she was started on the Ativan in the first place is she told me the Klonopin we give her was not working and she told me that she took Ativan in the past for jet lag and it worked. Reviewed the PT/OT/ST notes. She is improving and now needs only min assist with many of the ADL's and her is here and getting family training today. Medication list reviewed. The wanted the Ativan discontinued and that has been done. Objective Data Objective Data Vital Signs: Vital Signs Temp Pulse Resp BP Pulse Ox 98.6 F 89 18 135/71 H 94 01/10/22 07:39 01/10/22 07:39 01/10/22 07:39 01/10/22 07:39 01/10/22 07:39 Oxygen Flow Rate (L/min) 3 Oxygen Delivery Method Room Air Weight: 131 lb 2.801 oz Body Mass Index (BMI) 24.2 Intake & Output: Intake and Output for Last 24 Hours 01/08/22 01/09/22 01/10/22 23:59 23:59 23:59 Intake Total 200 / 200 250 / 250 Output Total 250 / 250 Balance -50 / -50 250 / 250 Lab / Micro Data Result Diagrams: 01/01/22 07:20 01/06/22 05:41 Assessment & Plan Assessment/Plan (1) CVA (cerebral vascular accident): QUALIFIERS: CVA mechanism: unspecified Qualified Code(s): I63.9 - Cerebral infarction, unspecified PLAN: 1. Discussed with the therapists and the SW possible DC home with [facility] tomorrow. I think she would do much better at home, on the [facility] Lexapro and Klonopin than she is doing in rehab. Has not slept well since she got here and is having daily panic attacks. I am not able to get her anxiety under control and as soon as Kendall leaves at night she has a panic attack........last night she had the panic attack prior to him leaving. The nurse explained the plan to give her 1 mg of Ativan at 7 PM and a second at 8 PM when her left so that she could get some sleep and this upset her to the point where she had a panic attack. 2. I have discussed with Kendall and Margaret that she is dependent on Benzodiazepines and we can not abruptly stop. Will order Klonopin 1 mg BID and Xanax 0.5 mg Q6 H PRN panic attacks. 3. Continue therapy until we have a plan. Charges/Coding Visit Charges Inpatient E&M: 30488 Subs Hosp L2
[2022-01-10] MEDS: Senna/Docusate Sodium 1 Tablet 2 TABLET PO ×2 (10:41→21:17)
[2022-01-10] MEDS: Lisinopril 5 MG Tablet PO (10:41)
[2022-01-10] MEDS: Cholecalciferol (Vit D3) 125 MCG CAPSULE (5,000 UNITS) PO (10:41)
[2022-01-10] MEDS: Clopidogrel Bisulfate 75 MG Tablet PO (10:41)
[2022-01-10] MEDS: Escitalopram Oxalate 10 MG Tablet PO (10:41)
--- NOTE | 2022-01-10 14:28 | CASEMGMT ---
Social Work Spoke with and RN that pt's anxiety is becoming very debilitating and requesting pt DC home. Inquired to therapy about progress and participation. Pt participating well and making progress. Spoke with pt and about their preference. Both recognize high anxiety and see the benefit of DCing home to take home medications, however, unsure if he can take care of pt/pt ready to DC home physically yet. agreed to participate in therapy today. -- SW followed up with pt and after therapy, inquired about DC. and pt both agree pt is not strong enough to DC home yet. Both inquired about TCU. SW agreed to make referral. Spoke with Mable in admissions and TCU can accept pt 01/11. Followed up with pt and about about acceptance for TCU. Both very appreciative. SW clarified pt still cannot bring home medications to use in TCU. Both expressed understanding. Updated IDT. Plan: DC to TCU 01/11, skilled Kinga Waters, DIRECTOR OF ANALYTICS LICENSING AND REGISTRATION DIRECTOR
[2022-01-10 15:15] VITALS: BMI 24.2
[2022-01-10] MEDS: clonazePAM 0.5 MG Tablet 1 MG PO (18:09)
[2022-01-10 19:08] VITALS: BP 155/72; PULSE 90; RESP 16; TEMP 36.7; O2SAT 94
--- NOTE | 2022-01-10 21:36 | NURSING ---
pt c/o left thigh pain and Tylenol prn provided. Pt toileted, stertech legs a bit, and repositioned into bed for comfort.
[2022-01-10 21:47] VITALS: BMI 24.2
[2022-01-10 22:00] VITALS: PULSE 84; RESP 16; O2SAT 94
[2022-01-11] MEDS: clonazePAM 0.5 MG Tablet 1 MG PO (06:05)
[2022-01-11] MEDS: Baclofen 10 MG Tablet 5 MG PO (06:06)
[2022-01-11 07:33] VITALS: BP 140/62; PULSE 72; RESP 16; TEMP 36.2; O2SAT 95
--- NOTE | 2022-01-11 08:05 | TREXTCAR_ITS ---
Diet 01/01/22 13:19 Diet: Cardiac - Heart Healthy Food consistency:: Easy to Chew Liquid Consistency:: Regular/Thin Type of Dietary Supplement:: van es pudding w/Dinner Is pt able to select menu?: Yes Diet Comments: Ok for regular textured meat cut BITE SIZE & served w/ sauce, distant sup. Routine Orders/Code Status Enema Type: Fleetz Enema Frequency: Daily PRN Suppository Type: Dulcolax 10mg Suppository Frequency: Daily PRN O2 Liters per Minute: 1-2 O2 Frequency: PRN Keep PO Greater than or Equal to (%): 90 Code Status: Full Code Therapies Weight Bearing: Full weight bearing Physical Therapy: Eval and Treat Occupational Therapy: Eval and Treat Speech Therapy: Eval and Treat Problem/Diagnosis (1) Debility: Status: Acute Comment: Continue PT/OT/ST. Home when she is stronger and able to ambulate with LRD at Mod I. [facility]. We are having a difficult time getting in 3 hours of therapy daily due to extreme anxiety and having to talk her down several times a day. I think TCU will be a less stressful environment for her because she has been on TCU in the past and actually requested to go to TCU and not rehab initially. (2) CVA (cerebral vascular accident): Status: Acute Comment: R jama December 2021. Continue Lisinopril and Clonidine. BP has improved with the addition of Clonidine. BP is closely tied to anxiety level. With better anxiety control I suspect the systolic BP will come down. Diastolic BP is now within goal of < 130/80. Current control is better and I do not want to increase the anti-hypertensives at this time because I think once she is discharged home and her anxiety improves the BP will bottom out. She is tolerating the Clonidine with no adverse reactions. (3) Left hemiparesis: Status: Acute Comment: Improving. Anxiety/panic attacks have caused her to have decreased focus on therapy but, she is improving slowly. (4) Hyponatremia: Status: Acute Comment: More than likely secondary to cerebral salt wasting related to the recent CVA. Sodium is stable. (5) Muscle spasm: Status: Acute Comment: Better with the addition of folic acid/B complex remains to her drug regimen. She no longer has spasms in the right leg but continues to have occasional spasm in the left thigh which I believe is due to recovery of tone in the Left leg post stroke. She is on a scheduled low dose of Baclofen which helps. Spasms also increase with her anxiety level. (6) Generalized anxiety disorder with panic attacks: Status: Chronic Comment: Finally was able to sleep through the night on 01/10/22 on Klonopin 1 mg Q12H (which she refused to take earlier in the admission because it didn't work. Only the Klonopin from [facility] works for her. She has Xanax ordered PRN for panic attacks but, has not taken any yet. Would continue the Lexapro. The dose was increased to 10 mg daily at admission to rehab and she is tolerating. She is convinced that she must have the Lexapro she gets from [facility] or the medication makes her sick. She has convinced her family of this as well. She somaticizes her anxiety. When she is anxious she has nausea, tremors, lightheadedness, chest pain, abd pain.......she attributes these sx to medications rather than to anxiety. I think she would benefit from intensive psychotherapy because she is overwhelmed with anxiety and it is affecting her health and increasing her risk for strokes and NC's in the future. Her LDL is 172 and she will not take a medication because she is allergic but, she can not even recall the nature of the allergic sx. Would consider starting Crestor at 5 mg daily going forward AFTER she is home and the anxiety improves. (7) Chronic prescription benzodiazepine use: Status: Chronic Comment: She is aware that these medications can not be suddenly stopped because she will have withdrawal. (8) Hyperlipidemia: Status: Chronic Comment: untreated due to reported allergy. (9) Essential hypertension: Status: Chronic Comment: Lists beta blockers as allergies. Currently tolerating Clonidine patch and Lisinopril. 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 (11) History of coronary artery bypass graft x 3: Status: Chronic Comment: HOLCOMB to LAD, SVG to the Diagonal, and SVG to distal RCA 09/01/19 @ [facility] in [place] (12) History of coronary artery stent placement: Status: Chronic Comment: PCI-HERLINDA-Mid LAD w/ dissection of the LAD extending into the D3, POBA-D3 08/30/19 (13) Right bundle branch block (RBBB): Status: Chronic Allergies/Procedures Done in Hospital Allergies amlodipine besylate [From Norvasc] Allergy (Verified 03/10/21 12:55) Other INCREASED BLOOD PRESSURE, CAN'T STAND WITHOUT HOLDING ONTO SOMETHING atenolol Allergy (Verified 03/10/21 12:55) Other INCREASED BP AND INSTABILITY atorvastatin Allergy (Verified 01/11/22 09:05) PT UNSURE OF REACTION buspirone HCl [From BuSpar] Allergy (Verified 03/10/21 12:55) Other INCREASED ANXIETY citalopram hydrobromide [From Celexa] Allergy (Verified 03/10/21 12:55) Other INCREASED ANXIETY diazepam [From Valium] Allergy (Verified 03/10/21 12:55) Other INCREASED ANXIETY hydrochlorothiazide [From Zestoretic] Allergy (Verified 01/06/22 23:59) Other BALANCE-LIGHTHEADED metoprolol succinate [From Toprol XL] Allergy (Verified 03/10/21 12:55) Other BALANCE mirtazapine [From Remeron] Allergy (Verified 03/10/21 12:55) Other END UP IN ER FROM TOO STRONG paroxetine HCl [From Paxil] Allergy (Verified 03/10/21 12:55) Other ANXIETY procaine HCl [From Novocain] Allergy (Verified 03/10/21 12:55) Other RAPID HR Sulfa (Sulfonamide Antibiotics) Allergy (Verified 03/10/21 12:55) Other racing HR valsartan [From Diovan] Allergy (Verified 03/10/21 12:55) Other balance Penicillins Adverse Reaction (Unknown, Verified 03/10/21 12:55) Other headache, malaise Procedures: None Type of Care/Length of Stay Estimated LOS: Convalescent Care Less Than 30 days Type of Care Needed: Skilled Rehab Potential: Fair Prognosis: Fair Additional Orders/Day of Discharge H&P will serve as current which was dated: 12/31/21 Day of Discharge: 01/11/22 Dietary and Speech Recommendations Dietitian Recommendations/Changes: continue cardiac diet- consistency modifications per [employer]; will add ensure pudding w/ dinner and ensure enlive w/ medpass for additional calories/protein if consumed; dietary preferences provided to kitchen- see tally communication Follow Up Care Please follow up with your Primary Care Physician in: Dr. Jp Henson in 7-10 days following DC from TCU. Please Follow Up With: Yuri Florence MD When: as previously scheduled. Please Follow Up With: Jorge Luis Vasquez MD When: following DC from TCU Discharge Plan Admission Admit Date/Time: 12/31/21 16:04 Primary Reason for Your Visit: post stroke debility Attending Provider: Patrice Bass Chi Primary Care Provider: Jp Henson Discharge Orders/Prescriptions Prescriptions: New acetaminophen [Tylenol] 325 mg Tablet 650 mg PO Q4H PRN PRN (Reason: Pain 1-10 Or Fever) Qty: 0 RF: 0 clonidine 0.2 mg/24 hr Patch Weekly 0.2 mg transdermal Q7D Qty: 0 RF: 0 clonazepam 0.5 mg Tablet 1 mg PO Q12@0600,1800 Qty: 0 RF: 0 alprazolam 0.5 mg Tablet 0.5 mg PO TID PRN PRN (Reason: panic attack) Qty: 0 RF: 0 baclofen 10 mg Tablet 5 mg PO TID Qty: 0 RF: 0 calcium carbonate 200 mg calcium (500 mg) Tablet,Chewable 500 mg PO Q6H PRN PRN (Reason: Indigestion) Qty: 0 RF: 0 escitalopram oxalate 10 mg Tablet 10 mg PO DAILY Qty: 0 RF: 0 cholestyramine (with sugar) 4 gram Powder In Packet 4 g PO BIDAC Qty: 0 RF: 0 Ensure Enlive 0.08 gram-1.5 kcal/mL Liquid 120 ml PO 4X/DAY Qty: 0 RF: 0 hydralazine 10 mg Tablet 10 mg PO TID PRN PRN (Reason: sys> 160 RILEY > 90) Qty: 0 RF: 0 Virt-Caps 1 mg Capsule 1 cap PO BREAKFAST Qty: 0 RF: 0 sennosides-docusate sodium [Stool Softener-Stimulant Laxat] 8.6-50 mg Tablet 2 tab PO BID Qty: 0 RF: 0 magnesium hydroxide 400 mg/5 mL Suspension 30 ml PO .PRN X 1 PRN (Reason: Constipation) Qty: 0 RF: 0 Continued cholecalciferol (vitamin D3) 125 mcg (5,000 unit) capsule 125 mcg PO DAILY RF: 0 aspirin 81 MG tablet,delayed release (DR/EC) 81 mg PO DAILY RF: 0 lisinopril [Zestril] 5 mg tablet 5 mg PO DAILY RF: 0 Hold Instructions: Resume on 01/01/22. clopidogrel 75 mg tablet 75 mg PO DAILY RF: 0 Discontinued multivitamin [Daily Multi-Vitamin] Tablet 1 tab PO DAILY RF: 0 clonazepam [Klonopin] 0.5 MG tablet 0.25 mg PO 4X/DAY PRN PRN (Reason: Anxiety) RF: 0 escitalopram oxalate [Lexapro] 5 mg Tablet 5 mg PO DAILY RF: 0 zinc 50 mg Capsule 50 mg PO DAILY RF: 0 baclofen 10 mg Tablet 10 mg PO TID PRN (Reason: Muscle spasms) RF: 0 atorvastatin 80 mg tablet 40 mg PO QHS RF: 0 Referrals / Follow Up: Jp Henson DO [Primary Care Provider] - Disposition Disposition (needs filled in before D/C Order can be placed): [facility] Facility
[2022-01-11] MEDS: Clopidogrel Bisulfate 75 MG Tablet PO (09:13)
[2022-01-11] MEDS: Cholecalciferol (Vit D3) 125 MCG CAPSULE (5,000 UNITS) PO (09:13)
[2022-01-11] MEDS: Folic Acid/Vitamin B Comp W-C 1 Capsule 1 CAP PO (09:14)
[2022-01-11] MEDS: Senna/Docusate Sodium 1 Tablet 2 TABLET PO (09:14)
[2022-01-11] MEDS: Lisinopril 5 MG Tablet PO (09:14)
[2022-01-11] MEDS: Aspirin E.C. 81 MG Tablet PO (09:14)
[2022-01-11] MEDS: Escitalopram Oxalate 10 MG Tablet PO (09:14)
--- NOTE | 2022-01-11 09:17 | DS.PCM_ITS ---
Providers Date of Admission: 12/31/21 Primary Care Physician: Dr. Jp Henson DO Reason For Visit: ACUTE CVA Diagnosis Discharge Diagnosis (1) Debility: Status: Acute Code(s): R53.81 - Other malaise (2) CVA (cerebral vascular accident): Status: Acute Code(s): I63.9 - Cerebral infarction, unspecified Qualifiers: CVA mechanism: unspecified Qualified Code(s): I63.9 - Cerebral infarction, unspecified (3) Left hemiparesis: Status: Acute Code(s): G81.94 - Hemiplegia, unspecified affecting left nondominant side (4) Hyponatremia: Status: Acute Code(s): E87.1 - Hypo-osmolality and hyponatremia (5) Muscle spasm: Status: Acute Code(s): M62.838 - Other muscle spasm (6) Generalized anxiety disorder with panic attacks: Status: Chronic Code(s): F41.1 - Generalized anxiety disorder; F41.0 - Panic disorder [episodic paroxysmal anxiety] (7) Chronic prescription benzodiazepine use: Status: Chronic Code(s): Z79.899 - Other care home (current) drug therapy (8) Hyperlipidemia: Status: Chronic Code(s): E78.5 - Hyperlipidemia, unspecified Qualifiers: Hyperlipidemia type: mixed hyperlipidemia Qualified Code(s): E78.2 - Mixed hyperlipidemia (9) Essential hypertension: Status: Chronic Code(s): I10 - Essential (primary) hypertension (10) Atherosclerotic heart disease of [place] coronary artery without angina pectoris: Status: Chronic Code(s): I25.10 - Atherosclerotic heart disease of [place] coronary artery without angina pectoris Qualifiers: [place] vs. transplanted heart: [place] heart Qualified Code(s): I25.10 - Atherosclerotic heart disease of [place] coronary artery without angina pectoris (11) History of coronary artery bypass graft x 3: Status: Chronic Code(s): Z95.1 - Presence of aortocoronary bypass graft (12) History of coronary artery stent placement: Status: Chronic Code(s): Z95.5 - Presence of coronary angioplasty implant and graft (13) Right bundle branch block (RBBB): Status: Chronic Code(s): I45.10 - Unspecified right bundle-branch block Plan: DC to TCU for additional therapy prior to going home with [facility]. Medications at Discharge Home Medications aspirin 81 mg PO DAILY 09/08/19 cholecalciferol (vitamin D3) 125 mcg (5,000 unit) capsule 125 mcg PO DAILY 12/19/19 lisinopril [Zestril] 5 mg PO DAILY 12/30/21 clopidogrel 75 mg PO DAILY 12/31/21 B complex with C 20-folic acid [Virt-Caps] 1 cap PO BREAKFAST #0 cap 01/11/22 acetaminophen [Tylenol] 650 mg PO Q4H PRN PRN #0 tab 01/11/22 alprazolam 0.5 mg PO TID PRN PRN #0 tab 01/11/22 baclofen 5 mg PO TID #0 tab 01/11/22 calcium carbonate 500 mg PO Q6H PRN PRN #0 tab 01/11/22 cholestyramine (with sugar) 4 g PO BIDAC #0 ea 01/11/22 clonazepam 1 mg PO Q12@0600,1800 #0 tab 01/11/22 clonidine 0.2 mg TRANSDERMAL Q7D #0 ea 01/11/22 escitalopram oxalate 10 mg PO DAILY #0 tab 01/11/22 food supplemt, lactose-reduced [Ensure Enlive] 120 ml PO 4X/DAY #0 ml 01/11/22 hydralazine 10 mg PO TID PRN PRN #0 tab 01/11/22 magnesium hydroxide 30 ml PO .PRN X 1 PRN #0 ml 01/11/22 sennosides-docusate sodium [Stool Softener-Stimulant Laxat] 2 tab PO BID #0 tab 01/11/22 Hospital Course Summary of Care Provided Minutes Spent on Discharge: 45 Hospital Course: Margaret Witt is a 80 YO F with a past medical history of anxiety/depression, chronic Benzodiazepine use, arachnoid cyst, coronary artery disease, history of a three-vessel CABG and PCI, rheumatoid arthritis (on no medication), hypertens ion, hyperlipidemia and recent CVA. She presented to the ED at [facility] on 12/31/21 after a fall onto her left side while ambulating with a WW. Prior to the fall she had been having left side weakness for a few days. MRI on 12/31/21 showed a subacute lacunar ischemic infarct in the R jama. MRA of the brain showed no significant vaso-occlusive disease of the anterior and posterior intracranial circulation. There was a dominant left vertebral artery and a hypoplastic right vertebral artery with direct posterior inferior cerebellar artery termination. An ultrasound of the carotid artery showed less than 50% stenosis bilaterally. The vertebral arteries were patent with antegrade flow bilaterally. Echocardiogram showed a normal left ventricular ejection fraction at 60% with no wall motion abnormalities. There was stage I diastolic dysfunction and the bubble contrast study was negative for right to left interatrial shunt. She was admitted to the hospital with a dx of subacute R jama ischemic infarct. She was seen by PT/OT/ST and a recommendation was made for acute rehab. She was transf erred to the acute rehab unit at [facility] on 01/01/22 for 3 hours of therapy daily to restore function/independence at or near her level of function prior to the CVA. Margaret had been started on Lipitor while on the acute side of the hospital but, it was discontinued because she listed it as an allergy. Margaret lists 14 medications as allergies but, the reactions are unknown. After observing her for 10 days I have figured out that when she gets anxious and has a panic attack she has chest pain, nausea, lightheadedness, tremors, muscle spasms and generally does not feel well. She thinks this is due to an allergy to the medication when actually it is due to somatization of anxiety. She sometimes also c/o tongue swelling but, I have examined her on these occasions in rehab and the tongue is normal size. She also complains of trouble swallowing and this is due to globus hystericus. Another frequent complaint is sore gums in the R maxillary jaw. She attributed this to Nystatin which was ordered for thrush but, the sore gums persisted after the Nystatin was discontinued. I suspect the sore gums in that area are due to her being edentulous in the upper R jaw and chewing on the R side predominantly because she has facial droop and muscle weakness in the face and pharynx. Margaret has suffered from anxiety for most of her life. She has convinced herself that the only medications that are good for her to take are the meds she orders from [facility]. She tells me the meds we have at [facility] have different fillers and this does not agree with her. She has had no rashes, no angioedema, no wheezing and no hypotension while in rehab. The pharmacy would not approve her medications from [facility] for her to take and this is s chronic source of anxiety for her. At one point she refused to take the Klonopin because she said it did not work for her. she was transitioned to Ativan but, this was no better and one evening she had a panic attack 30 minutes after taking an Ativan and thought she was having a seizure because she was shaking all over. She was conscious and following commands at the time. The medication was stopped and the hospitalist was called and told she had an aller gic reaction and not knowing her hx of anxiety and panic attacks he prescribed Benadryl, Pepcid and 125 mg of Solu-medrol which ultimately increased her anxiety. The following day was especially bad. She has not slept well since admission to rehab and she is very fatigued. she agreed to let me restart Klonopin and she was started on 1 mg at 066 and 1800. Baclofen was scheduled 5 mg every 8 hours to control the spasms in the left thigh due to increasing tone on the left side due to the stroke. She finally slept on the night of 01/10-01/11 and the following morning she is tired but, calm. Lab has been unremarkable except for a mildly decreased sodium at 134. This is more than likely due to cerebral salt wasting due to the stroke and it is stable. Lexapro can also cause hyponatremia but, it is the only antidepressant she will take and she should not be symptomatic with a sodium of 134. Lexapro was increased to 10 mg during her stay in rehab and she has been tolerating this with no adverse reactions. Systolic BP's have been consistently elevated while in rehab and this is likely due to uncontrolled anxiety. She was started on a Clonidine patch at 0.1 mg/hr and she has tolerated this with no complaints. Clonidine slows the heart rate and can help with anxiety. Systolic BP's were still quite high at times and the dose was increased to 0.2 mg/hr and the systolic the past 2 days has ranged from 135-155. On the morning of discharge her blood pressure is 140/62 which I think is acceptable. The ultimate goal is less than 130/80 given her recent stroke. I have not increased the dose of the Lisinopril because I fear that if we do that to tightly control the BP in the hospital she will bottom out once she gets home and the anxiety abates. Zinc was discontinued in rehab although it has been shown to help with severe anxiety and panic attacks because she requested we stop it because it doesn't help. After she is discharged home from TCU would try starting her on 5 mg of Crestor daily to control the LDL.....it is 172 and she has CAD and a stroke. Goal is less than 70. She has agreed to try this. Would repeat a lipid panel every 6-8 weeks and gradually walk up the dose to get the LDL less than 70 or as close as possible. Would not start a higher dose because if she has any perceived side effect she will refuse to take the medication. She took a few doses of Lipitor in the hospital with no adverse reaction and so she does not have anaphylaxis. Margaret was discharged to TCU on 01/11/22. I think that she will benefit from a less intensive program and she has been in TCU in the past and liked it. Once discharged from TCU she will follow up with Dr. Jp Henson who is her PCP. She will also need to follow up with Dr. Florence and with Dr. Vasquez for neurology. Physical Exam Const alert, oriented x3 and no apparent distress Constitutional Narrative: Lying in bed. Looks sleepy. she is calm and appropriate. General Appearance: cooperative HEENT normocephalic HEENT Narrative: MM are dry Eyes PERRL, EOMs intact bilaterally, conjunctivae normal and no scleral icterus Neck no lymphadenopathy, supple, thyroid normal and no carotid bruits Chest Chest: symmetrical chest wall rise Resp normal respiratory effort, normal air movement, no retractions, no use of accessory muscles and clear to auscultation bilaterally Effort and Inspection: able to speak in complete sentences Cardio regular rate, regular rhythm, S1 normal heart sound, S2 normal heart sound, no murmurs, no rub and no gallops Cardio Narrative: No ectopy. The resting HR has decreased from the 90's at admission to the 70's at CT. GI normal to inspection, nondistended, normoactive bowel sounds, soft to palpation and non-tender GI Narrative: No guarding with palpation Extremity no calf tenderness and no pedal edema Skin no wounds, no jaundice and no mottling General Skin Exam: no breakdown Rashes: no rashes Neuro Neuro Narrative: see the NIHSS Psych cooperative Psych Narrative: She is calm this AM. She is making appropriate eye contact. She is not restless. Speech: normal speech Weight / BMI Weight Weight: 131 lb 2.801 oz Body Mass Index (BMI) 24.2 ABG / Lab / Microbiology Data Result Diagrams: 01/01/22 07:20 01/06/22 05:41 Indicators for Scoring Admitted with or Primary Diagnosis of CVA/Stroke: Yes Hx of CVA/Stroke: No Modified [place] Score MRS Score at time of Evaluation: 3-Moderate disability (down from a 4 at admission to rehab) NIHSS NIHSS 1a. Level of Consciousness: Alert; keenly responsive 1b. LOC Questions: Answers BOTH questions correctly. 1c. LOC Commands: Performs both tasks correctly. 2. Best Gaze: Normal 3. Visual: No visual loss 4. Facial Palsy: Minor paralysis (flattened nasolabial fold, asymmetry on smiling) 5a. Left Arm: Some effort against gravity; 5b. Right Arm: No drift; arm holds 90 (or 45) degrees for full 10 seconds 6a. Left Leg: Some effort against gravity; 6b. Right Leg: No drift; leg holds 30-degree position for full 5 seconds 7. Limb Ataxia: Absent 8. Sensory: Normal; no sensory loss 9. Best Language: No aphasia; normal 10. Dysarthria: Normal 11. Extinction and Inattention: No abnormality Total: 5 Stroke Questions Stroke Team Activated: No D/C Instructions Please Follow Up With: Yuri Florence MD Meaningful Use Info Meaningful Use Diagnoses (Choose all that apply): Ischemic CVA CVA Therapy Assessed for PT,OT and/or ST?: Yes Ischemic Stroke Antithrombotic order at d/c?: Yes Dx of Atrial fib/flutter?: No Anticoagulant at discharge?: No Reason anticoagulant not ordered: Treatment not Indicated Statins at discharge?: No Reason Statin not ordered: Drug Declined by Patient Primary Dx Acute Ischemic CVA?: Yes IV tPA ordered during stay?: No Reason IV t-PA not ordered: Treatment not Indicated Discharge Plan Admission Admit Date/Time: 12/31/21 16:04 Primary Reason for Your Visit: post stroke debility Attending Provider: Patrice Bass Chi Primary Care Provider: Jp Henson Discharge Orders/Prescriptions Prescriptions: New acetaminophen [Tylenol] 325 mg Tablet 650 mg PO Q4H PRN PRN (Reason: Pain 1-10 Or Fever) Qty: 0 RF: 0 clonidine 0.2 mg/24 hr Patch Weekly 0.2 mg transdermal Q7D Qty: 0 RF: 0 clonazepam 0.5 mg Tablet 1 mg PO Q12@0600,1800 Qty: 0 RF: 0 alprazolam 0.5 mg Tablet 0.5 mg PO TID PRN PRN (Reason: panic attack) Qty: 0 RF: 0 baclofen 10 mg Tablet 5 mg PO TID Qty: 0 RF: 0 calcium carbonate 200 mg calcium (500 mg) Tablet,Chewable 500 mg PO Q6H PRN PRN (Reason: Indigestion) Qty: 0 RF: 0 escitalopram oxalate 10 mg Tablet 10 mg PO DAILY Qty: 0 RF: 0 cholestyramine (with sugar) 4 gram Powder In Packet 4 g PO BIDAC Qty: 0 RF: 0 Ensure Enlive 0.08 gram-1.5 kcal/mL Liquid 120 ml PO 4X/DAY Qty: 0 RF: 0 hydralazine 10 mg Tablet 10 mg PO TID PRN PRN (Reason: sys> 160 RILEY > 90) Qty: 0 RF: 0 Virt-Caps 1 mg Capsule 1 cap PO BREAKFAST Qty: 0 RF: 0 sennosides-docusate sodium [Stool Softener-Stimulant Laxat] 8.6-50 mg Tablet 2 tab PO BID Qty: 0 RF: 0 magnesium hydroxide 400 mg/5 mL Suspension 30 ml PO .PRN X 1 PRN (Reason: Constipation) Qty: 0 RF: 0 Continued cholecalciferol (vitamin D3) 125 mcg (5,000 unit) capsule 125 mcg PO DAILY RF: 0 aspirin 81 MG tablet,delayed release (DR/EC) 81 mg PO DAILY RF: 0 lisinopril [Zestril] 5 mg tablet 5 mg PO DAILY RF: 0 Hold Instructions: Resume on 01/01/22. clopidogrel 75 mg tablet 75 mg PO DAILY RF: 0 Discontinued multivitamin [Daily Multi-Vitamin] Tablet 1 tab PO DAILY RF: 0 clonazepam [Klonopin] 0.5 MG tablet 0.25 mg PO 4X/DAY PRN PRN (Reason: Anxiety) RF: 0 escitalopram oxalate [Lexapro] 5 mg Tablet 5 mg PO DAILY RF: 0 zinc 50 mg Capsule 50 mg PO DAILY RF: 0 baclofen 10 mg Tablet 10 mg PO TID PRN (Reason: Muscle spasms) RF: 0 atorvastatin 80 mg tablet 40 mg PO QHS RF: 0 Referrals / Follow Up: Jp Henson DO [Primary Care Provider] - Disposition Disposition (needs filled in before D/C Order can be placed): [facility] Charges/Coding Visit Charges Inpatient E&M: 33545 Disch Hosp
[2022-01-11 10:08] VITALS: BMI 24.2
[2022-01-11 10:48] VITALS: BP 140/62; PULSE 72; RESP 16; TEMP 36.1; O2SAT 95
--- NOTE | 2022-01-11 10:51 | NURSING ---
Discharged to TCU. Report call to Glory
== END 2022-01-11 11:05 | disposition skilled nursing facility (03) | DRG 65 ==
PROVIDERS: Internal Medicine; Admitting Provider Family Medicine Geriatric Medicine; PCP Family Medicine; Visit Provider Family Medicine Geriatric Medicine
DX: I63.9 Cerebral infarction, unspecified (principal); E87.1 Hypo-osmolality and hyponatremia; G81.94 Hemiplegia, unspecified affecting left nondominant side; I45.2 Bifascicular block; B37.9 Candidiasis, unspecified; E03.9 Hypothyroidism, unspecified; G93.0 Cerebral cysts; M06.9 Rheumatoid arthritis, unspecified; I25.10 Atherosclerotic heart disease of native coronary artery without angina pectoris; E55.9 Vitamin D deficiency, unspecified; I45.10 Unspecified right bundle-branch block; E60 Dietary zinc deficiency; M62.838 Other muscle spasm; I10 Essential (primary) hypertension; E78.2 Mixed hyperlipidemia; K21.9 Gastro-esophageal reflux disease without esophagitis; M19.90 Unspecified osteoarthritis, unspecified site; W19.XXXA Unspecified fall, initial encounter; M25.552 Pain in left hip; M25.852 Other specified joint disorders, left hip; Z79.899 Other long term (current) drug therapy; Z79.82 Long term (current) use of aspirin; F41.0 Panic disorder [episodic paroxysmal anxiety]; Z79.02 Long term (current) use of antithrombotics/antiplatelets; F32.A Depression, unspecified; Z87.19 Personal history of other diseases of the digestive system; Z95.1 Presence of aortocoronary bypass graft; R47.81 Slurred speech; R29.702 NIHSS score 2; R29.810 Facial weakness; R79.89 Other specified abnormal findings of blood chemistry
CPT/HCPCS: 36415; 70450; 70544; 70551; 71045; 73502; 74177; 80048; 80053; 80061; 80076; 81001; 82962; 83036; 83690; 83735; 84439; 84443; 84484; 85025; 85027; 85610; 85730; 87426; 87428; 92507; 92526; 92610; 93005; 93306; 93880; 96360; 97110; 97116; 97140; 97162; 97163; 97166; 97530; 97535; 97802; 97803; 99283; 99284; J7030; Q9967; A4216; J3490

== ENCOUNTER 2022-01-11 11:08 | Inpatient (IN) | payer MEDICARE, OTHER, SELFPAY ==
[2022-01-11 11:21] VITALS: BP 154/72; PULSE 69; RESP 18; TEMP 36.3; O2SAT 94; BMI 22.7
--- NOTE | 2022-01-11 13:29 | NURSING ---
Pt refusing ensure, states the dairy based coats her throat and she cannot stand it. Digital Court Reporter called at this time to inquire on course of action, per forensic manager ok to d/c pt has been eating well and will reassess tomorrow
[2022-01-11] MEDS: Cholestyramine/Sucrose 4 GM/PACKET PO (17:08)
--- NOTE | 2022-01-11 18:00 | NURSING ---
Questran given around 5pm, order stated to give other Meds 4 hours after Questran d/t increased risk of interactions. Dr. Bass updated and N.O. to just d/c Questran. Pharmacist Vick was called and asked to clarify to see if 6pm Klonopin and Senna are OK to give or if they should be retimed. Pharmacists states that he see's no interactions between the Klonopin, Senna, and Questran and is ok to give.
[2022-01-11] MEDS: clonazePAM 1 MG Tablet PO (18:08)
[2022-01-11] MEDS: Senna/Docusate Sodium 1 Tablet 2 TABLET PO (18:15)
[2022-01-11] MEDS: Acetaminophen 325 MG Tablet 650 MG PO (19:21)
[2022-01-11] MEDS: ALPRAZolam 0.5 MG Tablet PO (19:21)
--- NOTE | 2022-01-11 21:37 | HP.PCM_ITS ---
HPI - General General Date of Admission: 01/11/22 HPI Narrative SHERYL GHOSH, is a 81 Female who presents with followin12/31/2021 Admit to for rehabilitation after right jama stroke, left hemiparesis. 01/03/2022 Trend sodium for hyponatremia. Clonidine TTS, Hydralazine as needed for elevated blood pressure. Patient allergic to Atorvastatin, consider Rosuvastatin, Questran. Continue Clonazepam 0.5mg q12h due to benzodiazepine risk. 01/04/2022 Vitamin B complex, folic acid for muscle cramps. Increase Lexapro to help with anxiety. 01/05/2022 Stroke made anxiety worse. Lexapro 10mg daily helpful, add Clonazepam 0.5mg qhs. 01/06/2022 Consider counseling for anxiety. Questran 4gm bid for Hyperlipidemia. 01/10/2022 Clonidine 0.2mg patch for elevated blood pressure. Ativan stopped per request. 01/11/2022 Admit to TCU with debility, here for rehabilitation, strengthening, prior to discharge home with . [facility] Medical History Anxiety disorder 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 Atherosclerotic heart disease of [place] coronary artery without angina pectoris Breast lump Chest pain Chronic headache Chronic prescription benzodiazepine use CVA (cerebral vascular accident) Essential (primary) hypertension Fecal impaction GERD (gastroesophageal reflux disease) H/O transfusion of whole blood History of colon polyps Hyperlipidemia Intractable constipation Osteoarthritis Rheumatoid arthritis Right bundle branch block (RBBB) Vitamin deficiency Home Medications aspirin 81 mg PO DAILY 09/08/19 [History Last Taken 12/31/21] cholecalciferol (vitamin D3) 125 mcg (5,000 unit) capsule 125 mcg PO DAILY 12/19/19 [History Last Taken Unknown] lisinopril [Zestril] 5 mg PO DAILY 12/30/21 [History Last Taken Unknown] clopidogrel 75 mg PO DAILY 12/31/21 [History Last Taken 12/31/21] B complex with C 20-folic acid [Virt-Caps] 1 cap PO BREAKFAST 01/11/22 [History Last Taken Unknown] acetaminophen [Tylenol] 650 mg PO Q4H PRN PRN #0 tab 01/11/22 [Rx Last Taken Unknown] alprazolam 0.5 mg PO TID PRN PRN #0 tab 01/11/22 [Rx Last Taken Unknown] baclofen 5 mg PO TID 01/11/22 [History Last Taken Unknown] calcium carbonate 500 mg PO Q6H PRN PRN #0 tab 01/11/22 [Rx Last Taken Unknown] cholestyramine (with sugar) 4 g PO BIDAC 01/11/22 [History Last Taken Unknown] clonazepam 1 mg PO Q12@0600,1800 01/11/22 [History Last Taken Unknown] clonidine 0.2 mg TRANSDERMAL Q7D 01/11/22 [History Last Taken Unknown] escitalopram oxalate 10 mg PO DAILY 01/11/22 [History Last Taken Unknown] food supplemt, lactose-reduced [Ensure Enlive] 120 ml PO 4X/DAY 01/11/22 [History Last Taken Unknown] hydralazine 10 mg PO TID PRN PRN #0 tab 01/11/22 [Rx Last Taken Unknown] magnesium hydroxide 30 ml PO .PRN X 1 PRN #0 ml 01/11/22 [Rx Last Taken Unknown] sennosides-docusate sodium [Stool Softener-Stimulant Laxat] 2 tab PO BID 01/11/22 [History Last Taken Unknown] Allergy/AdvReac Type Severity Reaction Status Date / Time amlodipine besylate Allergy Other Verified 03/10/21 12:55 [From Norvasc] atenolol Allergy Other Verified 03/10/21 12:55 atorvastatin Allergy PT UNSURE Verified 01/11/22 09:05 OF REACTION buspirone HCl [From BuSpar] Allergy Other Verified 03/10/21 12:55 citalopram hydrobromide Allergy Other Verified 03/10/21 12:55 [From Celexa] diazepam [From Valium] Allergy Other Verified 03/10/21 12:55 hydrochlorothiazide Allergy Other Verified 01/06/22 23:59 [From Zestoretic] metoprolol succinate Allergy Other Verified 03/10/21 12:55 [From Toprol XL] mirtazapine [From Remeron] Allergy Other Verified 03/10/21 12:55 paroxetine HCl [From Paxil] Allergy Other Verified 03/10/21 12:55 procaine HCl [From Novocain] Allergy Other Verified 03/10/21 12:55 Sulfa (Sulfonamide Allergy Other Verified 03/10/21 12:55 Antibiotics) valsartan [From Diovan] Allergy Other Verified 03/10/21 12:55 Penicillins AdvReac Unknown Other Verified 03/10/21 12:55 Family History Other Adopted Surgical History History of appendectomy History of cataract surgery History of cholecystectomy History of coronary artery bypass graft x 3 (~09/01/19) History of coronary artery stent placement (08/30/19) History of herniorrhaphy Social History household members: spouse Smoking Status: Never smoker alcohol intake: never substance use type: does not use caffeine: No ROS Constitutional Constitutional: Denies chills, fever(s) or weight gain ENT HEENT: Denies headache(s), nasal congestion or nasal discharge Cardiovascular Cardiovascular: Denies chest pain or palpitations Respiratory/Chest Respiratory/Chest: Denies cough, excessive phlegm production or shortness of breath with exertion Gastrointestinal Gastrointestinal: Denies abdominal pain, nausea or vomiting Genitourinary Genitourinary: Denies dysuria Musculoskeletal Musculoskeletal: Denies joint pain or joint swelling Integumentary Integumentary: Denies rash or wounds Neurologic Neurologic: Denies focal weakness, numbness or tingling Psychiatric Psychiatric: Denies anxiety, auditory hallucinations, depression, homicidal ideation or suicidal ideation Vital Signs Vital Signs Vital Signs: 01/11/22 11:21 Temperature 97.3 F L Temperature Source Temporal Pulse Rate 69 Pulse Rhythm Irregular Pulse Strength Normal (2+) Respiratory Rate 18 Respiratory Effort Normal Non-Labored Respiratory Depth Normal Respiratory Pattern Normal Blood Pressure 154/72 H Blood Pressure Mean 99 Blood Pressure Source Monitor Blood Pressure Position Semi-Fowlers Blood Pressure Location Right Arm Pulse Ox 94 Oxygen Delivery Method Room Air Weight Weight: 56.336 kg Body Mass Index (BMI) 22.7 Physical Exam Const alert General Appearance: cooperative HEENT normocephalic Eyes PERRL and EOMs intact bilaterally Neck supple, no JVD and no carotid bruits Resp normal respiratory effort, normal air movement and clear to auscultation bilaterally Cardio regular rate and regular rhythm GI normal to inspection, nondistended, normoactive bowel sounds, non-tender and non-distended Extremity normal capillary refill General Extremity: Negative for edema Skin no rashes or lesions noted General Skin Exam: no breakdown Neuro Neuro Narrative: Left hemiplegia. Psych affect normal Appearance: appropriate Assessment & Plan Assessment/Plan (1) Debility: (2) Right pontine stroke: (3) Left hemiplegia: (4) Anxiety: (5) Muscle spasm: (6) Depression: (7) Hypertension: (8) Vitamin D deficiency: PLAN: 81 year old female with below past medical history hospitalized for right pontine stroke, left hemiplegia admitted to 12/31/2021, transferred to TCU with debility, here for further rehabilitation, strengthening, prior to discharge home with . * Debility - PT/OT. * Dysphagia - ST. * Pain - Tylenol 1000mg q6h prn pain (1-10). * Bowel - senna/colace 2 tablets bid, MOM 30ml po x 1 prn. * Adult immunization - Administer pneumonia vaccine, flu vaccine, covid19 vaccine. * DVT prophylaxis - Hold, on dual antiplatelet therapy, risk of bleeding high. * Anxiety - Clonazepam 1mg q12h, Xanax 0.5mg tid prn, stable chronic intermediate card tender use, GDR not recommended. * Stroke - Aspirin 81mg daily, Plavix 75mg daily. * Indigestion - Calcium carbonate 500mg q6h prn. * Hypertension - Lisinopril 5mg daily, Clonidine patch 0.2mg q7days, Hydralazine 10mg tid prn. * Depression - Lexapro 10mg daily. * Leg cramps - Folic acid/Vitamin B complex 1 capsule daily. * Vitamin D deficiency - D3 125mcg daily.
--- NOTE | 2022-01-11 22:15 | NURSING ---
coming on shift pt was crying out in pain. Reporting nurse, myself and trainee in room to assess pt. Pt c/o pain in left leg at knee up to hip and in groin. Pt also highly anxious, Xanax, tylenol and warm compress given for pain. Pt was able to rest comfortably for about 2 hours. Staff rounding by periodically to check on status. At 2200 pt started to yell out in pain again and calls for assistance. He then proceeds to ask, Where are you, does anyone round, why can't you give her something? At this time tylenol was Q4h and unable to be given. Pt and asking for IV pain meds, nothing else is helping. While assessing she was warm with sweat, ORAL AND MAXILLOFACIAL SURGEON and I bathed and changed pt, floated her with some pillows, adjusted temp, gave a fresh ice water, applied lotion to feet and warmed her rice bag for her hip to help bring Comfort with her pain and anxiety. All reported to RN and Dr. Bass called and notified. New orders given.
[2022-01-11] MEDS: oxyCODONE 5 MG Tablet PO (22:33)
[2022-01-11] MEDS: Gabapentin 100 MG Capsule PO (22:33)
--- NOTE | 2022-01-11 22:50 | PCA ---
patient constantly crying out for pain medication and for someone to call the
--- NOTE | 2022-01-11 23:38 | NURSING ---
Administered 1x dose Neurotin 100mg and Oxyir 5mg at 2230 crushed in apple. Pt mood instantly improved once given. Very calm, relaxed, laying with eyes closed. In pt room again at 2330 and pt along with pt is sound asleep. Will continue to monitor.
--- NOTE | 2022-01-12 00:42 | NURSING ---
Went in to check and change pt and give tylenol, pt refused stating, she is sleeping do not wake her up. You wake her she will stay up. Pt resting comfortably at this time, no signs of pain noted. Will continue to monitor.
[2022-01-12] MEDS: oxyCODONE 5 MG Tablet PO ×3 (03:23→13:00)
--- NOTE | 2022-01-12 03:45 | PCA ---
330am helped patient onto bedside toilet with results, patients also asked if it was time for more pain meds
[2022-01-12] MEDS: Clopidogrel Bisulfate 75 MG Tablet PO (05:13)
[2022-01-12] MEDS: clonazePAM 1 MG Tablet PO (05:13)
[2022-01-12] MEDS: Escitalopram Oxalate 10 MG Tablet PO (05:13)
[2022-01-12] MEDS: Lisinopril 5 MG Tablet PO (05:13)
[2022-01-12] MEDS: Cholecalciferol (Vit D3) 125 MCG CAPSULE (5,000 UNITS) PO (05:13)
[2022-01-12] MEDS: Senna/Docusate Sodium 1 Tablet 2 TABLET PO (05:13)
[2022-01-12] MEDS: Acetaminophen 500 MG Tablet 1000 MG PO ×2 (05:14→13:01)
[2022-01-12 05:40] LABS: Absolute Lymphocyte Count 2.88 X10^3/uL (0.83-4.51); Absolute Neutrophil Count 5.4 X10^3/uL (2.0-7.7); Eosinophil# 0.41 X10^3/uL; Eosinophils% 4.2 % (0-5); Hematocrit 39.3 % (37-47); Hemoglobin 12.9 g/dL (12.0-15.0); Lymphocyte # 2.88 X10^3/ul (0.83-4.51); Lymphocyte % 29.5 % (19-41); Mean Corp Hgb Conc 32.8 g/dL (32-36); Mean Corpuscular Hgb 30.6 pg (27.0-32.0); Mean Corpuscular Volume 93.3 fL (81-99); Mean Platelet Vol. 10.3 fl (6.2-12.0); Monocyte# 0.92 X10^3/uL; Monocyte% 9.4 % (0-10); NRBC Flagged by Analyzer 0 % (0-5); Neutrophil # 5.38 X10^3/uL (2.7-7.7); Neutrophil % 55.3 % (47-70); Platelet Count 344 K/mm3 (150-450); RBC Distribution Width CV 12.6 % (11.6-14.6); RBC Distribution Width SD 43.4 fl (35.1-43.9); Red Blood Count 4.21 M/mm3 (4.2-5.4); White Blood Count 9.8 K/mm3 (4.4-11.0)
--- NOTE | 2022-01-12 05:46 | PCA ---
545am patients called and stated patient was uncomfortable her green bed pad has wrinkles in it. 2 assistant manager retail went in and fixed the issue
[2022-01-12 06:05] LABS: Anion Gap 8 (5-15); BUN 31 mg/dL (7-18); BUN/Creat Ratio 27.2 RATIO (10-20); Calcium,Total 8.9 mg/dL (8.5-10.1); Chloride 96 mmol/L (98-107); Creatinine, Serum 1.14 mg/dL (0.55-1.02); EST Glomerular Filtration Rate 49 mL/min (>60); Est Glom Filt Rate - Afr Amer 59 mL/min (>60); Estimated Creatinine Clearance 31.65 ml/min; Glucose 100 mg/dL (74-106); Potassium 4.6 mmol/L (3.5-5.1); Sodium Level 128 mmol/L (136-145)
[2022-01-12] MEDS: Aspirin E.C. 81 MG Tablet PO (07:50)
--- NOTE | 2022-01-12 08:13 | NURSING ---
PT AND REFUSED THE NEPHROCAPES,RENAPHO PILL DUE TO PT CANT SWALLOW IT. THIS NURSE ASKED PHARMACY IF THERE WAS ANOTHER WAY WE COULD GIVE IT AND THEY STATED NO. PT STATED HE HAS GUMMYS AT HOME BUT PT THEN STATED SHE CANT CHEW. STATED TO I WOULD LET KNOW. AND WILL GET PT HER NEXT PRN PAIN MED WHEN PHARMACY APPROVES IT. RN AWARE
--- NOTE | 2022-01-12 09:18 | CASEMGMT ---
Social Work Notified by covering nurse sales analytics manager, Aminah, she had met with pt and in room. expressed concerns with pt's recent decline, increased pain and discomfort, and request for new orders to assist with pain and IV fluids. SW expressed concern as well because pt was not having these issues the day prior/admission when SW saw pt. Nurse sales analytics manager explained stayed overnight with pt as he was concerned. Pt and requesting pt become comfortable. SW agreed to speak with pt and , provide emotional support, assess for wishes/hospice/comfort treatment. Entered pt's room - present. Pt in recliner chair, moaning, moving frequently to attempt to reposition in chair, complaining of pain, did not appear oriented/alert to surroundings. SW and nurse sales analytics manager encouraged to go home and rest and SW will speak with this afternoon after return. agreed since pt just got another pain medication and would likely make her tired. Validated husbands concern with apparent decline. Provided emotional support. SW to continue to follow. Kinga Waters, PAVEL HUMAN RESOURCES ASSISTANT
[2022-01-12 10:35] LABS: Osmolality, Serum 270 mOsm/KG (280-301)
[2022-01-12 11:05] VITALS: PULSE 70; RESP 16; O2SAT 96
[2022-01-12] MEDS: Tuberculin,Purif.prot.deriv. 50 TU/ML Vial 0.1 ML ID (11:26)
--- NOTE | 2022-01-12 13:03 | NURSING ---
Received order from Dr. Bass to order MRI without contrast, Xray of LS spine, Xray of Left hip. Orders repeated back.
--- NOTE | 2022-01-12 14:10 | RAD_ITS ---
STUDY: X-RAY - LUMBAR SPINE REASON FOR EXAM: Female, 81 years old. PAIN, RECENT STROKE WITH FALL Weakness TECHNIQUE: XR Spine Lumbar Min 4 Views COMPARISON: None FINDINGS: Normal lumbar lordosis. There is no substantial scoliosis. There is a normal alignment of the vertebrae. Normal vertebral bodies and endplates. Degenerative findings of the hips. There is atherosclerotic calcification of the abdominal aorta without a demonstrated aneurysm. RAD/L/S Spine Min 4 Views IMPRESSION: There are no acute findings. Degenerative findings of the hips. Electronically Signed: Brian Kuhn MD at 16:26 EDT Reading Location ID and State: [facility] / [place] , Service support ,
--- NOTE | 2022-01-12 14:10 | RAD_ITS ---
EXAM: XR LEFT HIP WITH PELVIS WHEN PERFORMED, 2 OR 3 VIEWS CLINICAL INDICATION: Weakness. TECHNIQUE: Two or three views of the left hip with pelvis when performed. This report was created using [employer] report generation technology. COMPARISON: 12/31/2021. FINDINGS: BONES/JOINTS: Degenerative narrowing in the medial aspect of both hip joint spaces are unchanged. No suspicious acute fractures. No destructive or sclerotic lesions. Note that overlapping bowel shadows may however obscure fine detail. Sacroiliac joint is unremarkable. No widening of the pubic symphysis. SOFT TISSUES: Unremarkable. No soft tissue swelling or gas. RAD/Hip Min 2 Views (Portable) IMPRESSION: 1. No acute fracture or dislocation in the pelvis and left hip. 2. Mild symmetrical degenerative narrowing the medial aspect of both hip joint spaces. 3. No interval change when compared to 12/31/2021. Electronically Signed: Avelino Quintero MD at 14:33 EDT ,
[2022-01-12] MEDS: Baclofen 10 MG Tablet 5 MG PO (15:33)
--- NOTE | 2022-01-12 15:50 | PHA.CONS1_ITS ---
Progress Note - Pharmacy Subjective: TCU Admission Objective: Allergies amlodipine besylate [From Norvasc] Allergy (Verified 03/10/21 12:55) Other INCREASED BLOOD PRESSURE, CAN'T STAND WITHOUT HOLDING ONTO SOMETHING atenolol Allergy (Verified 03/10/21 12:55) Other INCREASED BP AND INSTABILITY atorvastatin Allergy (Verified 01/11/22 09:05) PT UNSURE OF REACTION buspirone HCl [From BuSpar] Allergy (Verified 03/10/21 12:55) Other INCREASED ANXIETY citalopram hydrobromide [From Celexa] Allergy (Verified 03/10/21 12:55) Other INCREASED ANXIETY diazepam [From Valium] Allergy (Verified 03/10/21 12:55) Other INCREASED ANXIETY hydrochlorothiazide [From Zestoretic] Allergy (Verified 01/06/22 23:59) Other BALANCE-LIGHTHEADED metoprolol succinate [From Toprol XL] Allergy (Verified 03/10/21 12:55) Other BALANCE mirtazapine [From Remeron] Allergy (Verified 03/10/21 12:55) Other END UP IN ER FROM TOO STRONG paroxetine HCl [From Paxil] Allergy (Verified 03/10/21 12:55) Other ANXIETY procaine HCl [From Novocain] Allergy (Verified 03/10/21 12:55) Other RAPID HR Sulfa (Sulfonamide Antibiotics) Allergy (Verified 03/10/21 12:55) Other racing HR valsartan [From Diovan] Allergy (Verified 03/10/21 12:55) Other balance Penicillins Adverse Reaction (Unknown, Verified 03/10/21 12:55) Other headache, malaise Current Medications Generic Name Dose Route Start Last Admin Trade Name Freq PRN Reason Stop Dose Admin Acetaminophen 1,000 mg 01/12/22 08:00 01/12/22 13:01 Acetaminophen 500 Mg Tablet PO 1,000 mg TID DEO Administration Alprazolam 0.5 mg 01/11/22 11:36 01/11/22 19:21 Alprazolam 0.5 Mg Tablet PO 0.5 mg TID PRN PRN Administration panic attack Aspirin 81 mg 01/12/22 08:00 01/12/22 07:50 Aspirin E.C. 81 Mg Tablet PO 81 mg DAILYCM DEO Administration Baclofen 5 mg 01/12/22 22:00 Baclofen 10 Mg Tablet PO TID [facility] Calcium Carbonate 500 mg 01/11/22 11:36 Calcium Carbonate 500 Mg Tablet PO Q6H PRN PRN Indigestion Cholecalciferol 125 mcg 01/12/22 06:00 01/12/22 05:13 Cholecalciferol (Vit D3) 125 Mcg Capsule (5,000 Units) PO 125 mcg DAILY [facility] Administration Clonazepam 1 mg 01/11/22 18:00 01/12/22 05:13 Clonazepam 1 Mg Tablet PO 1 mg Q12@0600,1800 [facility] Administration Clonidine HCl 0.2 mg 01/14/22 10:00 Clonidine Hcl 0.2 Mg Patch TD Q7D [facility] Clopidogrel Bisulfate 75 mg 01/12/22 06:00 01/12/22 05:13 Clopidogrel Bisulfate 75 Mg Tablet PO 75 mg DAILY [facility] Administration Escitalopram Oxalate 10 mg 01/12/22 06:00 01/12/22 05:13 Escitalopram Oxalate 10 Mg Tablet PO 10 mg DAILY [facility] Administration Gabapentin 100 mg 01/12/22 17:45 Gabapentin 100 Mg Capsule PO TIDCM [facility] Hydralazine HCl 10 mg 01/11/22 11:36 Hydralazine 10 Mg Tablet PO TID PRN PRN sys> 160 RILEY > 90 Lisinopril 5 mg 01/12/22 06:00 01/12/22 05:13 Lisinopril 5 Mg Tablet PO 5 mg DAILY [facility] Administration Magnesium Hydroxide 30 ml 01/11/22 11:36 Magnesium Hydroxide 30 Ml Udc PO .PRN X 1 PRN Constipation Methylprednisolone 16 mg 01/12/22 17:00 Methylprednisolone Dosepak 4 Mg Box PO 01/17/22 08:59 1700 [facility] Taper Oxycodone HCl 5 mg 01/12/22 07:50 01/12/22 13:00 Oxycodone 5 Mg Tablet PO 5 mg Q4H PRN PRN Administration Pain Score 4-10 Saliva Substitute 15 ml 01/12/22 13:04 Saliva Substitute 237 Ml Bottle MUCOUS MEM 5X/DAY PRN DRY MOUTH Senna/Docusate Sodium 2 tablet 01/11/22 18:00 01/12/22 05:13 Senna/Docusate Sodium 1 Tablet PO 2 tablet BID [facility] Administration Sodium Chloride 10 - 40 ml 01/11/22 11:38 0.9% Saline Lock 10 Ml Syringe IV UD PRN SALINE FLUSH Tuberculin PPD 0.1 ml 01/19/22 10:00 Tuberculin,Purif.Prot.Deriv. 50 Tu/Ml Vial ID 01/19/22 10:01 X1 ONE Problem List (Last Reviewed 01/11/22 @ 21:[address] Patrice Bass MD) Vitamin D deficiency (Acute) Hypertension (Chronic) Depression (Acute) Muscle spasm (Acute) Anxiety (Acute) Left hemiplegia (Acute) Right pontine stroke (Acute) Debility (Acute) Vital Signs Temp Pulse Resp BP Pulse Ox 97.3 F L 69 18 154/72 H 94 01/11/22 11:21 01/11/22 11:21 01/11/22 11:21 01/11/22 11:21 01/11/22 11:21 Oxygen Delivery Method Room Air Weight: 56.336 kg Body Mass Index (BMI) 22.7 Sodium 128 mmol/L (136-145) L 01/12/22 05:09 Potassium 4.6 mmol/L (3.5-5.1) 01/12/22 05:09 Chloride 96 mmol/L (98-107) L 01/12/22 05:09 Carbon Dioxide 24.0 mmol/L (21.0-32.0) 01/12/22 05:09 Anion Gap 8 (5-15) 01/12/22 05:09 BUN 31 mg/dL (7-18) H 01/12/22 05:09 Creatinine 1.14 mg/dL (0.55-1.02) H 01/12/22 05:09 Est GFR (MDRD) Af Amer 59 mL/min (>60) L 01/12/22 05:09 Est GFR (MDRD) Non-Af 49 mL/min (>60) L 01/12/22 05:09 BUN/Creatinine Ratio 27.2 RATIO (10-20) H 01/12/22 05:09 Glucose 100 mg/dL (74-106) 01/12/22 05:09 Assessment/Plan: 1. Pain: acetaminophen 1000mg PO Q6H PRN pain 1-10 and oxycodone 5mg PO Q4H PRN pain 4-10. Please continue to monitor for increased pain, PRN usage, constipation and respiratory depression. 2. Stroke: aspirin 81mg PO DAILYCM and clopidogrel 75mg PO daily. Please continue to monitor for S/S of bleeding and hemoglobin (last 12.9g/dL). 3. Hypertension: lisinopril 5mg PO daily, hydralazine 10mg PO TID PRN (systolic >160, diastolic >90) and clonidine 0.2mg/week patch once weekly. Please continue to monitor HR (last 69), BP (last 154/72), potassium (last 4.6mmol/L), cough and renal function. 4. Indigestion: calcium carbonate 500mg PO Q6H PRN indigestion. Please continue to monitor calcium (last 8.9mg/dL) and PRN usage. 5. Vitamin D deficiency: cholecalciferol 125mcg PO daily. Please continue to monitor vitamin D levels (last 01/2021). 6. Dry mouth: Biotene 15mL MM 5x/day PRN dry mouth. Please continue to monitor for dry mouth. Psychotropic Medications: 1. Anxiety: clonazepam 1mg PO Q12 and alprazolam 0.5mg PO TID PRN panic attacks. Please see physician note regarding GDR. Thanks. 2. Depression: escitalopram 10mg PO daily. Dose recently increased. GDR not appropriate. *Unnecessary Medications: Medrol dose pack, baclofen 10mg PO TID and gabapentin 100mg PO TIDCM. I did not see a documented indication for these medications, however, hip and spine x-rays ordered per nursing note. Please consider adding an indication. Thanks. Bowel Regimen: senna/docusate 2T PO BID and MOM 30MmL PO x1 constipation. Please continue to monitor for constipation. Date of Note:: 01/12/22
[2022-01-12 15:53] LABS: Urine Sodium 46 mmol/L (Not Establ.)
[2022-01-12 16:00] VITALS: BP 163/73; PULSE 73; RESP 16; TEMP 36.1; O2SAT 94
[2022-01-12 16:21] LABS: Osmolality, Urine 369 mOsm/KG
--- NOTE | 2022-01-12 16:23 | CASEMGMT ---
Social Work SW collaborating with CNO, nurse mailing manager, nursing staff, Dr. Bass on advocating for pt's overall decline. had meeting with CNO to discuss interventions and concerns further. did not present to unit to speak with SW. SW will continue to follow and assist as needed. Lead SW and ICM [employer] Station Attendant updated. Kinga Waters, PAVEL IRENEW
--- NOTE | 2022-01-12 17:09 | NURSING ---
Report called to ED, spoke with Lissa, waiting for bed to open in ED.
--- NOTE | 2022-01-12 17:22 | NURSING ---
PT DAUGHTER/POA STATED THAT SHE DID NOT AND MOTHER NOT WANT TO BE GIVEN ANY VACCINES. PT IN ALOT OF PAIN ON LEFT LOWER BACK AND LEG. THERAPY QUESTIONED IF PT HAD A PITCHED NERVE. PT ALSO COMPLAINED OF DRY MOUTH. DR RODRIGUEZ WAS MADE AWARE AND NEW ORDERS GIVEN. PT AND FAMILY INFORMED THIS NURSE THAT YEARS AGO DR. 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 SO PT STATED AND FAMILY THAT PT TAKES A SKEWER AND STICKS IT DOWN THROAT IN POCKET TO CLEAN FOOD OUT. PT IS HAVING PROBLEM WITH THAT AREA TODAY AND COMPLAINING ITS BOTHERING HER. AND RN AWARE.
[2022-01-12 18:15] LABS: Bedside Glucose 77 mg/dL (74-106)
--- NOTE | 2022-01-12 19:26 | DS.PCM_ITS ---
Providers Date of Admission: 01/11/22 Primary Care Physician: Dr. Jp Henson DO Reason For Visit: ACUTE CVA Diagnosis Discharge Diagnosis (1) Debility: Status: Acute Code(s): R53.81 - Other malaise (2) Right pontine stroke: Status: Acute Code(s): I63.50 - Cerebral infarction due to unspecified occlusion or stenosis of unspecified cerebral artery (3) Left hemiplegia: Status: Acute Code(s): G81.94 - Hemiplegia, unspecified affecting left nondominant side (4) Anxiety: Status: Acute Code(s): F41.9 - Anxiety disorder, unspecified (5) Muscle spasm: Status: Acute Code(s): M62.838 - Other muscle spasm (6) Depression: Status: Acute Code(s): F32.A - Depression, unspecified (7) Hypertension: Status: Chronic Code(s): I10 - Essential (primary) hypertension (8) Vitamin D deficiency: Status: Acute Code(s): E55.9 - Vitamin D deficiency, unspecified Medications at Discharge Home Medications aspirin 81 mg PO DAILY 09/08/19 cholecalciferol (vitamin D3) 125 mcg (5,000 unit) capsule 125 mcg PO DAILY 12/19/19 lisinopril [Zestril] 5 mg PO DAILY 12/30/21 clopidogrel 75 mg PO DAILY 12/31/21 B complex with C 20-folic acid [Virt-Caps] 1 cap PO BREAKFAST 01/11/22 acetaminophen [Tylenol] 650 mg PO Q4H PRN PRN #0 tab 01/11/22 alprazolam 0.5 mg PO TID PRN PRN #0 tab 01/11/22 baclofen 5 mg PO TID 01/11/22 calcium carbonate 500 mg PO Q6H PRN PRN #0 tab 01/11/22 cholestyramine (with sugar) 4 g PO BIDAC 01/11/22 clonazepam 1 mg PO Q12@0600,1800 01/11/22 clonidine 0.2 mg TRANSDERMAL Q7D 01/11/22 escitalopram oxalate 10 mg PO DAILY 01/11/22 food supplemt, lactose-reduced [Ensure Enlive] 120 ml PO 4X/DAY 01/11/22 hydralazine 10 mg PO TID PRN PRN #0 tab 01/11/22 magnesium hydroxide 30 ml PO .PRN X 1 PRN #0 ml 01/11/22 sennosides-docusate sodium [Stool Softener-Stimulant Laxat] 2 tab PO BID 01/11/22 Hospital Course Operations None Procedures None Summary of Care Provided Minutes Spent on Discharge: 35 Hospital Course: 81 year old female with below past medical history hospitalized for right pontine stroke, left hemiplegia admitted to 12/31/2021, transferred to TCU with debility, here for further rehabilitation, strengthening, prior to d ischarge home with . 01/11/2022 Resident admitted to TCU, later in evening, resident developed intractable left medial thigh pain, improved with oxycodone 5mg x 1 dose, Gabapentin 100mg x 1 dose. Resident did admit her swallowing was worse, and her left sided weakness was worse compared to when she was at . 01/12/2022 Resident condition unchanged, left thigh pain concerning for radicular pain, X-ray of LS spine showed nothing acute, X-ray left hip showed nothing acute. I became more concerned with her worsening left sided weakness, inability to do therapy, MRI brain showed Increased thickness and length of the subacute ischemic infarction in the right paracentral pontine tegmentum. It now bulges in the right lower anterior belly of the jama. I discussed findings with resident , thought she would be better served in the hospital. 01/12/2022 Discharge to [facility] Emergency Department for evaluation, possible admission for extension of right pontine stroke with worsening dense left hemiplegia. Physical Exam Const alert General Appearance: cooperative HEENT normocephalic Eyes PERRL and EOMs intact bilaterally Neck supple, no JVD and no carotid bruits Resp normal respiratory effort, normal air movement and clear to auscultation bilaterally Cardio regular rate and regular rhythm GI normal to inspection, nondistended, normoactive bowel sounds, non-tender and non-distended Extremity normal capillary refill General Extremity: Negative for edema Skin no rashes or lesions noted General Skin Exam: no breakdown Neuro Neuro Narrative: Dense flaccid left hemiplegia. Psych affect normal Appearance: appropriate Weight / BMI Weight Weight: 56.336 kg Body Mass Index (BMI) 22.7 ABG / Lab / Microbiology Data Result Diagrams: 01/12/22 05:09 01/12/22 05:09 Laboratory: Laboratory Results - last 24 hr 01/12/22 05:09: WBC 9.8, RBC 4.21, Hgb 12.9, Hct 39.3, MCV 93.3, MCH 30.6, MCHC 32.8, RDW Std Deviation 43.4, RDW Coeff of Thor 12.6, Plt Count 344, MPV 10.3, Immature Gran % (Auto) 0.600, Neut % (Auto) 55.3, Lymph % (Auto) 29.5, Stephen[place] % (Auto) 9.4, Eos % (Auto) 4.2, Baso % (Auto) 1.0, Absolute Neuts (auto) 5.4, Absolute Lymphs (auto) 2.88, Nucleated RBC % 0 01/12/22 05:09: Sodium 128 L, Potassium 4.6, Chloride 96 L, Carbon Dioxide 24.0, Anion Gap 8, BUN 31 H, Creatinine 1.14 H, Estim Creat Clear Calc 31.65, Est GFR (MDRD) Af Amer 59 L, Est GFR (MDRD) Non-Af 49 L, BUN/Creatinine Ratio 27.2 H, Glucose 100, Calcium 8.9 01/12/22 09:22: Serum Osmolality 270 L 01/12/22 15:25: Urine Osmolality 369 01/12/22 15:25: Ur Random Sodium 46 01/12/22 18:09: POC Glucose 77 Radiography Diagnostic Testing: Radiology Impression Hip X-Ray 01/12/22 14:10 IMPRESSION: 1. No acute fracture or dislocation in the pelvis and left hip. 2. Mild symmetrical degenerative narrowing the medial aspect of both hip joint spaces. 3. No interval change when compared to 12/31/2021. Electronically Signed: Avelino Quintero MD at 14:33 EDT , Lumbar Spine X-Ray 01/12/22 14:10 IMPRESSION: There are no acute findings. Degenerative findings of the hips. Electronically Signed: Brian Kuhn MD at 16:26 EDT , D/C Instructions Discharge Diet: No restrictions Discharge Activity: Return to Normal Activity Weight Bearing Status: Weight bearing as tolerated Call your doctor if you observe: Fever of 101 or Higher, Inability to urinate, Inability to have a bowel movement, Shortness of breath, Dizziness, Fainting spells, Swelling in the ankles, Chest pain and Uncontrolled pain Additional Instructions: Discharge to [facility] Emergency Department for evaluation, possible admission for extension of right pontine stroke with worsening dense left hemiplegia. Meaningful Use Info Meaningful Use Diagnoses (Choose all that apply): Ischemic CVA CVA Therapy Assessed for PT,OT and/or ST?: Yes Ischemic Stroke Antithrombotic order at d/c?: Yes Dx of Atrial fib/flutter?: No Statins at discharge?: No Reason Statin not ordered: Drug Intolerance Primary Dx Acute Ischemic CVA?: Yes IV tPA ordered during stay?: No Reason IV t-PA not ordered: Treatment not Indicated Discharge Plan Admission Admit Date/Time: 01/11/22 11:08 Primary Reason for Your Visit: Debility. Attending Provider: Patrice Bass Chi Primary Care Provider: Jp Henson Instructions Additional Instructions / Restrictions: Discharge to [facility] Emergency Department for evaluation, possible admission for extension of right pontine stroke with worsening dense left hemiplegia. Discharge Orders/Prescriptions Prescriptions: No Action cholecalciferol (vitamin D3) 125 mcg (5,000 unit) capsule 125 mcg PO DAILY RF: 0 aspirin 81 MG tablet,delayed release (DR/EC) 81 mg PO DAILY RF: 0 lisinopril [Zestril] 5 mg tablet 5 mg PO DAILY RF: 0 Hold Instructions: Resume on 01/01/22. clopidogrel 75 mg tablet 75 mg PO DAILY RF: 0 acetaminophen [Tylenol] 325 mg Tablet 650 mg PO Q4H PRN PRN (Reason: Pain 1-10 Or Fever) Qty: 0 RF: 0 alprazolam 0.5 mg Tablet 0.5 mg PO TID PRN PRN (Reason: panic attack) Qty: 0 RF: 0 calcium carbonate 200 mg calcium (500 mg) Tablet,Chewable 500 mg PO Q6H PRN PRN (Reason: Indigestion) Qty: 0 RF: 0 hydralazine 10 mg Tablet 10 mg PO TID PRN PRN (Reason: sys> 160 RILEY > 90) Qty: 0 RF: 0 magnesium hydroxide 400 mg/5 mL Suspension 30 ml PO .PRN X 1 PRN (Reason: Constipation) Qty: 0 RF: 0 clonidine 0.2 mg/24 hr patch weekly 0.2 mg transdermal Q7D RF: 0 clonazepam 0.5 mg tablet 1 mg PO Q12@0600,1800 RF: 0 sennosides-docusate sodium [Stool Softener-Stimulant Laxat] 8.6-50 mg tablet 2 tab PO BID RF: 0 baclofen 10 mg tablet 5 mg PO TID RF: 0 Virt-Caps 1 mg capsule 1 cap PO BREAKFAST RF: 0 escitalopram oxalate 10 mg tablet 10 mg PO DAILY RF: 0 cholestyramine (with sugar) 4 gram powder in packet 4 g PO BIDAC RF: 0 Ensure Enlive 0.08 gram-1.5 kcal/mL liquid 120 ml PO 4X/DAY RF: 0 Referrals / Follow Up: [facility] [Other] (f/u after d/c per usual schedule ) Jp Henson DO [Primary Care Provider] - Jorge Luis Vasquez MD [STAFF PHYSICIAN] - (after discharge from TCU) Disposition Disposition (needs filled in before D/C Order can be placed): Acute [facility] Hospital
--- NOTE | 2022-01-20 13:24 | MDS.RN ---
Information for the mds was obtained from review of the clinical record, interview of resident, staff, and direct observation of resident's care.
== END 2022-01-12 17:30 | disposition short-term general hospital (02) | DRG 57 ==
PROVIDERS: Admitting Provider Family Medicine Geriatric Medicine; PCP Family Medicine; Visit Provider Family Medicine Geriatric Medicine
DX: I69.354 Hemiplegia and hemiparesis following cerebral infarction affecting left non-dominant side (principal); E55.9 Vitamin D deficiency, unspecified; M06.9 Rheumatoid arthritis, unspecified; I10 Essential (primary) hypertension; I25.10 Atherosclerotic heart disease of native coronary artery without angina pectoris; F41.9 Anxiety disorder, unspecified; E78.5 Hyperlipidemia, unspecified; M62.838 Other muscle spasm; K21.9 Gastro-esophageal reflux disease without esophagitis; M19.90 Unspecified osteoarthritis, unspecified site; F32.A Depression, unspecified; Z79.82 Long term (current) use of aspirin; Z79.899 Other long term (current) drug therapy
CPT/HCPCS: 36415; 72110; 73502; 80048; 82962; 83930; 83935; 84300; 85025; 92507; 92523; 92610; 97110; 97162; 97166; 97530; 97535; 97802

== ENCOUNTER 2022-01-12 17:43 | Inpatient (IN) | payer MEDICARE, OTHER, SELFPAY ==
[2022-01-12 17:44] VITALS: BP 177/71; PULSE 72; RESP 16; TEMP 36.8; O2SAT 96; BMI 25.0
[2022-01-12 17:47] VITALS: BMI 25.0
--- NOTE | 2022-01-12 18:32 | EKG12_ITS ---
Test Reason : STOKE Blood Pressure : / mmHG Vent. Rate : 072 BPM Atrial Rate : 072 BPM P-R Int : 150 ms QRS Dur : 140 ms QT Int : 446 ms P-R-T Axes : 000 -63 025 degrees QTc Int : 488 ms Normal sinus rhythm Right bundle branch block Left anterior fascicular block Bifascicular block Voltage criteria for left ventricular hypertrophy Abnormal ECG Confirmed by JANINA LIRIANO, VICENTE ([id number]), design editor ALLISON MAURICE ([id number]) on 01/14/2022 10:58:12 A M Referred By: DR HERNADEZ Confirmed By:KETTY ROA MD
--- NOTE | 2022-01-12 18:35 | EX.ED.DYSGE1 ---
HPI History of Present Illness Chief Complaint: Neuro S/Sx Informant: patient, family and other Narrative Narrative: I talked to the patient, her , and her our charge nurse who had talked to TCU staff who sent the patient down. TCU was concerned that this patient has developed more weakness on her left side and possibly even some dysarthria over the last day or 2. They did an MRI today that showed worsening of her recent stroke. It is difficult to get these details from the patient and her . They are most concerned about pain in her left leg. They state this pain has increased and this pain started when she had her stroke at the beginning of this month so this may be worsening. She does have some swallowing difficulties but its sounding from them like this might not be acute but I cannot get that for sure. Patient is noted to already be on dual antiplatelet therapy. She was recently admitted for stroke. 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 Atherosclerotic heart disease of [place] coronary artery without angina pectoris Breast lump Chest pain Chronic headache Chronic prescription benzodiazepine use CVA (cerebral vascular accident) Essential (primary) hypertension Fecal impaction GERD (gastroesophageal reflux disease) H/O transfusion of whole blood History of colon polyps Hyperlipidemia Intractable constipation Osteoarthritis Rheumatoid arthritis Right bundle branch block (RBBB) Vitamin deficiency Home Medications aspirin 81 mg PO DAILY 09/08/19 [History Last Taken 12/31/21] cholecalciferol (vitamin D3) 125 mcg (5,000 unit) capsule 125 mcg PO DAILY 12/19/19 [History Last Taken Unknown] lisinopril [Zestril] 5 mg PO DAILY 12/30/21 [History Last Taken Unknown] clopidogrel 75 mg PO DAILY 12/31/21 [History Last Taken 12/31/21] B complex with C 20-folic acid [Virt-Caps] 1 cap PO BREAKFAST 01/11/22 [History Last Taken Unknown] acetaminophen [Tylenol] 650 mg PO Q4H PRN PRN #0 tab 01/11/22 [Rx Last Taken Unknown] alprazolam 0.5 mg PO TID PRN PRN #0 tab 01/11/22 [Rx Last Taken Unknown] baclofen 5 mg PO TID 01/11/22 [History Last Taken Unknown] calcium carbonate 500 mg PO Q6H PRN PRN #0 tab 01/11/22 [Rx Last Taken Unknown] cholestyramine (with sugar) 4 g PO BIDAC 01/11/22 [History Last Taken Unknown] clonazepam 1 mg PO Q12@0600,1800 01/11/22 [History Last Taken Unknown] clonidine 0.2 mg TRANSDERMAL Q7D 01/11/22 [History Last Taken Unknown] escitalopram oxalate 10 mg PO DAILY 01/11/22 [History Last Taken Unknown] food supplemt, lactose-reduced [Ensure Enlive] 120 ml PO 4X/DAY 01/11/22 [History Last Taken Unknown] hydralazine 10 mg PO TID PRN PRN #0 tab 01/11/22 [Rx Last Taken Unknown] magnesium hydroxide 30 ml PO .PRN X 1 PRN #0 ml 01/11/22 [Rx Last Taken Unknown] sennosides-docusate sodium [Stool Softener-Stimulant Laxat] 2 tab PO BID 01/11/22 [History Last Taken Unknown] Allergy/AdvReac Type Severity Reaction Status Date / Time amlodipine besylate Allergy Other Verified 03/10/21 12:55 [From Norvasc] atenolol Allergy Other Verified 03/10/21 12:55 atorvastatin Allergy PT UNSURE Verified 01/11/22 09:05 OF REACTION buspirone HCl [From BuSpar] Allergy Other Verified 03/10/21 12:55 citalopram hydrobromide Allergy Other Verified 03/10/21 12:55 [From Celexa] diazepam [From Valium] Allergy Other Verified 03/10/21 12:55 hydrochlorothiazide Allergy Other Verified 01/06/22 23:59 [From Zestoretic] metoprolol succinate Allergy Other Verified 03/10/21 12:55 [From Toprol XL] mirtazapine [From Remeron] Allergy Other Verified 03/10/21 12:55 paroxetine HCl [From Paxil] Allergy Other Verified 03/10/21 12:55 procaine HCl [From Novocain] Allergy Other Verified 03/10/21 12:55 Sulfa (Sulfonamide Allergy Other Verified 03/10/21 12:55 Antibiotics) valsartan [From Diovan] Allergy Other Verified 03/10/21 12:55 Penicillins AdvReac Unknown Other Verified 03/10/21 12:55 Family History Other Adopted Surgical History History of appendectomy History of cataract surgery History of cholecystectomy History of coronary artery bypass graft x 3 (~09/01/19) History of coronary artery stent placement (08/30/19) History of herniorrhaphy Social History household members: spouse Smoking Status: Never smoker alcohol intake: never substance use type: does not use caffeine: No ROS ROS ED Constitutional Constitutional ED: Denies fever(s) Eyes Eyes: Denies change in vision ENT ENT ED: Reports sore throat and other Details: She states she has some soreness on the right side of her throat and mouth that has really been there ever since she had heart surgery about 2 years ago. I noticed a little weakness on the left side of her lower face. Her thinks this is new over the last few days. ; Denies rhinorrhea Cardiovascular Cardiovascular: Denies chest pain Respiratory/Chest Respiratory/Chest: Denies cough or dyspnea Gastrointestinal Gastrointestinal: Denies diarrhea, nausea or vomiting Genitourinary Genitourinary ED: Denies dysuria Musculoskeletal Musculoskeletal: Reports other Details: Patient's been having pain on most of her left leg. This is occurred ever since her stroke started. Integumentary Denies rash Neurologic Neurologic: Reports paresthesias and weakness; Denies headache(s) Psychiatric Psychiatric: Reports anxiety Endocrine Endocrinology: Denies polyuria Allergic/Immunologic Allergic/Immunologic ED: Denies urticaria EXAM Physical Exam Const Vital Signs: 01/12/22 17:44 01/12/22 18:50 01/12/22 21:59 Temperature 98.3 F Temperature Source Oral Pulse Rate 72 70 75 Respiratory Rate 16 25 H 20 H Blood Pressure 177/71 H 168/93 H 115/50 L Blood Pressure Mean 106 118 71 Pulse Ox 96 97 95 Oxygen Delivery Method Room Air Room Air Room Air Patient is crying. She states this is from pain in her leg. Positive well nourished HEENT HEENT Narrative: She does have a little weakness at the left lower face. Negative for trauma Eyes PERRL Neck supple Chest Wall inspection of chest normal Resp normal respiratory effort and clear to auscultation bilaterally Cardio regular rate and regular rhythm Back/Spine no CVA tenderness Extremity normal to inspection Extremity Narrative: Extremity does not look different on the left lower leg. Its not tender. It is just hurting. I am wondering if this is neuropathic pain. Yet she denies pain in her back. It all starts at the groin and moves down. General Extremety ED: Negative for edema or tenderness General Extremity: Negative for edema Neuro oriented x3 Neuro Narrative: Patient awake and oriented. She does have weakness of left arm and left leg. See NIH. NIH stroke scale is total of 7. 2 for left lower facial weakness, 2 for left arm, 2 for left leg, 1 for very mild dysarthria. Sensorium / Orientation: alert Psych mental status grossly normal Skin no rashes or lesions noted MDM MDM MDM Narrative Medical decision making narrative: Patient's blood work does not show any marked abnormalities. Her sodium is a bit low but I do not think this is contributing or causing all of her symptoms. Certainly this will need to be improved. But her MRI done earlier today shows worsening in her area of prior stroke. I did have SOC evaluate her. They agree that this is worsening and is likely the cause of her dysphagia and worsening symptoms. They recommend readmission and I talked to hospitalist. Lab Data Attestation: I reviewed the patient's lab results. Labs: Laboratory Results - last 24 hr 01/12/22 01/12/22 01/12/22 18:50 18:50 19:15 WBC 11.3 H RBC 4.69 Hgb 14.4 Hct 42.5 MCV 90.6 MCH 30.7 MCHC 33.9 RDW Std Deviation 40.6 RDW Coeff of Thor 12.3 Plt Count 357 MPV 9.8 Immature Gran % (Auto) 0.400 Neut % (Auto) 62.2 Lymph % (Auto) 26.9 [place] % (Auto) 6.9 Eos % (Auto) 2.7 Baso % (Auto) 0.9 Absolute Neuts (auto) 7.0 Absolute Lymphs (auto) 3.04 Nucleated RBC % 0 Sodium 126 L Potassium 4.4 Chloride 96 L Carbon Dioxide 23.0 Anion Gap 7 BUN 25 H Creatinine 0.79 Estim Creat Clear Calc 36.08 Est GFR (MDRD) Af Amer 90 Est GFR (MDRD) Non-Af 74 BUN/Creatinine Ratio 31.6 H Glucose 89 Calcium 9.3 Troponin I High Sens 9 Urine Color Yellow Urine Clarity Clear Urine pH 6.0 Ur Specific [place] 1.015 Urine Protein Negative Urine Glucose (UA) Normal Urine Ketones Negative Urine Occult Blood Negative Urine Nitrite Negative Urine Bilirubin Negative Urine Urobilinogen Normal Ur Leukocyte Esterase 100 H Urine RBC 0 SEEN Urine WBC 0-5 SEEN Ur Squamous Epith Cells 0-5 SEEN Urine Bacteria RARE Urine Mucus 0 SEEN Discharge Plan Dx/Rx/DC Orders Clinical Impression: Extension of stroke Disposition Disposition: Acute Care Hospital [facility]
[2022-01-12 18:50] VITALS: BP 168/93; PULSE 70; RESP 25; O2SAT 97
[2022-01-12] MEDS: Morphine 2 MG/ML Syringe IV (18:53)
[2022-01-12 18:56] LABS: Absolute Lymphocyte Count 3.04 X10^3/uL (0.83-4.51); Basophil% 0.9 % (0-1); Eosinophil# 0.31 X10^3/uL; Eosinophils% 2.7 % (0-5); Hematocrit 42.5 % (37-47); Hemoglobin 14.4 g/dL (12.0-15.0); Lymphocyte # 3.04 X10^3/ul (0.83-4.51); Lymphocyte % 26.9 % (19-41); Mean Corp Hgb Conc 33.9 g/dL (32-36); Mean Corpuscular Hgb 30.7 pg (27.0-32.0); Mean Corpuscular Volume 90.6 fL (81-99); Mean Platelet Vol. 9.8 fl (6.2-12.0); Monocyte# 0.78 X10^3/uL; Monocyte% 6.9 % (0-10); NRBC Flagged by Analyzer 0 % (0-5); Neutrophil # 7.03 X10^3/uL (2.7-7.7); Neutrophil % 62.2 % (47-70); Platelet Count 357 K/mm3 (150-450); RBC Distribution Width CV 12.3 % (11.6-14.6); RBC Distribution Width SD 40.6 fl (35.1-43.9); Red Blood Count 4.69 M/mm3 (4.2-5.4); White Blood Count 11.3 K/mm3 (4.4-11.0)
[2022-01-12 19:23] LABS: Mucous, Urine 0 SEEN /hpf (<or=2+); Red Blood Cells-Urine 0 SEEN /hpf (0-5)
[2022-01-12 19:30] LABS: Anion Gap 7 (5-15); BUN 25 mg/dL (7-18); BUN/Creat Ratio 31.6 RATIO (10-20); Calcium,Total 9.3 mg/dL (8.5-10.1); Chloride 96 mmol/L (98-107); Creatinine, Serum 0.79 mg/dL (0.55-1.02); EST Glomerular Filtration Rate 74 mL/min (>60); Est Glom Filt Rate - Afr Amer 90 mL/min (>60); Estimated Creatinine Clearance 36.08 ml/min; Glucose 89 mg/dL (74-106); Potassium 4.4 mmol/L (3.5-5.1); Sodium Level 126 mmol/L (136-145); Troponin-I HS 9 pg/mL (3.0-54.0)
[2022-01-12 20:11] LABS: Color, Urine Yellow (Yellow); Glucose, Dipstick Normal (Normal); Ketone-Dipstick Negative (Negative); Leukocyte Esterase-Dipstick 100 /ul (Negative); Nitrite-Dipstick Negative (Negative); Occult Blood-Urine Negative /ul (Negative); Protein-Dipstick Negative (Negative); Specific Gravity, Urine 1.015 (1.002-1.030); Urine Bilirubin Dipstick Negative (Negative); Urine Clarity Clear (Clear); Urine Urobilinogen Normal (Normal)
[2022-01-12 20:34] LABS: Bacteria RARE /hpf (None Seen); Squamous Epithelial Cells - UA 0-5 SEEN /hpf (5-10); White Blood Cells 0-5 SEEN /hpf (0-5)
[2022-01-12 21:59] VITALS: BP 115/50; PULSE 75; RESP 20; O2SAT 95
--- NOTE | 2022-01-12 22:46 | HP.PCM.HOS_ITS ---
HPI - General General Date of Admission: 01/12/22 Date of Service: 01/12/22 Chief Complaint: Worsening left-sided weakness and stroke symptoms HPI Narrative SHERYL GHOSH, is a 81 F who presents to the emergency room at [facility] after being sent from TCU for evaluation of worsening stroke symptoms with worsening left-sided weakness. Patient underwent an MRI today which showed increased thickness and length of the subacute ischemic infarction in the right paracentral pontine tegmentum. Patient was first admitted to the hospital here at [facility] early in December of this year with an acute stroke she then was transferred to the rehab unit for rehab services, she stayed in the rehab unit until yesterday, according to nursing in the rehab unit, it was felt that the patient was stable for discharge but the patient's did not feel that she was ready to be discharged home and requested further rehab services-she was then transferred to TCU yesterday, today there was noted to be worsening left-sided weakness and concern for worsening stroke symptoms. Labs obtained in the emergency room showed an increased white blood cell count on the CBC, chemistry profile was abnormal for sodium of 126, chloride of 96, BUN of 25, and her urinalysis was unremarkable. Teleneurology was consulted, the neurologist felt that the patient had an extension of her previous stroke, he did not recommend changing any medications on the patient however. Patient's did not want the patient to go back to TCU for rehab services, patient will be admitted to PCU for extension of previous right paracentral pontine stroke. In addition, patient underwent x-rays in TCU today for complaints of left hip a nd left leg pain, x-rays of the hip showed degenerative changes only,, patient's lumbar spine x-ray showed no acute findings. According to patient's who was in the room at the time of my examination, patient has had chronic left upper leg pain since she underwent coronary artery bypass grafting. The etiology of this leg pain is unknown. Patient's further states that the patient does have a chronic anxiety problem. 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 Atherosclerotic heart disease of [place] coronary artery without angina pectoris Breast lump Chest pain Chronic headache Chronic prescription benzodiazepine use CVA (cerebral vascular accident) Essential (primary) hypertension Fecal impaction GERD (gastroesophageal reflux disease) H/O transfusion of whole blood History of colon polyps Hyperlipidemia Intractable constipation Osteoarthritis Rheumatoid arthritis Right bundle branch block (RBBB) Vitamin deficiency Home Medications aspirin 81 mg PO DAILY 09/08/19 [History Last Taken 12/31/21] cholecalciferol (vitamin D3) 125 mcg (5,000 unit) capsule 125 mcg PO DAILY 12/19/19 [History Last Taken Unknown] lisinopril [Zestril] 5 mg PO DAILY 12/30/21 [History Last Taken Unknown] clopidogrel 75 mg PO DAILY 12/31/21 [History Last Taken 12/31/21] B complex with C 20-folic acid [Virt-Caps] 1 cap PO BREAKFAST 01/11/22 [History Last Taken Unknown] acetaminophen [Tylenol] 650 mg PO Q4H PRN PRN #0 tab 01/11/22 [Rx Last Taken Unknown] alprazolam 0.5 mg PO TID PRN PRN #0 tab 01/11/22 [Rx Last Taken Unknown] baclofen 5 mg PO TID 01/11/22 [History Last Taken Unknown] calcium carbonate 500 mg PO Q6H PRN PRN #0 tab 01/11/22 [Rx Last Taken Unknown] cholestyramine (with sugar) 4 g PO BIDAC 01/11/22 [History Last Taken Unknown] clonazepam 1 mg PO Q12@0600,1800 01/11/22 [History Last Taken Unknown] clonidine 0.2 mg TRANSDERMAL Q7D 01/11/22 [History Last Taken Unknown] escitalopram oxalate 10 mg PO DAILY 01/11/22 [History Last Taken Unknown] food supplemt, lactose-reduced [Ensure Enlive] 120 ml PO 4X/DAY 01/11/22 [History Last Taken Unknown] hydralazine 10 mg PO TID PRN PRN #0 tab 01/11/22 [Rx Last Taken Unknown] magnesium hydroxide 30 ml PO .PRN X 1 PRN #0 ml 01/11/22 [Rx Last Taken Unknown] sennosides-docusate sodium [Stool Softener-Stimulant Laxat] 2 tab PO BID 01/11/22 [History Last Taken Unknown] Allergy/AdvReac Type Severity Reaction Status Date / Time amlodipine besylate Allergy Other Verified 03/10/21 12:55 [From Norvasc] atenolol Allergy Other Verified 03/10/21 12:55 atorvastatin Allergy PT UNSURE Verified 01/11/22 09:05 OF REACTION buspirone HCl [From BuSpar] Allergy Other Verified 03/10/21 12:55 citalopram hydrobromide Allergy Other Verified 03/10/21 12:55 [From Celexa] diazepam [From Valium] Allergy Other Verified 03/10/21 12:55 hydrochlorothiazide Allergy Other Verified 01/06/22 23:59 [From Zestoretic] metoprolol succinate Allergy Other Verified 03/10/21 12:55 [From Toprol XL] mirtazapine [From Remeron] Allergy Other Verified 03/10/21 12:55 paroxetine HCl [From Paxil] Allergy Other Verified 03/10/21 12:55 procaine HCl [From Novocain] Allergy Other Verified 03/10/21 12:55 Sulfa (Sulfonamide Allergy Other Verified 03/10/21 12:55 Antibiotics) valsartan [From Diovan] Allergy Other Verified 03/10/21 12:55 Penicillins AdvReac Unknown Other Verified 03/10/21 12:55 Family History Other Adopted Surgical History History of appendectomy History of cataract surgery History of cholecystectomy History of coronary artery bypass graft x 3 (~09/01/19) History of coronary artery stent placement (08/30/19) History of herniorrhaphy Social History household members: spouse Smoking Status: Never smoker alcohol intake: never substance use type: does not use caffeine: No ROS Constitutional Constitutional: Reports weakness; Denies anorexia, change in weight, chills, fever(s) or night sweats Eyes Eyes: Denies blurry vision, change in vision, discharge from eye(s) or eye pain Cardiovascular Cardiovascular: Denies chest pain, claudication, edema or palpitations Respiratory/Chest Respiratory/Chest: Denies cough, hemoptysis, shortness of breath at rest or shortness of breath with exertion Gastrointestinal Gastrointestinal: Denies abdominal pain, constipation, diarrhea, hematemesis, hematochezia, melena, nausea or vomiting Genitourinary Genitourinary: Denies dysuria, hematuria, urinary frequency, urinary hesitancy, urinary incontinence or urinary urgency Musculoskeletal Musculoskeletal: Reports myalgias and other Details: Patient complains of chronic left upper leg pain along with chronic left hip pain ; Denies back pain, joint pain, joint stiffness, joint swelling or neck pain Neurologic Neurologic: Reports focal weakness and other Details: Patient complains of increased weakness in her left arm and left leg ; Denies abnormal gait, abnormal speech, dizziness, headache(s), loss of vision, numbness, other visual disturbances, paresthesias, syncope or tingling Psychiatric Psychiatric: Reports anxiety; Denies cognitive impairment, depression, irritability, mood swings or suicidal ideation Endocrine Endocrinology: Denies change in body appearance, cold intolerance, excessive sweating, heat intolerance, polydipsia or polyuria Hematologic/Lymphatic Hematologic/Lymphatic: Denies none, anemia, easy bleeding, easy bruising or lymphadenopathy Allergic/Immunologic Allergic/Immunologic: Denies rhinitis, urticaria, eczemia or asthma Vital Signs Vital Signs Vital Signs: 01/12/22 17:44 01/12/22 18:50 01/12/22 21:59 Temperature 98.3 F Temperature Source Oral Pulse Rate 72 70 75 Respiratory Rate 16 25 H 20 H Blood Pressure 177/71 H 168/93 H 115/50 L Blood Pressure Mean 106 118 71 Pulse Ox 96 97 95 Oxygen Delivery Method Room Air Room Air Room Air Weight Weight: 61.9 kg Body Mass Index (BMI) 25.0 Physical Exam Const alert, oriented x3 and no apparent distress Constitutional Narrative: Patient is older than her stated age, she appears tearful and anxious General Appearance: cooperative, well kempt and well developed Orientation / Consciousness: awake, oriented to person, oriented to place and oriented to time HEENT normocephalic, head/scalp atraumatic, hearing grossly normal bilaterally and moist oral mucous membranes Eyes PERRL, EOMs intact bilaterally and conjunctivae normal Neck nuchal rigidity, supple, no JVD, thyroid normal and no carotid bruits General: trachea midline Resp normal respiratory effort and clear to auscultation bilaterally Auscultation: Negative for rales, rhonchi or wheezes Cardio regular rate, regular rhythm, S1 normal heart sound, S2 normal heart sound, no murmurs, no rub and no gallops GI normal to inspection, nondistended, normoactive bowel sounds, soft to palpation, non-tender and non-distended Extremity normal to inspection and no clubbing, cyanosis or edema Skin no rashes or lesions noted General Skin Exam: no breakdown Neuro oriented x3, CN's II-XII intact bilaterally and no sensory deficits noted Neuro Narrative: Patient has decreased strength in her left arm and hand, patient also has decreased strength in the left leg to flexion at the knee Sensorium / Orientation: awake and alert Speech: speech normal Psych affect normal Results Lab / Micro Data Result Diagrams: 01/12/22 18:50 01/12/22 18:50 Labs: Laboratory Results - last 24 hr 01/12/22 18:50: WBC 11.3 H, RBC 4.69, Hgb 14.4, Hct 42.5, MCV 90.6, MCH 30.7, MCHC 33.9, RDW Std Deviation 40.6, RDW Coeff of Thor 12.3, Plt Count 357, MPV 9 .8, Immature Gran % (Auto) 0.400, Neut % (Auto) 62.2, Lymph % (Auto) 26.9, [place] % (Auto) 6.9, Eos % (Auto) 2.7, Baso % (Auto) 0.9, Absolute Neuts (auto) 7.0, Absolute Lymphs (auto) 3.04, Nucleated RBC % 0 01/12/22 18:50: Sodium 126 L, Potassium 4.4, Chloride 96 L, Carbon Dioxide 23.0, Anion Gap 7, BUN 25 H, Creatinine 0.79, Estim Creat Clear Calc 36.08, Est GFR (MDRD) Af Amer 90, Est GFR (MDRD) Non-Af 74, BUN/Creatinine Ratio 31.6 H, Glucose 89, Calcium 9.3, Troponin I High Sens 9 01/12/22 19:15: Urine Color Yellow, Urine Clarity Clear, Urine pH 6.0, Ur Sp ecific [place] 1.015, Urine Protein Negative, Urine Glucose (UA) Normal, Urine Ketones Negative, Urine Occult Blood Negative, Urine Nitrite Negative, Urine Bilirubin Negative, Urine Urobilinogen Normal, Ur Leukocyte Esterase 100 H, Urine RBC 0 SEEN, Urine WBC 0-5 SEEN, Ur Squamous Epith Cells 0-5 SEEN, Urine Bacteria RARE, Urine Mucus 0 SEEN Assessment & Plan Assessment/Plan (1) Extension of stroke: PLAN: 1. Extension of previous right-sided ischemic stroke-patient will be admitted to PCU, she will be seen by PT and OT, she will remain on her present medications, she will certainly need placement in a assisted facility for rehab services. #2 essential hypertension-patient will remain on her present medications #3 chronic anxiety disorder-patient will remain on her present medication #4 chronic left leg pain-etiology unclear, patient will be treated symptomat ically with narcotics, no further work-up appears to be needed #5 hyperlipidemia-patient is to remain on her statin #6 acute debility-again patient will need placement in a assisted facility #7 atherosclerotic heart disease-stable at this time Charges/Coding Visit Charges Inpatient E&M: 92017 Init Hosp L3
[2022-01-12] MEDS: oxyCODONE 5 MG Tablet PO (22:57)
[2022-01-12] MEDS: ALPRAZolam 0.5 MG Tablet PO (23:17)
[2022-01-12 23:26] VITALS: BP 156/64; PULSE 70; RESP 18; TEMP 36.5; O2SAT 97
[2022-01-12 23:34] VITALS: BMI 22.9
[2022-01-12 23:40] VITALS: BP 115/53; PULSE 63; RESP 18; TEMP 36.7
[2022-01-13] VITALS (16 sets, daily range): BP systolic 65–148; BP diastolic 35–70; PULSE 56–81; RESP 16–18; TEMP 36.3–36.9; O2SAT 92–99; BMI 22.9
[2022-01-13] MEDS: Baclofen 10 MG Tablet 5 MG PO (05:17)
[2022-01-13] MEDS: clonazePAM 1 MG Tablet PO ×2 (05:17→17:00)
[2022-01-13 06:04] LABS: Anion Gap 7 (5-15); BUN 26 mg/dL (7-18); BUN/Creat Ratio 27.4 RATIO (10-20); Calcium,Total 8.8 mg/dL (8.5-10.1); Chloride 94 mmol/L (98-107); Creatinine, Serum 0.95 mg/dL (0.55-1.02); EST Glomerular Filtration Rate 60 mL/min (>60); Est Glom Filt Rate - Afr Amer 73 mL/min (>60); Estimated Creatinine Clearance 37.98 ml/min; Glucose 99 mg/dL (74-106); Potassium 4.6 mmol/L (3.5-5.1); Sodium Level 127 mmol/L (136-145)
[2022-01-13] MEDS: Lisinopril 5 MG Tablet PO (09:06)
[2022-01-13] MEDS: Aspirin E.C. 81 MG Tablet PO (09:06)
[2022-01-13] MEDS: Escitalopram Oxalate 10 MG Tablet PO (09:06)
--- NOTE | 2022-01-13 09:54 | CASEMGMT ---
GURINDER spoke with patient's , Kendall. Introduced self and role at [facility]. SW asked patient's about going back to TCU vs new SNF. Kendall would like patient to go somewhere else. SW provided him with a list of SNF providers including quality and resource use data and consistent with the patient?s preferred geographic region, medical needs, and insurance network. GURINDER wrote SW's name and number on the list. GURINDER told Kendall he can always ask for SW or call if needed, but SW will check back. Susana Taylor CERTIFIED [employer]
--- NOTE | 2022-01-13 10:37 | PN.HOSP_ITS ---
Documented by User: Chiquis Molina NP-C 01/13/22 10:49 Subjective Subjective Patient seen and examined. Patient lying in bed no distress noted. Nurse at bedside. Patient reports that she is having a lot of anxiety which is normal for patient. Patient states that she is having 9 left leg pain and left leg tingling. Objective Data Objective Data Vital Signs: Vital Signs Temp Pulse Resp BP Pulse Ox 97.7 F L 74 16 135/60 H 96 01/13/22 08:58 01/13/22 08:58 01/13/22 08:58 01/13/22 08:58 01/13/22 08:58 Oxygen Delivery Method Room Air Weight: 125 lb 10.616 oz Body Mass Index (BMI) 22.9 Intake & Output: Intake and Output for Last 24 Hours 01/11/22 01/12/22 01/13/22 23:59 23:59 23:59 Intake Total 600 / 600 Balance 600 / 600 Lab / Micro Data Result Diagrams: 01/12/22 18:50 01/13/22 04:33 Labs: Laboratory Results - last 24 hr 01/12/22 18:50: WBC 11.3 H, RBC 4.69, Hgb 14.4, Hct 42.5, MCV 90.6, MCH 30.7, MCHC 33.9, RDW Std Deviation 40.6, RDW Coeff of Thor 12.3, Plt Count 357, MPV 9.8, Immature Gran % (Auto) 0.400, Neut % (Auto) 62.2, Lymph % (Auto) 26.9, [place] % (Auto) 6.9, Eos % (Auto) 2.7, Baso % (Auto) 0.9, Absolute Neuts (auto) 7.0, Absolute Lymphs (auto) 3.04, Nucleated RBC % 0 01/12/22 18:50: Sodium 126 L, Potassium 4.4, Chloride 96 L, Carbon Dioxide 23.0, Anion Gap 7, BUN 25 H, Creatinine 0.79, Estim Creat Clear Calc 36.08, Est GFR (MDRD) Af Amer 90, Est GFR (MDRD) Non-Af 74, BUN/Creatinine Ratio 31.6 H, Glucose 89, Calcium 9.3, Troponin I High Sens 9 01/12/22 19:15: Urine Color Yellow, Urine Clarity Clear, Urine pH 6.0, Ur Specific [place] 1.015, Urine Protein Negative, Urine Glucose (UA) Normal, Urine Ketones Negative, Urine Occult Blood Negative, Urine Nitrite Negative, Urine Bilirubin Negative, Urine Urobilinogen Normal, Ur Leukocyte Esterase 100 H, Urine RBC 0 SEEN, Urine WBC 0-5 SEEN, Ur Squamous Epith Cells 0-5 SEEN, Urine Bacteria RARE, Urine Mucus 0 SEEN 01/13/22 04:33: Sodium 127 L, Potassium 4.6, Chloride 94 L, Carbon Dioxide 26.0, Anion Gap 7, BUN 26 H, Creatinine 0.95, Estim Creat Clear Calc 37.98, Est GFR (MDRD) Af Amer 73, Est GFR (MDRD) Non-Af 60, BUN/Creatinine Ratio 27.4 H, Glucose 99, Calcium 8.8 Physical Exam Const alert and oriented x3 General Appearance: anxious HEENT head/scalp atraumatic and moist oral mucous membranes Head and Scalp: normocephalic Eyes conjunctivae normal and no scleral icterus Neck supple General: trachea midline Resp normal respiratory effort, normal air movement and clear to auscultation bilaterally Effort and Inspection: able to speak in complete sentences and symmetric chest movement Cardio regular rate, regular rhythm, S1 normal heart sound and S2 normal heart sound GI normal to inspection, nondistended, normoactive bowel sounds, soft to palpation and non-tender Extremity normal to inspection and no clubbing, cyanosis or edema Skin no rashes or lesions noted Neuro oriented x3 Neuro Narrative: Patient has decreased strength in her left arm as well as left leg to flexion at the knee Psych cooperative Mood & Affect: anxious Assessment & Plan Assessment/Plan (1) Extension of stroke: (2) Hypertension: QUALIFIERS: Hypertension type: primary hypertension Qualified Code(s): I10 - Essential (primary) hypertension (3) Anxiety: (4) Depression: QUALIFIERS: Depression Type: unspecified Qualified Code(s): F32.A - Depression, unspecified PLAN: 1. Extension of previous right-sided ischemic stroke with increased debility -PT, OT, ST following -Continue current medication regimen including aspirin and Plavix -Case management following for discharge planning for rehab 2. Hypertension -Continue current medication therapy including lisinopril, hydralazine, clonidine -Vital signs per protocol, currently stable 3. Chronic anxiety disorder -Continue alprazolam, clonazepam, escitalopram 4. Hyperlipidemia -continue statin therapy DC plan-awaiting family to make SNF placement decision DVT prophylaxis-subcu heparin This patient was seen by AARON Franz under the supervision of Dr. Nath 11 minutes spent in clinical coordination of patient's plan of care. Documented by User: Dr. Qasim Nath MD 01/13/22 11:47 Objective Data Lab / Micro Data Result Diagrams: 01/12/22 18:50 01/13/22 04:33 Assessment & Plan Addt'l Comments This patient was seen in conjunction with AARON Franz . I have independently interviewed and examined the patient and reviewed pertinent historical, laboratory, and other data. Please refer to AARON Franz note for details of this patient's presentation, findings, and recommendations. I have reviewed AARON Franz note and concur with documented findings. In brief, patient is a 81-year-old lady with past medical history including essential hypertension dyslipidemia coronary artery disease status post CABG with recent diagnosis of subacute lacunar ischemic infarct in the right jama significant left-sided weakness who was sent to the ED from the transitional care unit with worsening left-sided weakness. Repeat imaging studies demonstrated increased thickness and length of the subacute ischemic infarction in the right paracentral pontine tegmentum. Readmitted to a monitored bed for subsequent management ?Admitted to a monitored bed requested for PT OT as well as rn social work to a [facility] with discharge planning Physical Examination: GENERAL: cooperative HEENT: Atraumatic; EYES; Anicteric, Normal Conjunctiva NECK; supple, normal thyroid, RESPIRATORY: Diminished to auscultation CARDIOVASCULAR: Regular S1 S2, GI: soft, normoactive bowel sounds, : No Renal angle tenderness; EXTREMITIES: No edema, no clubbing, MUSCULOSKELETAL: no muscle wasting NEURO: Awake; muscle strength in left upper extremity 3/5 SKIN: No Rash PSYCH; Flat affect Assessment: 1. Acute/subacute ischemic CVA involving the right jama with significant left- sided weakness 2. Essential hypertension 3. Coronary artery disease with previous CABG and subsequent PCI 4. Essential potential 5. Dyslipidemia 6. Depression with anxiety 7. Rheumatoid arthritis 8. GERD 9. Physical debility 10. DVT prophylaxis Recommendations: 1. I have discussed the results of my overview and impressions with the patient 2. Options for management were reviewed Total additional time time spent by myself and the advanced practice practitioner evaluating patient, reviewing labs, subsequent management decis ions, discussion with patient, patient family's including going over diagnostic data and discussion with other providers 45 minutes ( 25 of which was spent by myself) Charges/Coding Visit Charges Inpatient E&M: 57494 Subs Hosp L3
[2022-01-13] MEDS: Senna/Docusate Sodium 1 Tablet 2 TABLET PO (10:58)
[2022-01-13] MEDS: Clopidogrel Bisulfate 75 MG Tablet PO (10:59)
[2022-01-13] MEDS: Cholecalciferol (Vit D3) 125 MCG CAPSULE (5,000 UNITS) PO (10:59)
[2022-01-13] MEDS: Heparin Injection (Vial) 5,000 UNIT/ML VIAL 5000 UNIT SC ×2 (10:59→22:36)
[2022-01-13] MEDS: oxyCODONE 5 MG Tablet PO (13:49)
[2022-01-13] MEDS: Gabapentin 100 MG Capsule PO ×2 (13:50→17:00)
--- NOTE | 2022-01-13 14:05 | CHAPLAIN ---
Type of Pastoral Visit ___ Initial Visit _x__ Follow-up Visit ___ On-call Visit ___ General Patient Visit ___ Spiritual Assessment ___ Family Conference ___ Bereavement ___ Rapid Response ___ Code Blue ___ Other (describe below) Pastoral Care Referral From _x__ Patient ___ Family ___ Nurse ___ Physician ___ Preparing Box Tender ___ Emergency Medicine Physician ___ Other (describe below) Sacrament/Intervention _x__ Active listening ___ Anointing ___ Restoration ___ Bereavement ___ Communion ___ Elaina exploration ___ ___ Life review _x__ Prayer ___ Reconciliation ___ Sacrament of Sick _x__ Supportive presence ___ Wedding ___ Other (describe below) Pastoral Comments patient is being helped to eat by her ; pt states that she is worried and disappointed in her decline since coming to the hospital; pt feels like meds are too much and they are being evaluated; pt says she is declining and not improving; patient asks for prayer for healing and sikh
[2022-01-13 18:10] LABS: Bedside Glucose 115 mg/dL (74-106)
--- NOTE | 2022-01-13 18:14 | CT_ITS ---
STUDY: CT BRAIN WITHOUT CONTRAST REASON FOR EXAM: Female, 81 years old. Stroke RADIATION DOSAGE (If Supplied By Facility): TECHNIQUE: Transaxial CT imaging of the brain was performed without administration of intravenous contrast material. Individualized dose optimization techniques were used for this CT. COMPARISON: CT head 01/12/2022 FINDINGS: There is no acute bleed or infarct. Moderate chronic microvascular ischemic and atrophic changes are present. Sequelae of right pontine infarct present. Chronic right frontal arachnoid cyst is present. The ventricles are normal in configuration. There is no hydrocephalus. The visualized paranasal sinuses are clear. The mastoid air cells are well aerated. There is no skull fracture. CT/STROKE Brain/Head without Cont IMPRESSION: No evidence of acute intracranial bleed. Chronic microvascular ischemic and atrophic changes. Sequelae of right pontine infarct, described on comparison MRI brain. N.B. : The above Results were Read Back by Dann Laura to Charge Nurse HORACIO You, and understanding confirmed on 01/13/2022 18:48:41 (ET). Electronically Signed: Dann Laura, at 18:49 EDT ,
--- NOTE | 2022-01-13 18:21 | PCM.HOSP.N ---
Hospitalist Note Rapid response to patient room. Less alert, less interactive. BP with SBP 60s, IVF bolus started with repeat appropriate SBP 140s. Patient with increased L sided hemiplegia and also more notable dysphagia/dysarthria. Stroke alert called and patient transitioned to the CT scanner. CT head without obvious bleed. Patient s/p < 24 hours prior CTA head and neck as well as MRI with expansion of prior CVA. Patient on low dose ACEI, asa, plavix and statin therapy. Will obtain [facility] evaluation but at this time patient would not be a candidate for TPA.
[2022-01-14] VITALS (13 sets, daily range): BP systolic 97–145; BP diastolic 46–71; PULSE 62–82; RESP 14–20; TEMP 36.6–37.1; O2SAT 90–98; BMI 22.9
--- NOTE | 2022-01-14 01:44 | NURSING ---
Pt complaining of dizziness. See vital signs.
[2022-01-14] MEDS: Ondansetron 4 MG/2 ML Vial IV (03:27)
[2022-01-14] MEDS: Senna/Docusate Sodium 1 Tablet 2 TABLET PO ×3 (03:29→21:57)
[2022-01-14] MEDS: ALPRAZolam 0.5 MG Tablet PO ×3 (03:30→21:57)
[2022-01-14] MEDS: oxyCODONE 5 MG Tablet PO ×3 (03:37→14:27)
[2022-01-14 06:21] LABS: Absolute Lymphocyte Count 2.16 X10^3/uL (0.83-4.51); Absolute Neutrophil Count 7.1 X10^3/uL (2.0-7.7); Basophil# 0.07 X10^3/uL; Basophil% 0.7 % (0-1); Eosinophil# 0.34 X10^3/uL; Eosinophils% 3.3 % (0-5); Hemoglobin 12.7 g/dL (12.0-15.0); Lymphocyte # 2.16 X10^3/ul (0.83-4.51); Lymphocyte % 20.9 % (19-41); Mean Corp Hgb Conc 32.6 g/dL (32-36); Mean Corpuscular Hgb 30.4 pg (27.0-32.0); Mean Corpuscular Volume 93.3 fL (81-99); Mean Platelet Vol. 10.1 fl (6.2-12.0); Monocyte# 0.64 X10^3/uL; Monocyte% 6.2 % (0-10); NRBC Flagged by Analyzer 0 % (0-5); Neutrophil % 68.5 % (47-70); Platelet Count 320 K/mm3 (150-450); RBC Distribution Width CV 12.5 % (11.6-14.6); RBC Distribution Width SD 43.2 fl (35.1-43.9); Red Blood Count 4.18 M/mm3 (4.2-5.4); White Blood Count 10.4 K/mm3 (4.4-11.0)
[2022-01-14] MEDS: clonazePAM 1 MG Tablet PO ×2 (06:35→17:33)
[2022-01-14 06:47] LABS: Anion Gap 7 (5-15); BUN 29 mg/dL (7-18); BUN/Creat Ratio 28.2 RATIO (10-20); Calcium,Total 8.9 mg/dL (8.5-10.1); Chloride 100 mmol/L (98-107); Creatinine, Serum 1.03 mg/dL (0.55-1.02); EST Glomerular Filtration Rate 55 mL/min (>60); Est Glom Filt Rate - Afr Amer 66 mL/min (>60); Estimated Creatinine Clearance 35.03 ml/min; Glucose 103 mg/dL (74-106); Potassium 4.4 mmol/L (3.5-5.1); Sodium Level 131 mmol/L (136-145)
[2022-01-14] MEDS: Ensure Clear 120 ML Liquid PO (08:41)
[2022-01-14] MEDS: Gabapentin 100 MG Capsule PO ×3 (08:45→17:33)
--- NOTE | 2022-01-14 10:14 | PN.HOSP_ITS ---
Documented by User: Chiquis Molina NP-C 01/14/22 10:22 Subjective Subjective Patient seen and examined. Patient states that she is feeling uncomfortable this morning and has use of opioid pain medications. MiraLAX twice daily ordered. Left-sided weakness to the upper and lower extremity continues, no ch anthony. Objective Data Objective Data Vital Signs: Vital Signs Temp Pulse Resp BP Pulse Ox 98.8 F 68 16 118/58 L 90 01/14/22 06:00 01/14/22 07:20 01/14/22 06:00 01/14/22 06:00 01/14/22 07:34 Oxygen Flow Rate (L/min) 2 Oxygen Delivery Method Room Air Weight: 125 lb 10.616 oz Body Mass Index (BMI) 22.9 Intake & Output: Intake and Output for Last 24 Hours 01/12/22 01/13/22 01/14/22 23:59 23:59 23:59 Intake Total 600 / 600 Output Total 150 / 150 Balance 600 / 600 -150 / -150 Lab / Micro Data Result Diagrams: 01/14/22 05:50 01/14/22 05:50 Labs: Laboratory Results - last 24 hr 01/13/22 18:01: POC Glucose 115 H 01/14/22 05:50: WBC 10.4, RBC 4.18 L, Hgb 12.7, Hct 39.0, MCV 93.3, MCH 30.4, MCHC 32.6, RDW Std Deviation 43.2, RDW Coeff of Thor 12.5, Plt Count 320, MPV 10.1, Immature Gran % (Auto) 0.400, Neut % (Auto) 68.5, Lymph % (Auto) 20.9, [place] % (Auto) 6.2, Eos % (Auto) 3.3, Baso % (Auto) 0.7, Absolute Neuts (auto) 7.1, Absolute Lymphs (auto) 2.16, Nucleated RBC % 0 01/14/22 05:50: Sodium 131 L, Potassium 4.4, Chloride 100, Carbon Dioxide 24.0, Anion Gap 7, BUN 29 H, Creatinine 1.03 H, Estim Creat Clear Calc 35.03, Est GFR (MDRD) Af Amer 66, Est GFR (MDRD) Non-Af 55 L, BUN/Creatinine Ratio 28.2 H, Glucose 103, Calcium 8.9 Radiography Diagnostic Testing: Radiology Impression Brain CT 01/13/22 18:14 IMPRESSION: No evidence of acute intracranial bleed. Chronic microvascular ischemic and atrophic changes. Sequelae of right pontine infarct, described on comparison MRI brain. N.B. : The above Results were Read Back by Dann Laura to Charge Nurse Avelino RN, and understanding confirmed on 01/13/2022 18:48:41 (ET). Electronically Signed: Dann Laura, at 18:49 EDT , ADDENDUM: 01/13/22 1856 IMPRESSION: No evidence of acute intracranial bleed. Chronic microvascular ischemic and atrophic changes. Sequelae of right pontine infarct, described on comparison MRI brain. N.B. : The above Results were Read Back by Dann Laura to Charge Nurse HORACIO You, and understanding confirmed on 01/13/2022 18:48:41 (ET). Electronically Signed: Dann Laura, at 18:49 EDT , Physical Exam Const alert, oriented x3 and no apparent distress Constitutional Narrative: Patient is older than her stated age, she appears tearful and anxious General Appearance: cooperative, well kempt, well developed and anxious Orientation / Consciousness: awake, oriented to person, oriented to place and oriented to time HEENT head/scalp atraumatic Head and Scalp: normocephalic Eyes conjunctivae normal and no scleral icterus Neck supple General: trachea midline Resp normal respiratory effort, normal air movement and clear to auscultation bilaterally Effort and Inspection: able to speak in complete sentences and symmetric chest movement Auscultation: Negative for rales, rhonchi or wheezes Cardio regular rate, regular rhythm, S1 normal heart sound and S2 normal heart sound GI normal to inspection, nondistended, normoactive bowel sounds, soft to palpation and non-tender Extremity normal to inspection and no clubbing, cyanosis or edema Peripheral Pulses: Yes pulses 2+ throughout Skin no rashes or lesions noted, no wounds and skin turgor normal General Skin Exam: no breakdown Neuro oriented x3 Neuro Narrative: Weakness to left upper and lower extremities, upper extremity does have some resistance against gravity Sensorium / Orientation: awake and alert Speech: speech normal Psych cooperative Mood & Affect: anxious Assessment & Plan Assessment/Plan (1) Extension of stroke: (2) Anxiety: (3) Hypertension: QUALIFIERS: Hypertension type: primary hypertension Qualified Code(s): I10 - Essential (primary) hypertension (4) Depression: QUALIFIERS: Depression Type: unspecified Qualified Code(s): F32.A - Depression, unspecified PLAN: 1. Extension of previous right-sided ischemic stroke with increased debility -PT, OT, ST following -Continue current medication regimen including aspirin and Plavix -Case management following for discharge planning for rehab -Patient had an episode on evening of 01/13/2022 where she appeared to be hypotensive as well as having decreased responsiveness. Patient was taken for repeat CT scan which was unchanged from MRI MRI on 01/12/2022. Patient's blood pressure also quickly returned to normal and patient has been normotensive since. -Patient will need ongoing rehab and a list was provided to patient's to to discuss elevated 2. Hypertension -Continue current medication therapy including lisinopril, hydralazine, clonidine -Vital signs per protocol, currently stable 3. Chronic anxiety disorder -Continue alprazolam, clonazepam, escitalopram 4. Hyperlipidemia -continue statin therapy DC plan-awaiting family to make SNF placement decision DVT prophylaxis-subcu heparin This patient was seen by Chiquis Molina NP-C under the supervision of Dr. Nath 13 minutes spent in clinical coordination of patient's plan of care. Documented by User: Dr. Qasim Nath MD 01/14/22 12:25 Objective Data Lab / Micro Data Result Diagrams: 01/14/22 05:50 01/14/22 05:50 Assessment & Plan Addt'l Comments This patient was seen in conjunction with AARON Franz . I have independently interviewed and examined the patient and reviewed pertinent historical, laboratory, and other data. Please refer to AARON Franz note for details of this patient's presentation, findings, and recommendations. I have reviewed AARON Franz note and concur with documented findings. In brief, patient is a 81-year-old lady with past medical history including essential hypertension dyslipidemia coronary artery disease status post CABG with recent diagnosis of subacute lacunar ischemic infarct in the right jama significant left-sided weakness who was sent to the ED from the transitional care unit with worsening left-sided weakness. Repeat imaging studies demonstrated increased thickness and length of the subacute ischemic infarction in the right paracentral pontine tegmentum. Readmitted to a monitored bed for subsequent management ?Admitted to a monitored bed requested for PT OT as well as social media designer to assist with discharge planning 01/14/2022; patient left sided weakness persist. Plan is for patient to be trans ferred to a senior care facility once medically stable. With patient's worsening left-sided weakness do anticipate patient staying in the hospital through the weekend Physical Examination: GENERAL: cooperative HEENT: Atraumatic; EYES; Anicteric, Normal Conjunctiva NECK; supple, normal thyroid, RESPIRATORY: Diminished to auscultation CARDIOVASCULAR: Regular S1 S2, GI: soft, normoactive bowel sounds, : No Renal angle tenderness; EXTREMITIES: No edema, no clubbing, MUSCULOSKELETAL: no muscle wasting NEURO: Awake; muscle strength in left upper extremity 3/5 SKIN: No Rash PSYCH; Flat affect Assessment: 1. Acute/subacute ischemic CVA involving the right jama with significant left- sided weakness 2. Essential hypertension 3. Coronary artery disease with previous CABG and subsequent PCI 4. Essential potential 5. Dyslipidemia 6. Depression with anxiety 7. Rheumatoid arthritis 8. GERD 9. Physical debility 10. DVT prophylaxis Recommendations: 1. I have discussed the results of my overview and impressions with the patient 2. Options for management were reviewed Total additional time time spent by myself and the advanced practice practitioner evaluating patient, reviewing labs, subsequent management decisions, discussion with patient, patient family's including going over diagnostic data and discussion with other providers 40 minutes ( 25 of which was spent by myself) Charges/Coding Visit Charges Inpatient E&M: 30084 Subs Hosp L2
--- NOTE | 2022-01-14 10:27 | CASEMGMT ---
GURINDER met with patient's Kendall. Re-introduced self and role at [facility]. GURINDER asked patient's if he decided where they would like patient to go at discharge. Kendall said he talked with Dr Rojas and she recommended a few facilities, but he has to research and go look at facilities. GURINDER asked if he plans on doing this today as GURINDER thinks physician was ready to d/c patient today. Nurys asked where they were going to send her. GURINDER told him we can't send her anywhere as we do not know where he would like her to go. Kendall asked if he could get back to . Kendall has the list and GURINDER's phone number. Susana Taylor JUDGE KIMBERLY
[2022-01-14] MEDS: Clopidogrel Bisulfate 75 MG Tablet PO (10:44)
[2022-01-14] MEDS: Cholecalciferol (Vit D3) 125 MCG CAPSULE (5,000 UNITS) PO (10:44)
[2022-01-14] MEDS: Aspirin E.C. 81 MG Tablet PO (10:44)
[2022-01-14] MEDS: Escitalopram Oxalate 10 MG Tablet PO (10:44)
[2022-01-14] MEDS: cloNIDine HCl 0.2 MG Patch TD (10:46)
[2022-01-14] MEDS: Heparin Injection (Vial) 5,000 UNIT/ML VIAL 5000 UNIT SC ×2 (10:46→21:58)
[2022-01-14] MEDS: Polyethylene Glycol 3350 17 GM PACKET PO ×2 (10:54→21:58)
--- NOTE | 2022-01-14 12:00 | CASEMGMT ---
Addendum entered by Susana Taylor 01/14/22 14:41: Patient's did ask SW to send a referral to [facility]. Susana HARRIS Original Note: GURINDER met with patient's Kendall per his request. Kendall asked if all of the facilities on the list take patient's insurance. GURINDER let Kendall know yes they all take Medicare. Kendall was waiting on a call from his insurance compliance analyst to assist. His daughter works nearby so she can come over and help with decision also. Kendall said [facility] is the nicest place on the list. GURINDER did call [facility] and made a referral as well as faxed referral. Await response. Susana HARRIS
--- NOTE | 2022-01-14 13:49 | CASEMGMT ---
GURINDER met with patient's Kendall per his request. Kendall asked if all of the facilities on the list take patient's insurance. GURINDER let Kendall know yes they all take Medicare. Kendall was waiting on a call from his national insurance officer to assist. His daughter works nearby so she can come over and help with decision also. Kendall said [facility] is the nicest place on the list. GURINDER did call [facility] and made a referral as well as faxed referral. Await response. Susana Taylor URBAN SOCIOLOGIST KIMBERLY
--- NOTE | 2022-01-14 14:19 | CASEMGMT ---
GURINDER checked in with patient's Kendall to see if he has made any further progress with choosing nursing homes. Kendall said he has not and he plans on going first thing tomorrow to look at places. Susana Taylor TRAVEL NURSE KIMBERLY
--- NOTE | 2022-01-14 15:50 | CASEMGMT ---
GURINDER received a call from Ayana at [facility] and they can accept patient over the weekend. SW notified patient and her and they were very pleased. GURINDER notified RN and secretary receptionist. Green sheet on chart. Plan: d/c to [facility] under skilled level of care. Susana Taylor INVENTORY ADMINISTRATOR KIMBERLY
--- NOTE | 2022-01-14 16:00 | PCM.TXEXTCAR ---
Diet 01/13/22 08:37 Diet: Cardiac - Heart Healthy Food consistency:: Soft & Bite Sized Liquid Consistency:: Regular/Thin Is pt able to select menu?: Yes Diet Comments: Extra sauce/gravy, Direct 1:1 Supervision Routine Orders/Code Status Enema Type: Fleetz Enema Frequency: Daily PRN Suppository Type: Dulcolax 10mg Suppository Frequency: Daily PRN Routine Lab Work: BMP (1 week) Code Status: Full Code Suggestions for Active Care Change Position every (hours): 2 Therapies Physical Therapy: Eval and Treat Occupational Therapy: Eval and Treat Speech Therapy: Eval and Treat Problem/Diagnosis (1) Extension of stroke: Status: Acute (2) Anxiety: Status: Acute (3) Hypertension: Status: Chronic (4) Depression: Status: Acute Allergies/Procedures Done in Hospital Allergies amlodipine besylate [From Norvasc] Allergy (Verified 03/10/21 12:55) Other INCREASED BLOOD PRESSURE, CAN'T STAND WITHOUT HOLDING ONTO SOMETHING atenolol Allergy (Verified 03/10/21 12:55) Other INCREASED BP AND INSTABILITY atorvastatin Allergy (Verified 01/11/22 09:05) PT UNSURE OF REACTION buspirone HCl [From BuSpar] Allergy (Verified 03/10/21 12:55) Other INCREASED ANXIETY citalopram hydrobromide [From Celexa] Allergy (Verified 03/10/21 12:55) Other INCREASED ANXIETY diazepam [From Valium] Allergy (Verified 03/10/21 12:55) Other INCREASED ANXIETY hydrochlorothiazide [From Zestoretic] Allergy (Verified 01/06/22 23:59) Other BALANCE-LIGHTHEADED metoprolol succinate [From Toprol XL] Allergy (Verified 03/10/21 12:55) Other BALANCE mirtazapine [From Remeron] Allergy (Verified 03/10/21 12:55) Other END UP IN ER FROM TOO STRONG paroxetine HCl [From Paxil] Allergy (Verified 03/10/21 12:55) Other ANXIETY procaine HCl [From Novocain] Allergy (Verified 03/10/21 12:55) Other RAPID HR Sulfa (Sulfonamide Antibiotics) Allergy (Verified 03/10/21 12:55) Other racing HR valsartan [From Diovan] Allergy (Verified 07/14/21 12:55) Other balance Penicillins Adverse Reaction (Unknown, Verified 03/10/21 12:55) Other headache, malaise Procedures: None Type of Care/Length of Stay Estimated LOS: Convalescent Care Less Than 30 days Type of Care Needed: Skilled Rehab Potential: Fair Prognosis: Fair Additional Orders/Day of Discharge Day of Discharge: 01/14/22 Dietary and Speech Recommendations Dietitian Recommendations/Changes: cardiac diet- texture/consistency per FRAME [employer]IGNER; will adjust ONS to 120ML ensure clear 4x/day Discharge Plan Admission Admit Date/Time: 01/12/22 22:58 Primary Reason for Your Visit: CVA, left sided weakness Attending Provider: Qasim Nath Primary Care Provider: Jp Henson Consulting Providers: Jp Joyner Discharge Orders/Prescriptions Prescriptions: New polyethylene glycol 3350 17 gram Powder In Packet 17 g PO DAILY Qty: 0 RF: 0 clonidine 0.2 mg/24 hr Patch Weekly 0.2 mg transdermal Q7D Qty: 0 RF: 0 sennosides-docusate sodium [Stool Softener-Stimulant Laxat] 8.6-50 mg Tablet 2 tab PO BID Qty: 0 RF: 0 clonazepam 1 mg Tablet 1 mg PO Q12@0600,1800 5 Days Qty: 10 RF: 0 clopidogrel 75 mg Tablet 75 mg PO DAILY Qty: 0 RF: 0 aspirin 81 mg Tablet,Delayed Release (Dr/Ec) 81 mg PO DAILY Qty: 0 RF: 0 alprazolam 0.5 mg Tablet 0.5 mg PO TID PRN PRN (Reason: panic attack) 5 Days Qty: 15 RF: 0 calcium carbonate 200 mg calcium (500 mg) Tablet,Chewable 500 mg PO Q6H PRN PRN (Reason: Indigestion) Qty: 0 RF: 0 lisinopril 5 mg Tablet 5 mg PO DAILY Qty: 0 RF: 0 gabapentin 100 mg Capsule 100 mg PO TIDCM 5 Days Qty: 15 RF: 0 cholecalciferol (vitamin D3) 125 mcg (5,000 unit) Capsule 125 mcg PO DAILY Qty: 0 RF: 0 oxycodone 5 mg Tablet 5 mg PO Q6H PRN PRN (Reason: Pain Score 4-10) 5 Days Qty: 20 RF: 0 escitalopram oxalate 10 mg Tablet 10 mg PO DAILY Qty: 0 RF: 0 Continued acetaminophen [Tylenol] 325 mg Tablet 650 mg PO Q4H PRN PRN (Reason: Pain 1-10 Or Fever) Qty: 0 RF: 0 Virt-Caps 1 mg capsule 1 cap PO BREAKFAST RF: 0 Ensure Enlive 0.08 gram-1.5 kcal/mL liquid 120 ml PO 4X/DAY RF: 0 Discontinued cholecalciferol (vitamin D3) 125 mcg (5,000 unit) capsule 125 mcg PO DAILY RF: 0 aspirin 81 MG tablet,delayed release (DR/EC) 81 mg PO DAILY RF: 0 clopidogrel 75 mg tablet 75 mg PO DAILY RF: 0 alprazolam 0.5 mg Tablet 0.5 mg PO TID PRN PRN (Reason: panic attack) Qty: 0 RF: 0 calcium carbonate 200 mg calcium (500 mg) Tablet,Chewable 500 mg PO Q6H PRN PRN (Reason: Indigestion) Qty: 0 RF: 0 hydralazine 10 mg Tablet 10 mg PO TID PRN PRN (Reason: sys> 160 RILEY > 90) Qty: 0 RF: 0 magnesium hydroxide 400 mg/5 mL Suspension 30 ml PO .PRN X 1 PRN (Reason: Constipation) Qty: 0 RF: 0 clonidine 0.2 mg/24 hr patch weekly 0.2 mg transdermal Q7D RF: 0 clonazepam 0.5 mg tablet 1 mg PO Q12@0600,1800 RF: 0 sennosides-docusate sodium [Stool Softener-Stimulant Laxat] 8.6-50 mg tablet 2 tab PO BID RF: 0 baclofen 10 mg tablet 5 mg PO TID RF: 0 escitalopram oxalate 10 mg tablet 10 mg PO DAILY RF: 0 cholestyramine (with sugar) 4 gram powder in packet 4 g PO BIDAC RF: 0 No Action lisinopril [Zestril] 5 mg tablet 5 mg PO DAILY RF: 0 Hold Instructions: Resume on 01/01/22. Referrals / Follow Up: Jp Henson DO [Primary Care Provider] - Disposition Disposition (needs filled in before D/C Order can be placed): [facility]
[2022-01-15] VITALS (7 sets, daily range): BP systolic 119–147; BP diastolic 57–63; PULSE 58–74; RESP 18; TEMP 36.3–37.3; O2SAT 92–98
[2022-01-15] MEDS: clonazePAM 1 MG Tablet PO (05:16)
[2022-01-15] MEDS: oxyCODONE 5 MG Tablet PO (05:20)
[2022-01-15 06:37] LABS: Absolute Lymphocyte Count 2.74 X10^3/uL (0.83-4.51); Basophil# 0.09 X10^3/uL; Basophil% 0.9 % (0-1); Eosinophil# 0.44 X10^3/uL; Eosinophils% 4.4 % (0-5); Hematocrit 40.8 % (37-47); Hemoglobin 13.1 g/dL (12.0-15.0); Lymphocyte # 2.74 X10^3/ul (0.83-4.51); Lymphocyte % 27.6 % (19-41); Mean Corp Hgb Conc 32.1 g/dL (32-36); Mean Corpuscular Hgb 30.3 pg (27.0-32.0); Mean Corpuscular Volume 94.4 fL (81-99); Monocyte# 0.69 X10^3/uL; Monocyte% 6.9 % (0-10); NRBC Flagged by Analyzer 0 % (0-5); Neutrophil # 5.95 X10^3/uL (2.7-7.7); Neutrophil % 59.9 % (47-70); Platelet Count 321 K/mm3 (150-450); RBC Distribution Width CV 12.8 % (11.6-14.6); RBC Distribution Width SD 44.4 fl (35.1-43.9); Red Blood Count 4.32 M/mm3 (4.2-5.4); White Blood Count 9.9 K/mm3 (4.4-11.0)
[2022-01-15 07:03] LABS: Anion Gap 7 (5-15); BUN 32 mg/dL (7-18); BUN/Creat Ratio 23.9 RATIO (10-20); Calcium,Total 9.3 mg/dL (8.5-10.1); Chloride 97 mmol/L (98-107); Creatinine, Serum 1.34 mg/dL (0.55-1.02); EST Glomerular Filtration Rate 41 mL/min (>60); Est Glom Filt Rate - Afr Amer 49 mL/min (>60); Estimated Creatinine Clearance 26.92 ml/min; Glucose 104 mg/dL (74-106); Potassium 4.9 mmol/L (3.5-5.1); Sodium Level 128 mmol/L (136-145)
--- NOTE | 2022-01-15 07:12 | PN.HOSP_ITS ---
Subjective Subjective Patient with no acute events overnight per self and per nursing report. Patient has had no worsening of her left-sided hemiplegia. She is up seated in the bed with one-to-one supervision for oral intake and doing significantly well feeding herself. Discussed plan of care which included continued medical therapies and transition to [facility] for ongoing physical, occupational and speech therapy. Did discuss with patient that attempt to contact her daughter and her however both went directly to [facility] and will reattempt at a later time. Patient denies fevers, chills, nausea, emesis, abdominal pain, chest pain or dyspnea. Objective Data Objective Data Vital Signs: Vital Signs Temp Pulse Resp BP Pulse Ox 98.1 F 62 18 133/63 H 98 01/15/22 05:00 01/15/22 05:00 01/15/22 05:00 01/15/22 05:00 01/15/22 05:00 Oxygen Flow Rate (L/min) 2 Oxygen Delivery Method Room Air Weight: 125 lb 10.616 oz Body Mass Index (BMI) 22.9 Intake & Output: Intake and Output for Last 24 Hours 01/13/22 01/14/22 01/15/22 23:59 23:59 23:59 Intake Total 600 / 600 1195 / 1195 Output Total 550 / 550 Balance 600 / 600 645 / 645 Lab / Micro Data Result Diagrams: 01/15/22 06:06 01/15/22 06:06 Labs: Laboratory Results - last 24 hr 01/15/22 06:06: WBC 9.9, RBC 4.32, Hgb 13.1, Hct 40.8, MCV 94.4, MCH 30.3, MCHC 32.1, RDW Std Deviation 44.4 H, RDW Coeff of Thor 12.8, Plt Count 321, MPV 10.0, Immature Gran % (Auto) 0.300, Neut % (Auto) 59.9, Lymph % (Auto) 27.6, Mitchell % (A uto) 6.9, Eos % (Auto) 4.4, Baso % (Auto) 0.9, Absolute Neuts (auto) 6.0, Absolute Lymphs (auto) 2.74, Nucleated RBC % 0 01/15/22 06:06: Sodium 128 L, Potassium 4.9, Chloride 97 L, Carbon Dioxide 24.0, Anion Gap 7, BUN 32 H, Creatinine 1.34 H, Estim Creat Clear Calc 26.92, Est GFR (MDRD) Af Amer 49 L, Est GFR (MDRD) Non-Af 41 L, BUN/Creatinine Ratio 23.9 H, Glucose 104, Calcium 9.3 Physical Exam Narrative Physical Examination: General: Awake, alert, oriented to self, place and recent events, cooperative, seated upright in the PCU bed, feeding herself with supervision, doing very well. Skin: Normal color, normal turgor, no icterus, no cyanosis except occasional staged ecchymoses likely from lab draws. HEENT: AT/NC, EOMI, PERRLA, MMM, residual facial droop and dysarthria present. Lungs: Diminished, greater bases, appropriate for no rales, ronchi or wheezing. Heart: Currently regular rate and rhythm; no gallop, rub audible. Abdomen: Soft, NTTP, ND, normal BS. Extremities: No cyanosis, clubbing, or edema. Neurological: Patient awake, alert, oriented as noted, cognitive function decreased with recent stroke however she is currently baseline intact; pupils equally reactive to light and accommodation, cranial nerves grossly normal except mild residual facial droop, stable left-sided hemiplegia. Psychiatric: Affect appears more interactive, normal, no acute evidence of depressive or anxiety feelings. Assessment & Plan Assessment/Plan (1) Extension of stroke: (2) Left hemiparesis: PLAN: The patient is a 81 y/o F w/ PMHx: Anxiety and Depression, Chronic headaches, GERD, CAD s/p CABG x 3 and PCI, HTN, HLD, Hx CVA, Rheumatoid ar thritis who presents to the [facility] ED on 01/12/22 from TCU where patient had been for ongoing PT/OT/ST secondary to recent CVA with concern for worsening L sided weakness and stroke symptoms. #1. 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 12/31/2021 carotid ultrasound with less than 50% stenosis proximal right ICA, less than 50% stenosis right external carotid artery, 50 to 69% stenosis left internal carotid artery, less than 50% stenosis left external carotid artery, patent and antegrade vertebral arteries bilaterally, slight progression of disease involving the left internal carotid artery from prior noted. 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 12/31/2021 echocardiogram with normal LV size, normal LV systolic function, EF 60%, stage I diastolic dysfunction, bubble contrast study negative for [id number] interatrial shunt. Patient did have rapid response 01/13/2022 evening secondary to transiently worsened again left-sided weakness with CT of the head with no acute changes or findings and repeat discussions with [facility] with noted transient hypotension likely the etiology as patient quickly improved following IV fluid bolus. Patient maintained on aspi rin, Plavix, unable to tolerate statin therapy unfortunately, hypertensive regimen. Speech therapy continues to evaluate the patient and patient transition to thin liquids with soft/bite-size textures with extra sauce and gravy with one-to-one supervision with continued speech therapy evaluations 5 times per week and if patient with concerns for poor diet toleration would consider future MBS study. PT and OT with recommendation for skilled placement with family preference for transition to the [facility] with bed obtained. 01/15/22 pending possible SNF transition with planned continued PT/OT/ST evaluations ongoing. #2. Left lower extremity pain, suspected nerve pain related with #1: Patient previously had been on baclofen, transition to gabapentin with some improvement, will continue low-dose pain regimen however given sedation associated will lengthen out. #3. Hypertension: Continue home regimen including clonidine patches, lisinopril, PRN hydralazine. #4. Hyperlipidemia: Patient unable to tolerate statin therapy, deferred. #5. CAD: Status post CABG x3 and PCI, continue aspirin, Plavix, lisinopril, not on beta-haseeb therapy, unable to tolerate statin therapy. #6. Anxiety and depression: We will continue patient home Xanax, Klonopin and escitalopram regimen. #7. Rheumatoid arthritis: Not on any chronic regimen, encourage continued outpatient follow-up with rheumatology as needed. #8. DVT prophylaxis: SCDs, heparin. Charges/Coding Visit Charges Inpatient E&M: 69531 Subs Hosp L2
--- NOTE | 2022-01-15 08:20 | CASEMGMT ---
Social Work Hospital Exemption form completed in the [facility] system in anticipation of pt being discharged to [facility] over the weekend. DENISE Quigley
[2022-01-15] MEDS: Clopidogrel Bisulfate 75 MG Tablet PO (08:26)
[2022-01-15] MEDS: Escitalopram Oxalate 10 MG Tablet PO (08:26)
[2022-01-15] MEDS: Polyethylene Glycol 3350 17 GM PACKET PO (08:26)
[2022-01-15] MEDS: Senna/Docusate Sodium 1 Tablet 2 TABLET PO (08:26)
[2022-01-15] MEDS: Aspirin E.C. 81 MG Tablet PO (08:26)
[2022-01-15] MEDS: Heparin Injection (Vial) 5,000 UNIT/ML VIAL 5000 UNIT SC (08:27)
[2022-01-15] MEDS: Cholecalciferol (Vit D3) 125 MCG CAPSULE (5,000 UNITS) PO (08:28)
[2022-01-15] MEDS: Lisinopril 5 MG Tablet PO (08:29)
[2022-01-15] MEDS: Gabapentin 100 MG Capsule PO ×2 (08:37→11:44)
--- NOTE | 2022-01-15 10:18 | PCM.DC.SUM ---
Providers Date of Admission: 01/12/22 Primary Care Physician: Dr. Jp Henson, Reason For Visit: ACUTE EXTENSION OF RIGHT SIDED PONTINE STROKE Diagnosis Discharge Diagnosis (1) Extension of stroke: Status: Acute Code(s): I63.9 - Cerebral infarction, unspecified (2) Left hemiparesis: Status: Acute Code(s): G81.94 - Hemiplegia, unspecified affecting left nondominant side Medications at Discharge Home Medications lisinopril [Zestril] 5 mg PO DAILY 12/30/21 Ensure Enlive 120 ml PO 4X/DAY 01/11/22 Virt-Caps 1 cap PO BREAKFAST 01/11/22 acetaminophen [Tylenol] 650 mg PO Q4H PRN PRN #0 tab 01/11/22 alprazolam 0.5 mg PO TID PRN PRN 5 Days #15 tab 01/14/22 aspirin 81 mg PO DAILY #0 tab 01/14/22 calcium carbonate 500 mg PO Q6H PRN PRN #0 tab 01/14/22 cholecalciferol (vitamin D3) 125 mcg PO DAILY #0 cap 01/14/22 clonazepam 1 mg PO Q12@0600,1800 5 Days #10 tab 01/14/22 clonidine 0.2 mg TRANSDERMAL Q7D #0 ea 01/14/22 clopidogrel 75 mg PO DAILY #0 tab 01/14/22 escitalopram oxalate 10 mg PO DAILY #0 tab 01/14/22 gabapentin 100 mg PO TIDCM 5 Days #15 cap 01/14/22 lisinopril 5 mg PO DAILY #0 tab 01/14/22 oxycodone 5 mg PO Q6H PRN PRN 5 Days #20 tab 01/14/22 polyethylene glycol 3350 17 g PO DAILY #0 ea 01/14/22 sennosides-docusate sodium [Stool Softener-Stimulant Laxat] 2 tab PO BID #0 tab 01/14/22 Hospital Course Operations None Procedures - (MRI brain.) Summary of Care Provided Minutes Spent on Discharge: 35 Hospital Course: Discharge Diagnoses: #1. Acute on chronic left-sided hemiplegia secondary to Acute/Subacute progression of right paracentral pontine CVA #2. Left lower extremity pain, suspected nerve pain related with #1 #3. Hypertension #4. Hyperlipidemia #5. CAD status post CABG x3 and PCI #6. Anxiety and depression #7. Rheumatoid arthritis #8. CODE status: Full Code. Discharge Summary: The patient is a 81 y/o F w/ PMHx: Anxiety and Depression, Chronic headaches, GERD, CAD s/p CABG x 3 and PCI, HTN, HLD, Hx CVA, Rheumatoid arthritis who presented to the [facility] ED on 01/12/22 from TCU where patient had been for ongoing PT/OT/ST secondary to recent CVA with concern for worsening L sided weakness and stroke symptoms. Patient admitted to the PCU given worsened strokelike symptoms in TCU, maintained on telemetry with additional work-up including 01/12/2022 MRI of the brain with increased thickness and length of the subacute ischemic infarction in the right paracentral pontine tegmentum now bulging to the right lower anterior belly of the jama. 12/31/2021 carotid ultrasound with less than 50% stenosis proximal right ICA, less than 50% stenosis right external carotid artery, 50 to 69% stenosis left internal carotid artery, less than 50% stenosis left external carotid artery, patent and antegrade vertebral arteries bilaterally, slight progression of disease involving the left internal carotid artery from prior noted. 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 12/31/2021 echocardiogram with normal LV size, normal LV systolic function, EF 60%, stage I diastolic dysfunction, bubble contrast study negative for [id number] interatrial shunt. Patient did have rapid response 01/13/2022 evening secondary to transiently worsened again left-sided weakness with CT of the head with no acute changes or findings and repeat discussions with [facility] with noted transient hypotension likely the etiology as patient quickly improved following IV fluid bolus. Patient maintained on aspirin, Plavix, unable to tolerate statin therapy unfortunately, hypertensive regimen. Speech therapy continues to evaluate the patient and patient transition to thin liquids with soft/bite-size textures with extra sauce and gravy with one-to-one supervision with continued speech therapy evaluations 5 times per week and if patient with concerns for poor diet toleration would consider future MBS study. PT and OT with recommendation for skilled placement with family preference for transition to the [facility] with bed obtained. 01/15/22 pending possible SNF transition with planned continued PT/OT/ST evaluations ongoing. Of note additionally, patient with chronic stroke related LLE pain, previously had been on baclofen, transitioned to gabapentin with some improvement. Discharge Time: > 35 Minutes Weight / BMI Weight Weight: 125 lb 10.616 oz Body Mass Index (BMI) 22.9 ABG / Lab / Microbiology Data Result Diagrams: 01/15/22 06:06 01/15/22 06:06 Laboratory: Laboratory Results - last 24 hr 01/15/22 06:06: WBC 9.9, RBC 4.32, Hgb 13.1, Hct 40.8, MCV 94.4, MCH 30.3, MCHC 32.1, RDW Std Deviation 44.4 H, RDW Coeff of Thor 12.8, Plt Count 321, MPV 10.0, Immature Gran % (Auto) 0.300, Neut % (Auto) 59.9, Lymph % (Auto) 27.6, White % (Auto) 6.9, Eos % (Auto) 4.4, Baso % (Auto) 0.9, Absolute Neuts (auto) 6.0, Absolute Lymphs (auto) 2.74, Nucleated RBC % 0 01/15/22 06:06: Sodium 128 L, Potassium 4.9, Chloride 97 L, Carbon Dioxide 24.0, Anion Gap 7, BUN 32 H, Creatinine 1.34 H, Estim Creat Clear Calc 26.92, Est GFR (MDRD) Af Amer 49 L, Est GFR (MDRD) Non-Af 41 L, BUN/Creatinine Ratio 23.9 H, Glucose 104, Calcium 9.3 Meaningful Use Info Meaningful Use Diagnoses (Choose all that apply): Ischemic CVA CVA Therapy Assessed for PT,OT and/or ST?: Yes Ischemic Stroke Antithrombotic order at d/c?: Yes Dx of Atrial fib/flutter?: No Anticoagulant at discharge?: No Reason anticoagulant not ordered: Treatment not Indicated Statins at discharge?: No Reason Statin not ordered: Treatment Refused by Pt Primary Dx Acute Ischemic CVA?: Yes IV tPA ordered during stay?: No Reason IV t-PA not ordered: Medical Contraindication Discharge Plan Admission Admit Date/Time: 01/12/22 22:58 Primary Reason for Your Visit: CVA, left sided weakness Attending Provider: Maty Rojas Primary Care Provider: Jp Henson Consulting Providers: Jp Joyner ; Qasim Nath Discharge Orders/Prescriptions Prescriptions: New polyethylene glycol 3350 17 gram Powder In Packet 17 g PO DAILY Qty: 0 RF: 0 clonidine 0.2 mg/24 hr Patch Weekly 0.2 mg transdermal Q7D Qty: 0 RF: 0 sennosides-docusate sodium [Stool Softener-Stimulant Laxat] 8.6-50 mg Tablet 2 tab PO BID Qty: 0 RF: 0 clonazepam 1 mg Tablet 1 mg PO Q12@0600,1800 5 Days Qty: 10 RF: 0 clopidogrel 75 mg Tablet 75 mg PO DAILY Qty: 0 RF: 0 aspirin 81 mg Tablet,Delayed Release (Dr/Ec) 81 mg PO DAILY Qty: 0 RF: 0 alprazolam 0.5 mg Tablet 0.5 mg PO TID PRN PRN (Reason: panic attack) 5 Days Qty: 15 RF: 0 calcium carbonate 200 mg calcium (500 mg) Tablet,Chewable 500 mg PO Q6H PRN PRN (Reason: Indigestion) Qty: 0 RF: 0 lisinopril 5 mg Tablet 5 mg PO DAILY Qty: 0 RF: 0 gabapentin 100 mg Capsule 100 mg PO TIDCM 5 Days Qty: 15 RF: 0 cholecalciferol (vitamin D3) 125 mcg (5,000 unit) Capsule 125 mcg PO DAILY Qty: 0 RF: 0 oxycodone 5 mg Tablet 5 mg PO Q6H PRN PRN (Reason: Pain Score 4-10) 5 Days Qty: 20 RF: 0 escitalopram oxalate 10 mg Tablet 10 mg PO DAILY Qty: 0 RF: 0 Continued acetaminophen [Tylenol] 325 mg Tablet 650 mg PO Q4H PRN PRN (Reason: Pain 1-10 Or Fever) Qty: 0 RF: 0 Virt-Caps 1 mg capsule 1 cap PO BREAKFAST RF: 0 Ensure Enlive 0.08 gram-1.5 kcal/mL liquid 120 ml PO 4X/DAY RF: 0 Discontinued cholecalciferol (vitamin D3) 125 mcg (5,000 unit) capsule 125 mcg PO DAILY RF: 0 aspirin 81 MG tablet,delayed release (DR/EC) 81 mg PO DAILY RF: 0 clopidogrel 75 mg tablet 75 mg PO DAILY RF: 0 alprazolam 0.5 mg Tablet 0.5 mg PO TID PRN PRN (Reason: panic attack) Qty: 0 RF: 0 calcium carbonate 200 mg calcium (500 mg) Tablet,Chewable 500 mg PO Q6H PRN PRN (Reason: Indigestion) Qty: 0 RF: 0 hydralazine 10 mg Tablet 10 mg PO TID PRN PRN (Reason: sys> 160 RILEY > 90) Qty: 0 RF: 0 magnesium hydroxide 400 mg/5 mL Suspension 30 ml PO .PRN X 1 PRN (Reason: Constipation) Qty: 0 RF: 0 clonidine 0.2 mg/24 hr patch weekly 0.2 mg transdermal Q7D RF: 0 clonazepam 0.5 mg tablet 1 mg PO Q12@0600,1800 RF: 0 sennosides-docusate sodium [Stool Softener-Stimulant Laxat] 8.6-50 mg tablet 2 tab PO BID RF: 0 baclofen 10 mg tablet 5 mg PO TID RF: 0 escitalopram oxalate 10 mg tablet 10 mg PO DAILY RF: 0 cholestyramine (with sugar) 4 gram powder in packet 4 g PO BIDAC RF: 0 No Action lisinopril [Zestril] 5 mg tablet 5 mg PO DAILY RF: 0 Hold Instructions: Resume on 01/01/22. Referrals / Follow Up: Jp Henson DO [Primary Care Provider] - Disposition Disposition (needs filled in before D/C Order can be placed): Shelter Facility Charges/Coding Visit Charges Inpatient E&M: 08388 Disch Hosp
== END 2022-01-15 12:15 | DRG 65 ==
LOC: ED 22:20 → PCU 22:37
PROVIDERS: Internal Medicine; Nurse Practitioner Family; Admitting Provider Internal Medicine; Emergency Provider Emergency Medicine; PCP Family Medicine; Visit Provider Family Medicine
DX: I63.9 Cerebral infarction, unspecified (principal); E87.1 Hypo-osmolality and hyponatremia; G81.94 Hemiplegia, unspecified affecting left nondominant side; I95.9 Hypotension, unspecified; E86.1 Hypovolemia; M06.9 Rheumatoid arthritis, unspecified; E78.5 Hyperlipidemia, unspecified; F41.8 Other specified anxiety disorders; I25.10 Atherosclerotic heart disease of native coronary artery without angina pectoris; K21.9 Gastro-esophageal reflux disease without esophagitis; M79.605 Pain in left leg; N18.2 Chronic kidney disease, stage 2 (mild); I12.9 Hypertensive chronic kidney disease with stage 1 through stage 4 chronic kidney disease, or unspecified chronic kidney disease; Z86.73 Personal history of transient ischemic attack (TIA), and cerebral infarction without residual deficits; N28.9 Disorder of kidney and ureter, unspecified; Z79.82 Long term (current) use of aspirin; Z79.899 Other long term (current) drug therapy; Z95.1 Presence of aortocoronary bypass graft; G89.29 Other chronic pain; R53.81 Other malaise; R13.10 Dysphagia, unspecified; R47.1 Dysarthria and anarthria; R51.9 Headache, unspecified; R29.707 NIHSS score 7
CPT/HCPCS: 36415; 70450; 70551; 80048; 81001; 82962; 84484; 85025; 87426; 92526; 92610; 93005; 97162; 97167; 97530; 97535; 97802; 99285; A4216; J2405

== ENCOUNTER → 2022-01-12 | Outpatient (CLI) | payer MEDICARE, OTHER, SELFPAY ==
--- NOTE | 2022-01-12 14:01 | MRI_ITS ---
EXAM: MR HEAD WITHOUT INTRAVENOUS CONTRAST CLINICAL INDICATION: EXTENSION OF CVA TECHNIQUE: Multiplanar and multisequence MR images of the brain were obtained without intravenous contrast. This report was created using [employer] report generation technology. COMPARISON: MRI brain 12/31/2021. FINDINGS: BRAIN AND EXTRA-AXIAL SPACES: Increase thickness of the diffusion restriction in the right paracentral pontine tegmentum protruding in the right lower belly of the jama. This is also visible on the T2 FLAIR sequence and is subacute ischemic infarction. Old lacunar cystic infarct in the right thalamus is unchanged. Few small T2 FLAIR hyperintensity foci in the white matter of both cerebral hemispheres are chronic white matter ischemic changes and unchanged. No intra- or extra-axial hemorrhage. No intracranial mass or mass effect. Ventricles are appropriate for age. No hydrocephalus. Basal cisterns are patent. SELLA: Unremarkable. Normal sella turcica, pituitary gland, infundibular stalk, optic chiasm and hypothalamus. AUDITORY SYSTEM: Unremarkable. The internal auditory canals are patent. BONES/JOINTS: Unremarkable. No discrete lytic or blastic abnormalities. SINUSES: Unremarkable as visualized. Clear. MASTOID AIR CELLS: Unremarkable as visualized. Clear. ORBITS: Unremarkable as visualized. Both globes, extraocular muscles, optic nerves and retrobulbar fat appear unremarkable. VASCULATURE: Unremarkable as visualized. Normal flow voids in the major intracranial circulation. MRI/Brain without Contrast IMPRESSION: 1. Increased thickness and length of the subacute ischemic infarction in the right paracentral pontine tegmentum. It now bulges in the right lower anterior belly of the jama. 2. No other additional recent ischemic infarction. 3. Few chronic white matter ischemic changes in the cerebral hemispheres are unchanged. Electronically Signed: Avelino Quintero MD at 16:06 EDT ,
== END | disposition home or self-care (01) ==
LOC: MRI 13:58
PROVIDERS: PCP Family Medicine; Referring Provider Family Medicine Geriatric Medicine; Visit Provider Family Medicine Geriatric Medicine
DX: Z86.73 Personal history of transient ischemic attack (TIA), and cerebral infarction without residual deficits (principal)
CPT/HCPCS: 70551

== ENCOUNTER → 2022-01-21 | Outpatient (REF) | payer SELFPAY ==
[2022-01-21 09:36] LABS: Anion Gap 7 (5-15); BUN 14 mg/dL (7-18); BUN/Creat Ratio 17.5 RATIO (10-20); Calcium,Total 9.3 mg/dL (8.5-10.1); Chloride 101 mmol/L (98-107); EST Glomerular Filtration Rate 73 mL/min (>60); Est Glom Filt Rate - Afr Amer 89 mL/min (>60); Glucose 121 mg/dL (74-106); Potassium 3.8 mmol/L (3.5-5.1); Sodium Level 135 mmol/L (136-145)
== END | disposition home or self-care (01) ==
LOC: OLS.ACH 05:00
PROVIDERS: PCP Family Medicine; Visit Provider Family Medicine
DX: E78.5 Hyperlipidemia, unspecified (principal)
CPT/HCPCS: 36415; 80048

== ENCOUNTER → 2022-03-09 | Outpatient (CLI) | payer MEDICARE, OTHER, SELFPAY | END | disposition home or self-care (01) | LOC: LABSPEC 03-10 08:27 | PROVIDERS: PCP Family Medicine; Visit Provider Family Medicine | DX: R35.0 Frequency of micturition (principal) | CPT/HCPCS: 87077; 87086; 87088; 87186 ==

== ENCOUNTER → 2022-03-21 | Outpatient (CLI) | payer MEDICARE, OTHER, SELFPAY ==
--- NOTE | 2022-03-21 15:01 | RAD_ITS ---
STUDY: X-RAY - CERVICAL SPINE REASON FOR EXAM: Female, 81 years old. CERVALGIA TECHNIQUE: 5 view(s) of the cervical spine were obtained. COMPARISON: None FINDINGS: There are degenerative changes of the anterior atlantoaxial articulation. Normal odontoid process. There is an exaggerated cervical lordosis. Spondylosis at the C5-C6 and C6-C7 levels. Disc space narrowing at the C5-C6 and C6-C7 levels. Facet joint osteoarthritis. The soft tissue structures are unremarkable. RAD/Cerv Spine 4 or 5 Views IMPRESSION: Disc space narrowing and spondylosis at the C5-C6 and C6-C7 levels. Electronically Signed: Darrell Astorga MD at 15:25 EDT ,
== END | disposition home or self-care (01) ==
PROVIDERS: PCP Family Medicine; Referring Provider Family Medicine; Visit Provider Family Medicine
DX: M54.2 Cervicalgia (principal)
CPT/HCPCS: 72050

== ENCOUNTER 2022-04-03 14:28 | Emergency (ER) | payer MEDICARE, OTHER, SELFPAY ==
[2022-04-03 14:29] VITALS: BP 141/80; PULSE 84; RESP 22; TEMP 36.1; O2SAT 94; BMI 22.8
[2022-04-03 15:01] VITALS: BP 156/77; PULSE 78; RESP 18; O2SAT 94
--- NOTE | 2022-04-03 15:13 | CT_ITS ---
STUDY: CT BRAIN WITHOUT CONTRAST REASON FOR EXAM: Female, 81 years old. headache TECHNIQUE: Transaxial CT imaging of the brain was performed without administration of intravenous contrast material. Individualized dose optimization techniques were used for this CT. COMPARISON: MRI 5.6.22 FINDINGS: Normal calvarium. Subcutaneous nodules are noted. These may represent granulomas, sebaceous cyst, sequale of previous trauma. Chronic right frontal arachnoid cyst is present. Normal size ventricles and extra-axial spaces for the patient''s age. There are areas of decreased attenuation within the white matter tracts of the supratentorial brain, consistent with microvascular disease changes. There are small punctate calcifications of the basal ganglia which are seen in the aging brain as a normal variant. Normal brainstem. Normal cerebellum. Sequelae of old right pontine infarct present. There is no intracranial hemorrhage. There are no findings of an acute ischemic infarction. There are calcifications noted in the distal vertebral arteries. There are calcifications noted in the cavernous carotid arteries. This is consistent for atherosclerotic disease. Normal visualized paranasal sinuses. ASPECTS 10 CT/Brain/Head without Contrast IMPRESSION: There are no acute intracranial findings. Electronically Signed: Brian Kuhn MD at 15:55 EDT ,
--- NOTE | 2022-04-03 15:13 | CT_ITS ---
EXAM: CT SPINE - CERVICAL WITHOUT IV REASON FOR EXAM: Female, 81 years old. NECK PAIN neck pain HISTORY: NECK PAIN neck pain Individualized dose optimization techniques were used for this CT. TECHNIQUE: Multiplanar images were obtained of the cervical spine. IV contrast was not utilized. COMPARISON: xr 7.25.22. FINDINGS: The vertebral bodies do maintain their height. The odontoid process is intact. No pre-vertebral soft tissue swelling is seen. The intravertebral disc height is lost. There are scattered lymph nodes in the neck. There are degenerative changes of the osseous structures. There is bilateral facet arthropathy. There are scattered levels of foraminal stenosis. There are vascular calcifications. CT/Spine Cervical without Contras IMPRESSION: Degenerative changes of the cervical spine. There are no acute findings. Electronically Signed: Brian Kuhn MD at 15:56 EDT ,
--- NOTE | 2022-04-03 15:16 | EDS_ITS ---
HPI History of Present Illness Chief Complaint: Headache Narrative Narrative: 81-year-old female status post stroke and left-sided hemiparesis presenting with pain in the back of her upper neck and into her head. She states she has a occipital headache. She does not have a frontal headache. No photophobia, phonophobia. She denies any new injury. She states she is in physical therapy trying to get her left arm and leg stronger and has noticed that she had neck pain for the last 2 weeks. It is worse with movement.Patient She saw her primary care physician who did x-rays of the neck. They stated they did not see anything wrong with it. Patient has had worsening pain for the last 3 days. Tylenol was not helping. states the pain radiates into her lower neck. Patient also reports that her urine looks dark today but denies dysuria or hematuria PFSH 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 Atherosclerotic heart disease of [place] coronary artery without angina pectoris Breast lump Chest pain Chronic headache Chronic prescription benzodiazepine use CVA (cerebral vascular accident) Essential (primary) hypertension Essential hypertension Fecal impaction GERD (gastroesophageal reflux disease) H/O transfusion of whole blood History of colon polyps Hyperlipidemia Intractable constipation Osteoarthritis Rheumatoid arthritis Right bundle branch block (RBBB) Vitamin deficiency Home Medications lisinopril 5 mg tablet (Zestril) 5 mg PO DAILY BP 12/30/21 [History Last Taken Unknown] acetaminophen 325 mg tablet (Tylenol) 650 mg PO Q4H PRN PRN Pain 1-10 Or Fever #0 tabs 01/11/22 [Rx Last Taken Unknown] food supplemt, lactose-reduced 0.08 gram-1.5 kcal/mL oral liquid (Ensure Enlive) 120 ml PO 4X/DAY Supplement 01/11/22 [History Last Taken Unknown] vitamin B complex and vitamin C no.20-folic acid 1 mg capsule (Virt-Caps) 1 cap PO BREAKFAST Supplement 01/11/22 [History Last Taken Unknown] alprazolam 0.5 mg tablet 0.5 mg PO TID PRN PRN panic attack 5 days #15 tabs 01/14/22 [Rx Last Taken Unknown] aspirin 81 mg tablet,delayed release 81 mg PO DAILY #0 tabs 01/14/22 [Rx Last Taken Unknown] calcium carbonate 200 mg calcium (500 mg) chewable tablet 500 mg PO Q6H PRN PRN Indigestion #0 tabs 01/14/22 [Rx Last Taken Unknown] cholecalciferol (vitamin D3) 125 mcg (5,000 unit) capsule 125 mcg PO DAILY #0 caps 01/14/22 [Rx Last Taken Unknown] clonazepam 1 mg tablet 1 mg PO Q12@0600,1800 5 days #10 tabs 01/14/22 [Rx Last Taken Unknown] clonidine 0.2 mg/24 hr weekly transdermal patch 0.2 mg transdermal Q7D #0 ea 01/14/22 [Rx Last Taken Unknown] clopidogrel 75 mg tablet 75 mg PO DAILY #0 tabs 01/14/22 [Rx Last Taken Unknown] escitalopram oxalate 10 mg tablet 10 mg PO DAILY #0 tabs 01/14/22 [Rx Last Taken Unknown] gabapentin 100 mg capsule 100 mg PO TIDCM 5 days #15 caps 01/14/22 [Rx Last Taken Unknown] lisinopril 5 mg tablet 5 mg PO DAILY #0 tabs 01/14/22 [Rx Last Taken Unknown] oxycodone 5 mg tablet 5 mg PO Q6H PRN PRN Pain Score 4-10 5 days #20 tabs 01/14/22 [Rx Last Taken Unknown] polyethylene glycol 3350 17 gram oral powder packet 17 g PO DAILY #0 ea 01/14/22 [Rx Last Taken Unknown] sennosides 8.6 mg-docusate sodium 50 mg tablet (Stool Softener-Stimulant Laxative) 2 tab PO BID #0 tabs 01/14/22 [Rx Last Taken Unknown] Allergy/AdvReac Type Severity Reaction Status Date / Time amlodipine besylate Allergy Other Verified 04/03/22 14:29 [From Norvasc] atenolol Allergy Other Verified 04/03/22 14:29 atorvastatin Allergy PT UNSURE Verified 04/03/22 14:29 OF REACTION buspirone HCl [From BuSpar] Allergy Other Verified 04/03/22 14:29 citalopram hydrobromide Allergy Other Verified 04/03/22 14:29 [From Celexa] diazepam [From Valium] Allergy Other Verified 04/03/22 14:29 hydrochlorothiazide Allergy Other Verified 04/03/22 14:29 [From Zestoretic] metoprolol succinate Allergy Other Verified 04/03/22 14:29 [From Toprol XL] mirtazapine [From Remeron] Allergy Other Verified 04/03/22 14:29 paroxetine HCl [From Paxil] Allergy Other Verified 04/03/22 14:29 procaine HCl [From Novocain] Allergy Other Verified 04/03/22 14:29 Sulfa (Sulfonamide Allergy Other Verified 04/03/22 14:29 Antibiotics) valsartan [From Diovan] Allergy Other Verified 04/03/22 14:29 Penicillins AdvReac Unknown Other Verified 04/03/22 14:29 Family History Other Adopted Surgical History History of appendectomy History of cataract surgery History of cholecystectomy History of coronary artery bypass graft x 3 (~09/01/19) History of coronary artery stent placement (08/30/19) History of herniorrhaphy Social History adopted: Yes household members: spouse number of children: 3 Smoking Status: Never smoker alcohol intake: never substance use type: does not use caffeine: No ROS ROS ED Constitutional Constitutional ED: Denies chills or fever(s) Eyes Eyes: Denies change in vision ENT ENT ED: Denies rhinorrhea or sore throat Cardiovascular Cardiovascular: Denies chest pain or palpitations Respiratory/Chest Respiratory/Chest: Denies cough or dyspnea Gastrointestinal Gastrointestinal: Denies abdominal pain, constipation or diarrhea Genitourinary Genitourinary ED: Reports other Details: Dark urine Musculoskeletal Musculoskeletal: Reports neck pain Integumentary Denies abscess or Abrasions Neurologic Neurologic: Reports headache(s) EXAM Physical Exam Const Vital Signs: 04/03/22 14:29 04/03/22 15:01 Temperature 97 F L Temperature Source Temporal Pulse Rate 84 78 Respiratory Rate 22 H 18 Blood Pressure 141/80 H 156/77 H Blood Pressure Mean 100 103 Pulse Ox 94 94 Oxygen Delivery Method Room Air Room Air Positive well nourished General Appearance ED: NAD; Negative for pallor HEENT Reports normocephalic and TM's clear atraumatic Tympanic Membrane ED: Yes TM's clear Eyes PERRL and EOMs intact bilaterally Resp normal respiratory effort Auscultation: Negative for rales, rhonchi or wheezes Back/Spine Cervical Spine: cervical spine tenderness Cervical Spine Tenderness Details: diffuse Neuro oriented x3 Sensorium / Orientation: awake and alert Psych mental status grossly normal Skin General Skin Exam: Negative for jaundice or pallor MDM MDM MDM Narrative Medical decision making narrative: Patient presenting with occipital headache and neck pain. She states this is been present for couple of weeks. This is worsening over the last couple of days. She is doing physical therapy and may have strained it more. There is no new focal neurologic deficits or lateralizing signs or symptoms. I attempted to give the patient a Lidoderm patch however she has an allergy to procaine and she does not know what her allergy is. After looking at it says tachycardia. Patient does report that she took 325 mg of Tylenol today and this did help for short while but has worn off. At this point I recommended her increasing her Tylenol dose and frequency. She was given a gram of Tylenol in the ED. Urinalysis was checked today because of her current dark urine and this is negative for infection. CT of the brain and cervical spine are negative for acute findings although she does have degenerative changes of the C-spine. Patient counseled she should continue physical therapy and follow-up with her PCP. Return precautions were discussed. Impression: 1. Headache 2. Cervical strain 3. Degenerative disc disease 4. Dark urine Lab Data Attestation: I reviewed the patient's lab results. Labs: Laboratory Results - last 24 hr 04/03/22 16:09 Urine Color Straw Urine Clarity Clear Urine pH 7.0 Ur Specific [place] 1.010 Urine Protein Negative Urine Glucose (UA) Normal Urine Ketones Negative Urine Occult Blood Negative Urine Nitrite Negative Urine Bilirubin Negative Urine Urobilinogen Normal Ur Leukocyte Esterase Negative Urine RBC 0 SEEN Urine WBC 0 SEEN Ur Squamous Epith Cells 0 SEEN Ur Transition Epith Cell 0-5 SEEN Urine Bacteria RARE Urine Mucus 0 SEEN Radiography Diagnostic Testing: Clinical Impression(s) from Imaging Studies Brain CT 04/03/22 15:13 IMPRESSION: There are no acute intracranial findings. Electronically Signed: Brian Kuhn MD at 15:55 EDT , Cervical Spine CT 04/03/22 15:13 IMPRESSION: Degenerative changes of the cervical spine. There are no acute findings. Electronically Signed: Brian Kuhn MD at 15:56 EDT , Discharge Plan Triage Chief Complaint: Headache ED Provider: Theodore Alanis Dx/Rx/DC Orders Instructions: ED Degenerative Disk Disease, ED Headache Unspecified, ED Neck Sprain or Strain Prescriptions: No Action lisinopril [Zestril] 5 mg tablet 5 mg PO DAILY Hold Instructions: Resume on 01/01/22. acetaminophen [Tylenol] 325 mg Tablet 650 mg PO Q4H PRN PRN (Reason: Pain 1-10 Or Fever) Qty: 0 0RF Virt-Caps 1 mg capsule 1 cap PO BREAKFAST Ensure Enlive 0.08 gram-1.5 kcal/mL liquid 120 ml PO 4X/DAY polyethylene glycol 3350 17 gram Powder In Packet 17 g PO DAILY Qty: 0 0RF clonidine 0.2 mg/24 hr Patch Weekly 0.2 mg transdermal Q7D Qty: 0 0RF sennosides-docusate sodium [Stool Softener-Stimulant Laxat] 8.6-50 mg Tablet 2 tab PO BID Qty: 0 0RF clonazepam 1 mg Tablet 1 mg PO Q12@0600,1800 5 Days Qty: 10 0RF clopidogrel 75 mg Tablet 75 mg PO DAILY Qty: 0 0RF aspirin 81 mg Tablet,Delayed Release (Dr/Ec) 81 mg PO DAILY Qty: 0 0RF alprazolam 0.5 mg Tablet 0.5 mg PO TID PRN PRN (Reason: panic attack) 5 Days Qty: 15 0RF calcium carbonate 200 mg calcium (500 mg) Tablet,Chewable 500 mg PO Q6H PRN PRN (Reason: Indigestion) Qty: 0 0RF lisinopril 5 mg Tablet 5 mg PO DAILY Qty: 0 0RF gabapentin 100 mg Capsule 100 mg PO TIDCM 5 Days Qty: 15 0RF cholecalciferol (vitamin D3) 125 mcg (5,000 unit) Capsule 125 mcg PO DAILY Qty: 0 0RF oxycodone 5 mg Tablet 5 mg PO Q6H PRN PRN (Reason: Pain Score 4-10) 5 Days Qty: 20 0RF escitalopram oxalate 10 mg Tablet 10 mg PO DAILY Qty: 0 0RF Primary Care Provider: Jp Henson Referrals: Jp Henson DO [Primary Care Provider] - Disposition Disposition: Home, Self Care
[2022-04-03 16:16] LABS: Mucous, Urine 0 SEEN /hpf (<or=2+); Red Blood Cells-Urine 0 SEEN /hpf (0-5); Squamous Epithelial Cells - UA 0 SEEN /hpf (5-10); White Blood Cells 0 SEEN /hpf (0-5)
[2022-04-03 16:17] LABS: Color, Urine Straw (Yellow); Glucose, Dipstick Normal (Normal); Ketone-Dipstick Negative (Negative); Leukocyte Esterase-Dipstick Negative /ul (Negative); Nitrite-Dipstick Negative (Negative); Occult Blood-Urine Negative /ul (Negative); Protein-Dipstick Negative (Negative); Urine Bilirubin Dipstick Negative (Negative); Urine Clarity Clear (Clear); Urine Urobilinogen Normal (Normal)
[2022-04-03 16:31] LABS: Bacteria RARE /hpf (None Seen); Transitional Epithelial - Ur 0-5 SEEN /hpf (0-5)
[2022-04-03] MEDS: Acetaminophen 500 MG Tablet 1000 MG PO (16:52)
[2022-04-03 17:00] VITALS: BP 160/82; PULSE 72; RESP 16; O2SAT 98
== END 2022-04-03 17:31 | disposition home or self-care (01) ==
PROVIDERS: Emergency Provider Student in an Organized Health Care Education/Training Program; PCP Family Medicine; Visit Provider Student in an Organized Health Care Education/Training Program
DX: S16.1XXA Strain of muscle, fascia and tendon at neck level, initial encounter (principal); I69.354 Hemiplegia and hemiparesis following cerebral infarction affecting left non-dominant side; M06.9 Rheumatoid arthritis, unspecified; F41.9 Anxiety disorder, unspecified; I25.10 Atherosclerotic heart disease of native coronary artery without angina pectoris; K21.9 Gastro-esophageal reflux disease without esophagitis; Z86.010 Personal history of colon polyps; E78.5 Hyperlipidemia, unspecified; I45.10 Unspecified right bundle-branch block; Z79.899 Other long term (current) drug therapy; Z79.82 Long term (current) use of aspirin; Z95.1 Presence of aortocoronary bypass graft; M50.30 Other cervical disc degeneration, unspecified cervical region; R82.998 Other abnormal findings in urine; X58.XXXA Exposure to other specified factors, initial encounter
CPT/HCPCS: 70450; 72125; 81001; 99282

== ENCOUNTER → 2022-04-26 | Outpatient (CLI) | payer MEDICARE, OTHER, SELFPAY ==
[2022-04-26 08:10] LABS: Absolute Lymphocyte Count 2.25 X10^3/uL (0.83-4.51); Absolute Neutrophil Count 3.4 X10^3/uL (2.0-7.7); Basophil# 0.09 X10^3/uL; Basophil% 1.4 % (0-1); Eosinophil# 0.36 X10^3/uL; Eosinophils% 5.5 % (0-5); Hematocrit 44.3 % (37-47); Hemoglobin 14.1 g/dL (12.0-15.0); Lymphocyte # 2.25 X10^3/ul (0.83-4.51); Lymphocyte % 34.1 % (19-41); Mean Corp Hgb Conc 31.8 g/dL (32-36); Mean Corpuscular Hgb 30.5 pg (27.0-32.0); Mean Corpuscular Volume 95.7 fL (81-99); Mean Platelet Vol. 11.2 fl (6.2-12.0); Monocyte# 0.46 X10^3/uL; NRBC Flagged by Analyzer 0 % (0-5); Neutrophil # 3.41 X10^3/uL (2.7-7.7); Neutrophil % 51.7 % (47-70); Platelet Count 281 K/mm3 (150-450); RBC Distribution Width CV 12.3 % (11.6-14.6); RBC Distribution Width SD 43.6 fl (35.1-43.9); Red Blood Count 4.63 M/mm3 (4.2-5.4); White Blood Count 6.6 K/mm3 (4.4-11.0)
[2022-04-26 08:42] LABS: AST(SGOT) 17 U/L (15-37); Alanine Aminotransfer ALT/SGPT 20 U/L (13-56); Albumin, Serum 3.4 g/dL (3.2-5.0); Alkaline Phosphatase 65 U/L (45-117); Anion Gap 8 (5-15); BUN 15 mg/dL (7-18); BUN/Creat Ratio 19.6 RATIO (10-20); Bilirubin, Direct 0.09 mg/dL (0.00-0.30); CRP 5.61 mg/L (0.0-3.0); Calcium,Total 9.1 mg/dL (8.5-10.1); Chloride 103 mmol/L (98-107); Cholesterol 239 mg/dL (200); Creatinine, Serum 0.77 mg/dL (0.55-1.02); EST Glomerular Filtration Rate 77 mL/min (>60); Est Glom Filt Rate - Afr Amer 93 mL/min (>60); Globulin 3.7 g/dL (2.2-4.2); Glucose 95 mg/dL (74-106); High Density Lipoprotein 42 mg/dL; Magnesium 2.1 mg/dL (1.6-2.6); Protein, Total 7.1 g/dL (6.4-8.2); Sodium Level 140 mmol/L (136-145); Triglycerides 378 mg/dL; Very Low Density Lipoprotein 76 mg/dL (5-40)
== END | disposition home or self-care (01) ==
PROVIDERS: PCP Family Medicine; Referring Provider Nurse Practitioner Gerontology; Visit Provider Nurse Practitioner Gerontology
DX: R53.83 Other fatigue (principal); E78.2 Mixed hyperlipidemia; Z86.73 Personal history of transient ischemic attack (TIA), and cerebral infarction without residual deficits
CPT/HCPCS: 36415; 80048; 80061; 80076; 83735; 85025; 86140

== ENCOUNTER 2022-06-20 16:48 | Emergency (ER) | payer MEDICARE, OTHER, SELFPAY ==
[2022-06-20 16:49] VITALS: BP 158/72; PULSE 77; RESP 16; TEMP 36.6; O2SAT 95; BMI 22.1
--- NOTE | 2022-06-20 16:54 | CT_ITS ---
STUDY: CT BRAIN WITHOUT CONTRAST REASON FOR EXAM: Female, 81 years old. Technologist Notes POSTERIOR HEADACHE X5 DAYS, DIZZINESS HX-CVA R/O SUBARACHNOID HEMMORRAGE TECHNIQUE: Transaxial CT imaging of the brain was performed without administration of intravenous contrast material. Individualized dose optimization techniques were used for this CT. COMPARISON: 04.03.22 FINDINGS: Normal calvarium. Subcutaneous nodules are noted. These may represent granulomas, sebaceous cyst, sequale of previous trauma. Chronic right frontal arachnoid cyst is present. Normal size ventricles and extra-axial spaces for the patient''s age. There are areas of decreased attenuation within the white matter tracts of the supratentorial brain, consistent with microvascular disease changes. There are small punctate calcifications of the basal ganglia which are seen in the aging brain as a normal variant. Normal brainstem. Normal cerebellum. There is no intracranial hemorrhage. There are no findings of an acute ischemic infarction. There are calcifications noted in the distal vertebral arteries. There are calcifications noted in the cavernous carotid arteries. This is consistent for atherosclerotic disease. Normal visualized paranasal sinuses. ASPECTS 10 CT/Brain/Head without Contrast IMPRESSION: There are no acute intracranial findings. Electronically Signed: Brian Kuhn MD at 17:57 EDT ,
--- NOTE | 2022-06-20 17:12 | EDS_ITS ---
HPI History of Present Illness Chief Complaint: Headache Detail of Chief Complaint: Cipro headache with first onset 5 days ago Informant: patient Onset/Context/Timing Onset: Days (Onset days ago) Context: Sudden Timing: Waxes and wanes Quality -Headache: Negative for Similar Prior Headaches Location: Pain located in the occipital region and posterior neck Current Severity: Mild Maximum Severity: Severe Worsened by: In the morning when she attempts to get out of bed. Relieved by: Nothing Associated Symptoms/Injury Associated Symptoms: Negative for Fever, Nausea, Vomiting, Sore Throat, Sinus Pressure, Numbness, Tingling, Preceding Aura, Visual Changes, Blurred Vision, Photophobia or Visual Loss Injury - BIGGS: Negative for Direct Trauma Narrative Narrative: Patient is a 81-year-old woman with history of hyperlipidemia, right hemispheric stroke with residual left upper extremity weakness, history of coronary disease and generalized anxiety disorder with panic attacks. She states first headache was proxy 5 days ago. Was when she awoke from sleep. She states she cries and unable to get up out of bed. Seems to be worse in the morning. She denies double vision, blurred vision loss of vision. Denies photophobia. Denies neck stiffness but does complain of neck pain. She also reports pain over a nodule. The nodule is a noninfected sebaceous cyst. She denies ringing or ears or decreased hearing. Denies trouble speech or swallowing. She denies cardiac respiratory symptoms. Denies nausea, vomiting diarrhea. Prior similar symptoms: No Recent Illness/Hospitalization: No PFSH PFSH Medical History Anxiety disorder 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 Atherosclerotic heart disease of [place] coronary artery without angina pectoris Breast lump Chest pain Chronic headache Chronic prescription benzodiazepine use CVA (cerebral vascular accident) Essential (primary) hypertension Essential hypertension Fecal impaction GERD (gastroesophageal reflux disease) H/O transfusion of whole blood History of colon polyps Hyperlipidemia Intractable constipation Osteoarthritis Rheumatoid arthritis Right bundle branch block (RBBB) Vitamin deficiency Home Medications acetaminophen 325 mg tablet (Tylenol) 650 mg PO Q4H PRN PRN Pain 1-10 Or Fever #0 tabs 01/11/22 [Rx Last Taken Unknown] aspirin 81 mg tablet,delayed release 81 mg PO DAILY #0 tabs 01/14/22 [Rx Last Taken Unknown] cholecalciferol (vitamin D3) 125 mcg (5,000 unit) capsule 125 mcg PO DAILY #0 caps 01/14/22 [Rx Last Taken Unknown] lisinopril 5 mg tablet 5 mg PO DAILY #0 tabs 01/14/22 [Rx Last Taken Unknown] clonazepam 1 mg tablet 2.5 mg PO .QID 04/25/22 [History Last Taken Unknown] escitalopram oxalate 10 mg tablet 5 mg PO DAILY 04/25/22 [History Last Taken Unknown] Allergy/AdvReac Type Severity Reaction Status Date / Time amlodipine besylate Allergy Other Verified 06/20/22 16:51 [From Norvasc] atenolol Allergy Other Verified 06/20/22 16:51 atorvastatin Allergy PT UNSURE Verified 06/20/22 16:51 OF REACTION buspirone HCl [From BuSpar] Allergy Other Verified 06/20/22 16:51 citalopram hydrobromide Allergy Other Verified 06/20/22 16:51 [From Celexa] diazepam [From Valium] Allergy Other Verified 06/20/22 16:51 hydrochlorothiazide Allergy Other Verified 06/20/22 16:51 [From Zestoretic] metoprolol succinate Allergy Other Verified 06/20/22 16:51 [From Toprol XL] mirtazapine [From Remeron] Allergy Other Verified 06/20/22 16:51 paroxetine HCl [From Paxil] Allergy Other Verified 06/20/22 16:51 procaine HCl [From Novocain] Allergy Other Verified 06/20/22 16:51 Sulfa (Sulfonamide Allergy Other Verified 06/20/22 16:51 Antibiotics) valsartan [From Diovan] Allergy Other Verified 06/20/22 16:51 Penicillins AdvReac Unknown Other Verified 06/20/22 16:51 Family History Other Adopted Surgical History History of appendectomy History of cataract surgery History of cholecystectomy History of coronary artery bypass graft x 3 (~09/01/19) History of coronary artery stent placement (08/30/19) History of herniorrhaphy Social History adopted: Yes household members: spouse number of children: 3 Smoking Status: Never smoker alcohol intake: never substance use type: does not use caffeine: No ROS ROS ED Constitutional Constitutional ED: Denies chills, fever(s), subjective, sweats or weight loss Eyes Eyes: Denies blurry vision, change in vision or diplopia ENT ENT ED: Denies ear pain, rhinorrhea or sore throat Cardiovascular Cardiovascular: Denies chest pain, palpitations or racing heartbeat Respiratory/Chest Respiratory/Chest: Denies cough, dyspnea or dyspnea on exertion Gastrointestinal Gastrointestinal: Denies abdominal pain, diarrhea, nausea or vomiting Genitourinary Genitourinary ED: Denies dysuria, hematuria or urinary frequency Musculoskeletal Musculoskeletal: Reports neck pain; Denies arthralgias, back pain or myalgias Integumentary Denies abscess, Abrasions or rash Neurologic Neurologic: Reports headache(s), weakness and other Details: This is due to prior stroke ; Denies paresthesias Psychiatric Psychiatric: Reports anxiety Hematologic/Lymphatic Hematologic/Lymphatic: Denies easy bleeding, easy bruising or lymphadenopathy EXAM Physical Exam Const Vital Signs: 06/20/22 16:49 06/20/22 17:27 06/20/22 18:07 Temperature 97.9 F Temperature Source Temporal Pulse Rate 77 73 68 Respiratory Rate 16 16 17 Blood Pressure 158/72 H 153/76 H Blood Pressure Mean 100 101 Pulse Ox 95 94 94 Oxygen Delivery Method Room Air Room Air Room Air 06/20/22 19:08 Temperature Temperature Source Pulse Rate 70 Respiratory Rate 18 Blood Pressure 143/70 H Blood Pressure Mean 94 Pulse Ox 94 Oxygen Delivery Method Room Air Positive well nourished and well developed Constitutional Narrative: When I told the patient that I may cancel the CAT scan she became angry and her was surprised. She seemed to become anxious as well. General Appearance ED: well developed and NAD; Negative for cyanotic, diaphoretic or pallor HEENT Reports normocephalic, TM's clear and moist mucous membranes HEENT Narrative: Patient has sebaceous cyst left frontal temporal region and over the left oc cipital region. There is no evidence infection. atraumatic; Negative for temporal artery tenderness or vesicular rash Face and Sinus: Negative for sinus tenderness Tympanic Membrane ED: Yes TM's clear Eyes PERRL and EOMs intact bilaterally General Eye ED: Negative for pale conjunctiva or scleral icterus Neck no lymphadenopathy, supple, no meningeal signs and no JVD Neck Narrative: There is tenderness bilaterally paracervical region. General: tenderness Resp normal respiratory effort and clear to auscultation bilaterally Cardio regular rate, regular rhythm, S1 normal heart sound, S2 normal heart sound and no murmurs GI non-tender and non-distended Back/Spine no CVA tenderness Extremity normal to inspection and normal capillary refill; Negative for full ROM Extremity Narrative: Minute range of motion left upper extremity due to frozen shoulder and prior right hemispheric stroke Neuro oriented x3, CN's II-XII intact bilaterally and No no sensory deficits noted [place] Scale: document GCS findings Spontaneous Obeys Commands Oriented 15 Sensorium / Orientation: awake and alert Motor Exam: Negative for strength 5/5 throughout Psych Mood & Affect: depressed, anxious and tearful Skin General Skin Exam: Negative for jaundice or pallor Lesions: no lesions Rashes: no rashes MDM MDM MDM Narrative Medical decision making narrative: Abrupt onset of headache and elderly woman will obtain CT to evaluate for subarachnoid hemorrhage. This may be due to anxiety. This may be a tension headache as well. ESR was obtained to assess for possible vasculitis. Patient was offered pain medicine which she declined. She was told she cannot take anything stronger than Tylenol. Lab Data Attestation: I reviewed the patient's lab results. Lab results narrative: White count and differential unremarkable. Sed rate is elevated however is unremarkable when corrected for age. BMP is unremarkable. CAT scan revealed no acute abnormality. Labs: Laboratory Results - last 24 hr 06/20/22 06/20/22 06/20/22 17:28 17:28 17:28 WBC 8.0 RBC 4.89 Hgb 14.9 Hct 45.7 MCV 93.5 MCH 30.5 MCHC 32.6 RDW Std Deviation 42.1 RDW Coeff of Thor 12.1 Plt Count 289 MPV 11.3 Immature Gran % (Auto) 0.300 Neut % (Auto) 48.2 Lymph % (Auto) 37.9 [place] % (Auto) 7.3 Eos % (Auto) 5.0 Baso % (Auto) 1.3 H Absolute Neuts (auto) 3.8 Absolute Lymphs (auto) 3.02 Nucleated RBC % 0 ESR 31 H Sodium 137 Potassium 4.8 Chloride 103 Carbon Dioxide 28.0 Anion Gap 6 BUN 16 Creatinine 0.82 Estim Creat Clear Calc 44.00 Est GFR (MDRD) Af Amer 86 Est GFR (MDRD) Non-Af 71 BUN/Creatinine Ratio 19.5 Glucose 126 H Calcium 9.8 Radiography Diagnostic Testing: Clinical Impression(s) from Imaging Studies Brain CT 06/20/22 16:54 IMPRESSION: There are no acute intracranial findings. Electronically Signed: Brian Kuhn MD at 17:57 EDT Reading Location ID and State: [facility] / [place] , Service support , Discharge Plan Triage Chief Complaint: Headache ED Provider: Luis Daniel Rand Dx/Rx/DC Orders Clinical Impression: Occipital headache, Sebaceous cyst Instructions: ED Pain, Acute, Uncertain Cause, ED Epidermoid Cyst, No Infection Prescriptions: No Action escitalopram oxalate 10 mg tablet 5 mg PO DAILY clonazepam 1 mg tablet 2.5 mg PO .QID acetaminophen [Tylenol] 325 mg Tablet 650 mg PO Q4H PRN PRN (Reason: Pain 1-10 Or Fever) Qty: 0 0RF aspirin 81 mg Tablet,Delayed Release (Dr/Ec) 81 mg PO DAILY Qty: 0 0RF lisinopril 5 mg Tablet 5 mg PO DAILY Qty: 0 0RF cholecalciferol (vitamin D3) 125 mcg (5,000 unit) Capsule 125 mcg PO DAILY Qty: 0 0RF Primary Care Provider: Jp Henson Referrals: Jp Henson DO [Primary Care Provider] - 5-7 Days Disposition Disposition: Home, Self Care
[2022-06-20 17:27] VITALS: BP 153/76; PULSE 73; RESP 16; O2SAT 94
[2022-06-20 17:35] LABS: Absolute Lymphocyte Count 3.02 X10^3/uL (0.83-4.51); Absolute Neutrophil Count 3.8 X10^3/uL (2.0-7.7); Basophil% 1.3 % (0-1); Hematocrit 45.7 % (37-47); Hemoglobin 14.9 g/dL (12.0-15.0); Lymphocyte # 3.02 X10^3/ul (0.83-4.51); Lymphocyte % 37.9 % (19-41); Mean Corp Hgb Conc 32.6 g/dL (32-36); Mean Corpuscular Hgb 30.5 pg (27.0-32.0); Mean Corpuscular Volume 93.5 fL (81-99); Mean Platelet Vol. 11.3 fl (6.2-12.0); Monocyte# 0.58 X10^3/uL; Monocyte% 7.3 % (0-10); NRBC Flagged by Analyzer 0 % (0-5); Neutrophil # 3.84 X10^3/uL (2.7-7.7); Neutrophil % 48.2 % (47-70); Platelet Count 289 K/mm3 (150-450); RBC Distribution Width CV 12.1 % (11.6-14.6); RBC Distribution Width SD 42.1 fl (35.1-43.9); Red Blood Count 4.89 M/mm3 (4.2-5.4)
[2022-06-20 18:07] VITALS: PULSE 68; RESP 17; O2SAT 94
[2022-06-20 18:23] LABS: Anion Gap 6 (5-15); BUN 16 mg/dL (7-18); BUN/Creat Ratio 19.5 RATIO (10-20); Calcium,Total 9.8 mg/dL (8.5-10.1); Chloride 103 mmol/L (98-107); Creatinine, Serum 0.82 mg/dL (0.55-1.02); EST Glomerular Filtration Rate 71 mL/min (>60); Est Glom Filt Rate - Afr Amer 86 mL/min (>60); Glucose 126 mg/dL (74-106); Potassium 4.8 mmol/L (3.5-5.1); Sodium Level 137 mmol/L (136-145)
[2022-06-20 18:51] LABS: Erythrocyte Sedimentation Rate 31 mm/hr (0-30)
[2022-06-20 19:08] VITALS: BP 143/70; PULSE 70; RESP 18; O2SAT 94
[2022-06-20 19:52] VITALS: RESP 18
== END 2022-06-20 19:52 | disposition home or self-care (01) ==
PROVIDERS: Emergency Provider Emergency Medicine; PCP Family Medicine; Visit Provider Emergency Medicine
DX: L72.3 Sebaceous cyst (principal); R51.9 Headache, unspecified; I25.10 Atherosclerotic heart disease of native coronary artery without angina pectoris; I10 Essential (primary) hypertension; E78.5 Hyperlipidemia, unspecified; F41.9 Anxiety disorder, unspecified
CPT/HCPCS: 70450; 80048; 85025; 85652; 99283; A4216

== ENCOUNTER 2022-07-20 05:58 | Outpatient (CLI) | payer MEDICARE, OTHER, SELFPAY ==
[2022-07-20 07:25] LABS: AST(SGOT) 17 U/L (15-37); Alanine Aminotransfer ALT/SGPT 26 U/L (13-56); Albumin, Serum 3.3 g/dL (3.2-5.0); Alkaline Phosphatase 68 U/L (45-117); Cholesterol 234 mg/dL (200); Globulin 3.6 g/dL (2.2-4.2); High Density Lipoprotein 48 mg/dL; Protein, Total 6.9 g/dL (6.4-8.2); Triglycerides 219 mg/dL; Very Low Density Lipoprotein 44 mg/dL (5-40)
== END 2022-07-20 23:59 | disposition home or self-care (01) ==
PROVIDERS: PCP Family Medicine; Referring Provider Nurse Practitioner Gerontology; Visit Provider Nurse Practitioner Gerontology
DX: E78.2 Mixed hyperlipidemia (principal)
CPT/HCPCS: 36415; 80061; 80076

== ENCOUNTER → 2022-09-16 | Outpatient (CLI) | payer MEDICARE, OTHER, SELFPAY ==
--- NOTE | 2022-09-16 09:32 | CDU_ITS ---
Reason For Study: CVA Rt. Velocities/BP Lt. Velocities/BP Prox CCA 54.4/10.0 cm/sec. Prox CCA 97.7/15.5 cm/sec. Mid CCA 47.8/10.0 cm/sec. Mid CCA 69.5/9.3 cm/sec. Dist CCA 62.0/11.0 cm/sec. Dist CCA 70.7/13.0 cm/sec. Prox ICA 78.7/19.3 cm/sec. Prox ICA 159.4/23.3 cm/sec. Mid ICA 107.0/28.5 cm/sec. Mid ICA 108.9/21.1 cm/sec. Dist ICA 97.9/19.4 cm/sec. Dist ICA 77.0/24.2 cm/sec. Rt. ICA/CCA = 2.2. Lt. ICA/CCA = 2.3. Prox ECA 103.4/8.4 cm/sec. Prox ECA 163.8/7.9 cm/sec. Rt. Vert. 37.4/7.2 cm/sec. Lt. Vert. 75.4/13.8 cm/sec. Right Extracranial There is heterogeneous, irregular atherosclerotic plaque noted in the right common carotid artery. There is heterogeneous, irregular atherosclerotic plaque noted in the right internal carotid artery. There is heterogeneous, irregular atherosclerotic plaque noted in the right external carotid artery. Antegrade flow is noted in the right vertebral artery. Left Extracranial There is intimal thickening but no significant atherosclerotic plaque noted in the left common carotid artery. There is heterogeneous, irregular atherosclerotic plaque noted in the left internal carotid artery. There is heterogeneous, irregular atherosclerotic plaque noted in the left external carotid artery. Antegrade flow is noted in the left vertebral artery. Procedure Carotid Duplex [id number]. This is a Carotid Duplex examination using B-mode, color flow and specral Doppler. The exam was diagnostic. Exam performed in department. VL/Carotid Duplex Ultrasound Interpretation Summary Mild (<50%) stenosis right extracranial internal carotid. Moderate (50-69%) stenosis left extracranial internal carotid. Patent and antegrade vertebrals bilaterally. Ordering Physician: Jorge Luis Vasquez Referring Physician: Jp Henson Performed By: Clint Wong RVT
== END | disposition home or self-care (01) ==
PROVIDERS: PCP Family Medicine; Visit Provider Psychiatry & Neurology Neurology
DX: I65.23 Occlusion and stenosis of bilateral carotid arteries (principal); I63.50 Cerebral infarction due to unspecified occlusion or stenosis of unspecified cerebral artery; R42 Dizziness and giddiness; E78.5 Hyperlipidemia, unspecified
CPT/HCPCS: 93880

== ENCOUNTER → 2022-12-14 | Outpatient (CLI) | payer MEDICARE, OTHER, SELFPAY ==
[2022-12-14 07:24] LABS: Hematocrit 47.3 % (37-47); Hemoglobin 15.1 g/dL (12.0-15.0); Mean Corp Hgb Conc 31.9 g/dL (32-36); Mean Corpuscular Hgb 30.1 pg (27.0-32.0); Mean Corpuscular Volume 94.4 fL (81-99); Mean Platelet Vol. 11.4 fl (6.2-12.0); Platelet Count 270 K/mm3 (150-450); RBC Distribution Width CV 12.3 % (11.6-14.6); RBC Distribution Width SD 42.8 fl (35.1-43.9); Red Blood Count 5.01 M/mm3 (4.2-5.4); White Blood Count 6.7 K/mm3 (4.4-11.0)
[2022-12-14 08:24] LABS: Vitamin B12 1562 pg/mL (211-911)
[2022-12-14 08:32] LABS: ALB/GLOB Ratio 0.9 RATIO (0.9-2.4); AST(SGOT) 22 U/L (15-37); Alanine Aminotransfer ALT/SGPT 24 U/L (13-56); Albumin, Serum 3.4 g/dL (3.2-5.0); Alkaline Phosphatase 65 U/L (45-117); Anion Gap 4 (5-15); BUN 18 mg/dL (7-18); BUN/Creat Ratio 24.6 RATIO (10-20); Calcium,Total 9.1 mg/dL (8.5-10.1); Chloride 105 mmol/L (98-107); Creatinine, Serum 0.73 mg/dL (0.55-1.02); EST Glomerular Filtration Rate 81 mL/min (>60); Est Glom Filt Rate - Afr Amer 98 mL/min (>60); Globulin 3.6 g/dL (2.2-4.2); Glucose 101 mg/dL (74-106); Potassium 4.2 mmol/L (3.5-5.1); Sodium Level 135 mmol/L (136-145); T4 Free Direct 0.78 ng/dL (0.76-1.46); Thyroid Stim Hormone (TSH) 8.34 uIU/mL (0.358-3.74)
[2022-12-16 19:07] LABS: Vitamin B1, Thiamine 146.6 nmol/L (66.5-200.0)
[2022-12-18 16:07] LABS: Vitamin D 1,25-Dihydroxy 54.9 pg/mL (24.8-81.5)
== END | disposition home or self-care (01) ==
PROVIDERS: PCP Family Medicine; Referring Provider Psychiatry & Neurology Neurology; Visit Provider Psychiatry & Neurology Neurology
DX: G31.84 Mild cognitive impairment of uncertain or unknown etiology (principal); E03.9 Hypothyroidism, unspecified; E55.9 Vitamin D deficiency, unspecified
CPT/HCPCS: 36415; 80053; 82607; 82652; 82746; 84425; 84439; 84443; 85027

== ENCOUNTER 2022-12-19 05:26 | Emergency (ER) | payer MEDICARE, OTHER, SELFPAY ==
[2022-12-19 05:28] VITALS: BP 177/96; PULSE 72; RESP 96; TEMP 37.1; BMI 24.5
--- NOTE | 2022-12-19 05:32 | EKG12_ITS ---
Test Reason : DYSRHYTHMIA Blood Pressure : / mmHG Vent. Rate : 066 BPM Atrial Rate : 066 BPM P-R Int : 190 ms QRS Dur : 132 ms QT Int : 490 ms P-R-T Axes : 102 -68 -09 degrees QTc Int : 513 ms Normal sinus rhythm Left axis deviation Right bundle branch block T wave abnormality, consider inferior ischemia Abnormal ECG Confirmed by AREN LIRIANO, SÁNCHEZ ([id number]), film and video editor ALLISON MAURICE ([id number]) on 12/22/2022 9:21:09 AM Referred By: TL Confirmed By:SÁNCHEZ YOUNGER MD
--- NOTE | 2022-12-19 05:33 | EDS_ITS ---
HPI History of Present Illness Chief Complaint: Weakness Informant: patient, spouse/S.O. and EMS Narrative Narrative: Presents by EMS from home, is present on EMS arrival. Call out for increasing weakness. Patient with a stroke last year December 31, she had left-sided deficits that improving only residual lip and slight left arm weakness. She ambulates with a walker at baseline. History of coronary disease three-vessel bypass 3 years ago. Denies any cardiomyopathy. Does not take any diuretics. No recent vomiting or diarrhea. Dry cough chronically due to being on losartan. Denies fevers. She does report increasing urine frequency. Denies abdominal pain. 3 weeks ago had a superficial lesion removed from the posterior scalp, states has mild residual symptoms that come and go there. No headaches. Also reports around 4 AM head tremors, she took her Stephanie medication, symptoms now subsided. She had difficulty getting of using her walker therefore EMS was contacted. Blood glucose 150s per EMS. [facility] Medical History Anxiety disorder 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 Atherosclerotic heart disease of circle coronary artery without angina pectoris Breast lump Chest pain Chronic headache Chronic prescription benzodiazepine use CVA (cerebral vascular accident) Essential (primary) hypertension Essential hypertension Fecal impaction GERD (gastroesophageal reflux disease) H/O transfusion of whole blood History of colon polyps Hyperlipidemia Intractable constipation Osteoarthritis Rheumatoid arthritis Right bundle branch block (RBBB) Vitamin deficiency Home Medications acetaminophen 325 mg tablet (Tylenol) 650 mg PO Q4H PRN PRN Pain 1-10 Or Fever #0 tabs 01/11/22 [Rx Last Taken Unknown] aspirin 81 mg tablet,delayed release 81 mg PO DAILY #0 tabs 01/14/22 [Rx Last Taken Unknown] cholecalciferol (vitamin D3) 125 mcg (5,000 unit) capsule 125 mcg PO DAILY #0 caps 01/14/22 [Rx Last Taken Unknown] lisinopril 5 mg tablet 5 mg PO DAILY #0 tabs 01/14/22 [Rx Last Taken Unknown] clonazepam 1 mg tablet 2.5 mg PO .QID 04/25/22 [History Last Taken Unknown] escitalopram oxalate 10 mg tablet 5 mg PO DAILY 04/25/22 [History Last Taken Unknown] multivitamin (Multiple Vitamins tablet) 1 tab PO DAILY 09/06/22 [History Last Taken Unknown] Allergy/AdvReac Type Severity Reaction Status Date / Time amlodipine besylate Allergy Other Verified 09/06/22 09:48 [From Norvasc] atenolol Allergy Other Verified 09/06/22 09:48 atorvastatin Allergy PT UNSURE Verified 09/06/22 09:48 OF REACTION buspirone HCl [From BuSpar] Allergy Other Verified 09/06/22 09:48 citalopram hydrobromide Allergy Other Verified 09/06/22 09:48 [From Celexa] diazepam [From Valium] Allergy Other Verified 09/06/22 09:48 hydrochlorothiazide Allergy Other Verified 09/06/22 09:48 [From Zestoretic] metoprolol succinate Allergy Other Verified 09/06/22 09:48 [From Toprol XL] mirtazapine [From Remeron] Allergy Other Verified 09/06/22 09:48 paroxetine HCl [From Paxil] Allergy Other Verified 09/06/22 09:48 procaine HCl [From Novocain] Allergy Other Verified 09/06/22 09:48 Sulfa (Sulfonamide Allergy Other Verified 09/06/22 09:48 Antibiotics) valsartan [From Diovan] Allergy Other Verified 09/06/22 09:48 Penicillins AdvReac Unknown Other Verified 09/06/22 09:48 Family History Other Adopted Surgical History History of appendectomy History of cataract surgery History of cholecystectomy History of coronary artery bypass graft x 3 (~09/01/19) History of coronary artery stent placement (08/30/19) History of herniorrhaphy Social History adopted: Yes household members: spouse number of children: 3 Smoking Status: Never smoker second hand exposure: No alcohol intake: never substance use type: does not use caffeine: No what type of physical activity do you participate in: none thelma/mormon: Hindu seatbelt use: always ROS ROS ED Constitutional Constitutional ED: Denies chills, fever(s) or sweats Eyes Eyes: Denies change in vision ENT ENT ED: Denies dysphagia or sore throat Cardiovascular Cardiovascular: Denies chest pain, leg edema, palpitations or racing heartbeat Respiratory/Chest Respiratory/Chest: Denies cough, dyspnea or dyspnea on exertion Gastrointestinal Gastrointestinal: Denies abdominal pain, diarrhea, nausea or vomiting Genitourinary Genitourinary ED: Reports urinary frequency; Denies dysuria or hematuria Musculoskeletal Musculoskeletal: Denies back pain, extremity pain or neck pain Integumentary Denies rash or wounds Neurologic Neurologic: Reports weakness; Denies headache(s) or paresthesias EXAM Physical Exam Const Vital Signs: 12/19/22 05:28 12/19/22 05:31 12/19/22 05:53 Temperature 98.7 F Temperature Source Oral Pulse Rate 72 67 Respiratory Rate 96 H 18 Respiratory Pattern Normal Blood Pressure 177/96 H 158/79 H Blood Pressure Mean 123 105 Pulse Ox 98 Oxygen Delivery Method Room Air Room Air 12/19/22 06:28 Temperature Temperature Source Pulse Rate 65 Respiratory Rate 16 Respiratory Pattern Blood Pressure 136/64 H Blood Pressure Mean 88 Pulse Ox 96 Oxygen Delivery Method Room Air Positive well nourished and well developed General Appearance ED: well developed and NAD HEENT Reports TM's clear HEENT Narrative: Mild dry mucosal membranes. Posterior scalp occiput, healed area of scar right midline, no erythema no induration no drainage. normocephalic and atraumatic Tympanic Membrane ED: Yes TM's clear Eyes PERRL, EOMs intact bilaterally and conjunctivae normal General Eye ED: Yes normal appearance of both eyes Neck no lymphadenopathy and supple General: Negative for tenderness Chest Wall Chest: Negative for tenderness Resp normal respiratory effort and normal air movement Effort and Inspection: symmetric chest movement; Negative for respiratory distress Cardio regular rate, regular rhythm and no murmurs Peripheral Pulses: pulses 2+ throughout GI normal to inspection, nondistended, normoactive bowel sounds and non-tender Palpation: Negative for guarding or rebound tenderness present Back/Spine no CVA tenderness and no thoracic nor lumbar tenderness Extremity normal to inspection General Extremety ED: Negative for edema or tenderness General Extremity: Negative for edema Neuro oriented x3 and no sensory deficits noted Neuro Narrative: slight left lip droop reported chronic, no focal neurologic deficits. Slight contracture of the left upper extremity however able to move and hold it up. NIH would be a 1 however the lip droop is chronic essentially baseline. Sensorium / Orientation: awake and alert Skin no rashes or lesions noted and no wounds MDM MDM MDM Narrative Medical decision making narrative: Interventions / MDM: Differential diagnosis: Weakness, UTI, dehydration, electrolyte abnormalities Diagnosis considered but do not suspect: CVA, however chronic residual deficits, there is no new deficits reported or seen. My EKG interpretation: Sinus rate of 66, no ST changes, right bundle branch block, similar from January 12, 2022. Imaging independently reviewed and interpreted by myself: N/A External documents reviewed: N/A Test considered but not ordered:N/A ED course: Patient presenting with weakness, chronic dry cough. No respiratory complaints. EKG chronic right bundle branch block. Labs stable hemoglobin 16 white count 3. Her electrolytes were normal creatinine 0.81. Urine obtained, negative for infection. Given fluids for slight dry mucosal membranes. Re-evaluation: 0625: stable, elevated blood pressure on arrival improved without intervention down to 136/64 she reported her discomfort from her procedure area in her posterior scalp for 3 weeks. There is no signs of infection. She reported she had one on her frontal scalp that has resolved. Discussed likely take time with healing superficial nerves. She is treated with Tylenol. She will be ambulated with her walker for evaluation with complaints of weakness. 0640: Patient able to ambulate with a walker with no difficulties. Discharged with her 7 other home with outpatient follow-up. Return precautions discussed. All questions were answered. Disposition discussed with patient/family/significant other: Patient and significant other Case discussed with consulting clinician: N/A Lab Data Attestation: I reviewed the patient's lab results. Labs: Laboratory Results - last 24 hr 12/19/22 12/19/22 12/19/22 05:50 05:50 06:00 WBC 6.3 RBC 5.29 Hgb 16.0 H Hct 48.9 H MCV 92.4 MCH 30.2 MCHC 32.7 RDW Std Deviation 42.0 RDW Coeff of Thor 12.2 Plt Count 262 MPV 10.7 Immature Gran % (Auto) 0.200 Neut % (Auto) 44.8 L Lymph % (Auto) 40.4 [place] % (Auto) 7.5 Eos % (Auto) 6.1 H Baso % (Auto) 1.0 Absolute Neuts (auto) 2.8 Absolute Lymphs (auto) 2.53 Nucleated RBC % 0 Sodium 139 Potassium 3.9 Chloride 108 H Carbon Dioxide 28.0 Anion Gap 3 L BUN 17 Creatinine 0.81 Estim Creat Clear Calc 43.81 Est GFR (MDRD) Af Amer 87 Est GFR (MDRD) Non-Af 72 BUN/Creatinine Ratio 21.0 H Glucose 104 Calcium 9.4 Urine Color Straw Urine Clarity Clear Urine pH 7.0 Ur Specific [place] 1.010 Urine Protein Negative Urine Glucose (UA) Normal Urine Ketones Negative Urine Occult Blood Negative Urine Nitrite Negative Urine Bilirubin Negative Urine Urobilinogen Normal Ur Leukocyte Esterase Negative Urine RBC 0 SEEN Urine WBC 0 SEEN Ur Squamous Epith Cells 0 SEEN Urine Bacteria 0 SEEN Urine Mucus 0 SEEN Discharge Plan Triage Chief Complaint: Weakness ED Provider: Cortes Fernandez Dx/Rx/DC Orders Clinical Impression: Right bundle branch block (RBBB), Weakness, Dehydration Instructions: ED Dehydration (Adult), ED Weakness (Uncertain Cause) Prescriptions: No Action escitalopram oxalate 10 mg tablet 5 mg PO DAILY clonazepam 1 mg tablet 2.5 mg PO .QID multivitamin [Multiple Vitamins] Tablet 1 tab PO DAILY acetaminophen [Tylenol] 325 mg Tablet 650 mg PO Q4H PRN PRN (Reason: Pain 1-10 Or Fever) Qty: 0 0RF aspirin 81 mg Tablet,Delayed Release (Dr/Ec) 81 mg PO DAILY Qty: 0 0RF lisinopril 5 mg Tablet 5 mg PO DAILY Qty: 0 0RF cholecalciferol (vitamin D3) 125 mcg (5,000 unit) Capsule 125 mcg PO DAILY Qty: 0 0RF Primary Care Provider: Jp Henson Referrals: Jp Henson DO [Primary Care Provider] - 3-5 Days Activity Restrictions/Additional Instructions: Work-up notes chronic right bundle branch block on EKG Labs normal urine negative. Able to ambulate back to baseline. Continue oral fluids for hydration due to dry mouth on exam. Follow-up with your doctor. Return if worsening symptoms. Disposition Disposition: Home, Self Care
[2022-12-19 05:53] VITALS: BP 158/79; PULSE 67; RESP 18; O2SAT 98
[2022-12-19 06:05] LABS: Absolute Lymphocyte Count 2.53 X10^3/uL (0.83-4.51); Absolute Neutrophil Count 2.8 X10^3/uL (2.0-7.7); Basophil# 0.06 X10^3/uL; Eosinophil# 0.38 X10^3/uL; Eosinophils% 6.1 % (0-5); Hematocrit 48.9 % (37-47); Lymphocyte # 2.53 X10^3/ul (0.83-4.51); Lymphocyte % 40.4 % (19-41); Mean Corp Hgb Conc 32.7 g/dL (32-36); Mean Corpuscular Hgb 30.2 pg (27.0-32.0); Mean Corpuscular Volume 92.4 fL (81-99); Mean Platelet Vol. 10.7 fl (6.2-12.0); Monocyte# 0.47 X10^3/uL; Monocyte% 7.5 % (0-10); NRBC Flagged by Analyzer 0 % (0-5); Neutrophil # 2.81 X10^3/uL (2.7-7.7); Neutrophil % 44.8 % (47-70); Platelet Count 262 K/mm3 (150-450); RBC Distribution Width CV 12.2 % (11.6-14.6); Red Blood Count 5.29 M/mm3 (4.2-5.4); White Blood Count 6.3 K/mm3 (4.4-11.0)
[2022-12-19 06:10] LABS: Bacteria 0 SEEN /hpf (None Seen); Mucous, Urine 0 SEEN /hpf (<or=2+); Red Blood Cells-Urine 0 SEEN /hpf (0-5); Squamous Epithelial Cells - UA 0 SEEN /hpf (5-10); White Blood Cells 0 SEEN /hpf (0-5)
[2022-12-19 06:12] LABS: Color, Urine Straw (Yellow); Glucose, Dipstick Normal (Normal); Ketone-Dipstick Negative (Negative); Leukocyte Esterase-Dipstick Negative /ul (Negative); Nitrite-Dipstick Negative (Negative); Occult Blood-Urine Negative /ul (Negative); Protein-Dipstick Negative (Negative); Urine Bilirubin Dipstick Negative (Negative); Urine Clarity Clear (Clear); Urine Urobilinogen Normal (Normal)
[2022-12-19 06:12] LABS: Anion Gap 3 (5-15); BUN 17 mg/dL (7-18); Calcium,Total 9.4 mg/dL (8.5-10.1); Chloride 108 mmol/L (98-107); Creatinine, Serum 0.81 mg/dL (0.55-1.02); EST Glomerular Filtration Rate 72 mL/min (>60); Est Glom Filt Rate - Afr Amer 87 mL/min (>60); Estimated Creatinine Clearance 43.81 ml/min; Glucose 104 mg/dL (74-106); Potassium 3.9 mmol/L (3.5-5.1); Sodium Level 139 mmol/L (136-145)
[2022-12-19 06:28] VITALS: BP 136/64; PULSE 65; RESP 16; O2SAT 96
[2022-12-19] MEDS: Acetaminophen 325 MG Tablet 650 MG PO (06:30)
== END 2022-12-19 06:44 | disposition home or self-care (01) ==
PROVIDERS: Emergency Provider Emergency Medicine; PCP Family Medicine; Visit Provider Emergency Medicine
DX: E86.0 Dehydration (principal); G81.92 Hemiplegia, unspecified affecting left dominant side; I63.9 Cerebral infarction, unspecified; I45.10 Unspecified right bundle-branch block; I25.10 Atherosclerotic heart disease of native coronary artery without angina pectoris; I10 Essential (primary) hypertension; R53.1 Weakness; Z79.899 Other long term (current) drug therapy; Z79.82 Long term (current) use of aspirin; F41.9 Anxiety disorder, unspecified; Z95.5 Presence of coronary angioplasty implant and graft
CPT/HCPCS: 80048; 81001; 85025; 93005; 96360; 99285; J7030; A4216

== ENCOUNTER → 2023-02-13 | Outpatient (CLI) | payer MEDICARE, OTHER, SELFPAY ==
[2023-02-13 07:21] LABS: Cholesterol 241 mg/dL (200); High Density Lipoprotein 46 mg/dL; Triglycerides 187 mg/dL; Very Low Density Lipoprotein 37 mg/dL (5-40)
== END | disposition home or self-care (01) ==
LOC: LAB 06:06
PROVIDERS: PCP Family Medicine; Referring Provider Family Medicine; Visit Provider Family Medicine
DX: E78.5 Hyperlipidemia, unspecified (principal)
CPT/HCPCS: 36415; 80061

== ENCOUNTER → 2023-03-15 | Outpatient (CLI) | payer MEDICARE, OTHER, SELFPAY ==
--- NOTE | 2023-03-15 09:35 | CDU_ITS ---
Reason For Study: Follow-up of 50-69% left ICA stenosis, Hx CVA Rt. Velocities/BP Lt. Velocities/BP Prox CCA 55.1/9.7 cm/sec. Prox CCA 86.1/12.4 cm/sec. Mid CCA 67.4/12.6 cm/sec. Mid CCA 79.5/9.1 cm/sec. Dist CCA 60.7/11.6 cm/sec. Dist CCA 50.9/10.2 cm/sec. Prox ICA 77.8/18.2 cm/sec. Prox ICA 152.1/29.8 cm/sec. Mid ICA 108.4/20 cm/sec. Mid ICA 124.7/24.3 cm/sec. Dist ICA 86.3/18.8 cm/sec. Dist ICA 63.1/16.2 cm/sec. Rt. ICA/CCA = 1.79. Lt. ICA/CCA = 1.91. Prox ECA 77.8/6 cm/sec. Prox ECA 63/4.7 cm/sec. Rt. Vert. 73.7/9.5 cm/sec. Lt. Vert. 59.7/10.2 cm/sec. Right Extracranial There is heterogeneous, irregular atherosclerotic plaque noted in the right common carotid artery. There is heterogeneous, irregular atherosclerotic plaque noted in the right internal carotid artery. There is heterogeneous, irregular atherosclerotic plaque noted in the right external carotid artery. Antegrade flow is noted in the right vertebral artery. Left Extracranial There is intimal thickening but no significant atherosclerotic plaque noted in the left common carotid artery. There is heterogeneous, irregular atherosclerotic plaque noted in the left internal carotid artery. There is heterogeneous, irregular atherosclerotic plaque noted in the left external carotid artery. Antegrade flow is noted in the left vertebral artery. Procedure Carotid Duplex [id number]. This is a Carotid Duplex examination using B-mode, color flow and specral Doppler. Exam performed in department. VL/Carotid Duplex Ultrasound Interpretation Summary Mild (<50%) stenosis right extracranial internal carotid. Moderate (50-69%) stenosis left extracranial internal carotid. Patent and antegrade vertebrals bilaterally. Ordering Physician: Jorge Luis Vasquez Referring Physician: Jp Henson Performed By: Chitra Marie RVT
== END | disposition home or self-care (01) ==
LOC: CVS 09:34
PROVIDERS: PCP Family Medicine; Referring Provider Psychiatry & Neurology Neurology; Visit Provider Psychiatry & Neurology Neurology
DX: R42 Dizziness and giddiness (principal); I63.50 Cerebral infarction due to unspecified occlusion or stenosis of unspecified cerebral artery; I65.29 Occlusion and stenosis of unspecified carotid artery
CPT/HCPCS: 93880

== ENCOUNTER 2023-05-16 13:23 | Emergency (ER) | payer MEDICARE, OTHER, SELFPAY ==
[2023-05-16 13:26] VITALS: BP 167/71; PULSE 77; RESP 18; TEMP 36.4; O2SAT 97
--- NOTE | 2023-05-16 16:19 | CT_ITS ---
STUDY: CT BRAIN WITHOUT CONTRAST REASON FOR EXAM: Female, 82 years old. headache RADIATION DOSAGE (If Supplied By Facility): CTDIvol = ( 44.99 ) mGy, DLP = ( 812.98 ) mGycm TECHNIQUE: Transaxial CT imaging of the brain was performed without administration of intravenous contrast material. Individualized dose optimization techniques were used for this CT. COMPARISON: 06/20/2022 FINDINGS: Normal soft tissue structures. There is hyperostosis frontalis internus. Stable 3.9 cm arachnoid cyst of the right anterior cranial fossa. Normal size ventricles and extra-axial spaces for the patient''s age. There are areas of decreased attenuation within the white matter tracts of the supratentorial brain, consistent with microvascular disease changes. There are small punctate calcifications of the basal ganglia which are seen in the aging brain as a normal variant. Normal brainstem. Normal cerebellum. There is no intracranial hemorrhage. There are no findings of an acute ischemic infarction. Normal visualized paranasal sinuses. CT/Brain/Head without Contrast IMPRESSION: Chronic involutional changes of the brain. No change or acute abnormality. Electronically Signed: Jorge Vo MD at 16:49 EDT ,
--- NOTE | 2023-05-16 16:19 | EKG12_ITS ---
Test Reason : Blood Pressure : / mmHG Vent. Rate : 088 BPM Atrial Rate : 088 BPM P-R Int : 160 ms QRS Dur : 128 ms QT Int : 438 ms P-R-T Axes : 055 -64 -13 degrees QTc Int : 529 ms Normal sinus rhythm Left axis deviation Right bundle branch block Left ventricular hypertrophy with repolarization abnormality ( R in aVL , Romhilt-Ni ) Possible Lateral infarct , age undetermined Abnormal ECG Confirmed by JANINA LIRIANO, VICENTE ([id number]), graphic editor LEOPOLDO CUEVA ([id number]) on 05/22/2023 2:16:50 PM Referred By: Confirmed By:KETTY ROA MD
--- NOTE | 2023-05-16 16:23 | EX.ED.DYSGE1 ---
HPI <AARON Aguayo - Last Filed: 05/16/23 18:08> History of Present Illness Chief Complaint: Headache Narrative Narrative: Patient is an 82-year-old female with history of stroke with left-sided paraplegia, anxiety, hypertension, history of optic migraines who presents to the emergency department with right-sided ear pain, pain to her jaw. Patient states she ate breakfast this morning, and had significant pain to her right jaw, right ear. Patient is alert orient x4. She denies any upper or lower extremity weakness. Patient does have slight weakness to her left side however this is chronic. She states she did have some blurred vision however she does not have any history of this at this time. Patient is here with her son. 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 Breast lump Chest pain Chronic headache Chronic prescription benzodiazepine use CVA (cerebral vascular accident) Essential (primary) hypertension Essential hypertension Fecal impaction GERD (gastroesophageal reflux disease) H/O transfusion of whole blood History of colon polyps Hyperlipidemia Intractable constipation Osteoarthritis Rheumatoid arthritis Right bundle branch block (RBBB) Vitamin deficiency Home Medications acetaminophen 325 mg tablet (Tylenol) 650 mg (2 x 325 mg) PO Q4H PRN PRN Pain 1-10 Or Fever #0 tabs 01/11/22 [Rx Last Taken Unknown] aspirin 81 mg tablet,delayed release 81 mg PO DAILY #0 tabs 01/14/22 [Rx Last Taken Unknown] cholecalciferol (vitamin D3) 125 mcg (5,000 unit) capsule 125 mcg PO DAILY #0 caps 01/14/22 [Rx Last Taken Unknown] lisinopril 5 mg tablet 5 mg PO DAILY #0 tabs 01/14/22 [Rx Last Taken Unknown] clonazepam 1 mg tablet 2.5 mg PO .QID 04/25/22 [History Last Taken Unknown] escitalopram oxalate 10 mg tablet 5 mg PO DAILY 04/25/22 [History Last Taken Unknown] multivitamin (Multiple Vitamins tablet) 1 tab PO DAILY 09/06/22 [History Last Taken Unknown] Allergy/AdvReac Type Severity Reaction Status Date / Time amlodipine besylate Allergy Other Verified 05/16/23 13:25 [From Norvasc] atenolol Allergy Other Verified 05/16/23 13:25 atorvastatin Allergy PT UNSURE Verified 05/16/23 13:25 OF REACTION buspirone HCl [From BuSpar] Allergy Other Verified 05/16/23 13:25 citalopram hydrobromide Allergy Other Verified 05/16/23 13:25 [From Celexa] diazepam [From Valium] Allergy Other Verified 05/16/23 13:25 hydrochlorothiazide Allergy Other Verified 05/16/23 13:25 [From Zestoretic] metoprolol succinate Allergy Other Verified 05/16/23 13:25 [From Toprol XL] mirtazapine [From Remeron] Allergy Other Verified 05/16/23 13:25 paroxetine HCl [From Paxil] Allergy Other Verified 05/16/23 13:25 procaine HCl [From Novocain] Allergy Other Verified 05/16/23 13:25 Sulfa (Sulfonamide Allergy Other Verified 05/16/23 13:25 Antibiotics) valsartan [From Diovan] Allergy Other Verified 05/16/23 13:25 Penicillins AdvReac Unknown Other Verified 05/16/23 13:25 Family History Other Adopted Surgical History History of appendectomy History of cataract surgery History of cholecystectomy History of coronary artery bypass graft x 3 (~09/01/19) History of coronary artery stent placement (08/30/19) History of herniorrhaphy Social History adopted: Yes household members: spouse number of children: 3 Smoking Status: Never smoker second hand exposure: No alcohol intake: never substance use type: does not use caffeine: No what type of physical activity do you participate in: none thelma/hoahaoism: [employer] seatbelt use: always ROS <AARON Aguayo - Last Filed: 05/16/23 18:08> ROS ED ROS Narrative Constitutional: Negative for fever, chills, weight loss, weakness Eyes: Negative for vision loss, vision change, double vision. Positive for floaters intermittently. ENT: Negative for any sore throat, congestion. Positive right ear pain Cardiovascular: Negative for any chest pain, tightness, palpitations Respiratory: Negative for any cough, sputum production, hemoptysis, dyspnea, dyspnea on exertion, orthopnea Gastrointestinal: Negative for any abdominal pain, nausea, vomiting, diarrhea, constipation, blood in stool, blood in vomit : Negative for any urinary frequency, dysuria, retention, blood in urine Muscle skeletal: Negative for any muscle joint pain, stiffness, myalgias, arthralgias, neck pain, back pain Neurological: Negative for any syncope, numbness or tingling, dizziness. Positive right-sided headache, right jaw pain Skin: Negative for any rashes, lumps, itching, abrasions, lacerations Psychiatric: Negative for any depression, anxiety, stress, suicidal ideation, homicidal ideation Hematologic: Negative for any easy bruising, excessive bruising, easy bleeding Allergies: Negative for any eczema, hives, rash EXAM <AARON Aguayo - Last Filed: 05/16/23 18:08> Physical Exam Narrative Exam Narrative: Vital signs reviewed. HEET: Head normocephalic atraumatic, TMs clear bilaterally. Posterior pharynx is clear, moist mucous membranes. Nares clear bilaterally. Pupils are equal round reactive to light. Negative for any hemotympanum, negative for any nystagmus Neck: Supple with no lymphadenopathy or tenderness. No signs of meningismus, negative jolt sign. Cardiac: Regular rate and rhythm no murmurs gallops or rubs, equal peripheral pulses bilaterally. Respiratory: Lungs clear to auscultation bilaterally. No chest tenderness. Abdomen: Soft, nontender, nondistended. No abdominal bruit or pulsatile masses. No hepatosplenomegaly Extremities: No peripheral edema, no signs of gross trauma or deformity. Active full range of motion of all extremities. Neuro: Cranial nerves II through XII intact, no focal neurological deficits. NIH stroke scale 0. Skin: Clean dry and intact with no rash, purpura, petechiae, vesicles or pustules. Backs/flank: No CVA tenderness, no midline spinal tenderness, no deformity. Psych: Normal mood and affect. No SI, HI or acute psychosis. Const Vital Signs: 05/16/23 13:26 05/16/23 18:09 Temperature 97.6 F L Temperature Source Temporal Pulse Rate 77 86 Respiratory Rate 18 18 Blood Pressure 167/71 H 171/80 H Blood Pressure Mean 103 Pulse Ox 97 96 Oxygen Delivery Method Room Air <Avelino Moeller MD - Last Filed: 05/16/23 20:04> Physical Exam Const Vital Signs: 05/16/23 13:26 05/16/23 18:09 Temperature 97.6 F L Temperature Source Temporal Pulse Rate 77 86 Respiratory Rate 18 18 Blood Pressure 167/71 H 171/80 H Blood Pressure Mean 103 Pulse Ox 97 96 Oxygen Delivery Method Room Air MDM <AARON Aguayo - Last Filed: 05/16/23 18:08> MDM Lab Data Labs: Laboratory Results - last 24 hr 05/16/23 16:30 WBC 12.1 H RBC 5.00 Hgb 15.5 H Hct 47.5 H MCV 95.0 MCH 31.0 MCHC 32.6 RDW Std Deviation 41.9 RDW Coeff of Thor 12.0 Plt Count 266 MPV 11.3 Immature Gran % (Auto) 0.200 Neut % (Auto) 87.2 H Lymph % (Auto) 10.4 L [place] % (Auto) 1.7 Eos % (Auto) 0.1 Baso % (Auto) 0.4 Absolute Neuts (auto) 10.5 H Absolute Lymphs (auto) 1.26 Nucleated RBC % 0 Sodium 133 L Potassium 3.8 Chloride 100 Carbon Dioxide 24.0 Anion Gap 9 BUN 20 H Creatinine 0.90 Est GFR (MDRD) Af Amer 77 Est GFR (MDRD) Non-Af 64 BUN/Creatinine Ratio 22.1 H Glucose 136 H Calcium 9.0 Radiography Diagnostic Testing: Clinical Impression(s) from Imaging Studies Brain CT 05/16/23 16:19 IMPRESSION: Chronic involutional changes of the brain. No change or acute abnormality. Electronically Signed: Jorge Vo MD at 16:49 EDT , EKG Normal sinus rhythm: Attestation: I personally reviewed and interpreted this EKG as follows: Comments: Normal sinus rhythm, rate of 88 bpm, IA 160 ms, QRS duration 128 ms, no acute ST elevation, no acute infarct noted. Treatment and Re-Evaluation :: Patient is alert and oriented x4, patient is in no distress, vital signs are stable. Presents to the emergency department with floaters this morning to her eyes as well as right-sided ear pain, right-sided headache and jaw pain. Patient's biggest concern is another stroke. Patient is also extremely anxious. Physical examination was unremarkable. NIH score 0. Patient was seen basic laboratory values EKG as well as a CT scan of the brain. This to rule out any subarachnoid hemorrhage, skull fracture, other cranial pathology. This could also be another symptom of her optic migraines which she does have frequently. Patient remained stable, patient's pain has lessened into the right ear. Patient's laboratory values shows a leukocytosis white blood count of 12.1. Hemoglobin 15.5 which is baseline for the patient. Patient's chemistries were unremarkable. Patient received a CT scan of the brain that showed chronic involutional changes of the brain. No change or acute abnormality. At this time, patient has no evidence of any ACS, ID, stroke. Patient will follow-up outpatient. Patient is happy with the plan of care, she does feel better, all questions answered stable for discharge. <Avelino Moeller MD - Last Filed: 05/16/23 20:04> MDM MDM Narrative Medical decision making narrative: Dr. Moeller: I have personally performed a face to face assessment of the patient and have reviewed the MAYRA Note. I performed a substantive portion of the visit including all aspects of the following. My drew findings include: History is right ear pain, visual migraine-resolved. History of stroke. Exam is afebrile. Vital signs noted. Regular rate and rhythm. Lungs clear to auscultation bilaterally. Abdomen soft nontender with normal active bowel sounds. NIH stroke scale is 0, nonfocal, nonlateralizing. Medical Decision Making: Check CT brain. Check labs. I reviewed the CT radiology report which shows chronic involutional changes, but no evidence of an acute process or stroke, no hemorrhage. Patient's states they had her carotid Dopplers checked recently and were negative. I have low concern for stroke and do not feel that she requires observation at this time. I feel she be discharged safely home to continue her medications and follow-up with her primary care provider. Return instructions were reviewed. Disposition is discharged home in stable condition. Other additions or changes: [None] History & Record Review Discussion w/independent historian: Patient Additional record(s) reviewed:: Prior ED visit and Prior labs Lab Data Attestation: I reviewed the patient's lab results. Labs: Laboratory Results - last 24 hr 05/16/23 16:30 WBC 12.1 H RBC 5.00 Hgb 15.5 H Hct 47.5 H MCV 95.0 MCH 31.0 MCHC 32.6 RDW Std Deviation 41.9 RDW Coeff of Thor 12.0 Plt Count 266 MPV 11.3 Immature Gran % (Auto) 0.200 Neut % (Auto) 87.2 H Lymph % (Auto) 10.4 L [place] % (Auto) 1.7 Eos % (Auto) 0.1 Baso % (Auto) 0.4 Absolute Neuts (auto) 10.5 H Absolute Lymphs (auto) 1.26 Nucleated RBC % 0 Sodium 133 L Potassium 3.8 Chloride 100 Carbon Dioxide 24.0 Anion Gap 9 BUN 20 H Creatinine 0.90 Est GFR (MDRD) Af Amer 77 Est GFR (MDRD) Non-Af 64 BUN/Creatinine Ratio 22.1 H Glucose 136 H Calcium 9.0 Radiography Diagnostic Testing: Clinical Impression(s) from Imaging Studies Brain CT 05/16/23 16:19 IMPRESSION: Chronic involutional changes of the brain. No change or acute abnormality. Electronically Signed: Jorge Vo MD at 16:49 EDT Reading Location ID and State: [address] [place] [address] , Service support , Discharge Plan Triage Chief Complaint: Headache Other Complaint: Ear Problem ED Midlevel Provider: Yuri Nails ED Provider: Avelino Moeller Dx/Rx/DC Orders Clinical Impression: Acute ear pain, Migraine, History of stroke Instructions: ED Earache Without Infection (Adult), ED, Migraine (Classical) Prescriptions: No Action escitalopram oxalate 10 mg tablet 5 mg PO DAILY clonazepam 1 mg tablet 2.5 mg PO .QID multivitamin [Multiple Vitamins] Tablet 1 tab PO DAILY acetaminophen [Tylenol] 325 mg Tablet 650 mg PO Q4H PRN PRN (Reason: Pain 1-10 Or Fever) Qty: 0 0RF aspirin 81 mg Tablet,Delayed Release (Dr/Ec) 81 mg PO DAILY Qty: 0 0RF lisinopril 5 mg Tablet 5 mg PO DAILY Qty: 0 0RF cholecalciferol (vitamin D3) 125 mcg (5,000 unit) Capsule 125 mcg PO DAILY Qty: 0 0RF Primary Care Provider: Jp Henson Referrals: Jp Henson DO [Primary Care Provider] - Disposition Disposition: Home, Self Care Discharge Date/Time: 05/16/23 18:16
[2023-05-16 16:45] LABS: Absolute Lymphocyte Count 1.26 X10^3/uL (0.83-4.51); Absolute Neutrophil Count 10.5 X10^3/uL (2.0-7.7); Basophil# 0.05 X10^3/uL; Basophil% 0.4 % (0-1); Eosinophil# 0.01 X10^3/uL; Eosinophils% 0.1 % (0-5); Hematocrit 47.5 % (37-47); Hemoglobin 15.5 g/dL (12.0-15.0); Lymphocyte # 1.26 X10^3/ul (0.83-4.51); Lymphocyte % 10.4 % (19-41); Mean Corp Hgb Conc 32.6 g/dL (32-36); Mean Platelet Vol. 11.3 fl (6.2-12.0); Monocyte# 0.21 X10^3/uL; Monocyte% 1.7 % (0-10); NRBC Flagged by Analyzer 0 % (0-5); Neutrophil % 87.2 % (47-70); Platelet Count 266 K/mm3 (150-450); RBC Distribution Width SD 41.9 fl (35.1-43.9); White Blood Count 12.1 K/mm3 (4.4-11.0)
[2023-05-16 16:57] LABS: Anion Gap 9 (5-15); BUN 20 mg/dL (7-18); BUN/Creat Ratio 22.1 RATIO (10-20); Chloride 100 mmol/L (98-107); EST Glomerular Filtration Rate 64 mL/min (>60); Est Glom Filt Rate - Afr Amer 77 mL/min (>60); Glucose 136 mg/dL (74-106); Potassium 3.8 mmol/L (3.5-5.1); Sodium Level 133 mmol/L (136-145)
[2023-05-16 18:09] VITALS: BP 171/80; PULSE 86; RESP 18; O2SAT 96
== END 2023-05-16 18:16 | disposition home or self-care (01) ==
PROVIDERS: Nurse Practitioner; Emergency Provider Emergency Medicine; PCP Family Medicine; Visit Provider Emergency Medicine
DX: H92.01 Otalgia, right ear (principal); I69.362 Other paralytic syndrome following cerebral infarction affecting left dominant side; I25.10 Atherosclerotic heart disease of native coronary artery without angina pectoris; E78.5 Hyperlipidemia, unspecified; I10 Essential (primary) hypertension; G43.909 Migraine, unspecified, not intractable, without status migrainosus; F41.9 Anxiety disorder, unspecified; Z79.82 Long term (current) use of aspirin; Z79.899 Other long term (current) drug therapy; Z90.49 Acquired absence of other specified parts of digestive tract; Z95.5 Presence of coronary angioplasty implant and graft
CPT/HCPCS: 70450; 80048; 85025; 93005; 99284; J7030; A4216

== ENCOUNTER → 2023-12-15 | Outpatient (CLI) | payer MEDICARE, OTHER, SELFPAY | END | disposition home or self-care (01) | PROVIDERS: PCP Family Medicine; Referring Provider Family Medicine; Visit Provider Family Medicine | DX: R30.0 Dysuria (principal); R10.2 Pelvic and perineal pain ==

== ENCOUNTER → 2023-12-16 | Outpatient (CLI) | payer MEDICARE, OTHER, SELFPAY ==
[2023-12-16 10:44] LABS: Color, Urine Yellow (Yellow); Glucose, Dipstick Normal (Normal); Ketone-Dipstick Negative (Negative); Leukocyte Esterase-Dipstick 25 /ul (Negative); Nitrite-Dipstick Negative (Negative); Occult Blood-Urine Negative /ul (Negative); Protein-Dipstick Negative (Negative); Urine Bilirubin Dipstick Negative (Negative); Urine Clarity Clear (Clear); Urine Urobilinogen Normal (Normal)
== END | disposition home or self-care (01) ==
LOC: LABSPEC 08:10
PROVIDERS: PCP Family Medicine; Referring Provider Family Medicine; Visit Provider Family Medicine
DX: R30.0 Dysuria (principal); R10.2 Pelvic and perineal pain
CPT/HCPCS: 81002; 87086; 87088

== ENCOUNTER → 2023-12-19 | Outpatient (CLI) | payer MEDICARE, OTHER, SELFPAY ==
--- NOTE | 2023-12-19 13:34 | CDU_ITS ---
Reason For Study: L ICA stenosis Rt. Velocities/BP Lt. Velocities/BP Prox CCA 83.4/6.9 cm/sec. Prox CCA 69.6/11.3 cm/sec. Mid CCA 53.2/10.7 cm/sec. Mid CCA 80.6/11.3 cm/sec. Dist CCA 69.2/12.6 cm/sec. Dist CCA 46.5/11.3 cm/sec. Prox ICA 72.1/16.3 cm/sec. Prox ICA 174.1/29.8 cm/sec. Mid ICA 73.0/16.3 cm/sec. Mid ICA 182.9/24.8 cm/sec. Dist ICA 98.1/21.2 cm/sec. Dist ICA 83.3/18.4 cm/sec. Rt. ICA/CCA = 1.8. Lt. ICA/CCA = 2.3. Prox ECA 86.3/7.8 cm/sec. Prox ECA 121.1/7.9 cm/sec. Rt. Vert. 77.3/8.0 cm/sec. Lt. Vert. 61.9/15.7 cm/sec. Right Extracranial There is heterogeneous, irregular atherosclerotic plaque noted in the right common carotid artery. There is heterogeneous, irregular atherosclerotic plaque noted in the right internal carotid artery. There is heterogeneous, irregular atherosclerotic plaque noted in the right external carotid artery. Antegrade flow is noted in the right vertebral artery. Left Extracranial There is homogeneous, smooth atherosclerotic plaque noted in the left common carotid artery. There is heterogeneous, irregular atherosclerotic plaque noted in the left internal carotid artery. There is heterogeneous, irregular atherosclerotic plaque noted in the left external carotid artery. Antegrade flow is noted in the left vertebral artery. Procedure Carotid Duplex 48858. This is a Carotid Duplex examination using B-mode, color flow and specral Doppler. The exam was diagnostic. Exam performed in department. VL/Carotid Duplex Ultrasound Interpretation Summary Mild (<50%) stenosis right extracranial internal carotid. Moderate (50-69%) stenosis left extracranial internal carotid. Patent and antegrade vertebrals bilaterally. Ordering Physician: Jorge Luis Vasquez Referring Physician: Jorge Luis Vasquez Performed By: Eduardo Sharpe RVT
== END | disposition home or self-care (01) ==
PROVIDERS: PCP Family Medicine; Referring Provider Psychiatry & Neurology Neurology; Visit Provider Psychiatry & Neurology Neurology
DX: I65.23 Occlusion and stenosis of bilateral carotid arteries (principal)
CPT/HCPCS: 93880

== ENCOUNTER 2023-12-21 11:58 | Emergency (ER) | payer MEDICARE, OTHER, SELFPAY ==
[2023-12-21 11:58] VITALS: BP 164/74; PULSE 73; RESP 16; TEMP 35.8; O2SAT 97
[2023-12-21 12:31] VITALS: BMI 21.9
--- NOTE | 2023-12-21 12:39 | EDS_ITS ---
HPI <AARON Aguayo - Last Filed: 12/21/23 12:45> History of Present Illness Chief Complaint: Constipation Narrative Narrative: Patient is an 83-year-old female with history of anxiety, depression, hypertension who presents to the emergency department for concern for constipation. Patient states over the last week, patient been having lower abdominal cramping, decreased output of her bowels. Patient did see her primary care doctor, she was told to continue to do MiraLAX and to increase her fluids. Patient did have a bowel movement today however per the it was only a small amount. Patient does not have any cramping at this time however he states it comes in waves. She denies any fever chills nausea or vomiting. Patient states she still passing gas. She states that many years ago, she did have a blockage as she is concerned. PFS <AARON Aguayo - Last Filed: 12/21/23 12:45> [facility] Medical History Anxiety disorder 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 Atherosclerotic heart disease of [place] coronary artery without angina pectoris Breast lump Chest pain Chronic headache Chronic prescription benzodiazepine use CVA (cerebral vascular accident) Essential (primary) hypertension Essential hypertension Fecal impaction GERD (gastroesophageal reflux disease) H/O transfusion of whole blood History of colon polyps Hyperlipidemia Intractable constipation Osteoarthritis Rheumatoid arthritis Right bundle branch block (RBBB) Vitamin deficiency Home Medications acetaminophen 325 mg tablet (Tylenol) 650 mg (2 x 325 mg) PO Q4H PRN PRN Pain 1- 10 Or Fever #0 tabs 01/11/22 [Rx Last Taken Unknown] aspirin 81 mg tablet,delayed release 81 mg PO DAILY #0 tabs 01/14/22 [Rx Last Taken Unknown] cholecalciferol (vitamin D3) 125 mcg (5,000 unit) capsule 125 mcg PO DAILY #0 caps 01/14/22 [Rx Last Taken Unknown] lisinopril 5 mg tablet 5 mg PO DAILY #0 tabs 01/14/22 [Rx Last Taken Unknown] clonazepam 1 mg tablet 2.5 mg PO .QID 04/25/22 [History Last Taken Unknown] escitalopram oxalate 10 mg tablet 5 mg PO DAILY 04/25/22 [History Last Taken Unknown] multivitamin (Multiple Vitamins tablet) 1 tab PO DAILY 09/06/22 [History Last Taken Unknown] peg 3350-electrolytes 236 gram-22.74 gram-6.74 gram-5.86 gram solution (GaviLyte-G) 240 ml PO Q1H #4,000 mL 12/21/23 [Rx Last Taken Unknown] Allergy/AdvReac Type Severity Reaction Status Date / Time amlodipine besylate Allergy Other Verified 07/04/23 10:34 [From Norvasc] atenolol Allergy Other Verified 07/04/23 10:34 atorvastatin Allergy PT UNSURE Verified 07/04/23 10:34 OF REACTION buspirone HCl [From BuSpar] Allergy Other Verified 07/04/23 10:34 citalopram hydrobromide Allergy Other Verified 07/04/23 10:34 [From Celexa] diazepam [From Valium] Allergy Other Verified 07/04/23 10:34 hydrochlorothiazide Allergy Other Verified 07/04/23 10:34 [From Zestoretic] metoprolol succinate Allergy Other Verified 07/04/23 10:34 [From Toprol XL] mirtazapine [From Remeron] Allergy Other Verified 07/04/23 10:34 paroxetine HCl [From Paxil] Allergy Other Verified 07/04/23 10:34 procaine HCl [From Novocain] Allergy Other Verified 07/04/23 10:34 Sulfa (Sulfonamide Allergy Other Verified 07/04/23 10:34 Antibiotics) valsartan [From Diovan] Allergy Other Verified 07/04/23 10:34 Penicillins AdvReac Unknown Other Verified 07/04/23 10:34 Family History Other Adopted Surgical History History of appendectomy History of cataract surgery History of cholecystectomy History of coronary artery bypass graft x 3 (~09/01/19) History of coronary artery stent placement (08/30/19) History of herniorrhaphy Social History adopted: Yes household members: spouse number of children: 3 Smoking Status: Never smoker second hand exposure: No alcohol intake: never substance use type: does not use caffeine: No what type of physical activity do you participate in: none thelma/church: Rastafari seatbelt use: always ROS <TORY AguayoC - Last Filed: 12/21/23 12:45> ROS ED ROS Narrative Constitutional: Negative for fever, chills, weight loss, weakness Eyes: Negative for vision loss, vision change, double vision ENT: Negative for any sore throat, ear pain, congestion Cardiovascular: Negative for any chest pain, tightness, palpitations Respiratory: Negative for any cough, sputum production, hemoptysis, dyspnea, dyspnea on exertion, orthopnea Gastrointestinal: Negative for any nausea, vomiting, diarrhea, blood in stool, blood in vomit. Positive for abdominal cramping, constipation : Negative for any urinary frequency, dysuria, retention, blood in urine Muscle skeletal: Negative for any neck pain, back pain Neurological: Negative for any headache, syncope, dizziness Skin: Negative for any rashes, itching, abrasions, lacerations Psychiatric: Negative for any depression, anxiety, stress, suicidal ideation, homicidal ideation Hematologic: Negative for any excessive bruising, easy bleeding EXAM <TORY AguayoC - Last Filed: 12/21/23 12:45> Physical Exam Narrative Exam Narrative: Vital signs reviewed. HEET: Head normocephalic atraumatic, TMs clear bilaterally. Posterior pharynx is clear, moist mucous membranes. Nares clear bilaterally. Neck: Supple with no lymphadenopathy or tenderness. No signs of meningismus. Cardiac: Regular rate and rhythm no murmurs gallops or rubs, equal peripheral pulses bilaterally. Respiratory: Lungs clear to auscultation bilaterally. No chest tenderness. Abdomen: Soft, nontender, nondistended. No abdominal bruit or pulsatile masses. No hepatosplenomegaly Extremities: No peripheral edema, no signs of gross trauma or deformity. Active full range of motion of all extremities. Neuro: Cranial nerves II through XII intact, no focal neurological deficits. Skin: Clean dry and intact with no rash, purpura, petechiae, vesicles or pustules. Backs/flank: No CVA tenderness, no midline spinal tenderness, no deformity. Psych: Normal mood and affect. No SI, HI or acute psychosis. Const Vital Signs: 12/21/23 11:58 Temperature 96.5 F L Temperature Source Temporal Pulse Rate 73 Respiratory Rate 16 Blood Pressure 164/74 H Blood Pressure Mean 104 Pulse Ox 97 Oxygen Delivery Method Room Air Positive well nourished and well developed General Appearance ED: well developed <Dr. Eduard Rodriguez MD - Last Filed: 12/21/23 13:31> Physical Exam Const Vital Signs: 12/21/23 11:58 Temperature 96.5 F L Temperature Source Temporal Pulse Rate 73 Respiratory Rate 16 Blood Pressure 164/74 H Blood Pressure Mean 104 Pulse Ox 97 Oxygen Delivery Method Room Air MDM <AARON Aguayo - Last Filed: 12/21/23 12:45> [facility] Radiography Diagnostic Testing: Clinical Impression(s) from Imaging Studies KUB X-Ray 12/21/23 12:40 IMPRESSION: Constipation. Electronically Signed: Ashok Mcguire MD at 13:08 EDT , Treatment and Re-Evaluation :: Differential diagnosis includes however is not limited to: Bowel obstruction, constipation, gastroenteritis, UTI Patient appears to be in no obvious distress, patient's vital signs are stable. Patient presents the emergency department for concern of constipation, intermittent abdominal cramping. Patient will receive a KUB, this will be interpreted by ER physician to rule out any obstruction, significant constipation. <Dr. Eduard Rodriguez MD - Last Filed: 12/21/23 13:31> [facility] Narrative Medical decision making narrative: I have personally performed a face to face assessment of the patient and have reviewed the MAYRA Note. I performed a substantive portion of the visit including all aspects of the following. My drew findings include: History is 83-year-old female history of constipation as had a good bowel movement for days. Denies significant Michele pain or vomiting. Exam is [well-appearing 83-year-old female vital signs stable afebrile. HEENT exam unremarkable. Neck nontender no lymphadenopathy. Lungs clear to auscultation. Heart regular rhythm no murmur. Chest wall nontender. Abdomen soft, nontender nondistended normal bowel sounds no peritoneal signs. No signs of obstruction. Moves all 4 extremities. She is weaker on the left side from prior stroke. Neurologically she is awake and alert. Answer questions following commands. at bedside.] Medical Decision Making [patient be treated for constipation. KUB showed increased stool. She will be discharged home with [facility]. Outpatient follow- up as needed.] Other additions or changes: [None] Radiography Diagnostic Testing: Clinical Impression(s) from Imaging Studies KUB X-Ray 12/21/23 12:40 IMPRESSION: Constipation. Electronically Signed: Ashok Mcguire MD at 13:08 EDT , Discharge Plan Triage Chief Complaint: Constipation ED Midlevel Provider: Yuri Nails ED Provider: Eduard Rodriguez Dx/Rx/DC Orders Clinical Impression: Constipation Instructions: ED Constipation (Adult) Prescriptions: New peg 3350-electrolytes [GaviLyte-G] 236-22.74-6.74 -5.86 gram recon soln 240 ml PO Q1H Qty: 4000 0RF Rx Instructions: until fecal effluent is clear No Action escitalopram oxalate 10 mg tablet 5 mg PO DAILY clonazepam 1 mg tablet 2.5 mg PO .QID multivitamin [Multiple Vitamins] Tablet 1 tab PO DAILY acetaminophen [Tylenol] 325 mg Tablet 650 mg PO Q4H PRN PRN (Reason: Pain 1-10 Or Fever) Qty: 0 0RF aspirin 81 mg Tablet,Delayed Release (Dr/Ec) 81 mg PO DAILY Qty: 0 0RF lisinopril 5 mg Tablet 5 mg PO DAILY Qty: 0 0RF cholecalciferol (vitamin D3) 125 mcg (5,000 unit) Capsule 125 mcg PO DAILY Qty: 0 0RF Primary Care Provider: Jp Henson Referrals: Jp Henson DO [Primary Care Provider] - Activity Restrictions/Additional Instructions: Please take a 6 to 8 ounce glass of this medicine every hour until you have a large bowel movement. Once you have a large bowel movement stop. Disposition Disposition: Home, Self Care
--- NOTE | 2023-12-21 12:40 | RAD_ITS ---
EXAM: XR ABDOMEN, 1 VIEW CLINICAL INDICATION: constipation TECHNIQUE: Frontal supine view of the abdomen/pelvis. COMPARISON: No relevant prior studies available. FINDINGS: GASTROINTESTINAL TRACT: Moderate stool burden noted throughout the large bowel. ORGANS: No organomegaly. BONES/JOINTS: No acute abnormality. RAD/Abdomen Single View (Portable) IMPRESSION: Constipation. Electronically Signed: Ashok Mcguire MD at 13:08 EDT ,
[2023-12-21 13:37] VITALS: BP 160/72; PULSE 73; RESP 16; TEMP 36.6; O2SAT 98
== END 2023-12-21 13:42 | disposition home or self-care (01) ==
PROVIDERS: Emergency Provider Emergency Medicine; PCP Family Medicine; Visit Provider Emergency Medicine
DX: K59.00 Constipation, unspecified (principal); F41.9 Anxiety disorder, unspecified; I10 Essential (primary) hypertension; I25.10 Atherosclerotic heart disease of native coronary artery without angina pectoris; Z86.73 Personal history of transient ischemic attack (TIA), and cerebral infarction without residual deficits; E78.5 Hyperlipidemia, unspecified; Z79.82 Long term (current) use of aspirin; Z79.899 Other long term (current) drug therapy; Z90.49 Acquired absence of other specified parts of digestive tract; Z95.5 Presence of coronary angioplasty implant and graft
CPT/HCPCS: 74018; 99282

== ENCOUNTER 2024-02-14 14:10 | Emergency (ER) | payer MEDICARE, OTHER, SELFPAY ==
[2024-02-14 14:11] VITALS: BP 160/73; PULSE 80; RESP 16; TEMP 36.4; O2SAT 95
--- NOTE | 2024-02-14 14:54 | EKG12_ITS ---
Test Reason : PALPITATIONS Blood Pressure : / mmHG Vent. Rate : 073 BPM Atrial Rate : 073 BPM P-R Int : 152 ms QRS Dur : 148 ms QT Int : 444 ms P-R-T Axes : 029 -64 079 degrees QTc Int : 489 ms Normal sinus rhythm Right bundle branch block Left anterior fascicular block Bifascicular block Left ventricular hypertrophy with repolarization abnormality ( R in aVL , Romhilt-Ni ) Possible Lateral infarct (cited on or before 16-MAY-2023) Abnormal ECG Confirmed by AREN LIRIANO, SÁNCHEZ ([id number]), film editor LEOPOLDO CUEVA ([id number]) on 02/15/2024 10:01:04 AM Referred By: AUDIE/DAYSI Confirmed By:SÁNCHEZ YOUNGER MD
[2024-02-14 15:11] VITALS: BP 159/65; PULSE 63; RESP 19; O2SAT 96
--- NOTE | 2024-02-14 15:12 | RAD_ITS ---
STUDY: X-RAY CHEST REASON FOR EXAM: Female, 83 years old. Hypertension TECHNIQUE: Single AP portable view of the chest. COMPARISON: Comparison is made with prior study dated December 31, 2021. FINDINGS: EKG electrodes are seen. The lungs are clear and expanded. There is no demonstrated pleural abnormality. Sternal cerclage wires and vascular clips are present from a prior sternotomy and coronary artery bypass graft procedure (CABG). Normal mediastinum and angel. Normal visualized pulmonary arteries. There is atherosclerotic calcification of the aortic arch with tortuosity. Normal visualized thoracic spine. Right shoulder calcific tendinitis. There is no demonstrated abnormality of the visualized soft tissue structures of the upper abdomen. RAD/Chest 1 View (Portable) IMPRESSION: No acute abnormality is seen. Electronically Signed: Darrell Astorga MD at 15:30 EDT ,
--- NOTE | 2024-02-14 15:25 | EX.ED.DYSGE1 ---
HPI History of Present Illness Chief Complaint: Palpitations Informant: patient and spouse/S.O. Narrative Narrative: 83-year-old female presenting to the emergency room with a chief complaint of palpitations. Patient states that since yesterday she has had intermittent palpitations where she feels her heart beating fast/hard. She states that today it happened again but was not going away. She states that she suffers from anxiety particularly about strokes and relates her anxiety has been acting up. She states that she has been doing well from a stroke standpoint now only having to utilize a cane. She states she has gone through extensive testing and is not known where her stroke originated from. states she wore a Holter monitor for 22 days. She has no history of atrial fibrillation or other cardiac dysrhythmias. She does have a history of hypertension. She notes no acute neurologic deficits/changes. She takes aspirin a day. 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 Essential (primary) hypertension Chest pain Intractable constipation Anxiety disorder Home Medications ?Medication ?Instructions ?Recorded ?Last Taken ?Type acetaminophen 325 mg tablet 650 mg (2 x 325 mg) PO Q4H PRN PRN 01/11/22 Unknown Rx (Tylenol) Pain 1-10 Or Fever #0 tabs aspirin 81 mg tablet,delayed 81 mg PO DAILY #0 tabs 01/14/22 Unknown Rx release cholecalciferol (vitamin D3) 125 125 mcg PO DAILY #0 caps 01/14/22 Unknown Rx mcg (5,000 unit) capsule lisinopril 5 mg tablet 5 mg PO DAILY #0 tabs 01/14/22 Unknown Rx clonazepam 1 mg tablet 2.5 mg PO .QID 04/25/22 Unknown History escitalopram oxalate 10 mg tablet 5 mg PO DAILY 04/25/22 Unknown History multivitamin (Multiple Vitamins 1 tab PO DAILY 09/06/22 Unknown History tablet) peg 3350-electrolytes 236 240 ml PO Q1H #4,000 mL 12/21/23 Unknown Rx gram-22.74 gram-6.74 gram-5.86 gram solution (GaviLyte-G) Allergy/AdvReac Type Severity Reaction Status Date / Time amlodipine besylate (From Allergy Other Verified 02/14/24 14:15 Norvasc) atenolol Allergy Other Verified 02/14/24 14:15 atorvastatin Allergy PT UNSURE Verified 02/14/24 14:15 OF REACTION buspirone HCl (From BuSpar) Allergy Other Verified 02/14/24 14:15 citalopram hydrobromide Allergy Other Verified 02/14/24 14:15 (From Celexa) diazepam (From Valium) Allergy Other Verified 02/14/24 14:15 hydrochlorothiazide (From Allergy Other Verified 02/14/24 14:15 Zestoretic) metoprolol succinate (From Allergy Other Verified 02/14/24 14:15 Toprol XL) mirtazapine (From Remeron) Allergy Other Verified 02/14/24 14:15 paroxetine HCl (From Paxil) Allergy Other Verified 02/14/24 14:15 procaine HCl (From Novocain) Allergy Other Verified 02/14/24 14:15 Sulfa (Sulfonamide Allergy Other Verified 02/14/24 14:15 Antibiotics) valsartan (From Diovan) Allergy Other Verified 02/14/24 14:15 Penicillins AdvReac Unknown Other Verified 02/14/24 14:15 Family History Other Adopted Surgical History History of cataract surgery History of coronary artery bypass graft x 3 (~09/01/19) History of coronary artery stent placement (08/30/19) History of herniorrhaphy History of cholecystectomy History of appendectomy Social History adopted: Yes household members: spouse number of children: 3 Smoking Status: Never smoker second hand exposure: No alcohol intake: never substance use type: does not use caffeine: No what type of physical activity do you participate in: none thelma/zoroastrian: Uatsdin seatbelt use: always ROS ROS ED Constitutional Constitutional ED: Denies chills, fever(s) or weight loss Eyes Eyes: Denies change in vision or diplopia ENT ENT ED: Denies ear pain, rhinorrhea or sore throat Cardiovascular Cardiovascular: Reports palpitations and racing heartbeat; Denies chest pain or orthopnea Respiratory/Chest Respiratory/Chest: Denies cough, dyspnea or orthopnea Gastrointestinal Gastrointestinal: Denies abdominal pain, diarrhea, nausea or vomiting Genitourinary Genitourinary ED: Denies dysuria, hematuria or urinary frequency Musculoskeletal Musculoskeletal: Denies arthralgias or myalgias Integumentary Denies abscess or rash Neurologic Neurologic: Denies headache(s), paresthesias or weakness Psychiatric Psychiatric: Reports anxiety; Denies depression, suicidal ideation or suicidal thoughts Endocrine Endocrinology: Denies polydipsia, polyphagia or polyuria Allergic/Immunologic Allergic/Immunologic ED: Denies mouth swelling, tongue swelling or urticaria EXAM Physical Exam Const Vital Signs: 02/14/24 14:11 02/14/24 15:11 02/14/24 16:00 Temperature 97.5 F L Temperature Source Temporal Pulse Rate 80 63 62 Respiratory Rate 16 19 H 16 Blood Pressure 160/73 H 159/65 H 124/54 H Blood Pressure Mean 102 96 77 Pulse Ox 95 96 92 Oxygen Delivery Method Room Air Positive well nourished and well developed General Appearance ED: well developed HEENT Reports normocephalic, head/scalp atraumatic and moist mucous membranes Eyes PERRL and EOMs intact bilaterally Neck no lymphadenopathy, supple and no JVD Resp normal respiratory effort and clear to auscultation bilaterally Cardio regular rate, regular rhythm and no murmurs GI normal to inspection, nondistended, normoactive bowel sounds and non-tender Palpation: soft Back/Spine no CVA tenderness and normal ROM Extremity normal to inspection General Extremety ED: Negative for edema General Extremity: Negative for edema Neuro oriented x3 and CN's II-XII intact bilaterally Sensorium / Orientation: alert Motor Exam: strength 5/5 throughout Psych mental status grossly normal Mood & Affect: Negative for depressed or tearful Skin no rashes or lesions noted and no wounds MDM MDM MDM Narrative Medical decision making narrative: Differential diagnosis includes but not limited to atrial and ventricular dysrhythmias, anxiety, aortic dissection, ACS, electrolyte abnormalities, dehydration, My independent interpretation of the chest x-ray is no acute process EKG is unchanged. She is watched on the monitor. She has remained in a normal sinus rhythm. I went back to examine the patient she is sleeping. Blood pressure 120/72. White count 7.1 with a hemoglobin of 15 BMP is normal glucose of 107 troponin is 6. At this point I believe the patient can be discharged home. I am not seeing any evidence of dysrhythmia though the patient understands that unless she is having a dysrhythmia at the moment is difficult to diagnose. Patient to continue her home medications return if worsening or concerns History & Record Review Discussion w/independent historian: Patient and Significant other Additional record(s) reviewed:: Prior inpatient record, Prior ED visit and Prior labs Lab Data Attestation: I reviewed the patient's lab results. Labs: Laboratory Results - last 24 hr 02/14/24 14:25 WBC 7.1 RBC 4.82 Hgb 15.0 Hct 45.8 MCV 95.0 MCH 31.1 MCHC 32.8 RDW Std Deviation 41.9 RDW Coeff of Thor 12.0 Plt Count 240 MPV 11.6 Immature Gran % (Auto) 0.300 Neut % (Auto) 44.4 L Lymph % (Auto) 41.3 H [place] % (Auto) 8.0 Eos % (Auto) 4.6 Baso % (Auto) 1.4 H Absolute Neuts (auto) 3.2 Absolute Lymphs (auto) 2.94 Nucleated RBC % 0 Sodium 139 Potassium 4.3 Chloride 105 Carbon Dioxide 27.0 Anion Gap 7 BUN 16 Creatinine 0.90 Est GFR (MDRD) Af Amer 77 Est GFR (MDRD) Non-Af 64 BUN/Creatinine Ratio 17.8 Glucose 107 H Calcium 9.5 Troponin I High Sens 6 Radiography Diagnostic Testing: Clinical Impression(s) from Imaging Studies Chest X-Ray 02/14/24 15:12 IMPRESSION: No acute abnormality is seen. Electronically Signed: Darrell Astorga MD at 15:30 EDT , EKG Initial EKG: Attestation: I personally reviewed and interpreted this EKG as follows: Comments: Normal sinus rhythm with right bundle branch block and left anterior fascicular block. Ventricular rate of 73 bpm. Prior EKG tracings: available for review Prior: Unchanged Discharge Plan Triage Chief Complaint: Palpitations ED Provider: Koffi Courtney Dx/Rx/DC Orders Prescriptions: No Action escitalopram oxalate 10 mg tablet 5 mg PO DAILY clonazepam 1 mg tablet 2.5 mg PO .QID multivitamin [Multiple Vitamins] Tablet 1 tab PO DAILY acetaminophen [Tylenol] 325 mg Tablet 650 mg PO Q4H PRN PRN (Reason: Pain 1-10 Or Fever) Qty: 0 0RF aspirin 81 mg Tablet,Delayed Release (Dr/Ec) 81 mg PO DAILY Qty: 0 0RF lisinopril 5 mg Tablet 5 mg PO DAILY Qty: 0 0RF cholecalciferol (vitamin D3) 125 mcg (5,000 unit) Capsule 125 mcg PO DAILY Qty: 0 0RF peg 3350-electrolytes [GaviLyte-G] 236-22.74-6.74 -5.86 gram recon soln 240 ml PO Q1H Qty: 4000 0RF Rx Instructions: until fecal effluent is clear Primary Care Provider: Jp Henson Referrals: Jp Henson, [Primary Care Provider] - Print Language: Cape Verdean
[2024-02-14 15:35] LABS: Absolute Lymphocyte Count 2.94 X10^3/uL (0.83-4.51); Absolute Neutrophil Count 3.2 X10^3/uL (2.0-7.7); Basophil% 1.4 % (0-1); Eosinophil# 0.33 X10^3/uL; Eosinophils% 4.6 % (0-5); Hematocrit 45.8 % (37-47); Lymphocyte # 2.94 X10^3/ul (0.83-4.51); Lymphocyte % 41.3 % (19-41); Mean Corp Hgb Conc 32.8 g/dL (32-36); Mean Corpuscular Hgb 31.1 pg (27.0-32.0); Mean Platelet Vol. 11.6 fl (6.2-12.0); Monocyte# 0.57 X10^3/uL; NRBC Flagged by Analyzer 0 % (0-5); Neutrophil # 3.16 X10^3/uL (2.7-7.7); Neutrophil % 44.4 % (47-70); Platelet Count 240 K/mm3 (150-450); RBC Distribution Width SD 41.9 fl (35.1-43.9); Red Blood Count 4.82 M/mm3 (4.2-5.4); White Blood Count 7.1 K/mm3 (4.4-11.0)
[2024-02-14 16:00] VITALS: BP 124/54; PULSE 62; RESP 16; O2SAT 92
[2024-02-14 16:11] LABS: Anion Gap 7 (5-15); BUN 16 mg/dL (7-18); BUN/Creat Ratio 17.8 RATIO (10-20); Calcium,Total 9.5 mg/dL (8.5-10.1); Chloride 105 mmol/L (98-107); EST Glomerular Filtration Rate 64 mL/min (>60); Est Glom Filt Rate - Afr Amer 77 mL/min (>60); Glucose 107 mg/dL (74-106); Potassium 4.3 mmol/L (3.5-5.1); Sodium Level 139 mmol/L (136-145); Troponin-I HS 6 pg/mL (3.0-54.0)
[2024-02-14 16:37] VITALS: BP 126/61; PULSE 66; RESP 16; TEMP 36.6; O2SAT 99
== END 2024-02-14 16:37 | disposition home or self-care (01) ==
PROVIDERS: Emergency Provider Emergency Medicine; PCP Family Medicine; Visit Provider Emergency Medicine
DX: R00.2 Palpitations (principal); I10 Essential (primary) hypertension; Z86.73 Personal history of transient ischemic attack (TIA), and cerebral infarction without residual deficits; E78.5 Hyperlipidemia, unspecified; I25.10 Atherosclerotic heart disease of native coronary artery without angina pectoris; Z79.899 Other long term (current) drug therapy; Z79.82 Long term (current) use of aspirin; Z95.5 Presence of coronary angioplasty implant and graft; Z90.49 Acquired absence of other specified parts of digestive tract
CPT/HCPCS: 71045; 80048; 84484; 85025; 93005; 99284; A4216

== ENCOUNTER → 2024-02-19 | Outpatient (CLI) | payer MEDICARE, OTHER, SELFPAY ==
[2024-02-19 10:11] LABS: Hematocrit 46.2 % (37-47); Hemoglobin 14.7 g/dL (12.0-15.0); Mean Corp Hgb Conc 31.8 g/dL (32-36); Mean Corpuscular Hgb 30.1 pg (27.0-32.0); Mean Corpuscular Volume 94.7 fL (81-99); Mean Platelet Vol. 10.9 fl (6.2-12.0); Platelet Count 266 K/mm3 (150-450); RBC Distribution Width CV 11.9 % (11.6-14.6); RBC Distribution Width SD 41.9 fl (35.1-43.9); Red Blood Count 4.88 M/mm3 (4.2-5.4); White Blood Count 6.5 K/mm3 (4.4-11.0)
[2024-02-19 10:55] LABS: ALB/GLOB Ratio 0.8 RATIO (0.9-2.4); AST(SGOT) 19 U/L (15-37); Alanine Aminotransfer ALT/SGPT 20 U/L (13-56); Albumin, Serum 3.4 g/dL (3.2-5.0); Alkaline Phosphatase 71 U/L (45-117); Anion Gap 8 (5-15); BUN 19 mg/dL (7-18); BUN/Creat Ratio 21.7 RATIO (10-20); Calcium,Total 9.3 mg/dL (8.5-10.1); Chloride 104 mmol/L (98-107); Cholesterol 236 mg/dL (200); Creatinine, Serum 0.87 mg/dL (0.55-1.02); EST Glomerular Filtration Rate 66 mL/min (>60); Est Glom Filt Rate - Afr Amer 80 mL/min (>60); Globulin 4.1 g/dL (2.2-4.2); Glucose 98 mg/dL (74-106); High Density Lipoprotein 47 mg/dL; Protein, Total 7.5 g/dL (6.4-8.2); Sodium Level 138 mmol/L (136-145); Triglycerides 238 mg/dL; Very Low Density Lipoprotein 48 mg/dL (5-40)
== END | disposition home or self-care (01) ==
LOC: MTLAB 07:14
PROVIDERS: PCP Family Medicine; Referring Provider Psychiatry & Neurology Neurology; Visit Provider Psychiatry & Neurology Neurology
DX: E78.2 Mixed hyperlipidemia (principal)
CPT/HCPCS: 36415; 80053; 80061; 85027

== ENCOUNTER 2024-04-10 00:38 | Emergency (ER) | payer MEDICARE, OTHER, SELFPAY ==
[2024-04-10 00:39] VITALS: BP 165/100; PULSE 78; RESP 16; TEMP 37; O2SAT 95; BMI 23.1
--- NOTE | 2024-04-10 02:05 | CT_ITS ---
INDICATION: BIGGS EXAMINATION: CT BRAIN - CT Head or Brain W/O Contrast Injection TECHNIQUE: Multiple axial images were obtained of the head without intravenous contrast. A radiation dose optimization technique was used for this scan. IV Contrast dosage and agent: None. COMPARISON: May 16, 2023 FINDINGS: BRAIN PARENCHYMA: No intra- or extra-axial hemorrhage. Bilateral basal ganglial mineralization. No evidence of acute infarct. No intracranial mass or mass effect. Mild periventricular and subcortical white matter hypodense chronic small vessel white matter ischemic change. There is preservation of the taylor/white matter interface. Posterior fossa structures are unremarkable. Carotid and vertebral atherosclerosis. CSF SPACES: Cerebral volume appropriate for age. No hydrocephalus. Basal cisterns are patent. CALVARIUM, SKULL BASE, PARANASAL SINUSES AND MASTOID AIR CELLS: Metallic ear piercings. Mild hyperostosis frontalis. No acute osseous finding. Minimal scattered paransal sinus mucoperisteal thickening. Mastoid air cells are clear. ORBITS: Both globes, extraocular muscles, optic nerves and retrobulbar fat appear unremarkable. ASPECTS Score for Acute Strokes: 10 CT/Brain/Head without Contrast IMPRESSION: No CT evidence of acute intracranial hemorrhage or injury. Mild senescent changes with atherosclerosis. Electronically Signed: Mode Monahan MD at 3:16 EDT ,
[2024-04-10 02:38] VITALS: BP 162/80; PULSE 72; RESP 18; O2SAT 95
--- NOTE | 2024-04-10 03:38 | EX.ED.DYSGE1 ---
HPI History of Present Illness Chief Complaint: Headache Informant: patient, spouse/S.O. and EMS Narrative Narrative: Patient is an 83-year-old female with past medical history of hypertension anxiety chronic headache and previous CVA. She states that she went to bed this evening and then developed a frontal headache. She reports there was no trauma and she denies any fevers chills or sick contacts. She states she became concerned that this headache could be related to a potential stroke even though she denied any change in vision weakness or difficulty with speech and secondary to this EMS was called and she was brought in for further evaluation [facility] Medical History History of stroke History of colon polyps Osteoarthritis Chronic prescription benzodiazepine use Hyperlipidemia CVA (cerebral vascular accident) Vitamin deficiency Rheumatoid arthritis Chronic headache GERD (gastroesophageal reflux disease) Breast lump H/O transfusion of whole blood Essential hypertension Atherosclerotic heart disease of [place] coronary artery without angina pectoris Fecal impaction Right bundle branch block (RBBB) 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 Essential (primary) hypertension Chest pain Intractable constipation Anxiety disorder Home Medications ?Medication ?Instructions ?Recorded ?Last Taken ?Type acetaminophen 325 mg tablet 650 mg (2 x 325 mg) PO Q4H PRN PRN 01/11/22 Unknown Rx (Tylenol) Pain 1-10 Or Fever #0 tabs aspirin 81 mg tablet,delayed 81 mg PO DAILY #0 tabs 01/14/22 Unknown Rx release cholecalciferol (vitamin D3) 125 125 mcg PO DAILY #0 caps 01/14/22 Unknown Rx mcg (5,000 unit) capsule lisinopril 5 mg tablet 5 mg PO DAILY #0 tabs 01/14/22 Unknown Rx clonazepam 1 mg tablet 2.5 mg PO .QID 04/25/22 Unknown History escitalopram oxalate 10 mg tablet 5 mg PO DAILY 04/25/22 Unknown History multivitamin (Multiple Vitamins 1 tab PO DAILY 09/06/22 Unknown History tablet) Allergy/AdvReac Type Severity Reaction Status Date / Time amlodipine besylate (From Allergy Other Verified 04/10/24 00:43 Norvasc) atenolol Allergy Other Verified 04/10/24 00:43 atorvastatin Allergy PT UNSURE Verified 04/10/24 00:43 OF REACTION buspirone HCl (From BuSpar) Allergy Other Verified 04/10/24 00:43 citalopram hydrobromide Allergy Other Verified 04/10/24 00:43 (From Celexa) diazepam (From Valium) Allergy Other Verified 04/10/24 00:43 hydrochlorothiazide (From Allergy Other Verified 04/10/24 00:43 Zestoretic) metoprolol succinate (From Allergy Other Verified 04/10/24 00:43 Toprol XL) mirtazapine (From Remeron) Allergy Other Verified 04/10/24 00:43 paroxetine HCl (From Paxil) Allergy Other Verified 04/10/24 00:43 procaine HCl (From Novocain) Allergy Other Verified 04/10/24 00:43 Sulfa (Sulfonamide Allergy Other Verified 04/10/24 00:43 Antibiotics) valsartan (From Diovan) Allergy Other Verified 04/10/24 00:43 Penicillins AdvReac Unknown Other Verified 04/10/24 00:43 Family History Other Adopted Surgical History History of cataract surgery History of coronary artery bypass graft x 3 (~09/01/19) History of coronary artery stent placement (08/30/19) History of herniorrhaphy History of cholecystectomy History of appendectomy Social History adopted: Yes household members: spouse number of children: 3 Smoking Status: Never smoker second hand exposure: No alcohol intake: never substance use type: does not use caffeine: No what type of physical activity do you participate in: none thelma/denominational: Protestant seatbelt use: always ROS ROS ED Constitutional Constitutional ED: Denies chills or fever(s) Eyes Eyes: Denies blurry vision or change in vision ENT ENT ED: Denies sore throat Cardiovascular Cardiovascular: Denies chest pain, palpitations or racing heartbeat Respiratory/Chest Respiratory/Chest: Denies cough or dyspnea Gastrointestinal Gastrointestinal: Denies abdominal pain, diarrhea, nausea or vomiting Genitourinary Genitourinary ED: Denies dysuria Musculoskeletal Musculoskeletal: Denies neck pain Integumentary Denies rash Neurologic Neurologic: Reports headache(s); Denies paresthesias or weakness Psychiatric Psychiatric: Reports anxiety Hematologic/Lymphatic Hematologic/Lymphatic: Denies easy bleeding or easy bruising EXAM Physical Exam Const Vital Signs: 04/10/24 00:39 04/10/24 02:38 Temperature 98.6 F Temperature Source Oral Pulse Rate 78 72 Respiratory Rate 16 18 Blood Pressure 165/100 H 162/80 H Blood Pressure Mean 121 107 Pulse Ox 95 95 Oxygen Delivery Method Room Air Room Air Positive well nourished and well developed General Appearance ED: well developed; Negative for pallor HEENT HEENT Narrative: Normocephalic atraumatic Eyes PERRL and EOMs intact bilaterally General Eye ED: Negative for pale conjunctiva or scleral icterus Neck supple Neck Narrative: No nuchal rigidity or meningeal signs noted Resp normal respiratory effort and clear to auscultation bilaterally Cardio regular rate and regular rhythm GI normal to inspection, nondistended, normoactive bowel sounds, non-tender, non-distended and no masses Auscultation: normoactive bowel sounds Palpation: soft Extremity normal to inspection Neuro oriented x3, CN's II-XII intact bilaterally and no sensory deficits noted Neuro Narrative: GCS of 15 Cranial nerves II through XII are grossly intact without focal neurologic deficit No pronator drift no dysmetria no truncal ataxia NIH stroke scale score of 0 Sensorium / Orientation: alert Motor Exam: strength 5/5 throughout Psych mental status grossly normal Mood & Affect: anxious Skin no rashes or lesions noted and no wounds General Skin Exam: Negative for jaundice or pallor MDM MDM MDM Narrative Medical decision making narrative: Patient arrived to the ER hypertensive but otherwise with stable vitals. She had a normal neurologic exam as well. She reported frontal headache at home and without any type of medication reported moderate improvement upon arrival. She denies any sick symptoms such as fevers or chills or congestion but there is concern that the headache could be related to potential COVID. There is also concern for spontaneous subarachnoid or subdural hemorrhage or the development of a brain mass. Secondary to this a head CT was obtained. This revealed no acute finding. COVID test was also negative. Physical exam did not suggest any type of acute CVA. On reevaluation her vitals are stabilized/improved her neurologic exam remains normal and she is reported spontaneous resolution of the head. Therefore this time I do not feel there is need for lumbar puncture or further testing and she is otherwise safe for discharge History & Record Review Discussion w/independent historian: Patient and Significant other Radiography Diagnostic Testing: Clinical Impression(s) from Imaging Studies Brain CT 04/10/24 02:05 IMPRESSION: No CT evidence of acute intracranial hemorrhage or injury. Mild senescent changes with atherosclerosis. Electronically Signed: Mode Monahan MD at 3:16 EDT , Discharge Plan Triage Chief Complaint: Headache ED Provider: Jeremy Holland Dx/Rx/DC Orders Clinical Impression: Cephalgia, Hypertension, Hyperlipidemia, Generalized anxiety disorder with panic attacks Instructions: ED Headache Unspecified Prescriptions: No Action escitalopram oxalate 10 mg tablet 5 mg PO DAILY clonazepam 1 mg tablet 2.5 mg PO .QID multivitamin [Multiple Vitamins] Tablet 1 tab PO DAILY acetaminophen [Tylenol] 325 mg Tablet 650 mg PO Q4H PRN PRN (Reason: Pain 1-10 Or Fever) Qty: 0 0RF aspirin 81 mg Tablet,Delayed Release (Dr/Ec) 81 mg PO DAILY Qty: 0 0RF lisinopril 5 mg Tablet 5 mg PO DAILY Qty: 0 0RF cholecalciferol (vitamin D3) 125 mcg (5,000 unit) Capsule 125 mcg PO DAILY Qty: 0 0RF Primary Care Provider: Jp Henson Referrals: Jp Henson DO [Primary Care Provider] - Print Language: Icelandic Disposition Disposition: Home, Self Care Discharge Date/Time: 04/10/24 03:52
[2024-04-10 03:49] VITALS: BP 134/64; PULSE 72; RESP 18; TEMP 36.2; O2SAT 92
== END 2024-04-10 03:52 | disposition home or self-care (01) ==
PROVIDERS: Emergency Provider Emergency Medicine; PCP Family Medicine; Visit Provider Emergency Medicine
DX: R51.9 Headache, unspecified (principal); I25.10 Atherosclerotic heart disease of native coronary artery without angina pectoris; I10 Essential (primary) hypertension; E78.5 Hyperlipidemia, unspecified; F41.1 Generalized anxiety disorder; Z86.73 Personal history of transient ischemic attack (TIA), and cerebral infarction without residual deficits; Z79.82 Long term (current) use of aspirin; Z79.899 Other long term (current) drug therapy; Z95.5 Presence of coronary angioplasty implant and graft
CPT/HCPCS: 70450; 87631; 99283; A4216

== ENCOUNTER 2024-07-19 11:07 | Emergency (ER) | payer MEDICARE, OTHER, SELFPAY ==
[2024-07-19 11:09] VITALS: BP 179/91; PULSE 83; RESP 16; TEMP 36.4; O2SAT 93; BMI 24.3
--- NOTE | 2024-07-19 11:21 | EKG12_ITS ---
Test Reason : Blood Pressure : */* mmHG Vent. Rate : 79 BPM Atrial Rate : 79 BPM P-R Int : 168 ms QRS Dur : 144 ms QT Int : 444 ms P-R-T Axes : 70 -62 85 degrees QTcB Int : 509 ms Normal sinus rhythm Right bundle branch block Left anterior fascicular block Bifascicular block Left ventricular hypertrophy with repolarization abnormality ( R in aVL , Romhilt-Ni ) Possible Lateral infarct (cited on or before 16-May-2023) Abnormal ECG When compared with ECG of 14-Feb-2024 14:24, No significant change was found Confirmed by Daren Dailey ([id number]), science editor ALLISON MAURICE ([id number]) on 07/22/2024 9:59:48 AM Referred By: Avelino Moeller Confirmed By: Daren Dailey
--- NOTE | 2024-07-19 11:21 | RAD_ITS ---
STUDY: X-RAY CHEST REASON FOR EXAM: Female, 83 years old. Chest pain TECHNIQUE: Single AP portable view of the chest. COMPARISON: Comparison is made with prior study dated February 14, 2024. FINDINGS: The lungs are clear and expanded. There is no demonstrated pleural abnormality. Sternal cerclage wires and vascular clips are present from a prior sternotomy and coronary artery bypass graft procedure (CABG). Normal mediastinum and angel. Normal visualized pulmonary arteries. There is atherosclerotic calcification of the aortic arch with tortuosity. There are diffuse degenerative changes of the visualized thoracic spine. Calcific tendinitis of the right shoulder. There is no demonstrated abnormality of the visualized soft tissue structures of the upper abdomen. RAD/Chest 1 View (Portable) IMPRESSION: No acute abnormality is seen. Electronically Signed: Darrell Astorga MD at 12:01 EST ,
--- NOTE | 2024-07-19 11:23 | EX.ED.DYSGE1 ---
HPI <IQRA Acevedo - Last Filed: 07/19/24 13:57> History of Present Illness Chief Complaint: General Illness Narrative Narrative: 83-year-old female with past medical history of HTN, CABG, CVA, anxiety presents with palpitations and anxiety. She woke up around 7 AM and felt very hot because she had a lot of blankets on. When she walked out to the kitchen she started to feel very anxious and like her heart was racing and she was shaky all over. She had no chest pain or shortness of breath. She took her morning medications including blood pressure and Klonopin and went back to bed for several hours. When she woke up she still felt very shaky and called the paramedics. According to EMS when she was in the squad she states she has been stressed and going through a lot and needs a good cry. Patient states she has had bad anxiety for years and takes Lexapro and Klonopin every 4 hours. PENDING SALE TO [facility] <IQRA Acevedo - Last Filed: 07/19/24 13:57> PENDING SALE TO [facility] Medical History (Updated 07/19/24 @ 13:01 by IQRA Acevedo) History of stroke History of colon polyps Osteoarthritis Chronic prescription benzodiazepine use Hyperlipidemia CVA (cerebral vascular accident) Vitamin deficiency Rheumatoid arthritis Chronic headache GERD (gastroesophageal reflux disease) Breast lump H/O transfusion of whole blood Essential hypertension Atherosclerotic heart disease of [place] coronary artery without angina pectoris Fecal impaction Right bundle branch block (RBBB) 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 Essential (primary) hypertension Chest pain Intractable constipation Anxiety disorder Home Medications ?Medication ?Instructions ?Recorded ?Last Taken ?Type acetaminophen 325 mg tablet 650 mg (2 x 325 mg) PO Q4H PRN PRN 01/11/22 Unknown Rx (Tylenol) Pain 1-10 Or Fever #0 tabs aspirin 81 mg tablet,delayed 81 mg PO DAILY #0 tabs 01/14/22 Unknown Rx release cholecalciferol (vitamin D3) 125 125 mcg PO DAILY #0 caps 01/14/22 Unknown Rx mcg (5,000 unit) capsule lisinopril 5 mg tablet 5 mg PO DAILY #0 tabs 01/14/22 Unknown Rx escitalopram oxalate 10 mg tablet 5 mg PO DAILY 04/25/22 Unknown History multivitamin (Multiple Vitamins 1 tab PO DAILY 09/06/22 Unknown History tablet) clonazepam 1 mg tablet 0.5 mg PO .QID 04/25/24 Unknown History Allergy/AdvReac Type Severity Reaction Status Date / Time amlodipine besylate (From Allergy Other Verified 07/19/24 11:12 Norvasc) atenolol Allergy Other Verified 07/19/24 11:12 atorvastatin Allergy PT UNSURE Verified 07/19/24 11:12 OF REACTION buspirone HCl (From BuSpar) Allergy Other Verified 07/19/24 11:12 citalopram hydrobromide Allergy Other Verified 07/19/24 11:12 (From Celexa) diazepam (From Valium) Allergy Other Verified 07/19/24 11:12 hydrochlorothiazide (From Allergy Other Verified 07/19/24 11:12 Zestoretic) metoprolol succinate (From Allergy Other Verified 07/19/24 11:12 Toprol XL) mirtazapine (From Remeron) Allergy Other Verified 07/19/24 11:12 paroxetine HCl (From Paxil) Allergy Other Verified 07/19/24 11:12 procaine HCl (From Novocain) Allergy Other Verified 07/19/24 11:12 Sulfa (Sulfonamide Allergy Other Verified 07/19/24 11:12 Antibiotics) valsartan (From Diovan) Allergy Other Verified 07/19/24 11:12 Penicillins AdvReac Unknown Other Verified 07/19/24 11:12 Family History Other Adopted Surgical History (Updated 07/19/24 @ 11:13 by Marlyn Shanks) H/O heart bypass surgery History of cataract surgery History of coronary artery bypass graft x 3 (~09/01/19) History of coronary artery stent placement (08/30/19) History of herniorrhaphy History of cholecystectomy History of appendectomy Social History adopted: Yes household members: spouse number of children: 3 Smoking Status: Never smoker second hand exposure: No alcohol intake: never substance use type: does not use caffeine: No what type of physical activity do you participate in: none 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 CVS: Positive for palpitations. Negative for chest pain, syncope. Respiratory: Negative for shortness of breath, cough, orthopnea. GI: Negative for abdominal pain, nausea, vomiting. EXAM <IQRA Acevedo - Last Filed: 07/19/24 13:57> Physical Exam Narrative Exam Narrative: CONST: Patient sitting in no acute distress. EYES: Normal inspection. ENT: Normal inspection, moist mucous membranes. NECK: Normal inspection. RESP: No respiratory distress, CTAB. CVS: Regular rate and rhythm, no murmur, no gallop. ABD: Soft and nontender, no guarding or rebound, nondistended. SKIN: Color normal, no rash, warm, dry, intact. EXTREMITIES: Normal appearance, no pedal edema. NEURO: Alert and answering questions appropriately.Anxious, tearful. PSYCH: Normal affect. Const Vital Signs: 07/19/24 11:09 07/19/24 11:12 07/19/24 13:03 Temperature 97.6 F L 97.6 F L Temperature Source Temporal Pulse Rate 83 74 Respiratory Rate 16 16 Respiratory Effort Normal Non-Labored Respiratory Pattern Normal Blood Pressure 179/91 H 128/70 H Blood Pressure Mean 120 89 Pulse Ox 93 92 Oxygen Delivery Method Room Air <Avelino Moeller MD - Last Filed: 07/20/24 08:37> Physical Exam Const Vital Signs: 07/19/24 11:09 07/19/24 11:12 07/19/24 13:03 Temperature 97.6 F L 97.6 F L Temperature Source Temporal Pulse Rate 83 74 Respiratory Rate 16 16 Respiratory Effort Normal Non-Labored Respiratory Pattern Normal Blood Pressure 179/91 H 128/70 H Blood Pressure Mean 120 89 Pulse Ox 93 92 Oxygen Delivery Method Room Air MDM <IQRA Acevedo - Last Filed: 07/19/24 13:57> [facility] MDM Narrative Medical decision making narrative: History gathered from: Patient, spouse, EMS Differential: Anxiety, dysrhythmia, ACS, pneumonia among others 83-year-old female presented with palpitations and anxiety. No chest pain or shortness of breath. She appears well and nontoxic. BP is 179/91, normal sinus rhythm in the 80s, and otherwise normal. During examination she did become anxious and tearful and states she is dealing with a lot of stress. The rest of her exam was benign. Since she had reported palpitations a cardiac workup was ordered. EKG nonischemic. CBC, BMP unremarkable. Troponin is 6. CXR shows no acute process. Her blood pressure improved to 128/70 without intervention. Patient is comfortable going home and will take her chronic anxiety medication and follow-up with her primary care doctor. Return precautions were discussed. Lab Data Attestation: I reviewed the patient's lab results. Labs: Laboratory Results - last 24 hr 07/19/24 11:23 WBC 11.5 H RBC 4.93 Hgb 15.0 Hct 46.9 MCV 95.1 MCH 30.4 MCHC 32.0 RDW Std Deviation 42.5 RDW Coeff of Thor 12.1 Plt Count 270 MPV 10.7 Immature Gran % (Auto) 0.500 Neut % (Auto) 68.1 Lymph % (Auto) 22.6 [place] % (Auto) 5.6 Eos % (Auto) 2.2 Baso % (Auto) 1.0 Absolute Neuts (auto) 7.9 H Absolute Lymphs (auto) 2.60 Nucleated RBC % 0 Sodium 137 Potassium 4.3 Chloride 103 Carbon Dioxide 27.0 Anion Gap 7 BUN 14 Creatinine 0.90 Estim Creat Clear Calc 41.90 Est GFR (MDRD) Af Amer 77 Est GFR (MDRD) Non-Af 64 BUN/Creatinine Ratio 15.5 Glucose 122 H Calcium 9.9 Troponin I High Sens 6 Radiography Diagnostic Testing: Clinical Impression(s) from Imaging Studies Chest X-Ray 07/19/24 11:21 IMPRESSION: No acute abnormality is seen. Electronically Signed: Darrell Astorga MD at 12:01 EST , ED attending interpretation of 1-view chest x-ray shows normal heart size, no acute infiltrate. EKG Initial EKG: Attestation: I personally reviewed and interpreted this EKG as follows: Interpretation: Sinus Rhythm and No Acute Injury Pattern Comments: Normal sinus rhythm at 79 bpm RBBB, Bifascicular block <Avelino Moeller MD - Last Filed: 07/20/24 08:37> [facility] MDM Narrative Medical decision making narrative: History gathered from: Patient, spouse, EMS Differential: Anxiety, dysrhythmia, ACS, pneumonia among others 83-year-old female presented with palpitations and anxiety. No chest pain or shortness of breath. She appears well and nontoxic. BP is 179/91, normal sinus rhythm in the 80s, and otherwise normal. During examination she did become anxious and tearful and states she is dealing with a lot of stress. The rest of her exam was benign. Since she had reported palpitations a cardiac workup was ordered. EKG nonischemic. CBC, BMP unremarkable. Troponin is 6. CXR interpreted by ED physician shows no acute process. Her blood pressure improved to 128/70 without intervention. Patient is comfortable going home and will take her chronic anxiety medication and follow-up with her primary care doctor. Return precautions were discussed. Dr. Moeller: I have personally performed a face to face assessment of the patient and have reviewed the [facility] Note. I performed a substantive portion of the visit including all aspects of the following. My drew findings include: History is heart palpitations, and anxiety today, no chest pain. Exam is afebrile. Vital signs noted. Cardiovascular examination reveals a regular rate and rhythm. Lungs clear to auscultation bilaterally. Abdomen soft nontender with normoactive bowel sounds. Neurological examination nonfocal and nonlateralizing. Medical Decision Making: Check labs. Check chest x-ray. Chest x-ray in 1 view interpreted by myself independently shows no evidence of an acute process. I reviewed the radiology report which confirms my independent interpretation. EKG obtained and interpreted by myself as well demonstrates normal sinus rhythm at [address] changes. No STEMI. No ectopy. Check labs. I reviewed her labs. I had lengthy discussion with the patient and her . I do not feel she requires observation at this time. Return instructions reviewed. Disposition is discharged home in stable condition. Other additions or changes: [None] History & Record Review Discussion w/independent historian: Patient and Family Additional record(s) reviewed:: Prior ED visit Lab Data Labs: Laboratory Results - last 24 hr 07/19/24 11:23 WBC 11.5 H RBC 4.93 Hgb 15.0 Hct 46.9 MCV 95.1 MCH 30.4 MCHC 32.0 RDW Std Deviation 42.5 RDW Coeff of Thor 12.1 Plt Count 270 MPV 10.7 Immature Gran % (Auto) 0.500 Neut % (Auto) 68.1 Lymph % (Auto) 22.6 [place] % (Auto) 5.6 Eos % (Auto) 2.2 Baso % (Auto) 1.0 Absolute Neuts (auto) 7.9 H Absolute Lymphs (auto) 2.60 Nucleated RBC % 0 Sodium 137 Potassium 4.3 Chloride 103 Carbon Dioxide 27.0 Anion Gap 7 BUN 14 Creatinine 0.90 Estim Creat Clear Calc 41.90 Est GFR (MDRD) Af Amer 77 Est GFR (MDRD) Non-Af 64 BUN/Creatinine Ratio 15.5 Glucose 122 H Calcium 9.9 Troponin I High Sens 6 Radiography Chest X-Ray - ED: 1 View and Read by ED Physician Diagnostic Testing: Clinical Impression(s) from Imaging Studies Chest X-Ray 07/19/24 11:21 IMPRESSION: No acute abnormality is seen. Electronically Signed: Darrell Astorga MD at 12:01 EST , Discharge Plan Triage Chief Complaint: General Illness ED Midlevel Provider: Elvia Petersen ED Provider: Avelino Moeller Dx/Rx/DC Orders Clinical Impression: Heart palpitations, Anxiety Instructions: Anxiety Disorders Tx, ED Palpitations Prescriptions: No Action escitalopram oxalate 10 mg tablet 5 mg PO DAILY clonazepam 1 mg tablet 0.5 mg PO .QID multivitamin [Multiple Vitamins] Tablet 1 tab PO DAILY acetaminophen [Tylenol] 325 mg Tablet 650 mg PO Q4H PRN PRN (Reason: Pain 1-10 Or Fever) Qty: 0 0RF aspirin 81 mg Tablet,Delayed Release (Dr/Ec) 81 mg PO DAILY Qty: 0 0RF lisinopril 5 mg Tablet 5 mg PO DAILY Qty: 0 0RF cholecalciferol (vitamin D3) 125 mcg (5,000 unit) Capsule 125 mcg PO DAILY Qty: 0 0RF Primary Care Provider: Jp Henson Referrals: Jp Henson DO [Primary Care Provider] - Activity Restrictions/Additional Instructions: Your tests today appear normal. Please follow-up with your primary care doctor. Print Language: Romanian Disposition Disposition: Home, Self Care Discharge Date/Time: 07/19/24 13:13
[2024-07-19 11:36] LABS: Absolute Neutrophil Count 7.9 X10^3/uL (2.0-7.7); Basophil# 0.11 X10^3/uL; Eosinophil# 0.25 X10^3/uL; Eosinophils% 2.2 % (0-5); Hematocrit 46.9 % (37-47); Lymphocyte % 22.6 % (19-41); Mean Corpuscular Hgb 30.4 pg (27.0-32.0); Mean Corpuscular Volume 95.1 fL (81-99); Mean Platelet Vol. 10.7 fl (6.2-12.0); Monocyte# 0.64 X10^3/uL; Monocyte% 5.6 % (0-10); NRBC Flagged by Analyzer 0 % (0-5); Neutrophil # 7.85 X10^3/uL (2.7-7.7); Neutrophil % 68.1 % (47-70); Platelet Count 270 K/mm3 (150-450); RBC Distribution Width CV 12.1 % (11.6-14.6); RBC Distribution Width SD 42.5 fl (35.1-43.9); Red Blood Count 4.93 M/mm3 (4.2-5.4); White Blood Count 11.5 K/mm3 (4.4-11.0)
[2024-07-19 11:49] LABS: Anion Gap 7 (5-15); BUN 14 mg/dL (7-18); BUN/Creat Ratio 15.5 RATIO (10-20); Calcium,Total 9.9 mg/dL (8.5-10.1); Chloride 103 mmol/L (98-107); EST Glomerular Filtration Rate 64 mL/min (>60); Est Glom Filt Rate - Afr Amer 77 mL/min (>60); Glucose 122 mg/dL (74-106); Potassium 4.3 mmol/L (3.5-5.1); Sodium Level 137 mmol/L (136-145); Troponin-I HS 6 pg/mL (3.0-54.0)
[2024-07-19 13:03] VITALS: BP 128/70; PULSE 74; RESP 16; TEMP 36.4; O2SAT 92
== END 2024-07-19 13:13 | disposition home or self-care (01) ==
PROVIDERS: Physician Assistant; Emergency Provider Emergency Medicine; PCP Family Medicine; Referring Provider Emergency Medicine; Visit Provider Emergency Medicine
DX: R00.2 Palpitations (principal); M06.9 Rheumatoid arthritis, unspecified; F41.9 Anxiety disorder, unspecified; I25.10 Atherosclerotic heart disease of native coronary artery without angina pectoris; I10 Essential (primary) hypertension; E78.5 Hyperlipidemia, unspecified; Z79.82 Long term (current) use of aspirin; Z79.899 Other long term (current) drug therapy; Z86.73 Personal history of transient ischemic attack (TIA), and cerebral infarction without residual deficits; Z95.1 Presence of aortocoronary bypass graft; Z95.5 Presence of coronary angioplasty implant and graft
CPT/HCPCS: 71045; 80048; 84484; 85025; 93005; 99285; A4216

== ENCOUNTER → 2024-08-07 | Outpatient (CLI) | payer MEDICARE, OTHER, SELFPAY ==
[2024-08-07 13:18] LABS: Cholesterol 277 mg/dL (200); High Density Lipoprotein 51 mg/dL; Triglycerides 278 mg/dL; Very Low Density Lipoprotein 56 mg/dL (5-40)
== END | disposition home or self-care (01) ==
LOC: BFHLAB 10:44
PROVIDERS: PCP Family Medicine; Visit Provider Family Medicine
DX: E78.5 Hyperlipidemia, unspecified (principal)
CPT/HCPCS: 36415; 80061

== ENCOUNTER → 2024-12-05 | Outpatient (CLI) | payer MEDICARE, OTHER, SELFPAY ==
--- NOTE | 2024-12-05 08:26 | CDU_ITS ---
Reason For Study Reason For Study: Carotid stenosis, HX CVA Rt. Velocities/BP Lt. Velocities/BP Prox CCA 87.6/5.3 cm/sec. Prox CCA 75.6/9.3 cm/sec. Mid CCA 49.8/9.1 cm/sec. Mid CCA 56.0/8.1 cm/sec. Dist CCA 66.3/12.4 cm/sec. Dist CCA 48.7/11.9 cm/sec. Prox ICA 73.2/13.0 cm/sec. Prox ICA 292.7/49.4 cm/sec. Mid ICA 85.1/15.7 cm/sec. Mid ICA 97.9/24.8 cm/sec. Dist ICA 103.4/26.7 cm/sec. Dist ICA 68.9/16.6 cm/sec. Rt. ICA/CCA = 2.1. Lt. ICA/CCA = 5.2. Prox ECA 112.5/4.7 cm/sec. Prox ECA 215.3/8.4 cm/sec. Rt. Vert. 65.0/6.6 cm/sec. Lt. Vert. 51.1/11.8 cm/sec. Right Extracranial There is heterogeneous, irregular atherosclerotic plaque noted in the right common carotid artery. There is heterogeneous, irregular atherosclerotic plaque noted in the right internal carotid artery. The right internal carotid artery is not well visualized. There is heterogeneous, irregular atherosclerotic plaque noted in the right external carotid artery. Antegrade flow is noted in the right vertebral artery. Left Extracranial There is intimal thickening but no significant atherosclerotic plaque noted in the left common carotid artery. There is heterogeneous, irregular atherosclerotic plaque noted in the left internal carotid artery. The atherosclerotic plaque causes acoustic shadowing. The left internal carotid artery is not well visualized. There is heterogeneous, irregular atherosclerotic plaque noted in the left external carotid artery. The atherosclerotic plaque causes acoustic shadowing. Antegrade flow is noted in the left vertebral artery. Procedure Carotid Duplex 41100. This is a Carotid Duplex examination using B-mode, color flow and specral Doppler. Exam performed in department. Preliminary report left on voicemail on Dr. Vasquez nurse line. VL/Carotid Duplex Ultrasound Interpretation Summary Mild (<50%) stenosis right extracranial internal carotid. Severe (>70%) stenosis left extracranial internal carotid. Patent and antegrade vertebrals bilaterally. Ordering Physician: Jorge Luis Vasquez Referring Physician: Jp Henson Performed By: Elaina Shaffer RVT
== END | disposition home or self-care (01) ==
LOC: CVS 08:26
PROVIDERS: PCP Family Medicine; Referring Provider Psychiatry & Neurology Neurology; Visit Provider Psychiatry & Neurology Neurology
DX: I65.23 Occlusion and stenosis of bilateral carotid arteries (principal)
CPT/HCPCS: 93880

== ENCOUNTER → 2025-01-29 | Outpatient (CLI) | payer MEDICARE, OTHER, SELFPAY ==
--- NOTE | 2025-01-29 14:18 | CT_ITS ---
PROCEDURE: CTA HEAD AND NECK W/ CONTRAST 01/29/2025 REASON FOR EXAM: SEVERE L ICA STENOSIS TECHNIQUE: CTA imaging of the head and neck from the aortic arch to the skull vertex with out contrast and with intravenous contrast. Multiplanar and multisequence images were obtained. CONTRAST: Isovue 370 VOLUME: 99 mL. One or more dose reduction techniques were used (e.g., Automated exposure control, adjustment of the mA and/or kV according to patient size, use of iterative reconstruction technique). RADIATION DOSE SUMMARY: CTDlvol: 44.99+ 20.76+ 17.50 mGy DLP: 1453.62 mGycm COMPARISON: None FINDINGS: Atherosclerosis of the aortic arch without significant stenosis. The bilateral subclavian arteries are patent. The bilateral common carotid arteries are patent without evidence of significant stenosis. Atherosclerosis of the right carotid bulb/proximal internal carotid artery with less than 50% stenosis. Atherosclerosis of the left proximal internal carotid artery with 50-75% stenosis. Atherosclerosis of the carotid siphons with less than 50% stenosis. The [id number] is intact. The anterior cerebral, anterior communicating, middle cerebral, and posterior cerebral arteries are patent. The right vertebral artery terminates within the right posterior inferior cerebellar artery. The lung apices are clear. Overlying the right frontal lobe is a 3.[address]/CTA Head AND Neck W/ Contrast IMPRESSION: 50-75% stenosis of the left proximal internal carotid artery. Atherosclerosis of the right proximal internal carotid artery with less than 50 % stenosis. Atherosclerosis of the carotid siphons with less than 50% stenosis. No acute arterial abnormality within the head. Reading Location: [id number]
== END | disposition home or self-care (01) ==
LOC: CT 13:23
PROVIDERS: PCP Family Medicine; Referring Provider Physician Assistant; Visit Provider Physician Assistant
DX: I65.22 Occlusion and stenosis of left carotid artery (principal)
CPT/HCPCS: 70496; 70498; Q9967

== ENCOUNTER → 2025-02-12 | Outpatient (CLI) | payer MEDICARE, OTHER, SELFPAY ==
[2025-02-12 11:21] LABS: ALB/GLOB Ratio 1.4 RATIO (0.9-2.4); AST(SGOT) 23 U/L (<=31); Alanine Aminotransfer ALT/SGPT 20 U/L (<=34); Albumin, Serum 4.2 g/dL (3.4-4.8); Alkaline Phosphatase 61 U/L (35-104); Anion Gap 13 (5-15); BUN 17 mg/dL (4-19); BUN/Creat Ratio 20.3 RATIO (10-20); Calcium,Total 9.6 mg/dL (7.6-11.0); Carbon Dioxide 23.9 mmol/L (21.0-32.0); Chloride 103 mmol/L (98-108); Cholesterol 234 mg/dL (<=200); Creatinine, Serum 0.84 mg/dL (0.70-1.20); EST Glomerular Filtration Rate 69 (>60); Globulin 3.1 g/dL (2.2-4.2); Glucose 96 mg/dL (70-99); High Density Lipoprotein 44 mg/dL; Low Density Lipoprotein Calc. 125 mg/dL; Potassium 4.3 mmol/L (3.3-5.1); Protein, Total 7.3 g/dL (5.9-8.4); Sodium Level 139 mmol/L (133-145); Total Bilirubin 0.35 mg/dL (0.00-1.30); Triglycerides 328 mg/dL; Very Low Density Lipoprotein 66 mg/dL (5-40); cholesterol:hdl ratio screen 5.35
[2025-02-14 12:08] LABS: Vitamin D 1,25-Dihydroxy 62.7 pg/mL (24.8-81.5)
== END | disposition home or self-care (01) ==
LOC: MTLAB 07:14
PROVIDERS: PCP Family Medicine; Referring Provider Psychiatry & Neurology Neurology; Visit Provider Psychiatry & Neurology Neurology
DX: E78.2 Mixed hyperlipidemia (principal); Z86.39 Personal history of other endocrine, nutritional and metabolic disease
CPT/HCPCS: 36415; 80053; 80061; 82652

== ENCOUNTER 2025-03-05 10:33 | Emergency (ER) | payer MEDICARE, OTHER, SELFPAY ==
[2025-03-05 10:34] VITALS: BP 132/90; PULSE 82; RESP 16; TEMP 36.4; O2SAT 98
[2025-03-05 10:36] VITALS: BMI 23.6
--- NOTE | 2025-03-05 10:55 | RAD_ITS ---
PROCEDURE: KNEE 4 OR MORE VIEWS 03/05/2025 REASON FOR EXAM: FALL TECHNIQUE: KNEE 4 OR MORE VIEWS COMPARISON: None FINDINGS: Bones: No fracture. No suspicious bone lesion. Joints: Marked degree of joint space narrowing of the medial compartment of the knee joint. Degenerative changes of the patellofemoral joint. Effusion: No effusion. Soft tissues: Soft tissues are unremarkable. Other: RAD/Knee 4 or More Views IMPRESSION: DEGENERATIVE OSTEOARTHROSIS. NO ACUTE FINDINGS. Reading Location: [id number]
--- NOTE | 2025-03-05 10:55 | RAD_ITS ---
PROCEDURE: FOOT MIN 3 VIEWS 03/05/2025 REASON FOR EXAM: FALL TECHNIQUE: FOOT MIN 3 VIEWS COMPARISON: None FINDINGS: Bones: No visible fracture. No suspicious bone lesion. Joints: Normal alignment. Soft tissues: Soft tissue swelling. Other: RAD/Foot min 3 Views IMPRESSION: NO ACUTE FRACTURE OR DISLOCATION. Soft tissue swelling. Reading Location: [place] [id number]
--- NOTE | 2025-03-05 10:55 | RAD_ITS ---
PROCEDURE: KNEE 4 OR MORE VIEWS 03/05/2025 REASON FOR EXAM: FALL TECHNIQUE: KNEE 4 OR MORE VIEWS COMPARISON: None FINDINGS: Bones: No fracture. No suspicious bone lesion. Joints: Marked degree of joint space narrowing and osteoarthritis of the medial compartment of the knee joint. Patellofemoral osteoarthritis. Effusion: No effusion. Soft tissues: Soft tissues are unremarkable. Other: RAD/Knee 4 or More Views IMPRESSION: DEGENERATIVE OSTEOARTHROSIS. NO ACUTE FINDINGS. [facility]
--- NOTE | 2025-03-05 10:55 | RAD_ITS ---
PROCEDURE: ANKLE MIN 3 VIEWS 03/05/2025 REASON FOR EXAM: FALL TECHNIQUE: ANKLE MIN 3 VIEWS COMPARISON: None FINDINGS: Bones: Demineralization of the visualized bones. Joints: Normal alignment. Joint spaces preserved. No arthropathic features. No effusion. Soft tissues: Soft tissue swelling. Other: RAD/Ankle min 3 Views IMPRESSION: NO ACUTE FRACTURE OR DISLOCATION. Reading Location: [facility]
--- NOTE | 2025-03-05 11:06 | EDS_ITS ---
HPI History of Present Illness Chief Complaint: Fall Narrative Narrative: Patient is a 84-year-old female with past medical history of CVA, rheumatoid arthritis, GERD, anxiety who presents to the emergency department the chief complaint of bilateral knee pain and foot pain. Patient states that she yesterday was walking and notes that she fell to her knees. She states that she took some Tylenol last night and noted that when she got up this morning she was having pain when she tried to ambulate therefore she came here for further evaluation management. Patient states that she not have chest pain, lightheadedness, shortness of breath, dizziness prior to the fall she simply went down to her knees. She states that she was able to get up afterwards but was still having some pain therefore she came here for further evaluation management. Patient denies hitting her head passing out. Patient denies any blood thinner medications. [facility] Medical History History of stroke History of colon polyps Osteoarthritis Chronic prescription benzodiazepine use Hyperlipidemia CVA (cerebral vascular accident) Vitamin deficiency Rheumatoid arthritis Chronic headache GERD (gastroesophageal reflux disease) Breast lump H/O transfusion of whole blood Essential hypertension Atherosclerotic heart disease of [place] coronary artery without angina pectoris Fecal impaction Right bundle branch block (RBBB) 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 Essential (primary) hypertension Chest pain Intractable constipation Anxiety disorder Home Medications ?Medication ?Instructions ?Recorded ?Last Taken ?Type acetaminophen 325 mg tablet 650 mg (2 x 325 mg) PO Q4H PRN PRN 01/11/22 Unknown Rx (Tylenol) Pain 1-10 Or Fever #0 tabs cholecalciferol (vitamin D3) 125 125 mcg PO DAILY #0 c aps 01/14/22 Unknown Rx mcg (5,000 unit) capsule lisinopril 5 mg tablet 5 mg PO DAILY #0 tabs Unknown Rx escitalopram oxalate 10 mg tablet 5 mg PO DAILY Unknown History multivitamin (Multiple Vitamins 1 tab PO DAILY 3 Unknown History tablet) clonazepam 1 mg tablet 0.5 mg PO .QID 04/25/24 Unkn own History ezetimibe 10 mg tablet 10 mg PO QDAY #30 tabs 01/28 Unknown Rx aspirin 81 mg tablet,delayed 162 mg PO DAILY 02/23/25 Unknown History release elderberry fruit 350 mg capsule mg PO 03/03/25 Unknown History ubidecarenone-omega 3-vit E 25 1 cap PO ONCE 03/03/25 Unknown History mg-150 (90-60) mg-200 unit capsule (Co C-75-Mpmnzyu E-Fish Oil) Allergy/AdvReac Type Severity Reaction Status Date / Time amlodipine besylate (From Allergy Other Verified 03/05/25 10:34 Norvasc) atenolol Allergy Other Verified 03/05/25 10:34 atorvastatin Allergy PT UNSURE Verified 03/05/25 10:34 OF REACTION buspirone HCl (From BuSpar) Allergy Other Verified 03/05/25 10:34 citalopram hydrobromide Allergy Other Verified 03/05/25 10:34 (From Celexa) diazepam (From Valium) Allergy Other Verified 03/05/25 10:34 hydrochlorothiazide (From Allergy Other Verified 03/05/25 10:34 Zestoretic) metoprolol succinate (From Allergy Other Verified 03/05/25 10:34 Toprol XL) mirtazapine (From Remeron) Allergy Other Verified 03/05/25 10:34 paroxetine HCl (From Paxil) Allergy Other Verified 03/05/25 10:34 procaine HCl (From Novocain) Allergy Other Verified 03/05/25 10:34 Sulfa (Sulfonamide Allergy Other Verified 03/05/25 10:34 Antibiotics) valsartan (From Diovan) Allergy Other Verified 03/05/25 10:34 Penicillins AdvReac Unknown Other Verified 03/05/25 10:34 Family History Other Adopted Surgical History H/O heart bypass surgery History of cataract surgery History of coronary artery bypass graft x 3 (~09/01/19) History of coronary artery stent placement (08/30/19) History of herniorrhaphy History of cholecystectomy History of appendectomy Social History adopted: Yes household members: spouse number of children: 3 Smoking Status: Never smoker second hand exposure: No alcohol intake: never substance use type: does not use caffeine: No what type of physical activity do you participate in: none thelma/sikhism: L[employer] seatbelt use: always ROS ROS ED ROS Narrative Constitutional: Denies fevers, chills, headaches Cardiovascular: Denies chest pain Respiratory: Denies shortness of breath Abdomen: Denies nausea vomiting diarrhea : Denies urinary symptoms Neurological: Denies any numbness, tingling Musculoskeletal: Complains of bilateral knee pain and left foot and ankle pain Skin: Denies any rashes or lesions EXAM Physical Exam Narrative Exam Narrative: General: Patient lying in bed rest comfortably did not appear to be acute distress Head: Atraumatic, normocephalic Eyes: PERRL bilaterally, EOMI bilaterally, no conjunctival injection noted Neck: Soft, supple, trachea midline Cardiovascular: Regular in rhythm Respiratory: Clear to auscultation bilaterally Musculoskeletal: Patient has full range of motion of her knees bilaterally without any pain elicited, no pain with attempted range of motion of her hips bilaterally, when pushing on her left knee she states that she does have some mild discomfort with this as well as her left foot laterally although bony prominences palpated joints taken through full range of motion no pain elicited Extremities: +4/5 strength noted in the bilateral upper and lower extremities, radial pulses +2/4 in the bilateral extremities, no pedal edema on exam Neurological: Patient following commands knew that she was at [facility] the year is 2024 sensation grossly intact Skin: Warm, dry, intact no rashes lesions noted Const Vital Signs: 03/05/25 10:34 03/05/25 11:45 Temperature 97.6 F L Temperature Source Temporal Pulse Rate 82 Respiratory Rate 16 Respiratory Effort Normal Non-Labored Blood Pressure 132/90 H Blood Pressure Mean 104 Pulse Ox 98 Oxygen Delivery Method Room Air MDM MDM MDM Narrative Medical decision making narrative: Patient is a 84-year-old female who presented to the emergency department the chief complaint of fall yesterday landing on her knees. On the differential diagnosis includes but not limited to distal femur fractures, tibial plateau fractures although have low suspicion for these, joint effusion, metatarsal fracture. Once workup is obtained and reviewed she will be reevaluated. Patient states that she is sensitive to medications and is requesting 325 mg of Tylenol. Patient's x-rays Of her bilateral knees reviewed and showed degenerative osteoarthritis no acute findings this was reviewed by myself and by radiology. Patient's x-ray of her left foot reviewed by myself by radiology showed no acute fracture dislocation soft tissue swelling. Patient's x-ray of the left ankle reviewed by myself by radiology no acute fracture or dislocation. Patient did get up and ambulate she states that this was painful however was able to do so. I offered admission for potential PT OT evaluation and placement and patient states that she does not want to go into a facility and her significant other bedside also agrees with this. They are advised to return with worsening symptoms or other concerns. Patient will be given a removable Aircast for comfort per her request. She was advised follow-up with her doctor in outpatient setting return with worsening symptoms or any concerns. All question concerns answered she was discharged home in stable condition. Radiography Diagnostic Testing: Clinical Impression(s) from Imaging Studies Ankle X-Ray 03/05/25 10:55 IMPRESSION: NO ACUTE FRACTURE OR DISLOCATION. Reading Location: [facility] Foot X-Ray 03/05/25 10:55 IMPRESSION: NO ACUTE FRACTURE OR DISLOCATION. Soft tissue swelling. Reading Location: [facility] Knee X-Ray 03/05/25 10:55 IMPRESSION: DEGENERATIVE OSTEOARTHROSIS. NO ACUTE FINDINGS. Reading Location: [facility] Knee X-Ray 03/05/25 10:55 IMPRESSION: DEGENERATIVE OSTEOARTHROSIS. NO ACUTE FINDINGS. Reading Location: [facility] Discharge Plan Triage Chief Complaint: Fall ED Provider: Lex Bowman Dx/Rx/DC Orders Clinical Impression: Fall, Bilateral knee pain, Ankle pain, left Prescriptions: No Action escitalopram oxalate 10 mg tablet 5 mg PO DAILY clonazepam 1 mg tablet 0.5 mg PO .QID multivitamin [Multiple Vitamins] Tablet 1 tab PO DAILY aspirin 81 mg tablet,delayed release (DR/EC) 162 mg PO DAILY acetaminophen [Tylenol] 325 mg Tablet 650 mg PO Q4H PRN PRN (Reason: Pain 1-10 Or Fever) Qty: 0 0RF lisinopril 5 mg Tablet 5 mg PO DAILY Qty: 0 0RF cholecalciferol (vitamin D3) 125 mcg (5,000 unit) Capsule 125 mcg PO DAILY Qty: 0 0RF ezetimibe 10 mg tablet 10 mg PO QDAY Qty: 30 3RF Primary Care Provider: Jp Henson Referrals: Jp Henson DO [Primary Care Provider] - Activity Restrictions/Additional Instructions: Use Tylenol as needed for pain control. Follow with your doctor in the outpatient setting. Return with worsening symptoms or any other concerns. Your x-rays did not show any acute broken bones. Print Language: Greek Disposition Disposition: Home, Self Care
[2025-03-05 12:34] VITALS: BP 128/84; PULSE 74; RESP 16; O2SAT 99
[2025-03-05 13:17] VITALS: BP 128/84; PULSE 74; RESP 16; TEMP 36.4; O2SAT 99
== END 2025-03-05 13:17 | disposition home or self-care (01) ==
PROVIDERS: Emergency Provider Emergency Medicine; PCP Family Medicine; Visit Provider Emergency Medicine
DX: M25.561 Pain in right knee (principal); M06.9 Rheumatoid arthritis, unspecified; M25.572 Pain in left ankle and joints of left foot; M25.562 Pain in left knee; M79.672 Pain in left foot; W18.30XA Fall on same level, unspecified, initial encounter; Y93.01 Activity, walking, marching and hiking; I25.10 Atherosclerotic heart disease of native coronary artery without angina pectoris; M17.0 Bilateral primary osteoarthritis of knee; E78.5 Hyperlipidemia, unspecified; I10 Essential (primary) hypertension; Z79.82 Long term (current) use of aspirin; Z79.899 Other long term (current) drug therapy; K21.9 Gastro-esophageal reflux disease without esophagitis; F41.9 Anxiety disorder, unspecified; Z86.73 Personal history of transient ischemic attack (TIA), and cerebral infarction without residual deficits; Z95.1 Presence of aortocoronary bypass graft; Z95.5 Presence of coronary angioplasty implant and graft
CPT/HCPCS: 73564; 73610; 73630; 99283

== ENCOUNTER 2025-03-22 18:18 | Emergency (ER) | payer MEDICARE, OTHER, SELFPAY ==
[2025-03-22] VITALS (25 sets, daily range): BP systolic 116–186; BP diastolic 45–92; PULSE 61–78; RESP 14–26; TEMP 36.8; O2SAT 93–100; BMI 23.1
--- NOTE | 2025-03-22 18:28 | EKG12_ITS ---
Test Reason : CP Blood Pressure : */* mmHG Vent. Rate : 75 BPM Atrial Rate : 75 BPM P-R Int : 184 ms QRS Dur : 136 ms QT Int : 450 ms P-R-T Axes : 58 -64 83 degrees QTcB Int : 502 ms Normal sinus rhythm Left axis deviation Right bundle branch block Left ventricular hypertrophy with repolarization abnormality ( R in aVL ) Possible Lateral infarct (cited on or before 16-May-2023) Abnormal ECG Confirmed by SÁNCHEZ YOUNGER MD ([id number]), commercial production editor LEOPOLDO CUEVA ([id number]) on 03/24/2025 8:27:24 AM Referred By: TB Confirmed By: SÁNCHEZ YOUNGER MD
--- NOTE | 2025-03-22 18:35 | EX.ED.DYSGE1 ---
HPI History of Present Illness Chief Complaint: Chest Pain Narrative Narrative: Patient is a 84-year-old female with past medical history CAD status post CABG approximately 5 years ago, CVA, hypertension, right bundle branch block, anxiety who presents to the emergency department chief complaint of back pain and chest pain. Patient notes that about 2 days ago she was sitting in a chair she noted that she was sitting in her chair noted that she developed back pain and chest pain. She states that this happened again today she notes that she had upper back pain first and then developed chest pain prompting her to call EMS to have her brought here for further evaluation management. Patient denies any blood thinner medication denies recent travel history denies any history of blood clots. Patient states that she is currently pain-free. [facility] Medical History History of stroke History of colon polyps Osteoarthritis Chronic prescription benzodiazepine use Hyperlipidemia CVA (cerebral vascular accident) Vitamin deficiency Rheumatoid arthritis Chronic headache GERD (gastroesophageal reflux disease) Breast lump H/O transfusion of whole blood Essential hypertension Atherosclerotic heart disease of [place] coronary artery without angina pectoris Fecal impaction Right bundle branch block (RBBB) 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 Essential (primary) hypertension Chest pain Intractable constipation Anxiety disorder Home Medications ?Medication ?Instructions ?Recorded ?Last Taken ?Type acetaminophen 325 mg tablet 650 mg (2 x 325 mg) PO Q4H PRN PRN 01/11/22 Unknown Rx (Tylenol) Pain 1-10 Or Fever #0 tabs cholecalciferol (vitamin D3) 125 125 mcg PO DAILY #0 caps 01/14/22 Unknown Rx mcg (5,000 unit) capsule lisinopril 5 mg tablet 5 mg PO DAILY #0 tabs 01/14/22 Unknown Rx escitalopram oxalate 10 mg tablet 5 mg PO DAILY 04/25/22 Unknown History multivitamin (Multiple Vitamins 1 tab PO DAILY 09/06/22 Unknown History tablet) ezetimibe 10 mg tablet 10 mg PO QDAY #30 tabs 01/28/25 Unknown Rx aspirin 81 mg tablet,delayed 162 mg PO DAILY 02/23/25 Unknown History release elderberry fruit 350 mg capsule 350 mg PO DAILY 03/03/25 Unknown History ubidecarenone-omega 3-vit E 25 1 cap PO ONCE 03/03/25 Unknown History mg-150 (90-60) mg-200 unit capsule (Co L-56-Ggxjwus E-Fish Oil) clonazepam 0.5 mg tablet 0.25 - 0.5 mg PO 4X/DAY PRN PRN 03/22/25 Unknown History anxiety attack Allergy/AdvReac Type Severity Reaction Status Date / Time amlodipine besylate (From Allergy Other Verified 03/22/25 18:19 Norvasc) atenolol Allergy Other Verified 03/22/25 18:19 atorvastatin Allergy PT UNSURE Verified 03/22/25 18:19 OF REACTION buspirone HCl (From BuSpar) Allergy Other Verified 03/22/25 18:19 citalopram hydrobromide Allergy Other Verified 03/22/25 18:19 (From Celexa) diazepam (From Valium) Allergy Other Verified 03/22/25 18:19 hydrochlorothiazide (From Allergy Other Verified 03/22/25 18:19 Zestoretic) metoprolol succinate (From Allergy Other Verified 03/22/25 18:19 Toprol XL) mirtazapine (From Remeron) Allergy Other Verified 03/22/25 18:19 paroxetine HCl (From Paxil) Allergy Other Verified 03/22/25 18:19 procaine HCl (From Novocain) Allergy Other Verified 03/22/25 18:19 Sulfa (Sulfonamide Allergy Other Verified 03/22/25 18:19 Antibiotics) valsartan (From Diovan) Allergy Other Verified 03/22/25 18:19 Penicillins AdvReac Unknown Other Verified 03/22/25 18:19 Family History Other Adopted Surgical History H/O heart bypass surgery History of cataract surgery History of coronary artery bypass graft x 3 (~09/01/19) History of coronary artery stent placement (08/30/19) History of herniorrhaphy History of cholecystectomy History of appendectomy Social History adopted: Yes household members: spouse number of children: 3 Smoking Status: Never smoker second hand exposure: No alcohol intake: never substance use type: does not use caffeine: No what type of physical activity do you participate in: none thelma/zoroastrian: [employer] seatbelt use: always ROS ROS ED ROS Narrative Constitutional: Denies any fevers, chills, headaches, lightness, dizziness Eyes: Denies change in vision double vision blurry vision Cardiovascular: Complains of chest pain as noted above but states that she does not have any pain at this point in time Respiratory: Denies coughing wheezing shortness of breath Abdomen: Denies abdominal pain nausea vomit diarrhea : Denies any urinary symptoms Neurological: Denies numbness, wheeze, tingling Musculoskeletal: Complains of upper back pain as noted above denies any trauma or injuries Skin: Denies any rashes or lesions EXAM Physical Exam Narrative Exam Narrative: General: Patient lying in bed rest comfortably did not appear to be acute distress Head: Atraumatic, normocephalic Eyes: PERRL bilaterally, EOMI bilateral, no conjunctival injection noted Neck: Soft, supple, trachea midline Cardiovascular: Regular rate and rhythm no murmurs gallops rubs noted Respiratory: Clear to auscultation bilaterally Abdomen: Soft, nondistended, nontender to palpation Extremities: Radial pulses +2/4 in the bilateral extremities, no pedal edema exam, +4/5 strength noted in the bilateral upper and lower extremities Neurological: Patient following commands knew that she was at [facility] the year is 2024 Skin: Warm, dry, tact no rashes or lesions noted Const Vital Signs: 03/22/25 18:20 03/22/25 18:22 03/22/25 18:28 Temperature 98.2 F Temperature Source Oral Pulse Rate 78 Respiratory Rate 18 Respiratory Effort Normal Non-Labored Blood Pressure 186/77 H Blood Pressure Mean 113 Pulse Ox 96 95 Oxygen Delivery Method Room Air Room Air 03/22/25 18:30 03/22/25 18:45 03/22/25 18:45 Temperature Temperature Source Pulse Rate 69 73 Respiratory Rate 26 H 24 H Respiratory Effort Blood Pressure 158/60 H 171/65 H 171/65 H Blood Pressure Mean 88 90 90 Pulse Ox 95 96 Oxygen Delivery Method 03/22/25 19:00 03/22/25 19:15 03/22/25 19:20 Temperature Temperature Source Pulse Rate 72 70 75 Respiratory Rate 23 H 24 H 18 Respiratory Effort Blood Pressure 157/67 H 164/58 H 157/67 H Blood Pressure Mean 91 88 97 Pulse Ox 95 95 94 Oxygen Delivery Method Room Air 03/22/25 19:30 03/22/25 19:45 03/22/25 20:05 Temperature Temperature Source Pulse Rate 71 71 73 Respiratory Rate 22 H 17 16 Respiratory Effort Blood Pressure 153/68 H 143/61 H Blood Pressure Mean 91 84 Pulse Ox 97 93 93 Oxygen Delivery Method 03/22/25 20:15 03/22/25 20:30 03/22/25 20:45 Temperature Temperature Source Pulse Rate 68 66 Respiratory Rate 19 H 19 H Respiratory Effort Blood Pressure 141/54 H 146/45 H 137/74 H Blood Pressure Mean 81 76 85 Pulse Ox 96 95 Oxygen Delivery Method 03/22/25 21:00 03/22/25 21:00 03/22/25 21:15 Temperature Temperature Source Pulse Rate 65 65 61 Respiratory Rate 15 21 H 19 H Respiratory Effort Blood Pressure 116/92 H 140/59 H 142/46 H Blood Pressure Mean 100 82 73 Pulse Ox 94 94 93 Oxygen Delivery Method Room Air 03/22/25 21:49 03/22/25 21:56 03/22/25 21:56 Temperature Temperature Source Pulse Rate 64 66 Respiratory Rate 16 22 H Respiratory Effort Blood Pressure 131/51 H 152/63 H Blood Pressure Mean 77 89 Pulse Ox 94 97 Oxygen Delivery Method Room Air 03/22/25 21:57 03/22/25 22:00 03/22/25 22:05 Temperature 98.2 F Temperature Source Pulse Rate 66 66 Respiratory Rate 22 H 18 Respiratory Effort Blood Pressure 131/51 H 152/76 H 131/51 H Blood Pressure Mean 77 98 77 Pulse Ox 97 97 Oxygen Delivery Method 03/22/25 22:06 03/22/25 22:15 03/22/25 22:15 Temperature Temperature Source Pulse Rate 63 Respiratory Rate 24 H Respiratory Effort Blood Pressure 152/63 H 152/90 H 152/90 H Blood Pressure Mean 92 109 109 Pulse Ox 96 Oxygen Delivery Method 03/22/25 22:30 03/22/25 22:30 03/22/25 22:45 Temperature Temperature Source Pulse Rate 68 78 Respiratory Rate 14 26 H Respiratory Effort Blood Pressure 159/71 H 159/71 H 169/66 H Blood Pressure Mean 88 88 96 Pulse Ox 100 Oxygen Delivery Method 03/22/25 23:00 03/23/25 00:00 Temperature Temperature Source Pulse Rate 71 66 Respiratory Rate 18 13 Respiratory Effort Blood Pressure 156/64 H 170/73 H Blood Pressure Mean 90 105 Pulse Ox 93 Oxygen Delivery Method Room Air MDM MDM MDM Narrative Medical decision making narrative: Patient is a 84-year-old female who presents to the emergency department chief complaint of back pain and chest pain. On the differential diagnosis includes but not limited to ACS, pneumonia, pneumothorax, aortic dissection, stable angina. Once workup is obtained reviewed she will be reevaluated. Patient is currently asymptomatic at this point time. Patient CBC reviewed showed no evidence leukocytosis white blood count normal at 9.2, hemoglobin 14.6, platelet count of 265. Patient's sodium normal 130, potassium normal at 4.1, creatinine normal at 0.97. Patient's troponin was 15 with a delta troponin of 17. Patient's 4-hour troponin was 15. Patient proBNP normal at 120. Patient's chest x-ray reviewed and showed no acute cardiopulmonary processes. Patient's blood pressures were checked in each arm and there was noted to be discrepancy therefore CT of the chest was added on. This is pending this signed out to overnight provider to follow-up on pending this is normal she will be discharged home. See their note for details. Lab Data Labs: Laboratory Results - last 24 hr 03/22/25 03/22/25 03/22/25 18:27 20:20 22:20 WBC 9.2 RBC 4.71 Hgb 14.6 Hct 44.8 MCV 95.1 MCH 31.0 MCHC 32.6 RDW Std Deviation 42.5 RDW Coeff of Thor 12.1 Plt Count 265 MPV 10.6 Immature Gran % (Auto) 0.200 Neut % (Auto) 50.0 Lymph % (Auto) 37.6 [place] % (Auto) 7.0 Eos % (Auto) 4.1 Baso % (Auto) 1.1 H Absolute Neuts (auto) 4.6 Absolute Lymphs (auto) 3.46 Nucleated RBC % 0 Sodium 138 Potassium 4.1 Chloride 101 Carbon Dioxide 23.4 Anion Gap 14 BUN 16 Creatinine 0.97 Estim Creat Clear Calc 35.37 L Est GFR (MDRD) Non-Af 58 L BUN/Creatinine Ratio 16.3 Glucose 131 H Calcium 9.7 Troponin T High Sens 15 H Troponin T Hi Sens 2 Hr 17 H Troponin T Hi Sens 4Hr 15 H NT pro BNP II 120 Radiography Diagnostic Testing: Clinical Impression(s) from Imaging Studies Chest X-Ray 03/22/25 18:50 IMPRESSION: No acute abnormality Reading [facility] Chest CTA 03/22/25 22:01 IMPRESSION: No embolism, dissection, or pneumonia. Omental lesion partially imaged. Recommend abdominal CT. Reading [facility] Dis[facility] Triage Chief Complaint: Chest Pain ED Provider: Lex Bowman Dx/Rx/DC Orders Prescriptions: No Action escitalopram oxalate 10 mg tablet 5 mg PO DAILY multivitamin [Multiple Vitamins] Tablet 1 tab PO DAILY aspirin 81 mg tablet,delayed release (DR/EC) 162 mg PO DAILY Co B-08-Leermwt E-Fish Oil 25-150-200 mg-mg-unit capsule 1 cap PO ONCE elderberry fruit 350 mg capsule 350 mg PO DAILY acetaminophen [Tylenol] 325 mg Tablet 650 mg PO Q4H PRN PRN (Reason: Pain 1-10 Or Fever) Qty: 0 0RF lisinopril 5 mg Tablet 5 mg PO DAILY Qty: 0 0RF cholecalciferol (vitamin D3) 125 mcg (5,000 unit) Capsule 125 mcg PO DAILY Qty: 0 0RF clonazepam 0.5 mg tablet 0.25 - 0.5 mg PO 4X/DAY PRN PRN (Reason: anxiety attack) ezetimibe 10 mg tablet 10 mg PO QDAY Qty: 30 3RF Primary Care Provider: Jp Henson Referrals: Jp Henson DO [Primary Care Provider] - Print Language: Divehi
[2025-03-22 18:42] LABS: Hematocrit 44.8 % (37-47); Hemoglobin 14.6 g/dL (12.0-15.0); Immature Granulocytes Count 0.020 X10^3/uL (0.0-0.0); Mean Corp Hgb Conc 32.6 g/dL (32-36); Mean Corpuscular Volume 95.1 fL (81-99); Mean Platelet Vol. 10.6 fl (6.2-12.0); NRBC Flagged by Analyzer 0 % (0-5); Platelet Count 265 K/mm3 (150-450); RBC Distribution Width CV 12.1 % (11.6-14.6); RBC Distribution Width SD 42.5 fl (35.1-43.9); Red Blood Count 4.71 M/mm3 (4.2-5.4); White Blood Count 9.2 K/mm3 (4.4-11.0)
[2025-03-22] MEDS: 0.9% Normal Saline (1000mL) 1,000 ML 999 ML IV (18:43)
--- NOTE | 2025-03-22 18:50 | RAD_ITS ---
PROCEDURE: CHEST PA AND LATERAL 03/22/2025 REASON FOR EXAM: CHEST PAIN TECHNIQUE: CHEST PA AND LATERAL FINDINGS: Prior sternotomy. Lungs are hyperinflated. No consolidation or edema. Moderate vascular calcification RAD/Chest PA and Lateral IMPRESSION: No acute abnormality Reading [facility]
[2025-03-22 19:12] LABS: Anion Gap 14 (5-15); BUN 16 mg/dL (4-19); BUN/Creat Ratio 16.3 RATIO (10-20); Calcium,Total 9.7 mg/dL (7.6-11.0); Carbon Dioxide 23.4 mmol/L (21.0-32.0); Chloride 101 mmol/L (98-108); Estimated Creatinine Clearance 35.37 ml/min (50-250); Glucose 131 mg/dL (70-99); Potassium 4.1 mmol/L (3.3-5.1); Pro- Brain NATRIURETIC PEPTIDE 120 pg/mL (<=1800); Troponin T High Sensitivity 15 ng/L (<=14)
[2025-03-22 21:00] LABS: Troponin T High Sens 2 HR 17 ng/L (<=14)
--- NOTE | 2025-03-22 22:01 | CT_ITS ---
PROCEDURE: CTA CHEST W/WO CONTRAST 03/22/2025 REASON FOR EXAM: CHEST PAIN TECHNIQUE: CTA CHEST W/WO CONTRAST Multiplanar Sagittal and Coronal images were obtained. CONTRAST: Isovue 370 VOLUME: 98 mL One or more dose reduction techniques were used (e.g., Automated exposure control, adjustment of the mA and/or kV according to patient size, use of iterative reconstruction technique). RADIATION DOSE SUMMARY: CTDlvol: 17 mGy DLP: 213 mGycm COMPARISON: Chest x-ray 03/22/2025 Scratch stat FINDINGS: Unremarkable base of neck and axilla. Thoracic spine scoliosis and degeneration. Normal esophagus. Normal heart size. No aortic dissection. No pulmonary embolism. Central airways are patent. Bronchial wall thickening. Under aerated lungs. No consolidation, effusion, or pneumothorax. There is a questionable omental lesion, series 2 images 09/04, incompletely imaged. Recommend abdominal pelvic CT. CT/CTA Chest W/WO Contrast IMPRESSION: No embolism, dissection, or pneumonia. Omental lesion partially imaged. Recommend abdominal CT. Reading Location: [facility]
--- NOTE | 2025-03-22 22:06 | ED.RN ---
BP right arm 131/51. Left arm 152/63
[2025-03-22 23:12] LABS: Troponin T High Sens 4 HR 15 ng/L (<=14)
[2025-03-23] VITALS: BP 170/73; PULSE 66; RESP 13; O2SAT 93
== END 2025-03-23 02:23 | disposition home or self-care (01) ==
PROVIDERS: Emergency Provider Emergency Medicine; PCP Family Medicine; Visit Provider Emergency Medicine
DX: R07.9 Chest pain, unspecified (principal); I25.10 Atherosclerotic heart disease of native coronary artery without angina pectoris; I10 Essential (primary) hypertension; E78.5 Hyperlipidemia, unspecified; Z95.1 Presence of aortocoronary bypass graft; Z86.73 Personal history of transient ischemic attack (TIA), and cerebral infarction without residual deficits; Z79.899 Other long term (current) drug therapy; F41.9 Anxiety disorder, unspecified; Z79.82 Long term (current) use of aspirin; Z95.5 Presence of coronary angioplasty implant and graft; Z90.49 Acquired absence of other specified parts of digestive tract
CPT/HCPCS: 71046; 71275; 80048; 83880; 84484; 85025; 93005; 96360; 96361; 99285; Q9967; A4216

== ENCOUNTER → 2025-08-13 | Outpatient (CLI) | payer MEDICARE, OTHER, SELFPAY ==
[2025-08-13 10:57] LABS: AST(SGOT) 18 U/L (<=31); Alanine Aminotransfer ALT/SGPT 13 U/L (<=34); Albumin, Serum 4.1 g/dL (3.4-4.8); Alkaline Phosphatase 61 U/L (35-104); Bilirubin, Direct 0.12 mg/dL (0.00-0.30); Cholesterol 268 mg/dL (<=200); Globulin 3.1 g/dL (2.2-4.2); Low Density Lipoprotein Calc. 174 mg/dL; Triglycerides 258 mg/dL; Very Low Density Lipoprotein 52 mg/dL (5-40); Vitamin B12 1330 pg/mL (180-914); cholesterol:hdl ratio screen 5.98
== END | disposition home or self-care (01) ==
LOC: MTLAB 07:15
PROVIDERS: PCP Family Medicine; Referring Provider Psychiatry & Neurology Neurology; Visit Provider Psychiatry & Neurology Neurology
DX: E78.2 Mixed hyperlipidemia (principal); G31.84 Mild cognitive impairment of uncertain or unknown etiology
CPT/HCPCS: 36415; 80061; 80076; 82607